=== PATIENT | female | born 1930 | race Caucasian/White ===

== ENCOUNTER 2017-06-16 12:31 | Inpatient (IN) | payer MEDICARE ==
[2017-06-16] VITALS (44 sets, daily range): BP systolic 65–151; BP diastolic 44–107; PULSE 70–171; RESP 11–30; TEMP 96.1–98.7; O2SAT 0–100
[~2017-06-16] VITALS: Ht 170.2 cm; Wt 60.7 kg
[~2017-06-16 12:31] MED LIST: APIX5 PO; B12-1CHW CHEW; CEFU1TAB43 PO; CITA10TA4 PO; DIGO0.12 PO; DILTCD180 PO; FURO20 PO; KCL20 PO; LEVO137T4 PO; LOVA1TAB47 PO; METO25 PO; PANT20 PO; PRED10 PO; TAB-TAB PO; UMEC1AER INH
[2017-06-16] MEDS ORDERED: PHENYLEPHRINE HCL 10 MG/ML VIAL IV PUSH ONE (13:00)
[2017-06-16] MEDS ORDERED: ETOMIDATE 20 MG/10 ML VIAL IV PUSH ONE (13:00)
[2017-06-16] MEDS ORDERED: SODIUM CHLORIDE 0.9% FLUSH 10 ML FLUSH IVF PRN ×2 (13:00→16:00)
[2017-06-16] MEDS ORDERED: SODIUM CHLOR 0.9% 1000 ML INJ 1,000 ML IV ONE (13:00)
[2017-06-16] MEDS ORDERED: DILTIAZEM HCL 25 MG/5 ML VIAL IV ONE (13:00)
[2017-06-16] MEDS ORDERED: SUCCINYLCHOLINE CHLORIDE 200 MG/10 ML VIAL IV PUSH ONE (13:00)
--- NOTE | 2017-06-16 13:04 | PD ---
HPI Chief Complaint: respiratory distress Time Seen by Provider: 12:47 Travel History International Travel<30 days: No Contact w/Intl Traveler<30days: No Traveled to known affect area: No History of Present Illness HPI The patient is a 86-year-old female who presents to the emergency department via EMS for respiratory distress. According to EMS the patient was found to be in a tachyarrhythmia with a heart rate above 150 with poor respiratory effort. EMS states they were going to attempt intubation, however, was unable to obtain IV access or IO access. Therefore, EMS continue to use bag valve to assist the patient's respirations. When the patient arrived her eyes are closed, she was nonverbal, not following commands. Therefore, no further information was obtainable from the patient. PFSH Past Medical History Arthritis: No Asthma: No Blood Disorders: No Heart Rhythm Problems: Yes Cancer: Yes Cardiovascular Problems: Yes High Cholesterol: Yes (hyperlipidemia) Chest Pain: Yes Congestive Heart Failure: No COPD: Yes Cerebrovascular Accident: No Diabetes: No Diminished Hearing: No Endocrine: Yes Gastrointestinal Disorders: No GERD: No Glaucoma: No Genitourinary: No Headaches: No Hepatitis: No Hiatal Hernia: Yes Hypertension: Yes Immune Disorder: No Implanted Vascular Access Dvce: Yes Kidney Stones: No Musculoskeletal: No Neurologic: No Psychiatric: No Reproductive: No Respiratory: Yes Migraines: No Renal Failure: No Seizures: No Sleep Apnea: No Thyroid Disease: Yes Ulcer: No Past Surgical History Abdominal Surgery: Yes (hernia repair) Cardiac Surgery: Yes (quad bi-pass) Section: Yes Coronary Artery Bypass Graft: Yes Ear Surgery: No Endocrine Surgery: No Eye Surgery: No Genitourinary Surgery: Yes (bladder prolapsed) Gynecologic Surgery: Yes () Joint Replacement: Yes (RIGHT HIP) Neurologic Surgery: No Oral Surgery: No Pacemaker: No Thoracic Surgery: No Other Surgery: Yes (hysterectomy, bladder, eye, hip, hernia) Social History Alcohol Use: Yes (OCC) Tobacco Use: No Substance Use: No Allergies-Medications (Allergen,Severity, Reaction): Coded Allergies: No Known Allergies (Verified , 05/02/15) Reported Meds & Prescriptions Reported Meds & Active Scripts Active Reported K-Tab (Potassium Chloride) 10 Meq Tab 10 Meq PO DAILY Albuterol Neb (Albuterol Sulfate) 2.5 Mg/3 Ml Neb 2.5 Mg NEB ONCE Atrovent HFA 12.9 GM Inh (Ipratropium Ross) 17 Mcg/Act Aer 2 Puff INH Q6HR PRN Prednisone 5 Mg Tab 5 Mg PO DAILY Metoprolol Tartrate 25 Mg Tab 12.5 Mg PO BID Eliquis (Apixaban) 5 Mg Tab 5 Mg PO BID Vitamin B-12 (Cyanocobalamin) 1,000 Mcg Tab 1,000 Mcg PO DAILY Escitalopram (Escitalopram Oxalate) 10 Mg Tab 10 Mg PO DAILY Levothyroxine (Levothyroxine Sodium) 137 Mcg Tab 137 Mcg PO DAILY Digoxin 0.125 Mg Tab 0.125 Mg PO EVERY OTHER DAY Review of Systems ROS Limitations: Clinical Condition, Altered Mental Status Except as stated in HPI: all other systems reviewed are Neg Cardiovascular: Positive: Tachycardia Respiratory: Positive: Shortness of Breath Physical Exam Exam Limitations: Clinical Condition, Altered Mental Status Narrative GENERAL: 86-year-old female who presents emergency department respiratory distress with poor respiratory effort. Eyes closed, nonverbal, does not follow commands. SKIN: Cool and clammy. HEAD: Atraumatic. Normocephalic. EYES: 2 mm bilateral. ENT: No nasal bleeding or discharge. Upper dentures in place. Lower bridge in place. NECK: Trachea midline. No JVD. CARDIOVASCULAR: Irregularly irregular, tachycardic with a heart rate in the 160s. RESPIRATORY: Poor respiratory effort, agonal. Diminished breath sounds on the right. Crackles noted on the left. GASTROINTESTINAL: Abdomen soft, non-tender, nondistended. MUSCULOSKELETAL: Mild pitting edema to lower extremities noted. NEUROLOGICAL: Eyes closed, nonverbal, does not follow commands. PSYCHIATRIC: Unable to assess. Data Data Last Documented VS Vital Signs Date Time Temp Pulse Resp B/P Pulse Ox O2 Delivery O2 Flow Rate FiO2 06/16/17 13:59 70 06/16/17 13:41 81 16 06/16/17 12:43 0 06/16/17 12:31 151/107 Orders Complete Blood Count With Diff (06/16/17 12:47) Comprehensive Metabolic Panel (06/16/17 12:47) B-Type Natriuretic Peptide (06/16/17 12:47) D-Dimer (06/16/17 12:47) Act Partial Throm Time (Ptt) (06/16/17 12:47) Prothrombin Time / Inr (Pt) (06/16/17 12:47) Magnesium (Mg) (06/16/17 12:47) Ckmb (Isoenzyme) Profile (06/16/17 12:47) Troponin I (06/16/17 12:47) Arterial Blood Gas (Abg) (06/16/17 12:47) Blood Culture (06/16/17 12:47) Iv Access Insert/Monitor (06/16/17 12:47) Electrocardiogram (06/16/17 12:47) Ecg Monitoring (06/16/17 12:47) Oximetry (06/16/17 12:47) Oxygen Administration (06/16/17 12:47) Chest, Single Ap (06/16/17 12:47) Urinary Catheter Insert/Apply (06/16/17 12:47) Sodium Chloride 0.9% Flush (Ns Flush) (06/16/17 13:00) Digoxin (06/16/17 12:47) Sodium Chlor 0.9% 1000 Ml Inj (Ns 1000 M (06/16/17 13:00) Lactic Acid (06/16/17 12:47) Diltiazem Inj (Cardizem Inj) (06/16/17 13:00) Etomidate Inj (Amidate Inj) (06/16/17 13:00) Succinylcholine Inj (Quelicin Inj) (06/16/17 13:00) Phenylephrine Inj (Neosynephrine Inj) (06/16/17 13:00) Midazolam Inj (Versed Inj) (06/16/17 13:15) Midazolam 100 Mg/Ml Inj (Versed 100 Mg/M (06/16/17 13:15) Neurological Rass Scale Q30MX2,Q2HX4,Q4H (06/16/17 13:04) Fentanyl Drip (Fentanyl Drip) (06/16/17 13:15) Admit Order (Ed Use Only) (06/16/17 14:34) Labs Laboratory Tests Test 06/16/17 13:10 White Blood Count 14.4 TH/MM3 Red Blood Count 3.71 MIL/MM3 Hemoglobin 11.0 GM/DL Hematocrit 33.9 % Mean Corpuscular Volume 91.2 FL Mean Corpuscular Hemoglobin 29.6 PG Mean Corpuscular Hemoglobin 32.4 % Concent Red Cell Distribution Width 14.7 % Platelet Count 305 TH/MM3 Mean Platelet Volume 7.9 FL Neutrophils (%) (Auto) 87.0 % Lymphocytes (%) (Auto) 5.0 % Monocytes (%) (Auto) 4.9 % Eosinophils (%) (Auto) 0.9 % Basophils (%) (Auto) 2.2 % Neutrophils # (Auto) 12.6 TH/MM3 Lymphocytes # (Auto) 0.7 TH/MM3 Monocytes # (Auto) 0.7 TH/MM3 Eosinophils # (Auto) 0.1 TH/MM3 Basophils # (Auto) 0.3 TH/MM3 CBC Comment DIFF FINAL Differential Comment Prothrombin Time 17.0 SEC Prothromb Time International 1.5 RATIO Ratio Activated Partial 30.4 SEC Thromboplast Time D-Dimer Quantitative (PE/DVT) 3.12 MG/L FEU Blood Gas Puncture Site RT RADIAL Blood Gas Patient Temperature 98.6 Blood Gas HCO3 20 mmol/L Blood Gas Base Excess -5.7 mmol/L Blood Gas Oxygen Saturation 97 % Arterial Blood pH 7.27 Arterial Blood Partial 46 mmHG Pressure CO2 Arterial Blood Partial 262 mmHG Pressure O2 Arterial Blood Oxygen Content 16.5 Vol % Arterial Blood 1.2 % Carboxyhemoglobin Arterial Blood Methemoglobin 1.1 % Blood Gas Hemoglobin 11.6 G/DL Oxygen Delivery Device VENTILATOR Blood Gas Ventilator Setting 14/500/PEEP 5 Blood Gas Inspired Oxygen 100 % Sodium Level 126 MEQ/L Potassium Level 5.3 MEQ/L Chloride Level 90 MEQ/L Carbon Dioxide Level 25.8 MEQ/L Anion Gap 10 MEQ/L Blood Urea Nitrogen 26 MG/DL Creatinine 1.20 MG/DL Estimat Glomerular Filtration 43 ML/MIN Rate Random Glucose 229 MG/DL Lactic Acid Level 5.3 mmol/L Calcium Level 7.2 MG/DL Protein Corrected Calcium 8.1 MG/DL Magnesium Level 2.0 MG/DL Total Bilirubin 0.5 MG/DL Aspartate Amino Transf 31 U/L (AST/SGOT) Alanine Aminotransferase 24 U/L (ALT/SGPT) Alkaline Phosphatase 57 U/L Total Creatine Kinase 61 U/L Troponin I 0.09 NG/ML B-Type Natriuretic Peptide 1672 PG/ML Total Protein 5.4 GM/DL Albumin 2.8 GM/DL Digoxin Level 0.4 NG/ML MDM Medical Decision Making Medical Screen Exam Complete: Yes Emergency Medical Condition: Yes Medical Record Reviewed: Yes Interpretation(s) EKG #1 reveals atrial fibrillation with RVR, right bundle branch block, rate 157. EKG #2 reveals atrial fibrillation with a rate of 78. Right bundle-branch block. Nonspecific T wave changes. Last Impressions Chest X-Ray 06/16/17 1247 Signed Impressions: Service Date/Time: Friday, June 16, 2017 13:06 - CONCLUSION: 1. Endotracheal tube 2.5 cm above the mitzi. 2. Opacification right hemithorax from previous pneumonectomy. 3. Small left pleural effusion and left basilar atelectasis. Keven Larson MD Laboratory Tests Test 06/16/17 13:10 White Blood Count 14.4 TH/MM3 Red Blood Count 3.71 MIL/MM3 Hemoglobin 11.0 GM/DL Hematocrit 33.9 % Mean Corpuscular Volume 91.2 FL Mean Corpuscular Hemoglobin 29.6 PG Mean Corpuscular Hemoglobin 32.4 % Concent Red Cell Distribution Width 14.7 % Platelet Count 305 TH/MM3 Mean Platelet Volume 7.9 FL Neutrophils (%) (Auto) 87.0 % Lymphocytes (%) (Auto) 5.0 % Monocytes (%) (Auto) 4.9 % Eosinophils (%) (Auto) 0.9 % Basophils (%) (Auto) 2.2 % Neutrophils # (Auto) 12.6 TH/MM3 Lymphocytes # (Auto) 0.7 TH/MM3 Monocytes # (Auto) 0.7 TH/MM3 Eosinophils # (Auto) 0.1 TH/MM3 Basophils # (Auto) 0.3 TH/MM3 CBC Comment DIFF FINAL Differential Comment Prothrombin Time 17.0 SEC Prothromb Time International 1.5 RATIO Ratio Activated Partial 30.4 SEC Thromboplast Time D-Dimer Quantitative (PE/DVT) 3.12 MG/L FEU Blood Gas Puncture Site RT RADIAL Blood Gas Patient Temperature 98.6 Blood Gas HCO3 20 mmol/L Blood Gas Base Excess -5.7 mmol/L Blood Gas Oxygen Saturation 97 % Arterial Blood pH 7.27 Arterial Blood Partial 46 mmHG Pressure CO2 Arterial Blood Partial 262 mmHG Pressure O2 Arterial Blood Oxygen Content 16.5 Vol % Arterial Blood 1.2 % Carboxyhemoglobin Arterial Blood Methemoglobin 1.1 % Blood Gas Hemoglobin 11.6 G/DL Oxygen Delivery Device VENTILATOR Blood Gas Ventilator Setting 14/500/PEEP 5 Blood Gas Inspired Oxygen 100 % Sodium Level 126 MEQ/L Potassium Level 5.3 MEQ/L Chloride Level 90 MEQ/L Carbon Dioxide Level 25.8 MEQ/L Anion Gap 10 MEQ/L Blood Urea Nitrogen 26 MG/DL Creatinine 1.20 MG/DL Estimat Glomerular Filtration 43 ML/MIN Rate Random Glucose 229 MG/DL Lactic Acid Level 5.3 mmol/L Calcium Level 7.2 MG/DL Protein Corrected Calcium 8.1 MG/DL Magnesium Level 2.0 MG/DL Total Bilirubin 0.5 MG/DL Aspartate Amino Transf 31 U/L (AST/SGOT) Alanine Aminotransferase 24 U/L (ALT/SGPT) Alkaline Phosphatase 57 U/L Total Creatine Kinase 61 U/L Troponin I 0.09 NG/ML B-Type Natriuretic Peptide 1672 PG/ML Total Protein 5.4 GM/DL Albumin 2.8 GM/DL Digoxin Level 0.4 NG/ML Differential Diagnosis Differential diagnosis includes A. fib with RVR, ventricular arrhythmia, congestive heart failure, cardiomyopathy, pneumonia, sepsis, bronchitis, electrolyte abnormality, volume overload. Narrative Course IV was established via left external jugular 18-gauge, placed by myself. The patient is a placed on cardiac telemetry monitoring and continuous pulse oximetry monitoring. The patient's initial breathing was supported with bag valve ventilation. Immediate EKG was performed to differentiate A. fib with RVR and underlying bundle branch block versus ventricular tachycardia. EKG revealed A. fib with RVR. The patient was administered etomidate and succinylcholine, was intubated using rapid sequence intubation. Post intubation chest x-ray was obtained. [place] catheter was placed. Labs were drawn and sent. The patient's blood pressure did lower after the administration of Cardizem 20 mg intravenously, was supported with IV fluids and the blood pressure responded. The patient's heart rate, A. fib with RVR, responded to 20 mg of Cardizem intravenously, came down into the 70s. Repeat EKG revealed A. fib with right bundle-branch block, rate controlled. Blood culture and lactic acid were sent to lab. Chest x-ray reveals previous right pneumonectomy, BNP is elevated greater than 1600, troponin is elevated 0.09, most likely secondary to A. fib with RVR. Patient's d-dimer is elevated, however, she is anticoagulated with Eliquis, I doubt pulmonary embolism. The patient will be admitted to the intensive care unit. I discussed the patient with Dr. Amaral who agrees with admission. Critical Care Narrative Aggregate critical care time was 45 minutes. Time to perform other separately billable procedures was not included in the critical care time. My time did not include minutes spent treating any other patients simultaneously or on activities that did not directly contribute to the patient's treatment. The services I provided to this patient were to treat and/or prevent clinically significant deterioration that could result in: Anoxia, hypoxia, aspiration, arrhythmia, . I provided critical care services requiring my management, as noted below: Chart data review, documentation time, medication orders and management, vital sign assessments/reviewing monitor data, ordering and reviewing lab tests, ordering and interpreting/reviewing x-rays and diagnostic studies, care of the patient and discussion of the patient with the admitting physicians. Procedures Procedure Narrative INTUBATION: The patient was put in optimal position for the procedure. Rapid sequence intubation was initiated by me using 20 milligrams of etomidate IV and 100 milligrams of succinylcholine IV. The patient was intubated with a 7.5 cuffed endotracheal tube. Tube placement was confirmed by visualization of the tube and balloon passing through the cords, capnometry and subsequent chest x- ray. Breath sounds were equal and well aerated bilaterally postintubation. No breath sounds over stomach. Patient tolerated procedure well. Physician Communication Physician Communication The on-call service assistant was paged for admission. I discussed the patient with Dr. Amaral who agrees with admission. Diagnosis Primary Impression: Atrial fibrillation with RVR Additional Impression: Respiratory distress Admitting Information Admitting Physician Requests: Admit Condition: Serious Codey Hairston MD Jun 16, 2017 13:04
--- NOTE | 2017-06-16 13:14 | RADRPT ---
EXAM DATE/TIME: 06/16/2017 13:06 [facility] COMPARISON: CHEST SINGLE AP, May 08, 2015, 4:40. INDICATIONS : Post intubation. MEDICAL HISTORY : Unobtainable. SURGICAL HISTORY : Unobtainable. ENCOUNTER: Initial ACUITY: 1 day PAIN SCORE: Non-responsive. LOCATION: Bilateral chest FINDINGS: A single view of the chest demonstrates endotracheal tube placement with tip 2.5 cm above the mitzi. Volume loss and complete opacification right hemithorax. Minimal left basilar density and small effu dennis. Previous median sternotomy. Osseous structures are intact. CONCLUSION: 1. Endotracheal tube 2.5 cm above the mitzi. 2. Opacification right hemithorax from previous pneumonectomy. 3. Small left pleural effusion and left basilar atelectasis. Keven Larson MD on June 16, 2017 at 13:12 Board Certified Radiologist. This report was verified electronically.
[2017-06-16] MEDS ORDERED: fentaNYL DRIP 250 ML IV SCH (13:15)
[2017-06-16] MEDS ORDERED: MIDAZOLAM HCL 5 MG/5 ML VIAL IV PUSH ONE (13:15)
[2017-06-16] MEDS ORDERED: MIDAZOLAM 100 MG/ML INJ 100 ML IV SCH (13:15)
[2017-06-16 13:18] LABS: AUTOMATED NEUTROPHIL # 12.6 TH/MM3 (1.8-7.7); BASOPHIL # 0.3 TH/MM3 (0-0.2); BASOPHIL % 2.2 % (0.0-2.0); BLOOD GAS BASE EXCESS -5.7 mmol/L (-2-2); BLOOD GAS CARBOXYHEMOGLOBIN 1.2 % (0-4); BLOOD GAS HCO3 20 mmol/L (22-26); BLOOD GAS METHEMOGLOBIN 1.1 % (0-2); BLOOD GAS O2 HGB SATURATION 97 % (90-100); BLOOD GAS OXYGEN CONTENT 16.5 Vol % (12.0-20.0); BLOOD GAS PCO2 46 mmHG (38-42); BLOOD GAS PO2 262 mmHG (61-120); BLOOD GAS TOTAL HGB 11.6 G/DL (12.0-16.0); CRITICAL VALUE YES; DRAW SITE RT RADIAL; EOSINOPHIL # 0.1 TH/MM3 (0-0.4); EOSINOPHIL % 0.9 % (0.0-4.0); FIO2 100 %; HEMATOCRIT 33.9 % (35.0-46.0); LYMPHOCYTE # 0.7 TH/MM3 (1.0-4.8); MEAN CELL VOLUME 91.2 FL (80.0-100.0); MEAN CORPUSCULAR HEMOGLOBIN 29.6 PG (27.0-34.0); MEAN CORPUSCULAR HGB CONC 32.4 % (32.0-36.0); MONO % 4.9 % (0.0-8.0); NUMBER OF ARTERIAL PUNCTURES 1; OXYGEN DEVICE VENTILATOR; PLATELET COUNT 305 TH/MM3 (150-450); RED BLOOD COUNT 3.71 MIL/MM3 (4.00-5.30); RED CELL DISTRIBUTION WIDTH 14.7 % (11.6-17.2); STAT YES; TEMP CORR TO 98.6; ULNAR PULSE PRESENT; VENT SETTINGS 14/500/PEEP 5; WHITE BLOOD COUNT 14.4 TH/MM3 (4.0-11.0)
[2017-06-16 13:26] LABS: HEMO FLAGS DIFF FINAL
[2017-06-16 13:31] LABS: POTASSIUM 5.3 MEQ/L (3.5-5.1)
[2017-06-16 13:54] LABS: APTT (PATIENT) 30.4 SEC (24.3-30.1); INTERNATIONAL NORMALIZED RATIO 1.5 RATIO
[2017-06-16 13:55] LABS: BICARBONATE 25.8 MEQ/L (21.0-32.0); CALCIUM-PROTEIN CORRECTED 8.1 MG/DL (8.5-10.1); TOTAL BILIRUBIN ADULT 0.5 MG/DL (0.2-1.0)
[2017-06-16] MEDS ORDERED: ESCI10TA PO (14:13)
[2017-06-16] MEDS ORDERED: APIX5TAB PO (14:13)
[2017-06-16] MEDS ORDERED: PRED5TAB PO (14:13)
[2017-06-16] MEDS ORDERED: IPRA17I INH (14:13)
[2017-06-16] MEDS ORDERED: ALBU0.08 NEB (14:13)
[2017-06-16] MEDS ORDERED: LEVO137T2 PO (14:13)
[2017-06-16] MEDS ORDERED: DIGO0.12 PO (14:13)
[2017-06-16] MEDS ORDERED: VITA10002 PO (14:13)
[2017-06-16] MEDS ORDERED: K-TA10TA PO (14:13)
[2017-06-16] MEDS ORDERED: METO25TA3 PO (14:13)
[2017-06-16 14:22] LABS: DIGOXIN 0.4 NG/ML (0.8-2.0)
[2017-06-16] MEDS ORDERED: TERBUTALINE INJ 1 MG/ML AMP SQ PRN (15:30)
[2017-06-16] MEDS ORDERED: CHLORHEXIDINE GLUCONATE 2 % 1 PACK (2 CLOTHS) TOP PRN (15:30)
[2017-06-16] MEDS ORDERED: ACETAMINOPHEN 325 MG TAB PO PRN (15:30)
[2017-06-16] MEDS ORDERED: SENNOSIDES 8.6 MG TAB PO PRN (15:30)
[2017-06-16] MEDS ORDERED: MAGNESIUM HYDROXIDE SUSP 30 ML CUP PO PRN (15:30)
[2017-06-16] MEDS ORDERED: MISCELLANEOUS NURSING INFORMATION XX SCH (15:30)
[2017-06-16] MEDS ORDERED: ONDANSETRON HCL 4 MG/2 ML VIAL IV PRN (15:30)
--- NOTE | 2017-06-16 16:10 | HHI.HP ---
[facility] Service Critical Care Medicine Primary Care Physician Rustam Gonzales, DO Admission Diagnosis atrial fibrillation with RVR, respiratory distress, hyponatremia Diagnosis: (1) Non-small cell carcinoma of lung Diagnosis: Principal (2) Atrial fibrillation with RVR Diagnosis: Principal (3) Acute respiratory failure with hypoxia and hypercapnia Diagnosis: Principal (4) Tachycardia Diagnosis: Principal (5) SOB (shortness of breath) Diagnosis: Principal (6) PNA (pneumonia) Diagnosis: Principal (7) Coronary artery disease Diagnosis: Principal (8) Hypertension Diagnosis: Principal (9) Hypothyroidism Diagnosis: Principal (10) Leukocytosis Diagnosis: Principal (11) Normocytic anemia Diagnosis: Principal (12) Lactic acidosis Diagnosis: Principal (13) On apixaban therapy Diagnosis: Principal (14) Hyponatremia Diagnosis: Principal (15) Hyperkalemia Diagnosis: Principal (16) Acute hyperglycemia Diagnosis: Principal (17) Elevated INR Diagnosis: Principal (18) Elevated partial thromboplastin time (PTT) Diagnosis: Principal (19) Vitamin B12 deficiency Diagnosis: Principal (20) Anxiety disorder Diagnosis: Principal (21) Current chronic use of systemic steroids Diagnosis: Principal (22) Elevated brain natriuretic peptide (BNP) level Diagnosis: Principal (23) Right bundle branch block Diagnosis: Principal (24) Elevated troponin I level Diagnosis: Principal (25) Septic shock Diagnosis: Principal Chief Complaint: shortness of breath Travel History International Travel<30 Days: No Contact w/Intl Traveler <30 Da: No Traveled to Known Affected Are: No Sepsis Criteria SIRS Criteria (2 or more): RR > 20 or PaCO2 < 32, WBC > 95398, < 4000 or > 10 % bands Severe Sepsis (+one): Lactate >2 Septic Shock Criteria: Lactic acid >=4 Criteria Outcome: Meets septic shock criteria History of Present Illness 86-year-old female. Data admission 06/16/2017. Past medical history includes non-small cell carcinoma lung status post right human echo, coronary disease status post CABG 4, hypertension, dyslipidemia, hypothyroidism, atrial fibrillation, osteoarthritis. Patient sees Dr. Lemos and recently refused a pacemaker. She is also recently hospitalized at [facility] in early May with pneumonia 4 days. Negative etiology for shortness of breath and patient was sent home. She has been short of breath in the interim. She presents today to the emergency department at [place] via EMS for respiratory distress. Intubation was attempted in the field due to a saturation of 60% and a heart rate of 150 however unable to obtain IV or I/O access. Patient was intubated with a 7.5 ET tube@receiving 20 mg etomidate and 100 mg succinylcholine after receiving IV access Laboratories revealed a significant acidosis at the PEG 727. PCO2 46. PO2 262. Lactic acid was 5.3. General leukocytosis of 14,000. Sodium was 126 for potassium 5.3. Creatinine 1.2. BNP elevated at 1600. Troponin 0.09. EKG revealed A. fib with RVR with a right bundle branch block which appears to be new. His x-ray revealed status post right pneumonectomy. Small left pleural effusion/infiltrate. Digoxin level 0.4. She is awake and arousable on the ventilator the present time. Review of Systems ROS Limitations: Intubated Past Family Social History Allergies: Coded Allergies: No Known Allergies (Verified , 05/02/15) Past Medical History Osteoarthritis History of non-small carcinoma of the lung Coronary artery disease Hypertension Dyslipidemia Hypothyroidism Atrial fibrillation currently in RVR Anxiety disorder NOS Chronic prednisone use Vitamin B12 deficiency Past Surgical History Right pneumonectomy CABG 4 Left inguinal hernia. Left cataract Polyp removal 2 Cystocele repair Right total hip repair Reported Medications K-Tab (Potassium Chloride) 10 Meq Tab 10 Meq PO DAILY Albuterol Neb (Albuterol Sulfate) 2.5 Mg/3 Ml Neb 2.5 Mg NEB ONCE Atrovent HFA 12.9 GM Inh (Ipratropium [place]) 17 Mcg/Act Aer 2 Puff INH Q6HR PRN Prednisone 5 Mg Tab 5 Mg PO DAILY Metoprolol Tartrate 25 Mg Tab 12.5 Mg PO BID Eliquis (Apixaban) 5 Mg Tab 5 Mg PO BID Vitamin B-12 (Cyanocobalamin) 1,000 Mcg Tab 1,000 Mcg PO DAILY Escitalopram (Escitalopram Oxalate) 10 Mg Tab 10 Mg PO DAILY Levothyroxine (Levothyroxine Sodium) 137 Mcg Tab 137 Mcg PO DAILY Digoxin 0.125 Mg Tab 0.125 Mg PO EVERY OTHER DAY Active Ordered Medications Reviewed in EMR Family History Father of myocardial infarction age 73. Social History Secondhand smoke exposure. Very rare alcohol use. No IV drug use documented Physical Exam Vital Signs Vital Signs Date Time Temp Pulse Resp B/P Pulse Ox O2 Delivery O2 Flow Rate FiO2 06/16/17 15:00 82 96/56 95 06/16/17 14:15 71 91/56 06/16/17 14:00 70 96/61 06/16/17 13:59 70 06/16/17 13:45 79 82/47 06/16/17 13:41 81 16 06/16/17 13:30 74 101/65 06/16/17 13:15 86 96/66 06/16/17 13:00 80 90/54 06/16/17 12:45 118 65/44 100 06/16/17 12:43 0 100 06/16/17 12:37 100 06/16/17 12:31 171 151/107 100 Physical Exam GENERAL: 86 year old female, critically ill currently resting in bed in no acute distress SKIN: Cool and dry. No rash HEAD: Atraumatic. Normocephalic. EYES: Right pupil about 3 mm and reactive. Left pupil round 2 mm and sluggish. History of left cataract. No scleral icterus. No injection or drainage. ENT: No nasal bleeding or discharge. Mucous membranes pink and moist. NECK: Trachea midline. No JVD. CARDIOVASCULAR: IRR. S1, S2. No S4. Without murmur, clicks, calculus or rubs RESPIRATORY: Miss breath sounds throughout right lung moore. Few crackles appreciated in the left base. No wheezing GASTROINTESTINAL: Abdomen soft, non-tender, nondistended. Hypoactive bowel sounds are appreciated. MUSCULOSKELETAL: Extremities without difficulty and peripheral edema NEUROLOGICAL: Arousable on the ventilator. Nods head to simple questions. Moves all 4 extremities spontaneously. Positive gag. Positive corneal reflex. Laboratory Laboratory Tests Test 06/16/17 13:10 White Blood Count 14.4 Red Blood Count 3.71 Hemoglobin 11.0 Hematocrit 33.9 Mean Corpuscular Volume 91.2 Mean Corpuscular Hemoglobin 29.6 Mean Corpuscular Hemoglobin 32.4 Concent Red Cell Distribution Width 14.7 Platelet Count 305 Mean Platelet Volume 7.9 Neutrophils (%) (Auto) 87.0 Lymphocytes (%) (Auto) 5.0 Monocytes (%) (Auto) 4.9 Eosinophils (%) (Auto) 0.9 Basophils (%) (Auto) 2.2 Neutrophils # (Auto) 12.6 Lymphocytes # (Auto) 0.7 Monocytes # (Auto) 0.7 Eosinophils # (Auto) 0.1 Basophils # (Auto) 0.3 CBC Comment DIFF FINAL Differential Comment Prothrombin Time 17.0 Prothromb Time International 1.5 Ratio Activated Partial 30.4 Thromboplast Time D-Dimer Quantitative (PE/DVT) 3.12 Blood Gas Puncture Site RT RADIAL Blood Gas Patient Temperature 98.6 Blood Gas HCO3 20 Blood Gas Base Excess -5.7 Blood Gas Oxygen Saturation 97 Arterial Blood pH 7.27 Arterial Blood Partial 46 Pressure CO2 Arterial Blood Partial 262 Pressure O2 Arterial Blood Oxygen Content 16.5 Arterial Blood 1.2 Carboxyhemoglobin Arterial Blood Methemoglobin 1.1 Blood Gas Hemoglobin 11.6 Oxygen Delivery Device VENTILATOR Blood Gas Ventilator Setting 14/500/PEEP 5 Blood Gas Inspired Oxygen 100 Sodium Level 126 Potassium Level 5.3 Chloride Level 90 Carbon Dioxide Level 25.8 Anion Gap 10 Blood Urea Nitrogen 26 Creatinine 1.20 Estimat Glomerular Filtration 43 Rate Random Glucose 229 Lactic Acid Level 5.3 Calcium Level 7.2 Protein Corrected Calcium 8.1 Magnesium Level 2.0 Total Bilirubin 0.5 Aspartate Amino Transf 31 (AST/SGOT) Alanine Aminotransferase 24 (ALT/SGPT) Alkaline Phosphatase 57 Total Creatine Kinase 61 Troponin I 0.09 B-Type Natriuretic Peptide 1672 Total Protein 5.4 Albumin 2.8 Digoxin Level 0.4 Date/Time Procedure Status Source Growth 06/16/17 13:10 Aerobic Blood Culture Received Blood Peripheral Pending 06/16/17 13:10 Anaerobic Blood Culture Received Blood Peripheral Pending Result Diagram: 06/16/17 1310 06/16/17 1310 Imaging Last 72 hours Impressions Chest X-Ray 06/16/17 1247 Signed Impressions: Service Date/Time: Friday, June 16, 2017 13:06 - CONCLUSION: 1. Endotracheal tube 2.5 cm above the mitzi. 2. Opacification right hemithorax from previous pneumonectomy. 3. Small left pleural effusion and left basilar atelectasis. Keven Larson MD Assessment and Plan Assessment and Plan Neuro/Psych: Anxiety disorder NOS Currently started on propofol/fentanyl drips for sedation/analgesia while intubated Goal of RASS -2 Daily sedation vacation Continue Escitalopram 10 mg by mouth daily/home medication CV: Severe sepsis A. fib with RVR Coronary disease status post CABG 4 History of hypertension Dyslipidemia Lactic acidosis Patient is currently on normal saline at 84 cc an hour. Holding metoprolol 12.5 mill grams by mouth twice a day/home medication Resume digoxin 0.125 mg by mouth every other day. Will load with 0.25 mg 1 now IV since digoxin level 0.4 currently. Recheck digoxin level in a.m. Consult cardiology/Dr. Lemos. Previous pacemaker candidate quadrant but patient refused 2-D echocardiogram 05/14 revealed EF 55-60%. No regional wall motion abnormality. Mild TR/MR. REY 37 mmHg Repeat 2-D echocardiogram ordered Serial lactates until clear Lipid panel ordered Check CVP monitor Resp: Acute hypoxic hypercapnic respiratory failure Recent history pneumonia hospitalist at [facility] History right pneumonectomy status post non-small carcinoma of the lung [facility] 500/1.12/04/59 Ventilator bundle Duo nebs every 4 hours with albuterol every 2 hours when necessary dyspnea Consult pulmonology/Dr. Epps On albuterol nebulizers and ipratropium inhaler at home. Her chest x-rays reveals right pneumonectomy. Left side with possible infiltrate/effusion left lower lobe. Repeat ABG in a.m. GI: Patient is currently nothing by mouth OG tube to low intermittent wall suction Protonix for GI prophylaxis Aiyana-Colace for bowel regimen : [place] catheter has been placed for accurate I's and O's in a critically ill patient Endo: Hyperglycemia of critical illness/prednisone usage Hypothyroidism Vitamin B12 deficiency Chronic prednisone usage- 5 mg daily Continues cyanocobalamin 1000 mcg by mouth daily On Solu-Medrol 40 mg IV twice a day pulmonary dosage Resume levothyroxine at 137 g daily. Check TSH Sliding-scale insulin with Accu-Cheks to maintain euglycemia/every 6 hours/low regimen Renal: Acute kidney injury Creatinine currently 1.2. Monitor urine output Accurate I's and O's Repeat BMP in a.m. Heme: Leukocytosis Normocytic anemia Chronic Apixaban use Elevated PTT/PTT - fibrinogen pending Holding NOAC secondary to acute illness and possible intervention. We'll start heparin drip in the interim Monitor CBC daily. Follow trends ID: Blood cultures 2, urine, sputum, Legionella and pneumococcal urinary antigen and influenza all ordered Start empirically on vancomycin, cefepime and azithromycin for community- acquired pneumonia/ICU possible HCAP with recent hospitalization at [facility] FEN: Hyponatremia/appears euvolemic -Hyperkalemia Replacing electrolytes as clinically indicated Check osm serum and urine urine sodium, TSH, cortisol and uric acid. Holding KCl 10 mEq by mouth twice a day. Resume when clinically indicated MSK: Osteoarthritis Access - Right IJ CVL day 1 placed 06/16 Prophylaxis - GI - Protonix - DVT - SCD/heparin drip Critical Care: The total critical care time was 55 minutes. Time to perform other separately billable procedures was not included in the critical care time. Code Status Full code Discussed Condition With Dr. Hairston/ED physician. Daughter Lolly Mercedes [phone]. Care plan discussed and all questions answered. Problem Qualifiers (1) PNA (pneumonia): Qualified Code: J18.9 - Pneumonia of left lung due to infectious organism, unspecified part of lung (2) Coronary artery disease: Qualified Code: I25.10 - Coronary artery disease involving [place] coronary artery of [place] heart without angina pectoris (3) Hypertension: Qualified Code: I10 - Essential hypertension (4) Hypothyroidism: Qualified Code: E03.9 - Hypothyroidism, unspecified type (5) Leukocytosis: Qualified Code: D72.829 - Leukocytosis, unspecified type (6) Anxiety disorder: Qualified Code: F41.9 - Anxiety disorder, unspecified type Driss Amaral MD Jun 16, 2017 16:10
[2017-06-16] MEDS ORDERED: GLUCAGON 1 MG/ML VIAL OTHER PRN (16:15)
[2017-06-16] MEDS ORDERED: DEXTROSE 50% IN WATER 50 ML VIAL(D50) IV PRN (16:15)
--- NOTE | 2017-06-16 16:26 | RADRPT ---
EXAM DATE/TIME: 06/16/2017 16:17 [place] COMPARISON: CHEST SINGLE AP, June 16, 2017, 13:06. INDICATIONS : Central line placement. MEDICAL HISTORY : Hypertension. Myocardial infarction. Chronic obstructive pulmonary disease. SURGICAL HISTORY : CABG. Hysterectomy. Total hip replacement, right. Hiatal hernia repair. ENCOUNTER: Subsequent ACUITY: 1 day PAIN SCORE: Non-responsive. LOCATION: Bilateral chest FINDINGS: A single view of the chest demonstrates interval placement of a right IJ central venous catheter with its tip overlying the SVC. The endotracheal tube is in good position. There is complete opacificatio n of the right lung. There is a small left pleural effusion.. The cardiomediastinal contours are unr emarkable. Osseous structures are intact. Clips and wires suggest CABG CONCLUSION: Complete opacification right lung is stable. New right IJ central line in ecellent position. Taran Tee MD on June 16, 2017 at 16:23 Board Certified Radiologist. This report was verified electronically.
[2017-06-16] MEDS ORDERED: SODIUM BICARBONATE 8.4% SOLN 50 MEQ/50 ML VIAL SLOW IVP ONE (16:30)
[2017-06-16] MEDS ORDERED: DEXTROSE 50% IN WATER 50 ML VIAL(D50) IV PUSH ONE (16:30)
[2017-06-16 16:45] LABS: BLOOD GAS BASE EXCESS 1.8 mmol/L (-2-2); BLOOD GAS CARBOXYHEMOGLOBIN 1.5 % (0-4); BLOOD GAS HCO3 24 mmol/L (22-26); BLOOD GAS METHEMOGLOBIN 1.3 % (0-2); BLOOD GAS O2 HGB SATURATION 97 % (90-100); BLOOD GAS OXYGEN CONTENT 16.8 Vol % (12.0-20.0); BLOOD GAS PCO2 27 mmHg (38-42); BLOOD GAS PO2 225 mmHg (61-120); BLOOD GAS TOTAL HGB 11.9 G/DL (12.0-16.0); CRITICAL VALUE YES; OXYGEN DEVICE VENTILATOR
[2017-06-16] MEDS ORDERED: POTASSIUM CHLOR 20 MEQ PREMIX 100 ML IV PRN (16:45)
[2017-06-16] MEDS ORDERED: POTASSIUM CHLOR 40 MEQ PREMIX 100 ML IV PRN ×2 (16:45)
[2017-06-16] MEDS ORDERED: POTASSIUM CHLORIDE 25 MEQ EFFERVESCENT TAB PO PRN (16:45)
[2017-06-16] MEDS ORDERED: SODIUM PHOSPHATE INJ 30 MMOL in SODIUM CHLOR 0.9% 250 ML INJ 240 ML IV PRN (16:45)
[2017-06-16] MEDS ORDERED: MAGNESIUM OXIDE 400 MG TAB PO PRN (16:45)
[2017-06-16] MEDS ORDERED: MAGNESIUM SULFATE INJ 2 GM in SODIUM CHLORIDE 0.9% INJ 96 ML IV PRN (16:45)
[2017-06-16] MEDS ORDERED: INSULIN HUMAN REGULAR 1,000 UNITS/10 ML VIAL IV PUSH ONE (16:45)
[2017-06-16] MEDS ORDERED: MAGNESIUM SULFATE INJ 4 GM in SODIUM CHLORIDE 0.9% INJ 92 ML IV PRN (16:45)
[2017-06-16] MEDS ORDERED: POTASSIUM PHOSPHATE MONOBASIC 500 MG TAB PO/TUBE PRN (16:45)
[2017-06-16] MEDS ORDERED: POTASSIUM PHOSPHATE INJ 30 MMOL in SODIUM CHLOR 0.9% 250 ML INJ 250 ML IV PRN (16:45)
[2017-06-16 16:46] LABS: DRAW SITE RT RADIAL; FIO2 60 %; NUMBER OF ARTERIAL PUNCTURES 1; STAT NO; ULNAR PULSE PRESENT; VENT SETTINGS 500/18/PEEP 5
[2017-06-16] MEDS: RESP: ALBUTEROL 2.5 MG/IPRATROPIUM 0.5 MG NEB (SCH) INH ×2 (16:58→19:46)
[2017-06-16] MEDS ORDERED: DIGOXIN 0.5 MG/2 ML VIAL IV PUSH ONE (17:00)
[2017-06-16] MEDS ORDERED: Vancomycin Consult Pharmacy 1 EA OTHER SCH (17:00)
[2017-06-16] MEDS ORDERED: SODIUM POLYSTYRENE SULFONATE SUSP 15 GM/60 ML CUP PO ONE (17:00)
[2017-06-16 17:27] LABS: HEMATOCRIT 36.8 % (35.0-46.0); MEAN CELL VOLUME 91.2 FL (80.0-100.0); MEAN CORPUSCULAR HEMOGLOBIN 29.6 PG (27.0-34.0); MEAN CORPUSCULAR HGB CONC 32.5 % (32.0-36.0); PLATELET COUNT 305 TH/MM3 (150-450); RED BLOOD COUNT 4.04 MIL/MM3 (4.00-5.30); RED CELL DISTRIBUTION WIDTH 14.8 % (11.6-17.2); REVIEW FLAG FINAL; WHITE BLOOD COUNT 18.2 TH/MM3 (4.0-11.0)
[2017-06-16 17:40] LABS: APTT (PATIENT) 28.6 SEC (24.3-30.1); INTERNATIONAL NORMALIZED RATIO 1.3 RATIO
[2017-06-16] MEDS: fentaNYL DRIP 250 ML IV SCH (17:52)
[2017-06-16] MEDS: PROPOFOL 1000 MG/100 ML INJ 100 ML IV SCH ×2 (17:52→22:17)
[2017-06-16] MEDS: INSULIN NovoLIN REGULAR SUPPLEMENTAL SCALE SQ SCH (17:59)
[2017-06-16] MEDS: ARTIFICIAL TEARS OPTH SOLN 15 ML BTL EACH EYE SCH (18:00)
[2017-06-16] MEDS: SODIUM CHLOR 0.9% 1000 ML INJ 1,000 ML IV SCH (18:01)
[2017-06-16] MEDS: HEPARIN-D5W INJ 250 ML IV SCH (18:12)
[2017-06-16] MEDS: CEFEPIME INJ 2,000 MG in SODIUM CHLORIDE 0.9% INJ 100 ML IV SCH (18:52)
[2017-06-16] MEDS: AZITHROMYCIN INJ 500 MG in SODIUM CHLOR 0.9% 250 ML INJ 250 ML IV SCH (18:53)
[2017-06-16] MEDS ORDERED: RESP: IPRATROPIUM 0.5 MG/2.5 ML NEB NEB PRN (19:30)
[2017-06-16 19:39] LABS: URIC ACID 7.1 MG/DL (2.6-6.0)
[2017-06-16 19:41] LABS: HDL CHOLESTEROL 45.5 MG/DL (40.0-60.0)
[2017-06-16] MEDS: methylPREDNISolone SOD SUCC 40 MG/1 ML VIAL IV PUSH SCH (20:19)
[2017-06-16] MEDS: SODIUM CHLORIDE 0.9% FLUSH 10 ML FLUSH IV FLUSH SCH (20:19)
[2017-06-16] MEDS: CHLORHEXIDINE 0.12% (ORAL KIT) 15 ML CUP MT SCH (20:20)
[2017-06-16] MEDS: DOCUSATE SODIUM 50 MG/SENNA 8.6 MG TAB PO SCH (20:20)
--- NOTE | 2017-06-16 20:37 | MB ---
cc: MariaaAnthonyBISWAS,STEPHANI DATE OF CONSULTATION 06/16/2017 REASON FOR CONSULTATION Respiratory failure and pulmonary edema. HISTORY OF THE PRESENT ILLNESS This is an 86-year-old white female who has had a history for right pneumonectomy was brought to the emergency room with respiratory distress and atrial fibrillation with RVR. The patient was also hyponatremic and apparently took some tranquilizer pill at home and became more dyspneic and lethargic. She has been on anticoagulants for atrial fibrillation and upon arrival in the emergency room found to have atrial fibrillation with rapid ventricular response and had lactic acidosis. The INR was elevated. She was started on Cardizem and digoxin and was placed on IV Solu-Medrol as well as antibiotics including cefepime 2 grams b.i.d. and Zithromax 500 mg daily. The patient had to be placed on pressors due to hypotension and presently sedated with IV propofol and fentanyl. She had to be intubated for acute respiratory failure and has been on ventilator support since her admission early this morning. PAST MEDICAL HISTORY The patient's past history has included: 1. A history of right pneumonectomy for a non-small cell carcinoma of the lung. 2. History of coronary artery bypass grafting x4. 3. History of cataract surgery on the left. 4. And left inguinal hernia repair. 5. C-sections x2. 6. Cystocele repair. 7. Total hip repair on the right. 8. She also has a history of hypertension. 9. Dyslipidemia. 10. Hypothyroidism. 11. COPD. 12. Osteoarthritis. ALLERGIES None listed. MEDICATIONS The med list was reviewed from the chart. FAMILY HISTORY Heart disease. SOCIAL HISTORY Habits, the patient did not smoke but was exposed to secondhand smoke. No significant alcohol use. REVIEW OF SYSTEMS She is intubated on ventilator support, sedated. PHYSICAL EXAMINATION GENERAL: This thinly built elderly lady who is pale and critical, intubated orally. VITAL SIGNS: Blood pressure 96/60, pulse is 112, respirations 24, temperature 97.5. HEENT: Head normocephalic. Pupils are reactive. Sclerae are injected. Tongue is moist. Throat is mildly injected. NECK: Supple. No bruits. Mild venous distension. Trachea midline. CHEST: Decreased breath sounds over the right lung field with occasional wheezes in the left lung field. HEART: The heart sounds are irregularly irregular S1-S2 with no murmur. ABDOMEN: Soft, nontender. Bowel sounds are active. EXTREMITIES: Mild edema with diminished pulses. Reflexes are 1+. The patient is sedated does not move. NEUROLOGIC: No examination was conducted. SKIN: Dry and warm. IMPRESSION 1. Acute respiratory failure. 2. Status post right pneumonectomy. 3. History of pneumonia. 4. History of non-small cell lung CA. 5. Atrial fibrillation with rapid ventricular response. 6. Pulmonary edema. 7. Hyponatremia. PLAN The patient will be maintained on ventilator support. FIO2 will be weaned down to 35%. Nebulized Atrovent solution used q.i.d. p.r.n. Continue with antibiotic coverage including cefepime 2 grams IV q.12 and Zithromax 500 mg daily. Solu-Medrol 40 mg b.i.d. OG tube to be inserted and to intermittent suction. Follow up chest x-ray in the a.m. Attempts will be made to wean her to C-PAP in the a.m. Thank you for this consultation. Stephani Epps MD JVD/KK /7:57 PM /8:25 PM
[2017-06-16] MEDS ORDERED: VANCOMYCIN 1,000 MG/NS 250 ML IV SCH ×2 (21:00)
[2017-06-16 21:06] LABS: CORTISOL 42.8 MCG/DL
[2017-06-16 22:50] LABS: APTT (PATIENT) 65.3 SEC (24.3-30.1)
[2017-06-17] VITALS (119 sets, daily range): BP systolic 70–143; BP diastolic 6–85; PULSE 56–142; RESP 9–41; TEMP 98.3–98.8; O2SAT 93–100
[2017-06-17] MEDS: CEFEPIME INJ 2,000 MG in SODIUM CHLORIDE 0.9% INJ 100 ML IV SCH ×3 (03:07→18:11)
[2017-06-17] MEDS: SODIUM CHLOR 0.9% 1000 ML INJ 1,000 ML IV SCH (03:10)
[2017-06-17] MEDS: RESP: ALBUTEROL 2.5 MG/IPRATROPIUM 0.5 MG NEB (SCH) INH ×7 (03:58→23:11)
[2017-06-17 05:32] LABS: AUTOMATED NEUTROPHIL # 15.7 TH/MM3 (1.8-7.7); EOSINOPHIL # 0.2 TH/MM3 (0-0.4); HEMATOCRIT 37.6 % (35.0-46.0); LYMPHOCYTE # 0.5 TH/MM3 (1.0-4.8); MEAN CELL VOLUME 90.7 FL (80.0-100.0); MEAN CORPUSCULAR HEMOGLOBIN 29.6 PG (27.0-34.0); MEAN CORPUSCULAR HGB CONC 32.7 % (32.0-36.0); MONO % 3.1 % (0.0-8.0); NEUT % 92.9 % (16.0-70.0); PLATELET COUNT 350 TH/MM3 (150-450); RED BLOOD COUNT 4.14 MIL/MM3 (4.00-5.30); RED CELL DISTRIBUTION WIDTH 15.4 % (11.6-17.2); WHITE BLOOD COUNT 16.9 TH/MM3 (4.0-11.0)
[2017-06-17 05:46] LABS: HEMO FLAGS DIFF FINAL
[2017-06-17] MEDS: INSULIN NovoLIN REGULAR SUPPLEMENTAL SCALE SQ SCH ×5 (06:00→23:49)
[2017-06-17 06:05] LABS: ALKALINE PHOSPHATASE 61 U/L (45-117); ALT (GPT) 30 U/L (10-53); ANION GAP 6 MEQ/L (5-15); AST (GOT) 38 U/L (15-37); BICARBONATE 32.9 MEQ/L (21.0-32.0); BLOOD UREA NITROGEN 18 MG/DL (7-18); CHLORIDE 99 MEQ/L (98-107); DIGOXIN 0.9 NG/ML (0.8-2.0); GLOMERULAR FILTRATION RATE 74 ML/MIN (>89); MAGNESIUM 1.9 MG/DL (1.5-2.5); POTASSIUM 3.6 MEQ/L (3.5-5.1); SODIUM (NA) 138 MEQ/L (136-145); TOTAL BILIRUBIN ADULT 0.8 MG/DL (0.2-1.0)
[2017-06-17 06:07] LABS: BLOOD GAS BASE EXCESS 5.3 mmol/L (-2-2); BLOOD GAS CARBOXYHEMOGLOBIN 1.2 % (0-4); BLOOD GAS HCO3 29 mmol/L (22-26); BLOOD GAS METHEMOGLOBIN 1.2 % (0-2); BLOOD GAS O2 HGB SATURATION 97 % (90-100); BLOOD GAS OXYGEN CONTENT 16.2 Vol % (12.0-20.0); BLOOD GAS PCO2 37 mmHg (38-42); BLOOD GAS PO2 129 mmHg (61-120); BLOOD GAS TOTAL HGB 11.7 G/DL (12.0-16.0); CRITICAL VALUE NO
[2017-06-17 06:08] LABS: DRAW SITE RT BRACHIAL; FIO2 35 %; NUMBER OF ARTERIAL PUNCTURES 1; OXYGEN DEVICE VENTILATOR; STAT NO; VENT SETTINGS AC12/500/5PEEP
[2017-06-17 06:21] LABS: INTERNATIONAL NORMALIZED RATIO 1.3 RATIO; PROTHROMBIN TIME - PATIENT 14.6 SEC (9.8-11.6)
[2017-06-17] MEDS ORDERED: MAGNESIUM SULFATE 1 GM PREMIX 100 ML IV ONE (06:45)
[2017-06-17] MEDS ORDERED: POTASSIUM CHLOR 20 MEQ PREMIX 100 ML IV ONE (06:45)
[2017-06-17 06:57] LABS: APTT (PATIENT) 73.5 SEC (24.3-30.1)
[2017-06-17] MEDS: LEVOTHYROXINE SODIUM 112 MCG TAB PO SCH (06:58)
[2017-06-17] MEDS: LEVOTHYROXINE SODIUM 25 MCG TAB PO SCH (06:58)
[2017-06-17] MEDS: SODIUM CHLOR 0.45% 1000 ML INJ 1,000 ML IV SCH ×2 (06:59→18:09)
[2017-06-17] MEDS: CHLORHEXIDINE GLUCONATE 2 % 1 PACK (2 CLOTHS) TOP SCH (07:02)
--- NOTE | 2017-06-17 07:02 | HHI.CCPN ---
Subjective Remarks/Hospital Course 86-year-old female. Data admission 06/16/2017. Past medical history includes non-small cell carcinoma lung status post right human echo, coronary disease status post CABG 4, hypertension, dyslipidemia, hypothyroidism, atrial fibrillation, osteoarthritis. Patient sees Dr. Lemos and recently refused a pacemaker. She is also recently hospitalized at [facility] in early May with pneumonia 4 days. Negative etiology for shortness of breath and patient was sent home. She has been short of breath in the interim. She presents today to the emergency department at [place] via EMS for respiratory distress. Intubation was attempted in the field due to a saturation of 60% and a heart rate of 150 however unable to obtain IV or I/O access. Patient was intubated with a 7.5 ET tube@receiving 20 mg etomidate and 100 mg succinylcholine after receiving IV access Laboratories revealed a significant acidosis at the PEG 727. PCO2 46. PO2 262. Lactic acid was 5.3. General leukocytosis of 14,000. Sodium was 126 for potassium 5.3. Creatinine 1.2. BNP elevated at 1600. Troponin 0.09. EKG revealed A. fib with RVR with a right bundle branch block which appears to be new. Her x-ray revealed status post right pneumonectomy. Small left pleural effusion/infiltrate. Digoxin level 0.4. She is awake and arousable on the ventilator the present time. Subjective 06/17: Afebrile. FiO2 weaned to 30%. Denies chest pain. Diuresed 5.5 L overnight. No bowel movement. Tube feeds to be initiated today. On 30 mics grams per minute of Gustabo-Synephrine. CVP down to 8. Objective Vital Signs Date Time Temp Pulse Resp B/P Pulse Ox O2 Delivery O2 Flow Rate FiO2 06/17/17 06:10 99 30 06/17/17 06:00 99 06/17/17 06:00 104/75 06/17/17 05:46 29 06/17/17 04:01 98.4 Intake and Output 06/16/17 06/16/17 06/17/17 08:00 16:00 00:00 Intake Total 1000 ml 887 ml Output Total 2500 ml Balance 1000 ml -1613 ml Result Diagram: 06/17/17 0430 06/17/17 0430 Other Results Microbiology Date/Time Procedure Status Source Growth 06/17/17 02:20 Influenza Types A,B Antigen ([facility]) - Final Complete Nasal Aspirate NEGATIVE FOR FLU A AND B ANTIGEN.... 06/17/17 02:10 Legionella Antigen Received Urine Catheterized Urine Pending 06/17/17 02:10 Streptococcus pneumoniae Antigen (M Received Urine Catheterized Urine Pending 06/17/17 02:10 Gram Stain Received Sputum Endotracheal Pending 06/17/17 02:10 Sputum Culture Received Sputum Endotracheal Pending 06/16/17 17:20 Aerobic Blood Culture Received Blood Peripheral Pending 06/16/17 17:20 Anaerobic Blood Culture Received Blood Peripheral Pending Imaging Last Impressions Chest X-Ray 06/16/17 1556 Signed Impressions: Service Date/Time: Thursday, June 16, 2017 16:17 - CONCLUSION: Complete opacification right lung is stable. New right IJ central line in ecellent position. Taran Tee MD Objective Remarks GENERAL: 86 year old female, critically ill currently resting in bed in no acute distress SKIN: Cool and dry. No rash HEAD: Atraumatic. Normocephalic. EYES: Right pupil about 2 mm and reactive. Left pupil round 1 mm and sluggish. History of left cataract. No scleral icterus. No injection or drainage. ENT: No nasal bleeding or discharge. Mucous membranes pink and moist. NECK: Trachea midline. No JVD. CARDIOVASCULAR: IRR. S1, S2. No S4. Without murmur, clicks, calculus or rubs RESPIRATORY: Miss breath sounds throughout right lung moore. Few crackles appreciated in the left base. No wheezing GASTROINTESTINAL: Abdomen soft, non-tender, nondistended. Hypoactive bowel sounds are appreciated. MUSCULOSKELETAL: Extremities without with 1+ peripheral edema NEUROLOGICAL: Arousable on the ventilator. Nods head to simple questions. Moves all 4 extremities spontaneously. Positive gag. Positive corneal reflex. Urinary Catheter: Yes Assessment to: Continue Peraza insert reason: ICU Pt Getting Diuretics Vascular Central Line Catheter: Yes Assessment to: Continue Date of Insertion: Jun 17, 2017 Line: Central Venous Catheter Side: Right Location: Internal, Jugular A/P Assessment and Plan Neuro/Psych: Anxiety disorder NOS Currently started on fentanyl drip at 50 mics grams per hour drips for analgesia while intubated Goal of RASS -2 Daily sedation vacation Continue Escitalopram 10 mg by mouth daily/home medication for depression CV: Severe sepsis A. fib with RVR Coronary disease status post CABG 4 History of hypertension Dyslipidemia Lactic acidosis - resolved Patient is currently on one half normal saline at 84 cc an hour. Along with Gustabo -Synephrine 30 mu./m to maintain MAP greater than 65 Holding metoprolol 12.5 mill grams by mouth twice a day/home medication Resume digoxin 0.125 mg by mouth every other day. Loaded with 0.25 mg 1 06/16 IV. Digoxin level 0.9. Consult cardiology/Dr. Lemos. Previous pacemaker candidate quadrant but patient refused 2-D echocardiogram 05/14 revealed EF 55-60%. No regional wall motion abnormality. Mild TR/MR. REY 37 mmHg Repeat 2-D echocardiogram ordered Serial lactates have cleared Lipid panel within normal limits Check CVP monitor. Currently 8 Cardizem drip if indicated for tachycardia. Utilize Gustabo-Synephrine as adjuvant agent hypotension Resp: Acute hypoxic hypercapnic respiratory failure Recent history pneumonia hospitalist at [facility] History right pneumonectomy status post non-small carcinoma of the lung [facility] .12/04/29 Ventilator bundle Duo nebs every 4 hours with albuterol every 2 hours when necessary dyspnea Consult pulmonology/Dr. Epps appreciated On albuterol nebulizers and ipratropium inhaler at home. Her chest x-rays reveals right pneumonectomy. Left side with possible infiltrate/effusion left lower lobe. Repeat ABG in a.m. and chest x-ray GI: Hypoalbuminemia Patient is currently nothing by mouth OG tube to low intermittent wall suction Start tube feeding if clinically indicated. Jevity 1.5 goal 50 cc an hour. Dietary consulted for tube feed recommendations. Protonix for GI prophylaxis Aiyana-Colace for bowel regimen : Peraza catheter has been placed for accurate I's and O's in a critically ill patient Endo: Hyperglycemia of critical illness/prednisone usage Hypothyroidism Vitamin B12 deficiency Chronic prednisone usage- 5 mg daily Elevated uric acid Continues cyanocobalamin 1000 mcg by mouth daily On Solu-Medrol 40 mg IV twice a day pulmonary dosage Resume levothyroxine at 137 g daily. TSH 0.919 Sliding-scale insulin with Accu-Cheks to maintain euglycemia/every 6 hours/low regimen Renal: Acute kidney injury Creatinine currently within normal limits Monitor urine output Accurate I's and O's Repeat BMP in a.m. Heme: Leukocytosis Normocytic anemia Chronic Apixaban use Elevated PTT/PTT - fibrinogen pending Holding NOAC secondary to acute illness and possible intervention. We'll start heparin drip in the interim Monitor CBC daily. Follow trends ID: Blood cultures 2, urine, sputum, Legionella and pneumococcal urinary antigen and influenza all ordered. Results pending Start empirically on vancomycin, cefepime and azithromycin for community- acquired pneumonia/ICU possible HCAP with recent hospitalization at [facility] FEN: Hyponatremia/appears euvolemic resolved Hypokalemia Replacing electrolytes as clinically indicated Check osm serum 271 and urine urine sodium, TSH 0.919, cortisol 43 and uric acid 10.1. 20 mEq KCl IV 1 now. 1 g mag sulfate. Check in a.m. On KCl 10 mEq by mouth twice a day. Resume when clinically indicated MSK: Osteoarthritis PT evaluate and treat Access - Right IJ CVL day 2 placed 06/16 Prophylaxis - GI - Protonix - DVT - SCD/heparin drip Critical Care: The total critical care time was 35 minutes. Time to perform other separately billable procedures was not included in the critical care time. Driss Amaral MD Jun 17, 2017 07:02
--- NOTE | 2017-06-17 07:28 | RADRPT ---
EXAM DATE/TIME: 06/17/2017 06:29 [place] COMPARISON: CT THORAX W/O CONTRAST, May 03, 2015, 22:14. CHEST SINGLE AP, June 16, 2017, 13:06. CHEST SINGLE A P, June 16, 2017, 16:17. INDICATIONS : Respiratory distress. MEDICAL HISTORY : Hypertension. Myocardial infarction. Chronic obstructive pulmonary disease. SURGICAL HISTORY : CABG. Hysterectomy. ENCOUNTER: Subsequent ACUITY: 2 days PAIN SCORE: Non-responsive. LOCATION: Bilateral chest FINDINGS: Portable AP view of the chest demonstrates a normal-sized cardiac silhouette with calcification of th e aorta in this patient post median sternotomy and CABG. ETT, NG tube, and right IJ central line jhonny in present. Multiple EKG lines overlie the patient. There is complete opacification the right hemitho rax in this patient post pneumonectomy. There is a stable small left basilar pleural-parenchymal opac ity. No pneumothorax is seen. CONCLUSION: Stable chest x-ray with a small left pleural effusion with associated atelectasis and/or airspace con solidation. iWlly Anand MD on June 17, 2017 at 7:25 Board Certified Radiologist. This report was verified electronically.
[2017-06-17] MEDS: DILTIAZEM INJ 125 MG in SODIUM CHLORIDE 0.9% INJ 100 ML IV SCH ×2 (08:08→16:04)
[2017-06-17] MEDS: methylPREDNISolone SOD SUCC 40 MG/1 ML VIAL IV PUSH SCH ×2 (09:24→21:36)
[2017-06-17] MEDS: ARTIFICIAL TEARS OPTH SOLN 15 ML BTL EACH EYE SCH ×3 (09:24→18:11)
[2017-06-17] MEDS: ESCITALOPRAM OXALATE 10 MG TAB PO SCH (09:24)
[2017-06-17] MEDS: CYANOCOBALAMIN 1,000 MCG TAB PO SCH (09:24)
[2017-06-17] MEDS: DOCUSATE SODIUM 50 MG/SENNA 8.6 MG TAB PO SCH ×2 (09:24→21:36)
[2017-06-17] MEDS: PANTOPRAZOLE SODIUM 40 MG VIAL IV SCH (09:24)
[2017-06-17] MEDS: SODIUM CHLORIDE 0.9% FLUSH 10 ML FLUSH IV FLUSH SCH ×2 (09:27→21:00)
[2017-06-17] MEDS: CHLORHEXIDINE 0.12% (ORAL KIT) 15 ML CUP MT SCH ×2 (09:27→19:53)
[2017-06-17] MEDS: SODIUM CHLORIDE 0.9% FLUSH 10 ML FLUSH IVF SCH (09:28)
--- NOTE | 2017-06-17 10:26 | EKG ---
Date Performed: 06/16/2017 Time Performed: 12:47:19 PTAGE: 86 years EKG: ATRIAL FIBRILLATION RIGHT BUNDLE BRANCH BLOCK LEFT ANTERIOR FASCICULAR BLOCK ABNORMAL ECG I NTERPRETATION BASED ON A DEFAULT AGE OF 40 YEARS NO PREVIOUS TRACING DOCTOR: Taran Caldera Interpretating Date/Time 06/17/2017 10:24:59
--- NOTE | 2017-06-17 10:27 | EKG ---
Date Performed: 06/16/2017 Time Performed: 12:32:48 PTAGE: 86 years EKG: ATRIAL FIBRILLATION WITH RAPID VENTRICULAR RESPONSE RIGHT BUNDLE BRANCH BLOCK INFERIOR MYOC ARDIAL INFARCTION NONSPECIFIC ST ABNORMALITY INTERPRETATION BASED ON A DEFAULT AGE OF 40 YEARS NO PREVIOUS TRACING DOCTOR: Taran Caldera Interpretating Date/Time 06/17/2017 10:26:28
--- NOTE | 2017-06-17 12:51 | ECHRPT ---
Indication: Heart failure, unspecified CONCLUSIONS The left ventricle is not well visualized due to poor acoustic windows and tachycardia. Normal left ventricular size. Mild concentric left ventricular hypertrophy. The left ventricular systolic function is lsnxwbtb-hw-wsqxxcp reduced with an estimated ejection fra ction in the range of 35-40%. The left atrial size is mildly dilated. The right atrial size is qbvg-fh-mdlqyfisdx dilated. Jjzh-ns-lklvhka mitral valve regurgitation. Mitral annular calcification is present. Aortic valve sclerosis is present. Trileaflet aortic valve. Diffuse calcification of the aortic valve. No aortic valve regurgitation. Aortic valve mean gradient is 8.5 mmHg. Mild to moderate aortic valve stenosis. There is moderate tricuspid regurgitation. There is estimated mild pulmonary hypertension present (43 mmHg). BP: / HR: Rhythm: MEASUREMENTS (Male / Female) Normal Values Technical Quality: 2D ECHO LV Diastolic Diameter PLAX 3.3 cm 4.2 - 5.9 / 3.9 - 5.3 cm LV Systolic Diameter PLAX 2.9 cm IVS Diastolic Thickness 1.0 cm 0.6 - 1.0 / 0.6 - 0.9 cm LVPW Diastolic Thickness 0.9 cm 0.6 - 1.0 / 0.6 - 0.9 cm LV Relative Wall Thickness 0.6 LA Systolic Diameter LX 3.0 cm 3.0 - 4.0 / 2.7 - 3.8 cm DOPPLER AV Peak Velocity 186.0 cm/s AV Peak Gradient 13.8 mmHg AV Mean Gradient 8.5 mmHg AV Velocity Time Integral 39.0 cm LVOT Peak Velocity 60.2 cm/s LVOT Peak Gradient 1.4 mmHg MR Peak Velocity 410.0 cm/s MR Peak Gradient 67.2 mmHg Mitral E Point Velocity 65.2 cm/s TR Peak Velocity 307.0 cm/s TR Peak Gradient 37.7 mmHg FINDINGS LEFT VENTRICLE The left ventricle is not well visualized due to poor acoustic windows and tachycardia. Normal left ventricular size. Mild concentric left ventricular hypertrophy. The left ventricular systolic function is amlohpzq-cr-aryyecg reduced with an estimated ejection fra ction in the range of 35-40%. RIGHT VENTRICLE Normal right ventricular size and systolic function. LEFT ATRIUM The left atrial size is mildly dilated. RIGHT ATRIUM The right atrial size is foxg-uo-lvranwvhrx dilated. ATRIAL SEPTUM Normal atrial septal thickness without atrial level shunting by limited color doppler interrogation. AORTA The aortic root and proximal ascending aorta are normal in size on limited imaging. MITRAL VALVE Zerk-te-tufwdwi mitral valve regurgitation. Mitral annular calcification is present. AORTIC VALVE Aortic valve sclerosis is present. Trileaflet aortic valve. Diffuse calcification of the aortic valve. No aortic valve regurgitation. Aortic valve mean gradient is 8.5 mmHg. Mild to moderate aortic valve stenosis. TRICUSPID VALVE There is moderate tricuspid regurgitation. There is estimated mild pulmonary hypertension present (43 mmHg). PULMONARY VALVE The pulmonary valve is not well visualized. VESSELS The inferior vena cava is normal in size. PERICARDIUM No pericardial effusion. Taran Caldera MD, FACC (Electronically Signed) Final Date:17 June 2017 12:50
[2017-06-17] MEDS: VANCOMYCIN 1,000 MG/NS 250 ML IV SCH ×2 (16:04)
--- NOTE | 2017-06-17 17:53 | HHI.PR ---
Subjective Remarks Sedated and on vent support. FIo2 at 30 %. Output was good. On Pressors. CXR shows a small effusion. Objective Vital Signs Date Time Temp Pulse Resp B/P Pulse Ox O2 Delivery O2 Flow Rate FiO2 06/17/17 17:30 99 30 17 16:52 96 30 06/17/17 16:46 80 28 100/47 96 17 16:31 82 23 100/46 96 06/17/17 16:21 80 30 100/48 96 06/17/17 16:16 84 28 86/51 96 06/17/17 16:05 82 30 92/49 96 06/17/17 16:01 82 37 95/45 97 06/17/17 16:00 87 06/17/17 15:46 84 26 99/44 96 06/17/17 15:31 82 41 96/44 96 06/17/17 15:16 84 34 92/50 96 06/17/17 15:12 90 31 99/49 96 06/17/17 15:04 88 25 86/48 96 06/17/17 15:01 86 33 90/49 96 17 14:46 90 23 106/49 96 06/17/17 14:31 90 41 105/50 96 06/17/17 14:16 96 36 111/52 95 06/17/17 14:01 102 18 106/57 96 17 13:48 95 30 17 13:46 94 23 111/58 95 17 13:31 92 26 109/58 95 06/17/17 13:16 94 15 100/52 95 06/17/17 13:01 104 12 111/54 96 17 12:46 100 25 102/56 96 06/17/17 12:45 100 16 96 06/17/17 12:31 102 18 112/59 96 06/17/17 12:16 98 25 106/53 96 06/17/17 12:01 102 19 108/60 95 06/17/17 12:00 97 06/17/17 11:46 96 22 111/59 97 06/17/17 11:31 100 25 100/57 98 06/17/17 11:16 98 30 112/63 98 06/17/17 11:04 95 30 7/19/17 11:01 100 23 114/65 96 19/17 10:46 98 24 104/58 96 719/17 10:31 98 22 106/56 96 719/17 10:16 106 20 107/56 96 7/17 10:01 104 22 103/52 95 719/17 09:46 108 31 91/53 97 19/17 09:31 112 21 112/63 96 17 09:16 108 29 109/69 96 06/17/17 09:01 116 21 105/71 96 06/17/17 08:46 114 18 98/66 97 06/17/17 08:31 128 13 124/84 97 06/17/17 08:16 138 17 128/68 97 17 08:13 138 22 124/77 97 06/17/17 08:01 98.8 142 12 116/85 99 17 08:00 121 06/17/17 07:46 134 12 143/83 99 06/17/17 07:40 99 30 06/17/17 07:40 30 06/17/17 07:31 126 17 120/76 97 19/17 07:30 100 30 06/17/17 07:16 122 13 106/81 97 06/17/17 07:01 120 17 99/66 97 06/17/17 06:45 75/6 06/17/17 06:31 112 20 104/62 97 06/17/17 06:10 99 30 19/17 06:00 120 22 104/62 100 19/17 06:00 99 06/17/17 06:00 99 104/75 06/17/17 05:46 118 29 103/57 99 19/17 05:31 108 25 104/61 99 19/17 05:16 110 29 96/53 100 06/17/17 05:01 112 26 108/72 99 06/17/17 05:00 124 06/17/17 04:46 116 23 115/67 100 19/17 04:31 116 20 102/60 100 06/17/17 04:01 98.4 108 22 115/68 100 19/17 04:00 92 06/17/17 03:56 99 35 06/17/17 03:46 96 11 113/61 99 7/19/17 03:31 98 11 113/68 98 19/17 03:16 96 109/71 98 7/17 03:00 96 11 108/68 98 19/17 03:00 93 17 02:45 98 11 123/63 98 719/17 02:30 96 11 118/64 98 719/17 02:15 94 11 124/76 99 717 02:00 96 11 114/73 99 717 02:00 89 17 01:45 92 11 115/63 99 7/17 01:30 90 12 108/72 99 719/17 01:20 99 40 7/17 01:15 92 11 121/68 99 17 01:00 96 11 116/68 100 19/17 00:45 100 11 117/77 100 19/17 00:30 90 12 123/69 100 19/17 00:15 90 11 128/70 100 19/17 00:00 92 17 00:00 40 17 00:00 98.3 88 12 119/73 100 7/18/17 23:45 90 11 124/72 100 7/18/17 23:30 86 11 127/75 100 7/18/17 23:15 84 12 125/72 100 7/18/17 23:00 86 11 122/75 100 7/18/17 23:00 87 7/18/17 22:45 86 12 132/81 100 7/18/17 22:30 84 12 124/72 100 7/18/17 22:15 88 12 119/75 100 7/18/17 22:06 100 40 7/18/17 22:00 85 7/18/17 22:00 86 119/75 7/18/17 22:00 86 12 119/76 100 7/18/17 21:45 82 12 131/75 100 7/18/17 21:30 82 11 119/69 100 7/18/17 21:15 80 11 99/53 100 7/18/17 21:00 80 12 107/63 100 7/18/17 20:45 80 11 110/58 100 7/18/17 20:30 84 11 95/54 100 7/18/17 20:15 90 11 96/53 100 06/16/17 20:00 140 101/57 06/16/17 20:00 98.7 90 19 101/57 100 06/16/17 20:00 140 06/16/17 20:00 140 06/16/17 19:45 96 12 100 06/16/17 19:40 100 40 18/17 19:30 96 13 109/60 100 06/16/17 19:15 40 06/16/17 19:15 112 19 100 06/16/17 19:00 50 06/16/17 19:00 120 16 92 06/16/17 18:30 96 14 104/60 98 06/16/17 18:00 97.3 96 13 96/66 99 I/O 06/16/17 06/16/17 06/16/17 06/17/17 06/17/17 06/17/17 07:00 15:00 23:00 07:00 15:00 23:00 Intake Total 1887 ml 1144 ml 1490 ml Output Total 2500 ml 2775 ml 250 ml Balance -613 ml -1631 ml 1240 ml Intake IV Total 1887 ml 1084 ml 1350 ml Tube Feeding 40 ml Other 60 ml 100 ml Output Urine Total 2500 ml 2775 ml 250 ml # Bowel Movements 0 0 0 Result Diagram: 06/17/1742906/17/17429 Objective Remarks GENERAL: This thinly built elderly lady who is pale and intubated orally. HEENT: Head normocephalic. Pupils are reactive. Sclerae are injected. Tongue is moist. Throat is mildly injected. NECK: Supple. No bruits. Mild venous distension. Trachea midline. CHEST: Decreased breath sounds over the right lung field with occasional wheezes in the left lung field.Basl Crackles HEART: The heart sounds are irregularly irregular S1-S2 with no murmur. ABDOMEN: Soft, nontender. Bowel sounds are active. EXTREMITIES: Mild edema with diminished pulses. Reflexes are 1+. The patient is sedated . NEUROLOGIC: No examination was conducted. SKIN: Dry and warm. Assessment and Plan Assessment and Plan IMPRESSION 1. Acute respiratory failure. 2. Status post right pneumonectomy. 3. History of pneumonia. 4. History of non-small cell lung CA. 5. Atrial fibrillation with rapid ventricular response. 6. Pulmonary edema. 7. Hyponatremia Plan : 1. Continue antibiotics. 2. Wean Vent to CPAP in am. 3. Nebs qid , duoneb 4. Tube feeds at 40 CC 5. Continue solumedrol 40 mg bid 6. CBC,BMP ,CXR in am Corey Epps MD Jun 17, 2017 17:53
[2017-06-17] MEDS: AZITHROMYCIN INJ 500 MG in SODIUM CHLOR 0.9% 250 ML INJ 250 ML IV SCH (18:10)
--- NOTE | 2017-06-17 18:20 | PD.CONS ---
HPI Consult Requested By Primary Care Physician Rustam Gonzales DO History of Present Illness 86-year-old F with past medical history of non-small cell carcinoma lung, coronary disease status post CABG 4, hypertension, dyslipidemia, hypothyroidism , atrial fibrillation, osteoarthritis presented to the ER by EMS with respiratory failure. Patient sees Dr. Lemos and recently refused a pacemaker. She came to the ER with respiratory distress, hypoxic. Patient was intubated , admitted to ICU. Consulted to cardiology for A. fib management. ECHO revealed depressed EF. Review of Systems ROS Limitations: Intubated Past Family Social History Allergies: Coded Allergies: No Known Allergies (Verified , 05/02/15) Past Medical History Osteoarthritis History of non-small carcinoma of the lung Coronary artery disease Hypertension Dyslipidemia Hypothyroidism Atrial fibrillation currently in RVR Anxiety disorder NOS Chronic prednisone use Vitamin B12 deficiency Past Surgical History Right pneumonectomy CABG 4 Left inguinal hernia. Left cataract Polyp removal 2 Cystocele repair Right total hip repair Reported Medications Reported Meds & Active Scripts Active Reported K-Tab (Potassium Chloride) 10 Meq Tab 10 Meq PO DAILY Albuterol Neb (Albuterol Sulfate) 2.5 Mg/3 Ml Neb 2.5 Mg NEB ONCE Atrovent HFA 12.9 GM Inh (Ipratropium [place]) 17 Mcg/Act Aer 2 Puff INH Q6HR PRN Prednisone 5 Mg Tab 5 Mg PO DAILY Metoprolol Tartrate 25 Mg Tab 12.5 Mg PO BID Eliquis (Apixaban) 5 Mg Tab 5 Mg PO BID Vitamin B-12 (Cyanocobalamin) 1,000 Mcg Tab 1,000 Mcg PO DAILY Escitalopram (Escitalopram Oxalate) 10 Mg Tab 10 Mg PO DAILY Levothyroxine (Levothyroxine Sodium) 137 Mcg Tab 137 Mcg PO DAILY Digoxin 0.125 Mg Tab 0.125 Mg PO EVERY OTHER DAY Active Ordered Medications Current Medications Medications (Trade) Dose Ordered Sig/Amanda Route Start Time Stop Time Status Last Admin (NS Flush) 2 ml UNSCH PRN IV FLUSH 06/16/17 15:30 (NS Flush) 2 ml BID IV FLUSH 06/16/17 21:00 06/17/17 09:27 (Tylenol) 650 mg Q6H PRN PO 06/16/17 15:30 (Protonix Inj) 40 mg DAILY IV 06/17/17 09:00 06/17/17 09:24 (Tears Naturale Opth Soln) 1 drop TID EACH EYE 06/16/17 18:00 06/17/17 18:11 (Zofran Inj) 4 mg Q6H PRN IV 06/16/17 15:30 Miscellaneous Information 1 Q361D XX 06/16/17 15:30 06/16/17 15:30 (Chlorhexidine 2% Cloth) 3 pack Taper DAILY@04 TOP 06/17/17 04:00 06/13/18 03:59 06/17/17 07:02 (Chlorhexidine 2% Cloth) 3 pack UNSCH PRN TOP 06/16/17 15:30 (Aiyana-Colace) 1 tab BID PO 06/16/17 21:00 06/17/17 09:24 (Milk Of Magnesia Liq) 30 ml Q12H PRN PO 06/16/17 15:30 (Senokot) 17.2 mg Q12H PRN PO 06/16/17 15:30 (Dulcolax Supp) 10 mg DAILY PRN RECTAL 06/16/17 15:30 Lactulose 30 ml 30 ml DAILY PRN PO 06/16/17 15:30 Propofol 100 ml @ 0 mls/hr TITRATE IV 06/16/17 15:30 06/16/17 22:17 (fentaNYL DRIP) 250 ml @ 0 mls/hr TITRATE IV 06/16/17 15:30 06/16/17 17:52 (SoluMEDROL INJ) 40 mg Q12HR IV PUSH 06/16/17 21:00 06/17/17 09:24 Terbutaline Sulfate 1 mg 1 mg UNSCH PRN SQ 06/16/17 15:30 (Neosynephrine Inj/D5W 500 ml Inj) 500 ml @ 0 mls/hr TITRATE IV 06/16/17 16:00 (Vitamin B12) 1,000 mcg DAILY PO 06/17/17 09:00 06/17/17 09:24 (Lexapro) 10 mg DAILY PO 06/17/17 09:00 06/17/17 09:24 (Synthroid) 112 mcg DAILY@06 PO 06/17/17 06:00 06/17/17 06:58 (NS Flush) DAILY IVF 06/17/17 09:00 06/17/17 09:28 (NS Flush) UNSCH PRN IVF 06/16/17 16:00 Levothyroxine Sodium 25 mcg 25 mcg DAILY@06 PO 06/17/17 06:00 06/17/17 06:58 Cefepime HCl 2000 mg/Sodium Chloride 100 ml @ 200 mls/hr Q8H IV 06/16/17 18:00 06/17/17 18:11 Azithromycin 500 mg/Sodium Chloride 250 ml @ 250 mls/hr Q24H IV 06/16/17 17:00 06/17/17 18:10 Pharmacy Profile Note 0 ml @ 0 mls/hr UNSCH OTHER 06/16/17 17:00 (Heparin-D5W Inj) 250 ml @ 0 mls/hr TITRATE IV 06/16/17 16:00 06/16/17 18:12 (D50w (Vial) Inj) 50 ml UNSCH PRN IV 06/16/17 16:15 (Glucagon Inj) 1 mg UNSCH PRN OTHER 06/16/17 16:15 Insulin Human Regular 1 1 Q6HR SQ 06/16/17 18:00 06/16/17 17:59 Potassium Chloride 100 ml @ 50 mls/hr Q2H PRN IV 06/16/17 16:45 (KCl 20 Meq Premix Inj) 100 ml @ 50 mls/hr Q2H PRN IV 06/16/17 16:45 06/17/17 09:25 Potassium Bicarb/ Potassium Chloride 50 meq 50 meq UNSCH PRN PO 06/16/17 16:45 Potassium Chloride 100 ml @ 25 mls/hr UNSCH PRN IV 06/16/17 16:45 Potassium Chloride 100 ml @ 50 mls/hr Q2H PRN IV 06/16/17 16:45 (Magnesium Sulfate Inj/NS Inj) 100 ml @ 50 mls/hr UNSCH PRN IV 06/16/17 16:45 Magnesium Oxide 800 mg 800 mg UNSCH PRN PO 06/16/17 16:45 (Magnesium Sulfate Inj/NS Inj) 100 ml @ 50 mls/hr UNSCH PRN IV 06/16/17 16:45 Potassium Phosphate 2000 mg 2,000 mg Q4H PRN PO 06/16/17 16:45 (Sodium Phosphate Inj/NS 250 ml Inj) 250 ml @ 42 mls/hr UNSCH PRN IV 06/16/17 16:45 Potassium Phosphate 2000 mg 2,000 mg UNSCH PRN PO/TUBE 06/16/17 16:45 (Potassium Phosphate Inj/NS 250 ml Inj) 260 ml @ 42 mls/hr UNSCH PRN IV 06/16/17 16:45 (Peridex 0.12% Liq) 15 ml BID@08,20 MT 06/16/17 20:00 06/17/17 09:27 Miscellaneous Information SPECIFIC LAB TO BE DRAWN:VANCOMY... ONCE ONCE .XX 06/19/17 20:45 06/19/17 20:46 Sodium Chloride 1,000 ml @ 84 mls/hr [id number] IV 06/17/17 06:45 06/17/17 18:09 Diltiazem HCl 125 mg/Sodium Chloride 125 ml @ 0 mls/hr TITRATE IV 06/17/17 07:00 06/17/17 16:04 (Vancomycin Inj/ NS 250 ml Inj) 250 ml @ 250 mls/hr Q18H IV 06/17/17 15:00 06/17/17 16:04 Physical Exam Vital Signs Vital Signs Date Time Temp Pulse Resp B/P Pulse Ox O2 Delivery O2 Flow Rate FiO2 06/17/17 17:30 99 30 06/17/17 16:52 96 30 06/17/17 16:46 80 28 100/47 96 06/17/17 16:31 82 23 100/46 96 06/17/17 16:21 80 30 100/48 96 06/17/17 16:16 84 28 86/51 96 06/17/17 16:05 82 30 92/49 96 06/17/17 16:01 82 37 95/45 97 06/17/17 16:00 87 06/17/17 15:46 84 26 99/44 96 06/17/17 15:31 82 41 96/44 96 06/17/17 15:16 84 34 92/50 96 06/17/17 15:12 90 31 99/49 96 06/17/17 15:04 88 25 86/48 96 06/17/17 15:01 86 33 90/49 96 06/17/17 14:46 90 23 106/49 96 06/17/17 14:31 90 41 105/50 96 06/17/17 14:16 96 36 111/52 95 06/17/17 14:01 102 18 106/57 96 7/19/17 13:48 95 30 7/19/17 13:46 94 23 111/58 95 7/19/17 13:31 92 26 109/58 95 7/19/17 13:16 94 15 100/52 95 7/19/17 13:01 104 12 111/54 96 7/19/17 12:46 100 25 102/56 96 7/19/17 12:45 100 16 96 7/19/17 12:31 102 18 112/59 96 7/19/17 12:16 98 25 106/53 96 7/19/17 12:01 102 19 108/60 95 7/19/17 12:00 97 7/19/17 11:46 96 22 111/59 97 7/19/17 11:31 100 25 100/57 98 7/19/17 11:16 98 30 112/63 98 7/19/17 11:04 95 30 7/19/17 11:01 100 23 114/65 96 7/19/17 10:46 98 24 104/58 96 7/19/17 10:31 98 22 106/56 96 7/19/17 10:16 106 20 107/56 96 7/19/17 10:01 104 22 103/52 95 7/19/17 09:46 108 31 91/53 97 7/19/17 09:31 112 21 112/63 96 7/19/17 09:16 108 29 109/69 96 7/19/17 09:01 116 21 105/71 96 7/19/17 08:46 114 18 98/66 97 7/19/17 08:31 128 13 124/84 97 7/19/17 08:16 138 17 128/68 97 7/19/17 08:13 138 22 124/77 97 7/19/17 08:01 98.8 142 12 116/85 99 7/19/17 08:00 121 7/19/17 07:46 134 12 143/83 99 7/19/17 07:40 99 30 7/19/17 07:40 30 7/19/17 07:31 126 17 120/76 97 7/19/17 07:30 100 30 7/19/17 07:16 122 13 106/81 97 7/19/17 07:01 120 17 99/66 97 7/19/17 06:45 75/6 7/19/17 06:31 112 20 104/62 97 17 06:10 99 30 06/17/17 06:00 120 22 104/62 100 17 06:00 99 06/17/17 06:00 99 104/75 17 05:46 118 29 103/57 99 06/17/17 05:31 108 25 104/61 99 17 05:16 110 29 96/53 100 06/17/17 05:01 112 26 108/72 99 06/17/17 05:00 124 17 04:46 116 23 115/67 100 17 04:31 116 20 102/60 100 06/17/17 04:01 98.4 108 22 115/68 100 06/17/17 04:00 92 06/17/17 03:56 99 35 06/17/17 03:46 96 11 113/61 99 06/17/17 03:31 98 11 113/68 98 06/17/17 03:16 96 109/71 98 06/17/17 03:00 96 11 108/68 98 06/17/17 03:00 93 06/17/17 02:45 98 11 123/63 98 06/17/17 02:30 96 11 118/64 98 06/17/17 02:15 94 11 124/76 99 06/17/17 02:00 96 11 114/73 99 17 02:00 89 06/17/17 01:45 92 11 115/63 99 17 01:30 90 12 108/72 99 06/17/17 01:20 99 40 06/17/17 01:15 92 11 121/68 99 17 01:00 96 11 116/68 100 17 00:45 100 11 117/77 100 06/17/17 00:30 90 12 123/69 100 17 00:15 90 11 128/70 100 17 00:00 92 17 00:00 40 17 00:00 98.3 88 12 119/73 100 18/17 23:45 90 11 124/72 100 18/17 23:30 86 11 127/75 100 18/17 23:15 84 12 125/72 100 7/18/17 23:00 86 11 122/75 100 1817 23:00 87 17 22:45 86 12 132/81 100 17 22:30 84 12 124/72 100 17 22:15 88 12 119/75 100 1817 22:06 100 40 06/16/17 22:00 85 17 22:00 86 119/75 06/16/17 22:00 86 12 119/76 100 06/16/17 21:45 82 12 131/75 100 1817 21:30 82 11 119/69 100 06/16/17 21:15 80 11 99/53 100 06/16/17 21:00 80 12 107/63 100 06/16/17 20:45 80 11 110/58 100 06/16/17 20:30 84 11 95/54 100 06/16/17 20:15 90 11 96/53 100 06/16/17 20:00 140 101/57 18 20:00 98.7 90 19 101/57 100 17 20:00 140 17 20:00 140 17 19:45 96 12 100 1817 19:40 100 40 17 19:30 96 13 109/60 100 1817 19:15 40 18/17 19:15 112 19 100 1817 19:00 50 06/16/17 19:00 120 16 92 06/16/17 18:30 96 14 104/60 98 Physical Exam GENERAL: Sedated, intubated SKIN: Warm and dry. HEAD: Normocephalic. EYES: No scleral icterus. No injection or drainage. NECK: Supple, trachea midline. No JVD or lymphadenopathy. ET tube in place CARDIOVASCULAR: Irr Irr without murmurs, gallops, or rubs. RESPIRATORY: Breath sounds equal bilaterally. No accessory muscle use. GASTROINTESTINAL: Abdomen soft, non-tender, nondistended. EXTREMITIES: No cyanosis, or edema. Laboratory Laboratory Tests Test 06/16/17 06/17/17 06/17/17 06/17/17 22:28 02:10 04:30 05:59 Activated Partial 65.3 73.5 Thromboplast Time Urine Eosinophils NONE SEEN Urine Osmolality 181 Urine Random Sodium 60 Nasal Screen MRSA (PCR) MRSA NOT DETECTED White Blood Count 16.9 Red Blood Count 4.14 Hemoglobin 12.3 Hematocrit 37.6 Mean Corpuscular Volume 90.7 Mean Corpuscular Hemoglobin 29.6 Mean Corpuscular Hemoglobin 32.7 Concent Red Cell Distribution Width 15.4 Platelet Count 350 Mean Platelet Volume 8.5 Neutrophils (%) (Auto) 92.9 Lymphocytes (%) (Auto) 3.0 Monocytes (%) (Auto) 3.1 Eosinophils (%) (Auto) 1.0 Basophils (%) (Auto) 0.0 Neutrophils # (Auto) 15.7 Lymphocytes # (Auto) 0.5 Monocytes # (Auto) 0.5 Eosinophils # (Auto) 0.2 Basophils # (Auto) 0.0 CBC Comment DIFF FINAL Differential Comment Prothrombin Time 14.6 Prothromb Time International 1.3 Ratio Sodium Level 138 Potassium Level 3.6 Chloride Level 99 Carbon Dioxide Level 32.9 Anion Gap 6 Blood Urea Nitrogen 18 Creatinine 0.74 Estimat Glomerular Filtration 74 Rate Random Glucose 136 Lactic Acid Level 1.4 Calcium Level 7.7 Phosphorus Level 2.6 Magnesium Level 1.9 Total Bilirubin 0.8 Aspartate Amino Transf 38 (AST/SGOT) Alanine Aminotransferase 30 (ALT/SGPT) Alkaline Phosphatase 61 Troponin I 0.09 Total Protein 5.7 Albumin 3.0 Digoxin Level 0.9 Blood Gas Puncture Site RT BRACHIAL Blood Gas Patient Temperature 37.0 Blood Gas HCO3 29 Blood Gas Base Excess 5.3 Blood Gas Oxygen Saturation 97 Arterial Blood pH 7.50 Arterial Blood Partial 37 Pressure CO2 Arterial Blood Partial 129 Pressure O2 Arterial Blood Oxygen Content 16.2 Arterial Blood 1.2 Carboxyhemoglobin Arterial Blood Methemoglobin 1.2 Blood Gas Hemoglobin 11.7 Oxygen Delivery Device VENTILATOR Blood Gas Ventilator Setting AC12/500/5PEEP Blood Gas Inspired Oxygen 35 Date/Time Procedure Status Source Growth 06/17/17 02:20 Influenza Types A,B Antigen (WARREN) - Final Complete Nasal Aspirate NEGATIVE FOR FLU A AND B ANTIGEN.... 06/17/17 02:10 Legionella Antigen - Final Complete Urine Catheterized Urine PRESUMPTIVE NEGATIVE FOR LEGIONELLA P... 06/17/17 02:10 Streptococcus pneumoniae Antigen (M - Final Complete Urine Catheterized Urine PRESUMPTIVE NEGATIVE FOR STREPTOCOCCU... 06/17/17 02:10 Gram Stain - Final Resulted Sputum Endotracheal 06/17/17 02:10 Sputum Culture Resulted Sputum Endotracheal Pending 06/16/17 17:20 Aerobic Blood Culture - Preliminary Resulted Blood Peripheral NO GROWTH IN 1 DAY 06/16/17 17:20 Anaerobic Blood Culture - Preliminary Resulted Blood Peripheral NO GROWTH IN 1 DAY Result Diagram: 06/17/17 0430 06/17/17 0430 Imaging Last Impressions Chest X-Ray 06/17/17 0000 Signed Impressions: Service Date/Time: Saturday, June 17, 2017 06:29 - CONCLUSION: Stable chest x-ray with a small left pleural effusion with associated atelectasis and/or airspace consolidation. Willy Anand MD Assessment and Plan Problem List: (1) Atrial fibrillation with RVR Assessment and Plan: 86 y/o F with known AFIB with RVR in the setting of respiratory failure and sepsis. Cardiac enzymes negative. EKG no acute ST changes. Troponin minimally elevated likely from Afib with RVR. Recs: Cont rate control. Wean Cardizem as tolerated by HR and transition to PO Metoprolol Cont Eliquis for OAC (2) Non-small cell carcinoma of lung, right (3) SOB (shortness of breath) (4) Coronary artery disease (5) Right bundle branch block Problem Qualifiers (1) Coronary artery disease: Qualified Code: I25.10 - Coronary artery disease involving [place] coronary artery of [place] heart without angina pectoris Kenneth Johnson MD Jun 17, 2017 18:20 Qualified Code: I25.10 - Coronary artery disease involving [place] coronary artery of [place] heart without angina pectoris Kenneth Johnson MD Jun 17, 2017 18:20
[2017-06-17] MEDS: HEPARIN-D5W INJ 250 ML IV SCH (19:20)
[2017-06-17] MEDS: METOPROLOL TARTRATE 25 MG TAB PO SCH (21:37)
[2017-06-18] VITALS (119 sets, daily range): BP systolic 79–162; BP diastolic 25–102; PULSE 52–132; RESP 9–30; TEMP 98.1–99.4; O2SAT 93–100
[2017-06-18] MEDS ORDERED: LORazepam 2 MG/ML VIAL IV PUSH PRN (00:45)
[2017-06-18 00:52] LABS: BLOOD GAS CARBOXYHEMOGLOBIN 1.3 % (0-4); BLOOD GAS HCO3 27 mmol/L (22-26); BLOOD GAS METHEMOGLOBIN 1.4 % (0-2); BLOOD GAS O2 HGB SATURATION 94 % (90-100); BLOOD GAS OXYGEN CONTENT 15.9 Vol % (12.0-20.0); BLOOD GAS PCO2 63 mmHg (38-42); BLOOD GAS PO2 98 mmHg (61-120); BLOOD GAS TOTAL HGB 11.9 G/DL (12.0-16.0); CRITICAL VALUE YES; OXYGEN DEVICE VENTILATOR
[2017-06-18 00:54] LABS: DRAW SITE LT RADIAL; FIO2 30 %; NUMBER OF ARTERIAL PUNCTURES 1; STAT YES; ULNAR PULSE Y; VENT SETTINGS SIMV
--- NOTE | 2017-06-18 01:29 | RADRPT ---
EXAM DATE/TIME: 06/18/2017 01:02 [facility] COMPARISON: No previous studies available for comparison. INDICATIONS : Altered mental status, decline in status. Possible seizure. RADIATION DOSE: 58.53 CTDIvol (mGy) MEDICAL HISTORY : Non-responsive. SURGICAL HISTORY : Non-responsive. ENCOUNTER: Initial ACUITY: 1 day PAIN SCALE: Non-responsive LOCATION: cranial TECHNIQUE: Multiple contiguous axial images were obtained of the head. Using automated exposure control and adj ustment of the mA and/or kV according to patient size, radiation dose was kept as low as reasonably a chievable to obtain optimal diagnostic quality images. DICOM format image data is available electro nically for review and comparison. FINDINGS: CEREBRUM: The ventricles are normal for age. No evidence of midline shift, mass lesion, hemorrhage or acute in farction. No extra-axial fluid collections are seen. POSTERIOR FOSSA: The cerebellum and brainstem are intact. The 4th ventricle is midline. The cerebellopontine angle i s unremarkable. EXTRACRANIAL: The visualized portion of the orbits is intact. There is chronic sinus disease of the left maxillary sinus. SKULL: The calvaria is intact. No evidence of skull fracture. CONCLUSION: Normal examination for a patient of this age. Chronic left maxillary sinus disease. Kvng Saldana MD on June 18, 2017 at 1:27 Board Certified Radiologist. This report was verified electronically.
[2017-06-18] MEDS: DILTIAZEM INJ 125 MG in SODIUM CHLORIDE 0.9% INJ 100 ML IV SCH (01:32)
[2017-06-18] MEDS: PHENYLEPHRINE INJ 160 MG in DEXTROSE 5% IN WATE 500 ML INJ 484 ML IV SCH ×4 (01:32→13:39)
[2017-06-18] MEDS: fentaNYL DRIP 250 ML IV SCH (01:33)
--- NOTE | 2017-06-18 01:34 | RADRPT ---
EXAM DATE/TIME: 06/18/2017 01:19 [facility] COMPARISON: CHEST SINGLE AP, June 17, 2017, 6:29. INDICATIONS : Respiratory distress. MEDICAL HISTORY : Hypertension. Myocardial infarction. Chronic obstructive pulmonary disease. SURGICAL HISTORY : CABG. Hysterectomy ENCOUNTER: Subsequent ACUITY: 3 days PAIN SCORE: Non-responsive. LOCATION: Bilateral chest FINDINGS: The support devices remain in place. The left lung is grossly clear and well-aerated. There may be a small left effusion which is stable compared to the prior exam. The right hemithorax remains complete ly opacified in this post pneumonectomy patient. There is no evidence of pneumothorax. No significant changes have been demonstrated compared to the prior study. CONCLUSION: No significant interval change. Kvng Saldana MD on June 18, 2017 at 1:32 Board Certified Radiologist. This report was verified electronically.
[2017-06-18] MEDS: CEFEPIME INJ 2,000 MG in SODIUM CHLORIDE 0.9% INJ 100 ML IV SCH ×3 (01:37→20:52)
[2017-06-18] MEDS: PROPOFOL 1000 MG/100 ML INJ 100 ML IV SCH ×2 (01:37→17:58)
[2017-06-18 04:00] LABS: BLOOD GAS BASE EXCESS 2.9 mmol/L (-2-2); BLOOD GAS CARBOXYHEMOGLOBIN 1.5 % (0-4); BLOOD GAS HCO3 26 mmol/L (22-26); BLOOD GAS METHEMOGLOBIN 1.3 % (0-2); BLOOD GAS O2 HGB SATURATION 96 % (90-100); BLOOD GAS OXYGEN CONTENT 15.4 Vol % (12.0-20.0); BLOOD GAS PCO2 35 mmHg (38-42); BLOOD GAS PO2 113 mmHg (61-120); BLOOD GAS TOTAL HGB 11.2 G/DL (12.0-16.0); CRITICAL VALUE NO; OXYGEN DEVICE VENTILATOR; VENT SETTINGS PRVC/AV
[2017-06-18 04:01] LABS: DRAW SITE RT RADIAL; FIO2 30 %; NUMBER OF ARTERIAL PUNCTURES 1; STAT NO; ULNAR PULSE Y
[2017-06-18] MEDS: RESP: ALBUTEROL 2.5 MG/IPRATROPIUM 0.5 MG NEB (SCH) INH ×6 (04:05→23:15)
[2017-06-18] MEDS: CHLORHEXIDINE GLUCONATE 2 % 1 PACK (2 CLOTHS) TOP SCH (04:38)
[2017-06-18 05:16] LABS: AUTOMATED NEUTROPHIL # 17.6 TH/MM3 (1.8-7.7); BASOPHIL % 0.1 % (0.0-2.0); EOSINOPHIL % 0.1 % (0.0-4.0); HEMATOCRIT 34.6 % (35.0-46.0); LYMPH % 3.1 % (9.0-44.0); LYMPHOCYTE # 0.6 TH/MM3 (1.0-4.8); MEAN CELL VOLUME 91.7 FL (80.0-100.0); MEAN CORPUSCULAR HEMOGLOBIN 29.6 PG (27.0-34.0); MEAN CORPUSCULAR HGB CONC 32.3 % (32.0-36.0); MONO % 3.1 % (0.0-8.0); NEUT % 93.6 % (16.0-70.0); PLATELET COUNT 324 TH/MM3 (150-450); RED BLOOD COUNT 3.78 MIL/MM3 (4.00-5.30); RED CELL DISTRIBUTION WIDTH 15.5 % (11.6-17.2); WHITE BLOOD COUNT 18.8 TH/MM3 (4.0-11.0)
[2017-06-18 05:26] LABS: HEMO FLAGS DIFF FINAL
[2017-06-18 05:28] LABS: POTASSIUM 3.9 MEQ/L (3.5-5.1)
[2017-06-18 05:35] LABS: APTT (PATIENT) 54.8 SEC (24.3-30.1)
[2017-06-18 05:37] LABS: BICARBONATE 30.1 MEQ/L (21.0-32.0); MAGNESIUM 2.1 MG/DL (1.5-2.5)
[2017-06-18 05:44] LABS: TOTAL BILIRUBIN ADULT 0.6 MG/DL (0.2-1.0)
[2017-06-18] MEDS: INSULIN NovoLIN REGULAR SUPPLEMENTAL SCALE SQ SCH ×4 (06:00→23:42)
[2017-06-18] MEDS: LEVOTHYROXINE SODIUM 112 MCG TAB PO SCH (06:29)
[2017-06-18] MEDS: LEVOTHYROXINE SODIUM 25 MCG TAB PO SCH (06:29)
--- NOTE | 2017-06-18 06:42 | HHI.CCPN ---
Subjective Remarks/Hospital Course 86-year-old female. Data admission 06/16/2017. Past medical history includes non-small cell carcinoma lung status post right human echo, coronary disease status post CABG 4, hypertension, dyslipidemia, hypothyroidism, atrial fibrillation, osteoarthritis. Patient sees Dr. Lemos and recently refused a pacemaker. She is also recently hospitalized at [facility] in early May with pneumonia 4 days. Negative etiology for shortness of breath and patient was sent home. She has been short of breath in the interim. She presents today to the emergency department at [place] via EMS for respiratory distress. Intubation was attempted in the field due to a saturation of 60% and a heart rate of 150 however unable to obtain IV or I/O access. Patient was intubated with a 7.5 ET tube@receiving 20 mg etomidate and 100 mg succinylcholine after receiving IV access Laboratories revealed a significant acidosis at the PEG 727. PCO2 46. PO2 262. Lactic acid was 5.3. General leukocytosis of 14,000. Sodium was 126 for potassium 5.3. Creatinine 1.2. BNP elevated at 1600. Troponin 0.09. EKG revealed A. fib with RVR with a right bundle branch block which appears to be new. Her x-ray revealed status post right pneumonectomy. Small left pleural effusion/infiltrate. Digoxin level 0.4. She is awake and arousable on the ventilator the present time. Subjective 06/17: Afebrile. FiO2 weaned to 30%. Denies chest pain. Diuresed 5.5 L overnight. No bowel movement. Tube feeds to be initiated today. On 30 mics grams per minute of [place]-Synephrine. CVP down to 8. 7/20: Brief episode of seizure-like activity. Stat CT of the head negative. EEG pending. Gustabo-Synephrine was up to 100 mcg/m currently down to 30 mics per minute. Receive Ativan for CAT scan, lethargic but weakly follows commands on upper extremity. Failed CPAP trial yesterday Objective Vital Signs Date Time Temp Pulse Resp B/P Pulse Ox O2 Delivery O2 Flow Rate FiO2 06/18/17 06:20 72 14 107/47 99 06/18/17 04:10 30 06/18/17 04:01 98.1 Intake and Output 06/17/17 06/17/17 06/18/17 08:00 16:00 00:00 Intake Total 1144 ml 1490 ml 1722 ml Output Total 2775 ml 250 ml 250 ml Balance -1631 ml 1240 ml 1472 ml Result Diagram: 06/18/17 0420 06/18/17 0420 Other Results Microbiology Date/Time Procedure Status Source Growth 06/17/17 02:10 Legionella Antigen - Final Complete Urine Catheterized Urine PRESUMPTIVE NEGATIVE FOR LEGIONELLA P... 06/17/17 02:10 Streptococcus pneumoniae Antigen (M - Final Complete Urine Catheterized Urine PRESUMPTIVE NEGATIVE FOR STREPTOCOCCU... 06/17/17 02:20 Influenza Types A,B Antigen ([facility]) - Final Complete Nasal Aspirate NEGATIVE FOR FLU A AND B ANTIGEN.... Laboratory Tests Test 06/18/17 06/18/17 00:42 03:48 Blood Gas Puncture Site LT RADIAL RT RADIAL Blood Gas Patient Temperature 37.0 37.0 Blood Gas HCO3 27 mmol/L 26 mmol/L (22-26) (22-26) Blood Gas Base Excess 0.0 mmol/L 2.9 mmol/L (-2-2) (-2-2) Blood Gas Oxygen Saturation 94 % (90-100) 96 % (90-100) Arterial Blood pH 7.24 7.49 (7.380-7.420) (7.380-7.420) Arterial Blood Partial 63 mmHg (38-42) 35 mmHg (38-42) Pressure CO2 Arterial Blood Partial 98 mmHg 113 mmHg Pressure O2 (61-120) (61-120) Arterial Blood Oxygen Content 15.9 Vol % 15.4 Vol % (12.0-20.0) (12.0-20.0) Arterial Blood 1.3 % (0-4) 1.5 % (0-4) Carboxyhemoglobin Arterial Blood Methemoglobin 1.4 % (0-2) 1.3 % (0-2) Blood Gas Hemoglobin 11.9 G/DL 11.2 G/DL (12.0-16.0) (12.0-16.0) Oxygen Delivery Device VENTILATOR VENTILATOR Blood Gas Ventilator Setting SIMV PRVC/AV Blood Gas Inspired Oxygen 30 % 30 % Imaging Last Impressions Chest X-Ray 06/16/17 3397 Signed Impressions: Service Date/Time: Friday, June 16, 2017 16:17 - CONCLUSION: Complete opacification right lung is stable. New right IJ central line in ecellent position. Taran Tee MD Objective Remarks GENERAL: 86 year old female, critically ill currently on PRBC mode of ventilation SKIN: Cool and dry. No rash HEAD: Atraumatic. Normocephalic. EYES: Right pupil about 2 mm and reactive. Left pupil round 1 mm and sluggish. History of left cataract. ENT: No nasal bleeding or discharge. Mucous membranes pink and moist. NECK: Trachea midline. No JVD. CARDIOVASCULAR: IRR. S1, S2. No S4. Without murmur, clicks, calculus or rubs RESPIRATORY: Diminished breath sounds throughout right lung moore. Few crackles and rhonchi appreciated in the left base. No wheezing GASTROINTESTINAL: Abdomen soft, non-tender, nondistended. Hypoactive bowel sounds are appreciated. MUSCULOSKELETAL: Extremities 2+ peripheral edema NEUROLOGICAL: Arousable on the ventilator. Moves all 4 extremities spontaneously. Follows command weekly on upper extremity. Date of Insertion: Jun 17, 2017 Line: Central Venous Catheter Side: Right Location: Internal, Jugular A/P Assessment and Plan Neuro/Psych: Anxiety disorder NOS Currently started on fentanyl drip at 50 mics grams per hour drips for analgesia while intubated Goal of RASS -2 Daily sedation vacation Continue Escitalopram 10 mg by mouth daily/home medication for depression CV: Severe sepsis A. fib with RVR Coronary disease status post CABG 4 History of hypertension Dyslipidemia Lactic acidosis - resolved DC half normal saline at 84 cc an hour. On [place]-Synephrine 30 mu./m to maintain MAP greater than 65 Holding metoprolol 12.5 mill grams by mouth twice a day/home medication Resumed digoxin 0.125 mg by mouth every other day. Loaded with 0.25 mg 1 06/16 IV. Digoxin level 0.9. Currently weaned off Cardizem gtt. Consulted cardiology/Dr. Lemos. Previous pacemaker candidate, but patient refused 2-D echocardiogram 05/14 revealed EF 55-60%. No regional wall motion abnormality. Mild TR/MR. REY 37 mmHg Repeat 2-D echocardiogram ordered Serial lactates have cleared Resp: Acute hypoxic hypercapnic respiratory failure Recent history pneumonia hospitalized at [facility] History right pneumonectomy status post non-small carcinoma of the lung PRVC .12/04/29, daily spontaneous breathing trials-continues to fail Ventilator bundle Duo nebs every 4 hours with albuterol every 2 hours when necessary dyspnea Pulmonology/Dr. Epps Her chest x-rays reveals right pneumonectomy. Left side appears clear to me on today's x-ray. GI: Hypoalbuminemia OG tube, Jevity 1.5 at goal . Dietary consulted for tube feed recommendations. Protonix for GI prophylaxis Aiyana-Colace for bowel regimen : [place] catheter has been placed for accurate I's and O's in a critically ill patient Endo: Hyperglycemia of critical illness/prednisone usage Hypothyroidism Vitamin B12 deficiency Chronic prednisone usage- 5 mg daily Elevated uric acid Continues cyanocobalamin 1000 mcg by mouth daily On Solu-Medrol 40 mg IV twice a day Levothyroxine at 137 g daily. TSH 0.919 Sliding-scale insulin with Accu-Cheks to maintain euglycemia/every 6 hours/low regimen Renal: Acute kidney injury Creatinine currently within normal limits Monitor urine output Accurate I's and O's Repeat BMP in a.m. Heme: Leukocytosis slightly worsening Normocytic anemia Chronic Apixaban use Elevated PTT/PTT - fibrinogen pending Holding NOAC secondary to acute illness and possible intervention. Continue IV heparin Monitor CBC daily. Follow trends ID: Blood cultures 2, urine, sputum, Legionella and pneumococcal urinary antigen and influenza all ordered. Coag negative staph in one bottle probable contamination Continue vancomycin, cefepime and azithromycin for possible HCAP with recent hospitalization at [facility] FEN: Hyponatremia/appears euvolemic resolved Hypokalemia Replacing electrolytes as clinically indicated DC 1/2 NS MSK: Osteoarthritis PT evaluate and treat Access - Right IJ CVL day 3 placed 06/16 Prophylaxis - GI - Protonix - DVT - SCD/heparin drip Critical Care: The total critical care time was 35 minutes. Time to perform other separately billable procedures was not included in the critical care time. Justina Aguilera MD Jun 18, 2017 06:42 Access - Right IJ CVL day 2 placed 06/16 Prophylaxis - GI - Protonix - DVT - SCD/heparin drip Critical Care: The total critical care time was 35 minutes. Time to perform other separately billable procedures was not included in the critical care time. Justina Aguilera MD Jun 18, 2017 06:42
[2017-06-18] MEDS ORDERED: BUMETANIDE INJ 1 MG/4 ML VIAL IV PUSH ONE (06:45)
[2017-06-18] MEDS ORDERED: POTASSIUM CHLORIDE 25 MEQ EFFERVESCENT TAB PO ONE (06:45)
[2017-06-18] MEDS: methylPREDNISolone SOD SUCC 40 MG/1 ML VIAL IV PUSH SCH ×2 (08:04→20:51)
[2017-06-18] MEDS: PANTOPRAZOLE SODIUM 40 MG VIAL IV SCH (08:06)
[2017-06-18] MEDS: DOCUSATE SODIUM 50 MG/SENNA 8.6 MG TAB PO SCH ×2 (08:07→20:51)
[2017-06-18] MEDS: DIGOXIN 0.125 MG TAB PO SCH (08:07)
[2017-06-18] MEDS: ESCITALOPRAM OXALATE 10 MG TAB PO SCH (08:07)
[2017-06-18] MEDS: CYANOCOBALAMIN 1,000 MCG TAB PO SCH (08:07)
[2017-06-18] MEDS: ARTIFICIAL TEARS OPTH SOLN 15 ML BTL EACH EYE SCH ×3 (08:07→17:25)
[2017-06-18] MEDS: METOPROLOL TARTRATE 25 MG TAB PO SCH ×2 (08:07→20:51)
[2017-06-18] MEDS: SODIUM CHLORIDE 0.9% FLUSH 10 ML FLUSH IV FLUSH SCH ×2 (08:08→20:52)
[2017-06-18] MEDS: SODIUM CHLORIDE 0.9% FLUSH 10 ML FLUSH IVF SCH (08:08)
--- NOTE | 2017-06-18 10:16 | MG ---
cc: ЕЛЕНА GUERRERO MD Lab No: Date: 06/18/2017 Age: 87 Sex: F Race: ___ DATE OF [address] Oneill MEDICAL HISTORY 1. Dizziness 2. Hyperlipidemia 3. Chest pain 4. CABG 5. Hypertension 6. Irregular heartbeat 6. COPD 7. Respiratory distress 8. Brief seizure-like episode this morning. MEDICATIONS 1. Lopressor 2. Fentanyl 3. Vancomycin 4. Lexapro 5. Synthroid 6. Solu-Medrol 7. Cefepime 8. Insulin human regular 9. Azithromycin 10. Phenylephrine 11. Heparin DESCRIPTION There is generalized slowing of the EEG recording with polymorphic delta and theta with slowing of the background in the delta range 2-3 Hz. Hyperventilation was not performed. Photic stimulation did not elicit a driving response. Triphasic wave were intermittently found during the recording. There were no epileptiform discharges or electrographic seizures seen. INTERPRETATION This is a generalized slow EEG recording that may indicate an encephalopathy that may be secondary to medication metabolic derangements or hypoxic effect. Triphasic waves may indicate metabolic encephalopathy. No ictal activity. Absence of electrographic seizures or epileptiform discharges does not rule out the diagnosis of seizure disorder. Clinical correlation is recommended. MD ALETHEA Higgins/DJL /9:40 AM /10:10 AM ABEL
[2017-06-18] MEDS: VANCOMYCIN 1,000 MG/NS 250 ML IV SCH ×2 (10:19)
[2017-06-18] MEDS: CHLORHEXIDINE 0.12% (ORAL KIT) 15 ML CUP MT SCH ×2 (10:20→20:53)
[2017-06-18] MEDS: AZITHROMYCIN INJ 500 MG in SODIUM CHLOR 0.9% 250 ML INJ 250 ML IV SCH (17:24)
--- NOTE | 2017-06-18 17:24 | HHI.PR ---
Subjective Remarks Sedated and on vent support.Opens eyes. FIo2 at 30 %.Failed CPAP this am. On Pressors. CXR shows a small effusion. Objective Vital Signs Date Time Temp Pulse Resp B/P Pulse Ox O2 Delivery O2 Flow Rate FiO2 06/18/17 16:02 98 30 06/18/17 15:00 88 29 126/59 98 06/18/17 15:00 88 06/18/17 14:00 100 06/18/17 14:00 100 27 134/60 98 06/18/17 13:07 98 30 06/18/17 13:00 92 19 127/55 98 06/18/17 13:00 92 06/18/17 12:00 84 06/18/17 12:00 99.4 84 22 117/57 98 06/18/17 12:00 30 06/18/17 11:00 78 18 116/61 99 06/18/17 11:00 78 06/18/17 10:00 72 23 117/53 99 06/18/17 10:00 72 06/18/17 09:41 100 30 06/18/17 09:00 30 06/18/17 09:00 74 17 99/50 100 06/18/17 08:00 98.4 76 21 109/47 100 06/18/17 08:00 77 06/18/17 07:27 30 06/18/17 07:26 100 30 06/18/17 07:00 72 19 114/25 100 06/18/17 06:20 72 14 107/47 99 06/18/17 06:17 72 13 105/50 99 06/18/17 06:14 70 16 112/51 99 06/18/17 06:11 68 14 115/52 99 06/18/17 06:08 70 14 109/51 100 06/18/17 06:05 70 14 92/68 99 06/18/17 06:02 70 13 111/48 100 06/18/17 06:00 67 06/18/17 05:59 68 13 113/48 100 06/18/17 05:56 66 14 113/52 99 06/18/17 05:53 68 13 108/52 100 06/18/17 05:50 66 13 111/49 100 06/18/17 05:48 64 13 100 06/18/17 05:47 66 14 114/49 100 7/20/17 05:44 66 14 109/50 100 7/20/17 05:41 64 13 112/47 100 7/20/17 05:37 66 14 106/52 100 7/20/17 05:34 64 13 116/50 99 7/20/17 05:33 64 14 100 7/20/17 05:16 66 13 120/54 99 7/20/17 05:13 64 13 113/53 99 7/20/17 05:10 62 13 116/52 99 7/20/17 05:07 66 13 108/53 100 7/20/17 05:04 68 13 116/52 99 7/20/17 05:01 64 14 114/53 99 7/20/17 04:58 66 13 103/50 99 7/20/17 04:55 64 13 119/49 99 7/20/17 04:52 64 13 114/51 99 7/20/17 04:49 64 13 110/49 99 7/20/17 04:46 64 13 113/48 99 7/20/17 04:43 66 13 105/44 99 7/20/17 04:40 64 13 106/48 99 7/20/17 04:37 66 13 108/49 99 7/20/17 04:34 64 13 105/51 98 7/20/17 04:31 66 13 108/46 98 7/20/17 04:30 62 14 98 7/20/17 04:13 62 14 117/51 100 7/20/17 04:10 98 30 7/20/17 04:10 62 14 118/55 100 7/20/17 04:07 66 14 125/54 100 7/20/17 04:04 62 13 119/53 99 7/20/17 04:01 98.1 58 14 119/58 100 7/20/17 04:00 30 7/20/17 04:00 66 7/20/17 03:58 62 14 122/57 99 7/20/17 03:55 62 14 123/55 100 7/20/17 03:52 64 13 120/61 100 7/20/17 03:49 60 13 120/58 99 7/20/17 03:46 62 13 131/52 99 7/20/17 03:43 58 13 125/55 99 7/20/17 03:40 62 13 130/60 99 7/20/17 03:37 60 13 130/63 99 7/20/17 03:34 62 13 122/64 99 7/20/17 03:31 58 13 136/64 99 7/20/17 03:28 60 13 126/62 99 7/20/17 03:25 58 13 119/61 99 7/20/17 03:22 60 14 124/58 99 7/20/17 03:19 58 13 125/55 99 7/20/17 03:16 62 13 119/58 99 7/20/17 02:30 98 30 7/20/17 02:30 30 7/20/17 02:22 54 9 105/49 98 7/20/17 02:19 54 10 109/52 98 7/20/17 02:16 54 9 104/44 98 7/20/17 02:00 52 7/20/17 01:46 56 9 104/53 97 7/20/17 01:43 52 9 107/44 98 7/20/17 01:40 58 9 105/48 98 7/20/17 01:37 54 10 105/44 98 7/20/17 01:34 58 10 106/54 98 7/20/17 01:31 56 10 104/53 98 7/20/17 01:30 98 30 7/20/17 01:28 56 15 102/51 7/20/17 01:16 60 16 94/43 99 7/20/17 01:05 99 7/20/17 01:01 62 9 86/42 96 7/20/17 00:56 60 10 84/44 96 7/20/17 00:52 64 9 79/37 96 7/20/17 00:46 76 10 104/48 95 7/20/17 00:31 88 9 105/50 94 7/20/17 00:25 92 9 129/60 93 7/20/17 00:16 106 30 148/102 99 7/20/17 00:01 98 23 140/96 99 7/20/17 00:00 30 7/20/17 00:00 98 30 7/20/17 00:00 63 7/19/17 23:46 64 9 110/49 93 7/19/17 23:31 62 10 105/51 95 7/19/17 23:16 60 13 104/52 96 7/19/17 22:31 56 10 96/41 93 7/19/17 22:16 64 17 107/51 93 7/19/17 22:15 94 30 7/19/17 22:01 58 21 101/51 94 7/19/17 22:00 63 7/19/17 21:46 60 15 94/53 94 7/19/17 21:31 60 21 106/55 94 7/19/17 21:31 60 21 106/55 94 7/19/17 21:16 60 18 103/49 93 7/19/17 21:16 60 18 103/49 93 7/19/17 21:01 60 17 104/51 94 7/19/17 20:46 64 18 104/48 94 7/19/17 20:31 72 17 105/46 94 7/19/17 20:16 100 18 116/84 97 7/19/17 20:03 98.6 116 15 127/70 97 7/19/17 20:00 30 7/19/17 20:00 124 7/19/17 19:48 130 25 128/71 94 7/19/17 19:40 96 30 7/19/17 19:31 104 19 97/56 96 7/19/17 19:16 94 14 81/46 95 7/19/17 19:06 92 13 78/48 94 7/19/17 19:04 92 22 71/40 94 7/19/17 19:01 92 14 83/46 94 7/19/17 19:01 92 14 83/46 94 7/19/17 18:58 90 19 84/41 94 7/19/17 18:46 96 20 70/54 95 7/19/17 18:31 100 25 91/52 95 7/19/17 18:16 94 20 113/53 95 7/19/17 18:01 90 14 115/56 95 7/19/17 17:46 84 13 106/57 95 7/19/17 17:31 82 18 104/49 95 7/19/17 17:30 99 30 I/O 7/19/17 7/19/17 7/19/17 7/20/17 7/20/17 7/20/17 06:59 14:59 22:59 06:59 14:59 22:59 Intake Total 1144 ml 1490 ml 1722 ml 1129 ml 1297 ml Output Total 2775 ml 250 ml 250 ml 675 ml 1775 ml Balance -1631 ml 1240 ml 1472 ml 454 ml -478 ml Intake IV Total 1084 ml 1350 ml 1422 ml 852 ml 885 ml Tube Feeding 40 ml 120 ml 157 ml 292 ml Other 60 ml 100 ml 180 ml 120 ml 120 ml Output Urine Total 2775 ml 250 ml 250 ml 675 ml 1775 ml # Bowel Movements 0 0 0 0 0 Result Diagram: 06/18/1741906/18/17419 Objective Remarks GENERAL: This thinly built elderly lady who is pale and intubated orally. HEENT: Head normocephalic. Pupils are reactive. Tongue is moist. NECK: Supple. No bruits. Mild venous distension. Trachea midline. CHEST: Decreased breath sounds over the right lung field with occasional wheezes in the left lung field.Basal Crackles HEART: The heart sounds are irregularly irregular S1-S2 with no murmur. ABDOMEN: Soft, nontender. Bowel sounds are active. EXTREMITIES: Mild edema with diminished pulses. Reflexes are 1+. The patient is sedated . SKIN: Dry and warm. Assessment and Plan Assessment and Plan IMPRESSION 1. Acute respiratory failure. 2. Status post right pneumonectomy. 3. History of pneumonia. 4. History of non-small cell lung CA. 5. Atrial fibrillation with rapid ventricular response. 6. Pulmonary edema. 7. Hyponatremia Plan : 1. Continue antibiotics. 2. Wean Vent to CPAP in am. 3. Nebs qid , duoneb 4. Tube feeds at 40 CC 5. Continue solumedrol 40 mg bid 6. CBC,BMP ,CXR in am 7. Wean Pressors. Corey Epps MD Jun 18, 2017 17:24
[2017-06-18] MEDS: HEPARIN-D5W INJ 250 ML IV SCH (23:43)
[2017-06-19] VITALS (111 sets, daily range): BP systolic 76–168; BP diastolic 52–98; PULSE 102–148; RESP 13–23; TEMP 98.3–99; O2SAT 96–100
[2017-06-19] MEDS: VANCOMYCIN 1,000 MG/NS 250 ML IV SCH ×4 (02:19→20:12)
[2017-06-19] MEDS: CHLORHEXIDINE GLUCONATE 2 % 1 PACK (2 CLOTHS) TOP SCH (02:19)
[2017-06-19] MEDS: RESP: ALBUTEROL 2.5 MG/IPRATROPIUM 0.5 MG NEB (SCH) INH ×7 (03:47→23:01)
[2017-06-19] MEDS: INSULIN NovoLIN REGULAR SUPPLEMENTAL SCALE SQ SCH ×3 (05:19→17:52)
[2017-06-19] MEDS: LEVOTHYROXINE SODIUM 25 MCG TAB PO SCH (05:36)
[2017-06-19] MEDS: LEVOTHYROXINE SODIUM 112 MCG TAB PO SCH (05:36)
[2017-06-19] MEDS: fentaNYL DRIP 250 ML IV SCH (05:45)
[2017-06-19 06:11] LABS: BASOPHIL # 0.1 TH/MM3 (0-0.2); BASOPHIL % 0.7 % (0.0-2.0); HEMATOCRIT 37.1 % (35.0-46.0); HEMO FLAGS DIFF FINAL; LYMPH % 2.2 % (9.0-44.0); LYMPHOCYTE # 0.4 TH/MM3 (1.0-4.8); MEAN CELL VOLUME 91.5 FL (80.0-100.0); MEAN CORPUSCULAR HEMOGLOBIN 29.3 PG (27.0-34.0); MONO % 2.3 % (0.0-8.0); NEUT % 94.8 % (16.0-70.0); PLATELET COUNT 297 TH/MM3 (150-450); RED BLOOD COUNT 4.05 MIL/MM3 (4.00-5.30); RED CELL DISTRIBUTION WIDTH 15.6 % (11.6-17.2); WHITE BLOOD COUNT 18.9 TH/MM3 (4.0-11.0)
[2017-06-19 06:17] LABS: CHLORIDE 96 MEQ/L (98-107); POTASSIUM 3.4 MEQ/L (3.5-5.1); SODIUM (NA) 136 MEQ/L (136-145)
[2017-06-19 06:21] LABS: ANION GAP 7 MEQ/L (5-15); BLOOD UREA NITROGEN 17 MG/DL (7-18)
[2017-06-19 06:22] LABS: APTT (PATIENT) 57.5 SEC (24.3-30.1)
[2017-06-19 06:24] LABS: ALT (GPT) 25 U/L (10-53); AST (GOT) 18 U/L (15-37)
[2017-06-19 06:25] LABS: GLOMERULAR FILTRATION RATE 56 ML/MIN (>89)
[2017-06-19 06:26] LABS: TOTAL BILIRUBIN ADULT 0.6 MG/DL (0.2-1.0)
[2017-06-19 06:27] LABS: ALKALINE PHOSPHATASE 60 U/L (45-117)
[2017-06-19] MEDS: CHLORHEXIDINE 0.12% (ORAL KIT) 15 ML CUP MT SCH ×2 (07:52→20:15)
[2017-06-19] MEDS: SODIUM CHLORIDE 0.9% FLUSH 10 ML FLUSH IV FLUSH SCH ×2 (09:00→20:14)
[2017-06-19] MEDS: SODIUM CHLORIDE 0.9% FLUSH 10 ML FLUSH IVF SCH (09:00)
[2017-06-19] MEDS: ARTIFICIAL TEARS OPTH SOLN 15 ML BTL EACH EYE SCH ×3 (09:00→17:49)
[2017-06-19] MEDS: PANTOPRAZOLE SODIUM 40 MG VIAL IV SCH (09:22)
[2017-06-19] MEDS: LACTULOSE SYRUP 20 GM/30 ML CUP PO PRN (09:22)
[2017-06-19] MEDS: DOCUSATE SODIUM 50 MG/SENNA 8.6 MG TAB PO SCH ×2 (09:22→20:14)
[2017-06-19] MEDS: methylPREDNISolone SOD SUCC 40 MG/1 ML VIAL IV PUSH SCH ×2 (09:22→20:13)
[2017-06-19] MEDS: CYANOCOBALAMIN 1,000 MCG TAB PO SCH (09:22)
[2017-06-19] MEDS: CEFEPIME INJ 2,000 MG in SODIUM CHLORIDE 0.9% INJ 100 ML IV SCH ×2 (09:22→20:13)
[2017-06-19] MEDS: METOPROLOL TARTRATE 25 MG TAB PO SCH ×2 (09:22→20:13)
[2017-06-19] MEDS: ESCITALOPRAM OXALATE 10 MG TAB PO SCH (09:22)
--- NOTE | 2017-06-19 17:04 | HHI.CCPN ---
Subjective Remarks/Hospital Course 86-year-old female. Data admission 06/16/2017. Past medical history includes non-small cell carcinoma lung status post right human echo, coronary disease status post CABG 4, hypertension, dyslipidemia, hypothyroidism, atrial fibrillation, osteoarthritis. Patient sees Dr. Lemos and recently refused a pacemaker. She is also recently hospitalized at [facility] in early May with pneumonia 4 days. Negative etiology for shortness of breath and patient was sent home. She has been short of breath in the interim. She presents today to the emergency department at [place] via EMS for respiratory distress. Intubation was attempted in the field due to a saturation of 60% and a heart rate of 150 however unable to obtain IV or I/O access. Patient was intubated with a 7.5 ET tube@receiving 20 mg etomidate and 100 mg succinylcholine after receiving IV access Laboratories revealed a significant acidosis at the PEG 727. PCO2 46. PO2 262. Lactic acid was 5.3. General leukocytosis of 14,000. Sodium was 126 for potassium 5.3. Creatinine 1.2. BNP elevated at 1600. Troponin 0.09. EKG revealed A. fib with RVR with a right bundle branch block which appears to be new. Her x-ray revealed status post right pneumonectomy. Small left pleural effusion/infiltrate. Digoxin level 0.4. She is awake and arousable on the ventilator the present time. Subjective 06/17: Afebrile. FiO2 weaned to 30%. Denies chest pain. Diuresed 5.5 L overnight. No bowel movement. Tube feeds to be initiated today. On 30 mics grams per minute of Gustabo-Synephrine. CVP down to 8. 7/: Brief episode of seizure-like activity. Stat CT of the head negative. EEG pending. Gustabo-Synephrine was up to 100 mcg/m currently down to 30 mics per minute. Receive Ativan for CAT scan, lethargic but weakly follows commands on upper extremity. Failed CPAP trial yesterday 06/19 Patient remains intubated. Did not tolerate CPAP trials today as she became apneic. Off sedation and off Neosyn . Afebrile. On Heparin drip. Objective Vital Signs Date Time Temp Pulse Resp B/P Pulse Ox O2 Delivery O2 Flow Rate FiO2 06/19/17 16:31 124 14 103/64 98 06/19/17 16:01 98.7 06/19/17 16:00 30 Intake and Output 06/18/17 06/18/17 06/19/17 08:00 16:00 00:00 Intake Total 1129 ml 1297 ml 865 ml Output Total 675 ml 1775 ml 700 ml Balance 454 ml -478 ml 165 ml Result Diagram: 06/19/17 0602 06/19/17 0602 Other Results Laboratory Tests Test 06/19/17 06:02 White Blood Count 18.9 TH/MM3 Red Blood Count 4.05 MIL/MM3 Hemoglobin 11.9 GM/DL Hematocrit 37.1 % Mean Corpuscular Volume 91.5 FL Mean Corpuscular Hemoglobin 29.3 PG Mean Corpuscular Hemoglobin 32.0 % Concent Red Cell Distribution Width 15.6 % Platelet Count 297 TH/MM3 Mean Platelet Volume 8.1 FL Neutrophils (%) (Auto) 94.8 % Lymphocytes (%) (Auto) 2.2 % Monocytes (%) (Auto) 2.3 % Eosinophils (%) (Auto) 0.0 % Basophils (%) (Auto) 0.7 % Neutrophils # (Auto) 18.0 TH/MM3 Lymphocytes # (Auto) 0.4 TH/MM3 Monocytes # (Auto) 0.4 TH/MM3 Eosinophils # (Auto) 0.0 TH/MM3 Basophils # (Auto) 0.1 TH/MM3 CBC Comment DIFF FINAL Differential Comment Activated Partial 57.5 SEC Thromboplast Time Sodium Level 136 MEQ/L Potassium Level 3.4 MEQ/L Chloride Level 96 MEQ/L Carbon Dioxide Level 33.0 MEQ/L Anion Gap 7 MEQ/L Blood Urea Nitrogen 17 MG/DL Creatinine 0.94 MG/DL Estimat Glomerular Filtration 56 ML/MIN Rate Random Glucose 233 MG/DL Calcium Level 8.1 MG/DL Magnesium Level 2.0 MG/DL Total Bilirubin 0.6 MG/DL Aspartate Amino Transf 18 U/L (AST/SGOT) Alanine Aminotransferase 25 U/L (ALT/SGPT) Alkaline Phosphatase 60 U/L Total Protein 6.2 GM/DL Albumin 2.9 GM/DL Imaging Last Impressions Chest X-Ray 06/18/17 0600 Signed Impressions: Service Date/Time: May 01:19 - CONCLUSION: No significant interval change. Kvng Saldana MD Head CT 06/18/17 0000 Signed Impressions: Service Date/Time: May 01:02 - CONCLUSION: Normal examination for a patient of this age. Chronic left maxillary sinus disease. Kvng Saldana MD Objective Remarks GENERAL: 86 year old female, critically ill currently on PRBC mode of ventilation SKIN: Cool and dry. No rash HEAD: Atraumatic. Normocephalic. EYES: Right pupil about 2 mm and reactive. Left pupil round 1 mm and sluggish. History of left cataract. ENT: No nasal bleeding or discharge. Mucous membranes pink and moist. NECK: Trachea midline. No JVD. CARDIOVASCULAR: IRR. S1, S2. No S4. Without murmur, clicks, calculus or rubs RESPIRATORY: Diminished breath sounds throughout right lung moore. Few crackles and rhonchi appreciated in the left base. No wheezing GASTROINTESTINAL: Abdomen soft, non-tender, nondistended. Hypoactive bowel sounds are appreciated. MUSCULOSKELETAL: Extremities 2+ peripheral edema NEUROLOGICAL: Arousable on the ventilator. Moves all 4 extremities spontaneously. Follows command weekly on upper extremity. Date of Insertion: Jun 17, 2017 Line: Central Venous Catheter Side: Right Location: Internal, Jugular A/P Assessment and Plan Neuro/Psych: Anxiety disorder NOS Off sedation since morning. Monitor neuro status. 06/18: CT brain: No acute intracranial findings. Continue Escitalopram 10 mg by mouth daily/home medication for depression CV: Severe sepsis A. fib with RVR Coronary disease status post CABG 4 History of hypertension Dyslipidemia Lactic acidosis - resolved Monitor HR and BP keep MAP>65mmHg. Off Neosyn. Change Lopressor 25mg Q8. Digoxin 0.125 mg by mouth every other day. Digoxin level 0.9 on 06/17. On Heparin drip Consulted cardiology/Dr. Lemos Echo showed EF 35-40% 2-D echocardiogram 05/14 revealed EF 55-60%. No regional wall motion abnormality. Mild TR/MR. REY 37 mmHg Serial lactates have cleared Resp: Acute hypoxic hypercapnic respiratory failure Recent history pneumonia hospitalized at [facility] History right pneumonectomy status post non-small carcinoma of the lung PRVC 14/500/1.0/30, daily spontaneous breathing trials-continues to fail Ventilator bundle Duo nebs every 4 hours with albuterol every 2 hours when necessary dyspnea Pulmonology/Dr. Epps Her chest x-rays reveals right pneumonectomy. Left side appears clear GI: Hypoalbuminemia OG tube, Jevity 1.5 at 50ml/hr . Dietary consulted for tube feed recommendations. Protonix for GI prophylaxis Aiyana-Colace for bowel regimen : Monitor renal function, I/O's, electrolytes replacement per protocol. Endo: Hyperglycemia of critical illness/prednisone usage Hypothyroidism Vitamin B12 deficiency Chronic prednisone usage- 5 mg daily Elevated uric acid Continues cyanocobalamin 1000 mcg by mouth daily On Solu-Medrol 40 mg IV BID Levothyroxine at 137 g daily. TSH 0.919 SSI with Accu-Cheks to maintain euglycemia/every 6 hours/low regimen Heme: Leukocytosis Normocytic anemia Chronic Apixaban use Continue IV heparin- monitor PTT per protocol. Monitor CBC, coags daily. ID: Continue vancomycin, cefepime and azithromycin for possible HCAP with recent hospitalization at [facility] 06/17: Strep pneumonia and Legionella urinary Ag negative 06/17: Nasal aspirate negative for Influenza 06/17: Sputum cx: No growth 06/16 BC: Coag negative staph 12/07 bottles likely contaminant MSK: Osteoarthritis PT evaluate and treat Access - Right IJ CVL placed 06/16 Prophylaxis - GI - Protonix - DVT - SCD/heparin drip Level 3 Concepción Quiñones MD Jun 19, 2017 17:04
[2017-06-19] MEDS: AZITHROMYCIN INJ 500 MG in SODIUM CHLOR 0.9% 250 ML INJ 250 ML IV SCH (17:55)
--- NOTE | 2017-06-19 18:03 | HHI.PR ---
Subjective Remarks Sedated and on vent support. Opens eyes. FIo2 at 30 %.Failed CPAP again this am. Still On Pressors. CXR shows a small effusion. Objective Vital Signs Date Time Temp Pulse Resp B/P Pulse Ox O2 Delivery O2 Flow Rate FiO2 06/19/17 16:31 124 14 103/64 98 06/19/17 16:16 120 14 92/63 99 06/19/17 16:01 98.7 122 13 124/64 98 06/19/17 16:01 122 06/19/17 16:00 30 06/19/17 16:00 30 06/19/17 16:00 98 30 06/19/17 15:46 120 16 140/87 99 06/19/17 15:31 116 14 148/73 98 06/19/17 15:16 114 13 126/75 98 06/19/17 15:01 112 13 114/66 97 06/19/17 14:46 114 14 115/55 97 06/19/17 14:31 110 13 119/76 98 06/19/17 14:16 112 13 139/76 97 06/19/17 14:01 112 06/19/17 14:01 112 14 120/82 97 06/19/17 13:46 116 14 124/78 97 06/19/17 13:31 114 14 116/82 98 06/19/17 13:16 108 14 141/79 97 06/19/17 13:03 99 30 06/19/17 13:01 110 13 137/56 97 06/19/17 12:46 112 14 158/80 97 06/19/17 12:31 108 13 136/76 97 06/19/17 12:16 112 13 143/92 97 06/19/17 12:01 99.0 118 13 132/80 97 06/19/17 12:00 30 06/19/17 12:00 116 06/19/17 11:46 120 18 133/81 98 06/19/17 11:31 110 14 131/60 97 06/19/17 11:16 114 14 134/72 97 06/19/17 11:01 114 17 115/66 98 06/19/17 11:00 98 30 06/19/17 10:46 110 19 114/63 97 06/19/17 10:31 112 14 99/58 98 06/19/17 10:16 112 16 135/62 97 06/19/17 10:01 130 20 137/70 97 06/19/17 10:00 128 06/19/17 09:46 138 16 121/72 96 06/19/17 09:31 128 13 123/69 97 06/19/17 09:16 128 13 108/75 97 06/19/17 09:01 120 13 105/68 97 06/19/17 08:49 124 13 87/58 97 06/19/17 08:46 128 14 90/67 97 06/19/17 08:31 126 14 97/72 97 06/19/17 08:16 122 13 132/81 97 06/19/17 08:01 98.4 124 16 160/92 99 06/19/17 08:00 30 06/19/17 08:00 124 06/19/17 07:48 128 14 168/98 100 06/19/17 07:35 100 30 06/19/17 07:31 112 14 165/72 100 06/19/17 07:16 110 13 149/79 99 06/19/17 07:01 108 13 160/81 99 06/19/17 06:46 108 13 136/72 99 06/19/17 06:31 108 14 133/74 100 06/19/17 06:16 122 14 118/79 99 06/19/17 06:01 118 13 135/87 99 06/19/17 06:00 118 06/19/17 05:46 122 13 113/59 98 06/19/17 05:31 144 23 136/79 98 06/19/17 05:16 114 21 143/84 99 06/19/17 05:01 108 14 135/73 98 06/19/17 04:46 110 19 148/68 98 06/19/17 04:31 106 14 143/77 98 06/19/17 04:16 110 14 138/71 99 06/19/17 04:01 106 14 164/81 99 06/19/17 04:00 104 06/19/17 04:00 30 06/19/17 03:50 99 30 06/19/17 03:46 98.4 102 14 143/71 98 06/19/17 03:31 102 13 140/78 98 06/19/17 03:16 108 14 143/79 99 06/19/17 03:01 110 19 155/79 99 06/19/17 02:45 108 14 144/76 99 06/19/17 02:30 110 19 135/69 99 06/19/17 02:15 110 13 135/58 99 06/19/17 02:00 108 17 140/79 99 06/19/17 02:00 108 06/19/17 01:45 110 13 154/82 99 06/19/17 01:30 112 13 155/69 99 06/19/17 01:15 112 17 133/84 99 06/19/17 01:05 99 30 06/19/17 01:00 110 18 144/73 99 06/19/17 00:45 110 16 146/81 99 06/19/17 00:30 106 14 135/78 99 06/19/17 00:15 106 13 156/64 99 06/19/17 00:00 106 13 156/69 99 06/19/17 00:00 106 06/19/17 00:00 30 06/18/17 23:45 98.5 106 17 153/82 100 06/18/17 23:30 100 13 156/74 100 17 23:15 96 14 140/72 99 17 23:00 94 14 162/71 99 17 23:00 94 17 22:45 98 13 158/70 99 2017 22:30 94 14 151/76 99 2017 22:15 94 13 155/69 99 06/18/17 22:10 99 30 17 22:00 94 17 22:00 94 14 149/70 99 17 21:45 96 13 141/67 99 20/17 21:30 102 15 124/77 98 20/17 21:15 116 19 152/72 98 20/17 21:00 132 20/17 21:00 132 22 135/81 99 20/17 20:45 104 14 115/64 98 20/17 20:30 102 13 142/79 98 20/17 20:15 108 15 141/81 98 20/17 20:00 104 2017 20:00 98.1 104 18 133/79 99 2017 20:00 30 7/20/17 19:45 110 18 137/83 99 06/18/17 19:30 98 14 146/64 98 06/18/17 19:20 98 30 06/18/17 19:15 100 14 118/64 98 06/18/17 19:00 104 14 124/61 98 06/18/17 18:00 118 06/18/17 18:00 118 14 106/58 98 I/O 06/18/17 06/18/17 06/18/17 06/19/17 06/19/17 06/19/17 07:00 15:00 23:00 07:00 15:00 23:00 Intake Total 1129 ml 1297 ml 865 ml 1244 ml 1009 ml Output Total 675 ml 1775 ml 700 ml 600 ml 1200 ml Balance 454 ml -478 ml 165 ml 644 ml -191 ml Intake IV Total 852 ml 885 ml 513 ml 714 ml 352 ml Tube Feeding 157 ml 292 ml 252 ml 430 ml 437 ml Other 120 ml 120 ml 100 ml 100 ml 220 ml Output Urine Total 675 ml 1775 ml 700 ml 600 ml 1200 ml # Bowel Movements 0 0 0 0 Result Diagram: 06/19/17 0602 06/19/17 06 Objective Remarks GENERAL: This thinly built elderly lady who is pale and intubated orally. HEENT: Head normocephalic. Pupils are reactive. Tongue is moist. NECK: Supple. No bruits. Mild venous distension. Trachea midline. CHEST: Decreased breath sounds over the right lung field with occasional wheezes in the left lung field. Few Basal Crackles. HEART: The heart sounds are irregularly irregular S1-S2 with no murmur. ABDOMEN: Soft, nontender. Bowel sounds are active. EXTREMITIES: Mild edema with diminished pulses. Reflexes are 1+. The patient is sedated . SKIN: Dry and warm. Assessment and Plan Assessment and Plan IMPRESSION 1. Acute respiratory failure. 2. Status post right pneumonectomy. 3. History of pneumonia. 4. History of non-small cell lung CA. 5. Atrial fibrillation with rapid ventricular response. 6. Pulmonary edema. 7. Hyponatremia Plan : 1. Continue antibiotics.Cefipime / Vanco 2. Wean Vent to CPAP in am. 3. Nebs qid , duoneb 4. Tube feeds at 40 CC 5. Continue solumedrol 40 mg bid 6. CBC,BMP ,in am 7. Wean Pressors. 8. Reduce sedation. Corey Epps MD Jun 19, 2017 18:03
[2017-06-19] MEDS ORDERED: VANCOMYCIN TROUGH ONE (20:45)
[2017-06-20] VITALS (113 sets, daily range): BP systolic 83–160; BP diastolic 47–93; PULSE 90–158; RESP 13–33; TEMP 97.7–99.5; O2SAT 97–100
[2017-06-20] MEDS: INSULIN NovoLIN REGULAR SUPPLEMENTAL SCALE SQ SCH ×5 (02:49→22:05)
[2017-06-20] MEDS: HEPARIN-D5W INJ 250 ML IV SCH (02:54)
[2017-06-20] MEDS: RESP: ALBUTEROL 2.5 MG/IPRATROPIUM 0.5 MG NEB (SCH) INH ×3 (02:58→11:02)
[2017-06-20] MEDS: CHLORHEXIDINE GLUCONATE 2 % 1 PACK (2 CLOTHS) TOP SCH (04:00)
[2017-06-20] MEDS: LEVOTHYROXINE SODIUM 25 MCG TAB PO SCH (05:54)
[2017-06-20] MEDS: LEVOTHYROXINE SODIUM 112 MCG TAB PO SCH (05:54)
[2017-06-20] MEDS: METOPROLOL TARTRATE 25 MG TAB PO SCH ×3 (05:54→20:13)
[2017-06-20 06:37] LABS: AUTOMATED NEUTROPHIL # 17.9 TH/MM3 (1.8-7.7); BASOPHIL # 0.2 TH/MM3 (0-0.2); BASOPHIL % 0.8 % (0.0-2.0); HEMATOCRIT 37.5 % (35.0-46.0); HEMO FLAGS DIFF FINAL; LYMPH % 2.5 % (9.0-44.0); LYMPHOCYTE # 0.5 TH/MM3 (1.0-4.8); MEAN CELL VOLUME 90.9 FL (80.0-100.0); MEAN CORPUSCULAR HEMOGLOBIN 29.9 PG (27.0-34.0); MEAN CORPUSCULAR HGB CONC 32.9 % (32.0-36.0); NEUT % 93.7 % (16.0-70.0); PLATELET COUNT 265 TH/MM3 (150-450); RED BLOOD COUNT 4.13 MIL/MM3 (4.00-5.30); RED CELL DISTRIBUTION WIDTH 15.7 % (11.6-17.2); WHITE BLOOD COUNT 19.2 TH/MM3 (4.0-11.0)
[2017-06-20 06:45] LABS: POTASSIUM 3.5 MEQ/L (3.5-5.1)
[2017-06-20 06:49] LABS: BICARBONATE 34.9 MEQ/L (21.0-32.0)
[2017-06-20 06:53] LABS: APTT (PATIENT) 55.6 SEC (24.3-30.1)
--- NOTE | 2017-06-20 07:09 | RADRPT ---
EXAM DATE/TIME: 06/20/2017 06:37 [place] COMPARISON: CHEST SINGLE AP, June 18, 2017, 1:19. INDICATIONS : Respiratory failure. MEDICAL HISTORY : None. SURGICAL HISTORY : None. ENCOUNTER: Subsequent ACUITY: 1 week PAIN SCORE: Non-responsive. LOCATION: Bilateral chest FINDINGS: Lines and tubes are present not significantly changed. Completely opacified right hemithorax have not changed. The left lung is clear. The rest of the examination has not significantly changed. CONCLUSION: No appreciable change. Elisa Piper MD on June 20, 2017 at 7:06 Board Certified Radiologist. This report was verified electronically.
[2017-06-20] MEDS: CHLORHEXIDINE 0.12% (ORAL KIT) 15 ML CUP MT SCH ×2 (08:57→20:14)
[2017-06-20] MEDS: ARTIFICIAL TEARS OPTH SOLN 15 ML BTL EACH EYE SCH ×3 (08:58→17:47)
[2017-06-20] MEDS: DOCUSATE SODIUM 50 MG/SENNA 8.6 MG TAB PO SCH ×2 (08:58→20:13)
[2017-06-20] MEDS: CYANOCOBALAMIN 1,000 MCG TAB PO SCH (08:59)
[2017-06-20] MEDS: SODIUM CHLORIDE 0.9% FLUSH 10 ML FLUSH IVF SCH (09:00)
[2017-06-20] MEDS: POTASSIUM PHOSPHATE MONOBASIC 500 MG TAB PO PRN ×2 (09:00→12:28)
[2017-06-20] MEDS: LACTULOSE SYRUP 20 GM/30 ML CUP PO PRN (09:00)
[2017-06-20] MEDS: SODIUM CHLORIDE 0.9% FLUSH 10 ML FLUSH IV FLUSH SCH ×2 (09:00→20:14)
[2017-06-20] MEDS: ESCITALOPRAM OXALATE 10 MG TAB PO SCH (09:01)
[2017-06-20] MEDS: PANTOPRAZOLE SODIUM 40 MG VIAL IV SCH (09:01)
[2017-06-20] MEDS: DIGOXIN 0.125 MG TAB PO SCH (09:01)
[2017-06-20] MEDS: CEFEPIME INJ 2,000 MG in SODIUM CHLORIDE 0.9% INJ 100 ML IV SCH ×2 (09:02→20:14)
[2017-06-20] MEDS: methylPREDNISolone SOD SUCC 40 MG/1 ML VIAL IV PUSH SCH ×2 (09:02→20:12)
[2017-06-20] MEDS: VANCOMYCIN INJ 1,100 MG in SODIUM CHLOR 0.9% 250 ML INJ 250 ML IV SCH (13:53)
[2017-06-20] MEDS: AZITHROMYCIN INJ 500 MG in SODIUM CHLOR 0.9% 250 ML INJ 250 ML IV SCH (16:43)
--- NOTE | 2017-06-20 16:58 | HHI.CCPN ---
Subjective Remarks/Hospital Course 86-year-old female. Data admission 06/16/2017. Past medical history includes non-small cell carcinoma lung status post right human echo, coronary disease status post CABG 4, hypertension, dyslipidemia, hypothyroidism, atrial fibrillation, osteoarthritis. Patient sees Dr. Lemos and recently refused a pacemaker. She is also recently hospitalized at [facility] in early May with pneumonia 4 days. Negative etiology for shortness of breath and patient was sent home. She has been short of breath in the interim. She presents today to the emergency department at [place] via EMS for respiratory distress. Intubation was attempted in the field due to a saturation of 60% and a heart rate of 150 however unable to obtain IV or I/O access. Patient was intubated with a 7.5 ET tube@receiving 20 mg etomidate and 100 mg succinylcholine after receiving IV access Laboratories revealed a significant acidosis at the PEG 727. PCO2 46. PO2 262. Lactic acid was 5.3. General leukocytosis of 14,000. Sodium was 126 for potassium 5.3. Creatinine 1.2. BNP elevated at 1600. Troponin 0.09. EKG revealed A. fib with RVR with a right bundle branch block which appears to be new. Her x-ray revealed status post right pneumonectomy. Small left pleural effusion/infiltrate. Digoxin level 0.4. She is awake and arousable on the ventilator the present time. Subjective 06/17: Afebrile. FiO2 weaned to 30%. Denies chest pain. Diuresed 5.5 L overnight. No bowel movement. Tube feeds to be initiated today. On 30 mics grams per minute of Gustabo-Synephrine. CVP down to 8. 06/18: Brief episode of seizure-like activity. Stat CT of the head negative. EEG pending. Gustabo-Synephrine was up to 100 mcg/m currently down to 30 mics per minute. Receive Ativan for CAT scan, lethargic but weakly follows commands on upper extremity. Failed CPAP trial yesterday 06/19 Patient remains intubated. Did not tolerate CPAP trials today as she became apneic. Off sedation and off Neosyn . Afebrile. On Heparin drip. 06/20 No events overnight. On Fentanyl infusion for sedation but awake, Afebrile. On Heparin drip. Objective Vital Signs Date Time Temp Pulse Resp B/P Pulse Ox O2 Delivery O2 Flow Rate FiO2 06/20/17 14:47 110 14 129/82 98 06/20/17 14:14 30 06/20/17 12:17 98.8 Intake and Output 06/19/17 06/19/17 06/20/17 08:00 16:00 00:00 Intake Total 1244 ml 1009 ml 1803 ml Output Total 600 ml 1200 ml 350 ml Balance 644 ml -191 ml 1453 ml Result Diagram: 06/20/1725 06/20/17624 Other Results Laboratory Tests Test 06/19/17 06/20/17 20:20 06:25 Vancomycin Level Trough 11.6 MCG/ML White Blood Count 19.2 TH/MM3 Red Blood Count 4.13 MIL/MM3 Hemoglobin 12.4 GM/DL Hematocrit 37.5 % Mean Corpuscular Volume 90.9 FL Mean Corpuscular Hemoglobin 29.9 PG Mean Corpuscular Hemoglobin 32.9 % Concent Red Cell Distribution Width 15.7 % Platelet Count 265 TH/MM3 Mean Platelet Volume 8.0 FL Neutrophils (%) (Auto) 93.7 % Lymphocytes (%) (Auto) 2.5 % Monocytes (%) (Auto) 3.0 % Eosinophils (%) (Auto) 0.0 % Basophils (%) (Auto) 0.8 % Neutrophils # (Auto) 17.9 TH/MM3 Lymphocytes # (Auto) 0.5 TH/MM3 Monocytes # (Auto) 0.6 TH/MM3 Eosinophils # (Auto) 0.0 TH/MM3 Basophils # (Auto) 0.2 TH/MM3 CBC Comment DIFF FINAL Differential Comment Activated Partial 55.6 SEC Thromboplast Time Sodium Level 135 MEQ/L Potassium Level 3.5 MEQ/L Chloride Level 93 MEQ/L Carbon Dioxide Level 34.9 MEQ/L Anion Gap 7 MEQ/L Blood Urea Nitrogen 17 MG/DL Creatinine 0.78 MG/DL Estimat Glomerular Filtration 70 ML/MIN Rate Random Glucose 239 MG/DL Calcium Level 8.5 MG/DL Phosphorus Level 1.9 MG/DL Magnesium Level 2.0 MG/DL Imaging Last Impressions Chest X-Ray 06/20/17 0000 Signed Impressions: Service Date/Time: Tuesday, June 20, 2017 06:37 - CONCLUSION: No appreciable change. Elisa Piper MD Head CT 06/18/17 0000 Signed Impressions: Service Date/Time: May 01:02 - CONCLUSION: Normal examination for a patient of this age. Chronic left maxillary sinus disease. Kvng Saldana MD Objective Remarks GENERAL: 86 year old female, critically ill currently on PRBC mode of ventilation SKIN: Cool and dry. No rash HEAD: Atraumatic. Normocephalic. EYES: Right pupil about 2 mm and reactive. Left pupil round 1 mm and sluggish. History of left cataract. ENT: No nasal bleeding or discharge. Mucous membranes pink and moist. NECK: Trachea midline. No JVD. CARDIOVASCULAR: IRR. S1, S2. No S4. Without murmur, clicks, calculus or rubs RESPIRATORY: Diminished breath sounds throughout right lung moore. Few crackles and rhonchi appreciated in the left base. No wheezing GASTROINTESTINAL: Abdomen soft, non-tender, nondistended. Hypoactive bowel sounds are appreciated. MUSCULOSKELETAL: Extremities 2+ peripheral edema NEUROLOGICAL: Arousable on the ventilator. Moves all 4 extremities spontaneously. Follows command weekly on upper extremity. Date of Insertion: Jun 17, 2017 Line: Central Venous Catheter Side: Right Location: Internal, Jugular A/P Assessment and Plan Neuro/Psych: Anxiety disorder NOS On Fentanyl infusion for sedation. Daily sedation vacation. Monitor neuro status. 06/18: CT brain: No acute intracranial findings. Continue Escitalopram 10 mg by mouth daily/home medication for depression CV: Severe sepsis A. fib with RVR Coronary disease status post CABG 4 History of hypertension Dyslipidemia Lactic acidosis - resolved Monitor HR and BP keep MAP>65mmHg. Off Neosyn. On Lopressor 25mg Q8. Digoxin 0.125 mg by mouth every other day. Digoxin level 0.9 on 06/17. d/c Heparin drip and resume Eliquis 5mg BID ( home med) Consulted cardiology/Dr. Lemos Echo showed EF 35-40% 2-D echocardiogram 05/14 revealed EF 55-60%. No regional wall motion abnormality. Mild TR/MR. REY 37 mmHg Serial lactates have cleared Resp: Acute hypoxic hypercapnic respiratory failure Recent history pneumonia hospitalized at [facility] History right pneumonectomy status post non-small carcinoma of the lung PRVC 14/500/1.0/04/28, daily spontaneous breathing trials-continues to fail Ventilator bundle Duo nebs every 4 hours with albuterol every 2 hours when necessary dyspnea Pulmonology/Dr. Epps Her chest x-rays reveals right pneumonectomy. Left side appears clear GI: Hypoalbuminemia OG tube, Jevity 1.5 with goal rate 50ml/hr . Dietary consulted for tube feed recommendations. Protonix for GI prophylaxis Aiyana-Colace for bowel regimen : Monitor renal function, I/O's, electrolytes replacement per protocol. Diurese with Bumex 1mg x1 Will need Phos replacement today Endo: Hyperglycemia of critical illness/prednisone usage Hypothyroidism Vitamin B12 deficiency Chronic prednisone usage- 5 mg daily Elevated uric acid Continues cyanocobalamin 1000 mcg by mouth daily On Solu-Medrol 40 mg IV BID Levothyroxine at 137 g daily. TSH 0.919 Increase SSI medium with Accu-Cheks for glycemic control Heme: Leukocytosis Normocytic anemia Chronic Apixaban use Monitor CBC, coags daily. ID: Continue vancomycin, cefepime and azithromycin for possible HCAP with recent hospitalization at [facility] Check UA with cx if indicated 06/17: Strep pneumonia and Legionella urinary Ag negative 06/17: Nasal aspirate negative for Influenza 06/17: Sputum cx: No growth 06/16 BC: Coag negative staph / bottles likely contaminant MSK: Osteoarthritis PT evaluate and treat Access - Right IJ CVL placed 06/16 Prophylaxis - GI - Protonix - DVT - SCD/ d/c heparin drip and resume Eliquis 5mg BID Level 3 Concepción Quiñones MD Jun 20, 2017 16:57
[2017-06-20] MEDS ORDERED: GLUCAGON 1 MG/ML VIAL OTHER PRN (17:00)
[2017-06-20] MEDS ORDERED: DEXTROSE 50% IN WATER 50 ML VIAL(D50) IV PRN (17:00)
[2017-06-20] MEDS: RESP: ALBUTEROL 2.5 MG/IPRATROPIUM 0.5 MG NEB (SCH) NEB ×2 (17:22→21:30)
[2017-06-20] MEDS ORDERED: BUMETANIDE INJ 1 MG/4 ML VIAL IV PUSH ONE (17:30)
[2017-06-20 17:42] LABS: BLOOD, URINE MOD (NEG); GLUCOSE,URINE NEG (NEG); KETONE, URINE NEG (NEG); NITRITE,URINE NEG (NEG)
[2017-06-20] MEDS: BISACODYL 10 MG SUPP RECTAL PRN (17:47)
[2017-06-20 17:48] LABS: METHOD OF COLLECTION CATH; URINE COLOR YELLOW (YELLW/STRAW)
[2017-06-20 17:50] LABS: COMMENT (UR) CATH-CULT NOT IND; COMMENT2 (UR) MUCOUS PRESENT; CULTURE IF INDICATED CATH CULTURE NOT IND; SQUAMOUS EPITHELIAL CELL URINE 0-5 /hpf (0-5)
[2017-06-20 17:51] LABS: TRANSITIONAL EPI CELLS, URINE 0-5 /hpf
[2017-06-20] MEDS: APIXABAN 5 MG TABLET PO SCH (20:12)
[2017-06-20] MEDS: fentaNYL DRIP 250 ML IV SCH (20:12)
[2017-06-21] VITALS (88 sets, daily range): BP systolic 65–140; BP diastolic 41–87; PULSE 96–144; RESP 14–34; TEMP 97.4–99.3; O2SAT 92–99
[2017-06-21] MEDS: INSULIN NovoLIN REGULAR SUPPLEMENTAL SCALE SQ SCH ×7 (01:58→23:36)
[2017-06-21] MEDS: RESP: ALBUTEROL 2.5 MG/IPRATROPIUM 0.5 MG NEB (SCH) NEB ×3 (03:36→10:15)
[2017-06-21] MEDS: CHLORHEXIDINE GLUCONATE 2 % 1 PACK (2 CLOTHS) TOP SCH (04:00)
[2017-06-21] MEDS: LEVOTHYROXINE SODIUM 25 MCG TAB PO SCH (05:38)
[2017-06-21] MEDS: LEVOTHYROXINE SODIUM 112 MCG TAB PO SCH (05:38)
[2017-06-21] MEDS: METOPROLOL TARTRATE 25 MG TAB PO SCH ×3 (05:39→22:00)
[2017-06-21 05:58] LABS: AUTOMATED NEUTROPHIL # 15.1 TH/MM3 (1.8-7.7); BASOPHIL # 0.5 TH/MM3 (0-0.2); BASOPHIL % 3.2 % (0.0-2.0); HEMATOCRIT 37.1 % (35.0-46.0); HEMO FLAGS DIFF FINAL; LYMPH % 3.4 % (9.0-44.0); LYMPHOCYTE # 0.6 TH/MM3 (1.0-4.8); MEAN CORPUSCULAR HGB CONC 32.2 % (32.0-36.0); MONO % 3.9 % (0.0-8.0); NEUT % 89.5 % (16.0-70.0); PLATELET COUNT 228 TH/MM3 (150-450); RED BLOOD COUNT 4.12 MIL/MM3 (4.00-5.30); RED CELL DISTRIBUTION WIDTH 15.4 % (11.6-17.2); WHITE BLOOD COUNT 16.9 TH/MM3 (4.0-11.0)
[2017-06-21 06:18] LABS: BICARBONATE 37.2 MEQ/L (21.0-32.0); MAGNESIUM 2.3 MG/DL (1.5-2.5)
[2017-06-21 06:21] LABS: POTASSIUM 4.7 MEQ/L (3.5-5.1)
[2017-06-21] MEDS: CHLORHEXIDINE 0.12% (ORAL KIT) 15 ML CUP MT SCH ×2 (08:09→20:18)
[2017-06-21] MEDS: VANCOMYCIN INJ 1,100 MG in SODIUM CHLOR 0.9% 250 ML INJ 250 ML IV SCH (08:09)
[2017-06-21] MEDS: SODIUM CHLORIDE 0.9% FLUSH 10 ML FLUSH IV FLUSH SCH ×2 (09:00→20:18)
[2017-06-21] MEDS: SODIUM CHLORIDE 0.9% FLUSH 10 ML FLUSH IVF SCH (09:28)
[2017-06-21] MEDS: ARTIFICIAL TEARS OPTH SOLN 15 ML BTL EACH EYE SCH ×3 (09:28→17:03)
[2017-06-21] MEDS: ESCITALOPRAM OXALATE 10 MG TAB PO SCH (09:28)
[2017-06-21] MEDS: PANTOPRAZOLE SODIUM 40 MG VIAL IV SCH (09:29)
[2017-06-21] MEDS: methylPREDNISolone SOD SUCC 40 MG/1 ML VIAL IV PUSH SCH ×2 (09:29→20:16)
[2017-06-21] MEDS: CEFEPIME INJ 2,000 MG in SODIUM CHLORIDE 0.9% INJ 100 ML IV SCH ×2 (09:29→20:17)
[2017-06-21] MEDS: DOCUSATE SODIUM 50 MG/SENNA 8.6 MG TAB PO SCH ×2 (09:29→20:16)
[2017-06-21] MEDS: APIXABAN 5 MG TABLET PO SCH ×2 (09:29→20:16)
[2017-06-21] MEDS: CYANOCOBALAMIN 1,000 MCG TAB PO SCH (09:29)
[2017-06-21] MEDS ORDERED: METOPROLOL TARTRATE 25 MG TAB NG ONE (09:30)
[2017-06-21] MEDS: RESP: IPRATROPIUM 0.5 MG/2.5 ML NEB NEB SCH ×2 (16:18→20:49)
[2017-06-21] MEDS ORDERED: FUROSEMIDE 20 MG/2 ML VIAL IV PUSH ONE (16:30)
--- NOTE | 2017-06-21 16:30 | HHI.CCPN ---
Subjective Remarks/Hospital Course 86-year-old female. Data admission 06/16/2017. Past medical history includes non-small cell carcinoma lung status post right human echo, coronary disease status post CABG 4, hypertension, dyslipidemia, hypothyroidism, atrial fibrillation, osteoarthritis. Patient sees Dr. Lemos and recently refused a pacemaker. She is also recently hospitalized at [facility] in early May with pneumonia 4 days. Negative etiology for shortness of breath and patient was sent home. She has been short of breath in the interim. She presents today to the emergency department at [place] via EMS for respiratory distress. Intubation was attempted in the field due to a saturation of 60% and a heart rate of 150 however unable to obtain IV or I/O access. Patient was intubated with a 7.5 ET tube@receiving 20 mg etomidate and 100 mg succinylcholine after receiving IV access Laboratories revealed a significant acidosis at the PEG 727. PCO2 46. PO2 262. Lactic acid was 5.3. General leukocytosis of 14,000. Sodium was 126 for potassium 5.3. Creatinine 1.2. BNP elevated at 1600. Troponin 0.09. EKG revealed A. fib with RVR with a right bundle branch block which appears to be new. Her x-ray revealed status post right pneumonectomy. Small left pleural effusion/infiltrate. Digoxin level 0.4. She is awake and arousable on the ventilator the present time. Subjective 06/17: Afebrile. FiO2 weaned to 30%. Denies chest pain. Diuresed 5.5 L overnight. No bowel movement. Tube feeds to be initiated today. On 30 mics grams per minute of Gustabo-Synephrine. CVP down to 8. 06/18: Brief episode of seizure-like activity. Stat CT of the head negative. EEG pending. Gustabo-Synephrine was up to 100 mcg/m currently down to 30 mics per minute. Receive Ativan for CAT scan, lethargic but weakly follows commands on upper extremity. Failed CPAP trial yesterday 06/19 Patient remains intubated. Did not tolerate CPAP trials today as she became apneic. Off sedation and off Neosyn . Afebrile. On Heparin drip. 06/20 No events overnight. On Fentanyl infusion for sedation but awake, Afebrile. On Heparin drip. 06/21 Patient remains intubated, off sedation tolerated CPAP x 2 hrs today. Afebrile. Objective Vital Signs Date Time Temp Pulse Resp B/P Pulse Ox O2 Delivery O2 Flow Rate FiO2 06/21/17 14:40 97 30 06/21/17 13:00 126 22 138/86 06/21/17 11:59 98.3 Intake and Output 06/20/17 06/20/17 06/20/17 07:59 15:59 23:59 Intake Total 307 ml 691 ml 958 ml Output Total 290.0 ml 850 ml 2300 ml Balance 17.0 ml -159 ml -1342 ml Result Diagram: 06/21/17 0545 06/21/17 0545 Other Results Laboratory Tests Test 06/20/17 06/20/17 06/21/17 17:20 19:20 05:45 Urine Collection Type CATH Urine Color YELLOW Urine Turbidity SLIGHT Urine pH 7.0 Urine Specific [place] 1.009 Urine Protein NEG mg/dL Urine Glucose (UA) NEG mg/dL Urine Ketones NEG mg/dL Urine Occult Blood MOD Urine Nitrite NEG Urine Bilirubin NEG Urine Leukocyte Esterase NEG Urine RBC 10-14 /hpf Urine WBC 3-5 /hpf Urine Squamous Epithelial 0-5 /hpf Cells Urine Transitional Epithelial 0-5 /hpf Cells Urine Amorphous Sediment MOD Microscopic Urinalysis Comment CATH-CULT NOT IND Urine Collection Time 1720 Potassium Level 3.5 MEQ/L 4.7 MEQ/L White Blood Count 16.9 TH/MM3 Red Blood Count 4.12 MIL/MM3 Hemoglobin 12.0 GM/DL Hematocrit 37.1 % Mean Corpuscular Volume 90.0 FL Mean Corpuscular Hemoglobin 29.0 PG Mean Corpuscular Hemoglobin 32.2 % Concent Red Cell Distribution Width 15.4 % Platelet Count 228 TH/MM3 Mean Platelet Volume 7.9 FL Neutrophils (%) (Auto) 89.5 % Lymphocytes (%) (Auto) 3.4 % Monocytes (%) (Auto) 3.9 % Eosinophils (%) (Auto) 0.0 % Basophils (%) (Auto) 3.2 % Neutrophils # (Auto) 15.1 TH/MM3 Lymphocytes # (Auto) 0.6 TH/MM3 Monocytes # (Auto) 0.7 TH/MM3 Eosinophils # (Auto) 0.0 TH/MM3 Basophils # (Auto) 0.5 TH/MM3 CBC Comment DIFF FINAL Differential Comment Sodium Level 135 MEQ/L Chloride Level 92 MEQ/L Carbon Dioxide Level 37.2 MEQ/L Anion Gap 6 MEQ/L Blood Urea Nitrogen 23 MG/DL Creatinine 0.86 MG/DL Estimat Glomerular Filtration 63 ML/MIN Rate Random Glucose 176 MG/DL Calcium Level 8.1 MG/DL Phosphorus Level 3.3 MG/DL Magnesium Level 2.3 MG/DL Imaging Last Impressions Chest X-Ray 06/20/17 0000 Signed Impressions: Service Date/Time: Tuesday, June 20, 2017 06:37 - CONCLUSION: No appreciable change. Elisa Piper MD Head CT 06/18/17 0000 Signed Impressions: Service Date/Time: May 01:02 - CONCLUSION: Normal examination for a patient of this age. Chronic left maxillary sinus disease. Kvng Saldana MD Objective Remarks GENERAL: 86 year old female, critically ill currently on PRBC mode of ventilation SKIN: Cool and dry. No rash HEAD: Atraumatic. Normocephalic. EYES: Right pupil about 2 mm and reactive. Left pupil round 1 mm and sluggish. History of left cataract. ENT: No nasal bleeding or discharge. Mucous membranes pink and moist. NECK: Trachea midline. No JVD. CARDIOVASCULAR: IRR. S1, S2. No S4. Without murmur, clicks, calculus or rubs RESPIRATORY: Diminished breath sounds throughout right lung moore. Few crackles and rhonchi appreciated in the left base. No wheezing GASTROINTESTINAL: Abdomen soft, non-tender, nondistended. Hypoactive bowel sounds are appreciated. MUSCULOSKELETAL: Extremities 2+ peripheral edema NEUROLOGICAL: Arousable on the ventilator. Moves all 4 extremities spontaneously. Follows command weekly on upper extremity. Date of Insertion: Jun 17, 2017 Line: Central Venous Catheter Side: Right Location: Internal, Jugular A/P Assessment and Plan Neuro/Psych: Anxiety disorder NOS Off sedation, Monitor neuro status. 06/18: CT brain: No acute intracranial findings. Continue Escitalopram 10 mg by mouth daily/home medication for depression CV: Severe sepsis A. fib with RVR Coronary disease status post CABG 4 History of hypertension Dyslipidemia Lactic acidosis - resolved Monitor HR and BP keep MAP>65mmHg. Off Neosyn. On Lopressor 25mg Q8. Digoxin 0.125 mg by mouth every other day. Digoxin level 0.9 on 06/17. Cards- Dr. rS Echo showed EF 35-40% 2-D echocardiogram 05/14 revealed EF 55-60%. No regional wall motion abnormality. Mild TR/MR. REY 37 mmHg Serial lactates have cleared Resp: Acute hypoxic hypercapnic respiratory failure Recent history pneumonia hospitalized at [facility] History right pneumonectomy status post non-small carcinoma of the lung PRVC 14/500/1.0/04/28, daily spontaneous breathing trials-continues to fail Ventilator bundle, Bronchodilators SBT daily as iva Pulmonology/Dr. Epps Her chest x-rays reveals right pneumonectomy. Left side appears clear GI: Hypoalbuminemia OG tube, Jevity 1.5 with goal rate 50ml/hr . Protonix for GI prophylaxis Aiyana-Colace for bowel regimen : Monitor renal function, I/O's, electrolytes replacement per protocol. Diurese with Lasix 20mg x1 UOP 3250ml in 24 hrs Endo: Hyperglycemia of critical illness/prednisone usage Hypothyroidism Vitamin B12 deficiency Chronic prednisone usage- 5 mg daily Elevated uric acid Continues cyanocobalamin 1000 mcg by mouth daily On Solu-Medrol 40 mg IV BID Levothyroxine at 137 g daily. TSH 0.919 SSI medium scale with Accu-Cheks for glycemic control Heme: Leukocytosis Normocytic anemia Chronic Apixaban use Monitor CBC, coags daily. ID: Continue abx(cefepime and azithromycin) d/c Vanco, monitor for signs of infections ( fever, WBC) 06/17: Strep pneumonia and Legionella urinary Ag negative 06/17: Nasal aspirate negative for Influenza 06/17: Sputum cx: No growth 06/16 BC: Coag negative staph 12/07 bottles likely contaminant MSK: Osteoarthritis PT evaluate and treat Access - Right IJ CVL placed 06/16 Prophylaxis - GI - Protonix - DVT - SCD, Eliquis 5mg BID Dicussed with family and updated them on her conditions. All questions answered. Level 3 Concepción Quiñones MD Jun 21, 2017 16:30
[2017-06-21] MEDS: AZITHROMYCIN INJ 500 MG in SODIUM CHLOR 0.9% 250 ML INJ 250 ML IV SCH (17:00)
[2017-06-21] MEDS ORDERED: DIGOXIN 0.5 MG/2 ML VIAL IV PUSH SCH (22:20)
[2017-06-21] MEDS ORDERED: SODIUM CHLOR 0.9% 1000 ML INJ 1,000 ML IV SCH (22:45)
[2017-06-22] VITALS (64 sets, daily range): BP systolic 84–141; BP diastolic 50–78; PULSE 78–144; RESP 13–45; TEMP 97.3–98.9; O2SAT 94–100
[2017-06-22] MEDS ORDERED: PHARMACY ORDERED LAB ONE (01:45)
[2017-06-22] MEDS: CHLORHEXIDINE GLUCONATE 2 % 1 PACK (2 CLOTHS) TOP SCH (02:43)
[2017-06-22] MEDS: RESP: IPRATROPIUM 0.5 MG/2.5 ML NEB NEB SCH ×4 (03:27→22:00)
[2017-06-22] MEDS: INSULIN NovoLIN REGULAR SUPPLEMENTAL SCALE SQ SCH ×5 (04:05→20:00)
[2017-06-22 05:18] LABS: AUTOMATED NEUTROPHIL # 15.1 TH/MM3 (1.8-7.7); EOSINOPHIL % 0.1 % (0.0-4.0); HEMATOCRIT 37.5 % (35.0-46.0); LYMPH % 2.3 % (9.0-44.0); LYMPHOCYTE # 0.4 TH/MM3 (1.0-4.8); MEAN CELL VOLUME 90.8 FL (80.0-100.0); MONO % 3.1 % (0.0-8.0); NEUT % 94.5 % (16.0-70.0); PLATELET COUNT 206 TH/MM3 (150-450); RED BLOOD COUNT 4.13 MIL/MM3 (4.00-5.30); RED CELL DISTRIBUTION WIDTH 15.8 % (11.6-17.2)
[2017-06-22 05:20] LABS: HEMO FLAGS DIFF FINAL
[2017-06-22 05:57] LABS: BICARBONATE 35.6 MEQ/L (21.0-32.0); POTASSIUM 3.8 MEQ/L (3.5-5.1)
[2017-06-22] MEDS: METOPROLOL TARTRATE 25 MG TAB PO SCH ×3 (06:08→22:00)
[2017-06-22] MEDS: LEVOTHYROXINE SODIUM 112 MCG TAB PO SCH (06:08)
[2017-06-22] MEDS: LEVOTHYROXINE SODIUM 25 MCG TAB PO SCH (06:08)
[2017-06-22] MEDS: CHLORHEXIDINE 0.12% (ORAL KIT) 15 ML CUP MT SCH ×2 (07:54→20:49)
[2017-06-22] MEDS: ARTIFICIAL TEARS OPTH SOLN 15 ML BTL EACH EYE SCH ×3 (07:55→18:00)
[2017-06-22] MEDS: methylPREDNISolone SOD SUCC 40 MG/1 ML VIAL IV PUSH SCH ×2 (07:57→20:48)
[2017-06-22] MEDS: PANTOPRAZOLE SODIUM 40 MG VIAL IV SCH (07:57)
[2017-06-22] MEDS: CYANOCOBALAMIN 1,000 MCG TAB PO SCH (07:58)
[2017-06-22] MEDS: APIXABAN 5 MG TABLET PO SCH ×2 (07:58→20:48)
[2017-06-22] MEDS: DIGOXIN 0.125 MG TAB PO SCH (07:59)
[2017-06-22] MEDS: ESCITALOPRAM OXALATE 10 MG TAB PO SCH (07:59)
[2017-06-22] MEDS: SODIUM CHLORIDE 0.9% FLUSH 10 ML FLUSH IV FLUSH SCH ×2 (08:02→20:49)
[2017-06-22] MEDS: SODIUM CHLORIDE 0.9% FLUSH 10 ML FLUSH IVF SCH (08:03)
[2017-06-22] MEDS: DOCUSATE SODIUM 50 MG/SENNA 8.6 MG TAB PO SCH ×2 (08:12→20:48)
[2017-06-22] MEDS: CEFEPIME INJ 2,000 MG in SODIUM CHLORIDE 0.9% INJ 100 ML IV SCH ×2 (10:17→21:47)
[2017-06-22 11:32] LABS: BLOOD GAS BASE EXCESS 9.6 mmol/L (-2-2); BLOOD GAS CARBOXYHEMOGLOBIN 1.5 % (0-4); BLOOD GAS HCO3 35 mmol/L (22-26); BLOOD GAS METHEMOGLOBIN 1.3 % (0-2); BLOOD GAS O2 HGB SATURATION 94 % (90-100); BLOOD GAS OXYGEN CONTENT 15.8 Vol % (12.0-20.0); BLOOD GAS PCO2 57 mmHg (38-42); BLOOD GAS PO2 82 mmHg (61-120); CRITICAL VALUE YES; OXYGEN DEVICE VENTILATOR
[2017-06-22 11:33] LABS: DRAW SITE RT RADIAL; FIO2 30 %; NUMBER OF ARTERIAL PUNCTURES 1; STAT NO; ULNAR PULSE PRESENT; VENT SETTINGS CPAP5/PS 10
--- NOTE | 2017-06-22 16:38 | HHI.CCPN ---
Subjective Remarks/Hospital Course 86-year-old female. Data admission 06/16/2017. Past medical history includes non-small cell carcinoma lung status post right human echo, coronary disease status post CABG 4, hypertension, dyslipidemia, hypothyroidism, atrial fibrillation, osteoarthritis. Patient sees Dr. Lemos and recently refused a pacemaker. She is also recently hospitalized at [facility] in early May with pneumonia 4 days. Negative etiology for shortness of breath and patient was sent home. She has been short of breath in the interim. She presents today to the emergency department at [place] via EMS for respiratory distress. Intubation was attempted in the field due to a saturation of 60% and a heart rate of 150 however unable to obtain IV or I/O access. Patient was intubated with a 7.5 ET tube@receiving 20 mg etomidate and 100 mg succinylcholine after receiving IV access Laboratories revealed a significant acidosis at the PEG 727. PCO2 46. PO2 262. Lactic acid was 5.3. General leukocytosis of 14,000. Sodium was 126 for potassium 5.3. Creatinine 1.2. BNP elevated at 1600. Troponin 0.09. EKG revealed A. fib with RVR with a right bundle branch block which appears to be new. Her x-ray revealed status post right pneumonectomy. Small left pleural effusion/infiltrate. Digoxin level 0.4. She is awake and arousable on the ventilator the present time. Subjective 06/17: Afebrile. FiO2 weaned to 30%. Denies chest pain. Diuresed 5.5 L overnight. No bowel movement. Tube feeds to be initiated today. On 30 mics grams per minute of Gustabo-Synephrine. CVP down to 8. 06/18: Brief episode of seizure-like activity. Stat CT of the head negative. EEG pending. Gustabo-Synephrine was up to 100 mcg/m currently down to 30 mics per minute. Receive Ativan for CAT scan, lethargic but weakly follows commands on upper extremity. Failed CPAP trial yesterday 06/19 Patient remains intubated. Did not tolerate CPAP trials today as she became apneic. Off sedation and off Neosyn . Afebrile. On Heparin drip. 06/20 No events overnight. On Fentanyl infusion for sedation but awake, Afebrile. On Heparin drip. 06/21 Patient remains intubated, off sedation tolerated CPAP x 2 hrs today. Afebrile. 06/22 Patient is on Fentanyl infusion but awake, tolerated CPAP for 3 hrs however ABG showed pCO2: 57 on PS10, PEEP:5. Afebrile. Objective Vital Signs Date Time Temp Pulse Resp B/P Pulse Ox O2 Delivery O2 Flow Rate FiO2 06/22/17 15:00 98 21 95/59 97 06/22/17 14:48 30 06/22/17 08:00 98.1 Intake and Output 06/21/17 06/21/17 06/22/17 08:00 16:00 00:00 Intake Total 737 ml 1029 ml 482 ml Output Total 100 ml 200 ml 800 ml Balance 637 ml 829 ml -318 ml Result Diagram: 06/22/17 0430 06/22/17 0430 Other Results Laboratory Tests Test 06/22/17 06/22/17 06/22/17 01:47 04:30 11:10 Vancomycin Level Trough 15.6 MCG/ML White Blood Count 16.0 TH/MM3 Red Blood Count 4.13 MIL/MM3 Hemoglobin 12.0 GM/DL Hematocrit 37.5 % Mean Corpuscular Volume 90.8 FL Mean Corpuscular Hemoglobin 29.0 PG Mean Corpuscular Hemoglobin 32.0 % Concent Red Cell Distribution Width 15.8 % Platelet Count 206 TH/MM3 Mean Platelet Volume 8.1 FL Neutrophils (%) (Auto) 94.5 % Lymphocytes (%) (Auto) 2.3 % Monocytes (%) (Auto) 3.1 % Eosinophils (%) (Auto) 0.1 % Basophils (%) (Auto) 0.0 % Neutrophils # (Auto) 15.1 TH/MM3 Lymphocytes # (Auto) 0.4 TH/MM3 Monocytes # (Auto) 0.5 TH/MM3 Eosinophils # (Auto) 0.0 TH/MM3 Basophils # (Auto) 0.0 TH/MM3 CBC Comment DIFF FINAL Differential Comment Sodium Level 136 MEQ/L Potassium Level 3.8 MEQ/L Chloride Level 94 MEQ/L Carbon Dioxide Level 35.6 MEQ/L Anion Gap 6 MEQ/L Blood Urea Nitrogen 30 MG/DL Creatinine 0.72 MG/DL Estimat Glomerular Filtration 77 ML/MIN Rate Random Glucose 208 MG/DL Calcium Level 7.8 MG/DL Blood Gas Puncture Site RT RADIAL Blood Gas Patient Temperature 37.0 Blood Gas HCO3 35 mmol/L Blood Gas Base Excess 9.6 mmol/L Blood Gas Oxygen Saturation 94 % Arterial Blood pH 7.40 Arterial Blood Partial 57 mmHg Pressure CO2 Arterial Blood Partial 82 mmHg Pressure O2 Arterial Blood Oxygen Content 15.8 Vol % Arterial Blood 1.5 % Carboxyhemoglobin Arterial Blood Methemoglobin 1.3 % Blood Gas Hemoglobin 12.0 G/DL Oxygen Delivery Device VENTILATOR Blood Gas Ventilator Setting CPAP5/PS 10 Blood Gas Inspired Oxygen 30 % Laboratory Tests Test 06/22/17 11:10 Blood Gas Puncture Site RT RADIAL Blood Gas Patient Temperature 37.0 Blood Gas HCO3 35 mmol/L (22-26) Blood Gas Base Excess 9.6 mmol/L (-2-2) Blood Gas Oxygen Saturation 94 % (90-100) Arterial Blood pH 7.40 (7.380-7.420) Arterial Blood Partial 57 mmHg (38-42) Pressure CO2 Arterial Blood Partial 82 mmHg Pressure O2 (61-120) Arterial Blood Oxygen Content 15.8 Vol % (12.0-20.0) Arterial Blood 1.5 % (0-4) Carboxyhemoglobin Arterial Blood Methemoglobin 1.3 % (0-2) Blood Gas Hemoglobin 12.0 G/DL (12.0-16.0) Oxygen Delivery Device VENTILATOR Blood Gas Ventilator Setting CPAP5/PS 10 Blood Gas Inspired Oxygen 30 % Imaging Last Impressions Chest X-Ray 06/20/17 0000 Signed Impressions: Service Date/Time: Tuesday, June 20, 2017 06:37 - CONCLUSION: No appreciable change. Elisa Piper MD Head CT 06/18/17 0000 Signed Impressions: Service Date/Time: May 01:02 - CONCLUSION: Normal examination for a patient of this age. Chronic left maxillary sinus disease. Kvng Saldana MD Objective Remarks GENERAL: 86 year old female, critically ill currently on PRBC mode of ventilation SKIN: Cool and dry. No rash HEAD: Atraumatic. Normocephalic. EYES: Right pupil about 2 mm and reactive. Left pupil round 1 mm and sluggish. History of left cataract. ENT: No nasal bleeding or discharge. Mucous membranes pink and moist. NECK: Trachea midline. No JVD. CARDIOVASCULAR: IRR. S1, S2. No S4. Without murmur, clicks, calculus or rubs RESPIRATORY: Diminished breath sounds throughout right lung moore. Few crackles and rhonchi appreciated in the left base. No wheezing GASTROINTESTINAL: Abdomen soft, non-tender, nondistended. Hypoactive bowel sounds are appreciated. MUSCULOSKELETAL: Extremities 2+ peripheral edema NEUROLOGICAL: Arousable on the ventilator. Moves all 4 extremities spontaneously. Follows command weekly on upper extremity. Date of Insertion: Jun 17, 2017 Line: Central Venous Catheter Side: Right Location: Internal, Jugular A/P Assessment and Plan Neuro/Psych: Anxiety disorder NOS Off sedation, Monitor neuro status. 06/18: CT brain: No acute intracranial findings. Continue Escitalopram 10 mg by mouth daily/home medication for depression CV: Severe sepsis A. fib with RVR Coronary disease status post CABG 4 History of hypertension Dyslipidemia Lactic acidosis - resolved Monitor HR and BP keep MAP>65mmHg. Off Neosyn. On Lopressor 25mg Q8. Digoxin 0.125 mg by mouth every other day. Digoxin level 0.9 on 06/17. Cards- Dr. Sr Echo showed EF 35-40% 2-D echocardiogram 05/14 revealed EF 55-60%. No regional wall motion abnormality. Mild TR/MR. REY 37 mmHg Serial lactates have cleared Resp: Acute hypoxic hypercapnic respiratory failure Recent history pneumonia hospitalized at [facility] History right pneumonectomy status post non-small carcinoma of the lung PRVC 14/500/1.0/04/28, daily SBT Ventilator bundle, Bronchodilators SBT daily as iva Pulmonology/Dr. Epps Her chest x-rays reveals right pneumonectomy. Left side appears clear GI: Hypoalbuminemia OG tube coiled and was d/c by nursing staff will reinsert and resume tube feeds -Jevity 1.5 with goal rate 50ml/hr . Protonix for GI prophylaxis Aiyana-Colace for bowel regimen : Monitor renal function, I/O's, electrolytes replacement per protocol. Endo: Hyperglycemia of critical illness/prednisone usage Hypothyroidism Vitamin B12 deficiency Chronic prednisone usage- 5 mg daily Elevated uric acid Continues cyanocobalamin 1000 mcg by mouth daily On Solu-Medrol 40 mg IV BID Levothyroxine at 137 g daily. TSH 0.919 SSI medium scale with Accu-Cheks for glycemic control Heme: Leukocytosis Normocytic anemia Chronic Apixaban use Monitor CBC, coags daily. ID: Continue abx(cefepime and azithromycin), monitor for signs of infections ( fever, WBC) 06/17: Strep pneumonia and Legionella urinary Ag negative 06/17: Nasal aspirate negative for Influenza 06/17: Sputum cx: No growth 06/16 BC: Coag negative staph 12/07 bottles likely contaminant MSK: Osteoarthritis PT evaluate and treat Access - Right IJ CVL placed 06/16 Prophylaxis - GI - Protonix - DVT - SCD, Eliquis 5mg BID Discussed with family and updated them on her conditions. All questions answered. Level 3 Concepción Quiñones MD Jun 22, 2017 16:37
[2017-06-22] MEDS: AZITHROMYCIN INJ 500 MG in SODIUM CHLOR 0.9% 250 ML INJ 250 ML IV SCH (16:53)
--- NOTE | 2017-06-22 18:33 | HHI.PR ---
Subjective Remarks Awake and on vent support. Opens eyes. FIo2 at 30 %.Failed CPAP again today. On on Dig for Atr Fib. CXR shows a small effusion. Objective Vital Signs Date Time Temp Pulse Resp B/P Pulse Ox O2 Delivery O2 Flow Rate FiO2 06/22/17 16:00 30 06/22/17 15:00 98 21 95/59 97 06/22/17 14:48 98 30 06/22/17 14:00 110 06/22/17 14:00 94 22 124/60 98 06/22/17 13:00 102 27 114/65 97 06/22/17 12:00 100 14 128/68 98 06/22/17 12:00 30 06/22/17 12:00 95 06/22/17 11:15 94 30 06/22/17 11:00 122 26 117/78 95 06/22/17 10:44 97 30 06/22/17 10:30 92 20 141/71 97 06/22/17 10:00 78 06/22/17 10:00 90 18 131/60 99 06/22/17 09:30 30 06/22/17 09:30 94 20 119/74 97 06/22/17 09:30 98 30 06/22/17 09:00 86 24 100/56 97 06/22/17 08:30 94 22 127/67 97 06/22/17 08:16 94 22 121/63 97 06/22/17 08:00 101 06/22/17 08:00 30 06/22/17 08:00 98.1 96 23 114/68 97 06/22/17 07:50 98 30 06/22/17 07:50 30 06/22/17 07:45 100 22 103/58 97 06/22/17 07:45 98 30 06/22/17 07:30 100 18 117/63 96 06/22/17 07:15 104 21 129/67 97 06/22/17 07:00 104 18 119/73 97 06/22/17 06:45 106 18 115/59 97 06/22/17 06:30 112 23 93/69 96 06/22/17 06:15 124 19 140/74 98 06/22/17 06:00 122 06/22/17 06:00 122 19 119/55 98 06/22/17 05:45 104 21 100/50 99 06/22/17 05:30 102 23 96/54 98 06/22/17 05:15 106 25 102/58 98 06/22/17 05:00 98 26 107/58 98 06/22/17 04:45 102 25 113/57 98 06/22/17 04:30 108 21 94/54 97 06/22/17 04:15 144 19 136/76 98 06/22/17 04:00 30 06/22/17 04:00 99 30 06/22/17 04:00 98.4 114 23 129/72 98 06/22/17 04:00 114 06/22/17 03:45 110 17 133/63 98 06/22/17 03:30 102 21 109/69 100 06/22/17 03:15 100 28 118/57 99 06/22/17 03:00 104 37 109/64 99 06/22/17 02:45 106 31 107/60 99 06/22/17 02:30 106 26 111/65 98 06/22/17 02:15 100 30 94/58 98 06/22/17 02:00 102 32 92/50 97 06/22/17 02:00 102 06/22/17 01:45 110 35 95/56 97 06/22/17 01:30 102 28 88/61 97 06/22/17 01:15 108 28 91/60 98 06/22/17 01:00 108 23 93/63 97 06/22/17 01:00 99 30 06/22/17 00:45 112 26 113/63 97 06/22/17 00:30 116 24 109/68 97 06/22/17 00:15 124 21 108/72 98 06/22/17 00:00 97.3 104 13 93/54 97 06/22/17 00:00 30 06/22/17 00:00 104 06/21/17 23:45 112 14 100/56 97 06/21/17 23:30 106 14 118/56 98 06/21/17 23:15 112 14 99/69 97 06/21/17 23:00 116 14 106/67 97 06/21/17 22:30 140 20 105/68 97 06/21/17 22:12 98.4 06/21/17 22:00 134 06/21/17 22:00 134 16 101/64 96 06/21/17 22:00 96 30 06/21/17 21:30 132 19 94/60 97 06/21/17 21:00 132 19 101/60 97 06/21/17 20:30 128 18 94/54 96 06/21/17 20:05 99.1 136 21 85/66 96 06/21/17 20:00 30 06/21/17 20:00 132 06/21/17 19:30 132 20 92/54 98 06/21/17 19:25 96 30 06/21/17 19:03 144 29 97/73 92 06/21/17 19:00 128 32 86/62 97 I/O 06/21/17 06/21/17 06/21/17 06/22/17 06/22/17 06/22/17 06:59 14:59 22:59 06:59 14:59 22:59 Intake Total 737 ml 1029 ml 482 ml 2062 ml 799 ml Output Total 100 ml 200 ml 800 ml 450 ml 425 ml Balance 637 ml 829 ml -318 ml 1612 ml 374 ml Intake IV Total 280 ml 432 ml 382 ml 1148 ml 414 ml Tube Feeding 357 ml 477 ml 814 ml 285 ml Other 100 ml 120 ml 100 ml 100 ml 100 ml Output Urine Total 100 ml 200 ml 800 ml 450 ml 425 ml # Bowel Movements 2 2 1 1 Result Diagram: 06/22/1742906/22/17429 Objective Remarks GENERAL: This thinly built elderly lady who is pale and intubated orally. HEENT: Head normocephalic. Pupils are reactive. Tongue is moist. NECK: Supple. No bruits. No venous distension. Trachea midline. CHEST: Decreased breath sounds over the right lung field with occasional wheezes in the left lung field. Occ Basal Crackles. HEART: The heart sounds are irregularly irregular S1-S2 with no murmur. ABDOMEN: Soft, nontender. Bowel sounds are active. EXTREMITIES: Mild edema with diminished pulses. Reflexes are 1+. The patient is lethargic SKIN: Dry and warm. Assessment and Plan Assessment and Plan IMPRESSION 1. Acute respiratory failure. 2. Status post right pneumonectomy. 3. History of pneumonia. 4. History of non-small cell lung CA. 5. Atrial fibrillation with rapid ventricular response. 6. Pulmonary edema. 7. Hyponatremia Plan : 1. Continue antibiotics.Cefipime / Zithromax 2. Wean Vent to CPAP in am.FIo2 30 % 3. Nebs qid , duoneb 4. Tube feeds at 40 CC 5. Continue solumedrol 40 mg bid 6. CBC,BMP, CXR ,in am 7. Resp parameters in am and ABG 8. Reduce sedation. Corey Epps MD Jun 22, 2017 18:33
[2017-06-22] MEDS ORDERED: LORazepam 2 MG/ML VIAL IV PRN (19:30)
[2017-06-23] VITALS (51 sets, daily range): BP systolic 77–132; BP diastolic 46–88; PULSE 84–157; RESP 11–47; TEMP 97–98.6; O2SAT 10–100
[2017-06-23] MEDS: CHLORHEXIDINE GLUCONATE 2 % 1 PACK (2 CLOTHS) TOP SCH (03:31)
[2017-06-23] MEDS: INSULIN NovoLIN REGULAR SUPPLEMENTAL SCALE SQ SCH ×5 (03:41→20:37)
[2017-06-23] MEDS: RESP: IPRATROPIUM 0.5 MG/2.5 ML NEB NEB SCH ×4 (03:47→22:00)
[2017-06-23 05:53] LABS: AUTOMATED NEUTROPHIL # 14.1 TH/MM3 (1.8-7.7); BASOPHIL # 0.1 TH/MM3 (0-0.2); BASOPHIL % 0.6 % (0.0-2.0); HEMATOCRIT 34.7 % (35.0-46.0); LYMPH % 2.7 % (9.0-44.0); LYMPHOCYTE # 0.4 TH/MM3 (1.0-4.8); MEAN CELL VOLUME 90.4 FL (80.0-100.0); MEAN CORPUSCULAR HEMOGLOBIN 29.7 PG (27.0-34.0); MEAN CORPUSCULAR HGB CONC 32.9 % (32.0-36.0); MONO % 3.1 % (0.0-8.0); NEUT % 93.6 % (16.0-70.0); PLATELET COUNT 182 TH/MM3 (150-450); RED BLOOD COUNT 3.84 MIL/MM3 (4.00-5.30); RED CELL DISTRIBUTION WIDTH 15.7 % (11.6-17.2); WHITE BLOOD COUNT 15.1 TH/MM3 (4.0-11.0)
[2017-06-23 05:57] LABS: POTASSIUM 3.7 MEQ/L (3.5-5.1)
[2017-06-23] MEDS: METOPROLOL TARTRATE 25 MG TAB PO SCH ×2 (06:00→14:00)
[2017-06-23 06:03] LABS: BICARBONATE 33.6 MEQ/L (21.0-32.0)
[2017-06-23 06:22] LABS: HEMO FLAGS DIFF FINAL
[2017-06-23] MEDS: LEVOTHYROXINE SODIUM 112 MCG TAB PO SCH (06:36)
[2017-06-23] MEDS: LEVOTHYROXINE SODIUM 25 MCG TAB PO SCH (06:36)
[2017-06-23] MEDS: PANTOPRAZOLE SODIUM 40 MG VIAL IV SCH (08:02)
[2017-06-23] MEDS: methylPREDNISolone SOD SUCC 40 MG/1 ML VIAL IV PUSH SCH (08:02)
[2017-06-23] MEDS: DOCUSATE SODIUM 50 MG/SENNA 8.6 MG TAB PO SCH ×2 (08:02→21:00)
[2017-06-23] MEDS: ARTIFICIAL TEARS OPTH SOLN 15 ML BTL EACH EYE SCH ×3 (08:02→16:47)
[2017-06-23] MEDS: APIXABAN 5 MG TABLET PO SCH ×2 (08:03→21:00)
[2017-06-23] MEDS: ESCITALOPRAM OXALATE 10 MG TAB PO SCH (08:04)
[2017-06-23] MEDS: CYANOCOBALAMIN 1,000 MCG TAB PO SCH (08:04)
[2017-06-23] MEDS: SODIUM CHLORIDE 0.9% FLUSH 10 ML FLUSH IV FLUSH SCH ×2 (09:00→20:18)
[2017-06-23] MEDS: CHLORHEXIDINE 0.12% (ORAL KIT) 15 ML CUP MT SCH ×2 (09:45→20:39)
[2017-06-23] MEDS: SODIUM CHLORIDE 0.9% FLUSH 10 ML FLUSH IVF SCH (09:46)
[2017-06-23] MEDS: CEFEPIME INJ 2,000 MG in SODIUM CHLORIDE 0.9% INJ 100 ML IV SCH ×2 (09:48→20:17)
[2017-06-23 10:16] LABS: BLOOD GAS BASE EXCESS 9.4 mmol/L (-2-2); BLOOD GAS CARBOXYHEMOGLOBIN 1.3 % (0-4); BLOOD GAS HCO3 34 mmol/L (22-26); BLOOD GAS METHEMOGLOBIN 1.2 % (0-2); BLOOD GAS O2 HGB SATURATION 97 % (90-100); BLOOD GAS OXYGEN CONTENT 16.6 Vol % (12.0-20.0); BLOOD GAS PCO2 47 mmHg (38-42); BLOOD GAS PO2 128 mmHg (61-120); BLOOD GAS TOTAL HGB 12.1 G/DL (12.0-16.0); CRITICAL VALUE NO; FIO2 30 %; OXYGEN DEVICE VENTILATOR
[2017-06-23 10:18] LABS: DRAW SITE RT RADIAL; NUMBER OF ARTERIAL PUNCTURES 2; STAT NO; ULNAR PULSE PRESENT
[2017-06-23 10:19] LABS: VENT SETTINGS CPAP 10/PS/5 PEEP
[2017-06-23] MEDS ORDERED: FUROSEMIDE 20 MG/2 ML VIAL IV PUSH ONE (11:00)
[2017-06-23] MEDS: RESP: ALBUTEROL 2.5 MG/IPRATROPIUM 0.5 MG NEB (SCH) NEB ×3 (12:00→23:40)
[2017-06-23] MEDS ORDERED: METOPROLOL TARTRATE 5 MG/5 ML VIAL IV PUSH ONE (12:00)
[2017-06-23] MEDS ORDERED: METOPROLOL TARTRATE 25 MG TAB PO ONE (13:00)
[2017-06-23] MEDS ORDERED: DEXT 5%-NACL 0.9% 1000 ML INJ 1,000 ML IV SCH (16:45)
--- NOTE | 2017-06-23 16:47 | HHI.CCPN ---
Subjective Remarks/Hospital Course 86-year-old female. Data admission 06/16/2017. Past medical history includes non-small cell carcinoma lung status post right human echo, coronary disease status post CABG 4, hypertension, dyslipidemia, hypothyroidism, atrial fibrillation, osteoarthritis. Patient sees Dr. Lemos and recently refused a pacemaker. She is also recently hospitalized at [facility] in early May with pneumonia 4 days. Negative etiology for shortness of breath and patient was sent home. She has been short of breath in the interim. She presents today to the emergency department at [place] via EMS for respiratory distress. Intubation was attempted in the field due to a saturation of 60% and a heart rate of 150 however unable to obtain IV or I/O access. Patient was intubated with a 7.5 ET tube@receiving 20 mg etomidate and 100 mg succinylcholine after receiving IV access Laboratories revealed a significant acidosis at the PEG 727. PCO2 46. PO2 262. Lactic acid was 5.3. General leukocytosis of 14,000. Sodium was 126 for potassium 5.3. Creatinine 1.2. BNP elevated at 1600. Troponin 0.09. EKG revealed A. fib with RVR with a right bundle branch block which appears to be new. Her x-ray revealed status post right pneumonectomy. Small left pleural effusion/infiltrate. Digoxin level 0.4. She is awake and arousable on the ventilator the present time. Subjective 06/17: Afebrile. FiO2 weaned to 30%. Denies chest pain. Diuresed 5.5 L overnight. No bowel movement. Tube feeds to be initiated today. On 30 mics grams per minute of Gustabo-Synephrine. CVP down to 8. 06/18: Brief episode of seizure-like activity. Stat CT of the head negative. EEG pending. Gustabo-Synephrine was up to 100 mcg/m currently down to 30 mics per minute. Receive Ativan for CAT scan, lethargic but weakly follows commands on upper extremity. Failed CPAP trial yesterday 06/19 Patient remains intubated. Did not tolerate CPAP trials today as she became apneic. Off sedation and off Neosyn . Afebrile. On Heparin drip. 06/20 No events overnight. On Fentanyl infusion for sedation but awake, Afebrile. On Heparin drip. 06/21 Patient remains intubated, off sedation tolerated CPAP x 2 hrs today. Afebrile. 06/22 Patient is on Fentanyl infusion but awake, tolerated CPAP for 3 hrs however ABG showed pCO2: 57 on PS10, PEEP:5. Afebrile. 06/23 Patient was extubated earlier today on 1.5-2 L oxygen with good sats. Objective Vital Signs Date Time Temp Pulse Resp B/P Pulse Ox O2 Delivery O2 Flow Rate FiO2 06/23/17 16:26 98 Nasal Cannula 1.50 06/23/17 16:00 128 06/23/17 15:00 31 121/84 06/23/17 11:45 98.6 06/23/17 08:40 30 Intake and Output 06/22/17 06/22/17 06/22/17 07:59 15:59 23:59 Intake Total 2062 ml 799 ml 389 ml Output Total 450 ml 425 ml 600 ml Balance 1612 ml 374 ml -211 ml Result Diagram: 06/23/17 0530 06/23/17 0530 Other Results Laboratory Tests Test 06/23/17 06/23/17 05:30 10:05 White Blood Count 15.1 TH/MM3 Red Blood Count 3.84 MIL/MM3 Hemoglobin 11.4 GM/DL Hematocrit 34.7 % Mean Corpuscular Volume 90.4 FL Mean Corpuscular Hemoglobin 29.7 PG Mean Corpuscular Hemoglobin 32.9 % Concent Red Cell Distribution Width 15.7 % Platelet Count 182 TH/MM3 Mean Platelet Volume 8.0 FL Neutrophils (%) (Auto) 93.6 % Lymphocytes (%) (Auto) 2.7 % Monocytes (%) (Auto) 3.1 % Eosinophils (%) (Auto) 0.0 % Basophils (%) (Auto) 0.6 % Neutrophils # (Auto) 14.1 TH/MM3 Lymphocytes # (Auto) 0.4 TH/MM3 Monocytes # (Auto) 0.5 TH/MM3 Eosinophils # (Auto) 0.0 TH/MM3 Basophils # (Auto) 0.1 TH/MM3 CBC Comment DIFF FINAL Differential Comment Sodium Level 136 MEQ/L Potassium Level 3.7 MEQ/L Chloride Level 95 MEQ/L Carbon Dioxide Level 33.6 MEQ/L Anion Gap 7 MEQ/L Blood Urea Nitrogen 30 MG/DL Creatinine 0.72 MG/DL Estimat Glomerular Filtration 77 ML/MIN Rate Random Glucose 179 MG/DL Calcium Level 7.9 MG/DL Phosphorus Level 3.1 MG/DL Magnesium Level 2.0 MG/DL Blood Gas Puncture Site RT RADIAL Blood Gas Patient Temperature 37.0 Blood Gas HCO3 34 mmol/L Blood Gas Base Excess 9.4 mmol/L Blood Gas Oxygen Saturation 97 % Arterial Blood pH 7.47 Arterial Blood Partial 47 mmHg Pressure CO2 Arterial Blood Partial 128 mmHg Pressure O2 Arterial Blood Oxygen Content 16.6 Vol % Arterial Blood 1.3 % Carboxyhemoglobin Arterial Blood Methemoglobin 1.2 % Blood Gas Hemoglobin 12.1 G/DL Oxygen Delivery Device VENTILATOR Blood Gas Ventilator Setting CPAP 10/PS/5 PEEP Blood Gas Inspired Oxygen 30 % Imaging Last Impressions Chest X-Ray 06/20/17 0000 Signed Impressions: Service Date/Time: Tuesday, June 20, 2017 06:37 - CONCLUSION: No appreciable change. Elisa Piper MD Head CT 06/18/17 0000 Signed Impressions: Service Date/Time: May 01:02 - CONCLUSION: Normal examination for a patient of this age. Chronic left maxillary sinus disease. Kvng Saldana MD Objective Remarks GENERAL: 86 year old female lying in bed in NAD SKIN: Cool and dry. No rash HEAD: Atraumatic. Normocephalic. EYES: Right pupil about 2 mm and reactive. Left pupil round 1 mm and sluggish. History of left cataract. ENT: No nasal bleeding or discharge. Mucous membranes pink and moist. NECK: Trachea midline. No JVD. CARDIOVASCULAR: Tachycardic S1, S2. No S4. Without murmur, clicks, calculus or rubs RESPIRATORY: Diminished breath sounds throughout right lung moore. GASTROINTESTINAL: Abdomen soft, non-tender, nondistended. Hypoactive bowel sounds are appreciated. MUSCULOSKELETAL: Extremities 1+ peripheral edema NEUROLOGICAL: Awake Date of Insertion: Jun 17, 2017 Line: Central Venous Catheter Side: Right Location: Internal, Jugular A/P Assessment and Plan Neuro/Psych: Anxiety disorder NOS Monitor neuro status and avoid sedatives 06/18: CT brain: No acute intracranial findings. Continue Escitalopram 10 mg by mouth daily/home medication for depression CV: Severe sepsis A. fib with RVR Coronary disease status post CABG 4 History of hypertension Dyslipidemia Lactic acidosis - resolved Monitor HR and BP keep MAP>65mmHg Change Lopressor 2.5mg IVQ6 and Hold PO Lopressor ( NPO per peech) Digoxin 0.125 mg by mouth every other day. Digoxin level 0.9 on 06/17. Cards- Dr. Sr Echo showed EF 35-40% 2-D echocardiogram 05/14 revealed EF 55-60%. No regional wall motion abnormality. Mild TR/MR. REY 37 mmHg Serial lactates have cleared Resp: Acute hypoxic hypercapnic respiratory failure Recent history pneumonia hospitalized at [facility] [place] History right pneumonectomy status post non-small carcinoma of the lung Continue with oxygen keep sat >92%, Extubated today Bronchodilators NIPPV PRN for reso distress, IS. Pulmonology/Dr. Epps Her chest x-rays reveals right pneumonectomy. Left side appears clear GI: Hypoalbuminemia NPO per speech, place on D5NS@42ml/hr Protonix for GI prophylaxis Aiyana-Colace for bowel regimen : Monitor renal function, I/O's, electrolytes replacement per protocol. IVF- D5NS@42ml/hr Endo: Hyperglycemia of critical illness/prednisone usage Hypothyroidism Vitamin B12 deficiency Chronic prednisone usage- 5 mg daily Elevated uric acid Continues cyanocobalamin 1000 mcg by mouth daily On Solu-Medrol 40 mg IV BID Levothyroxine at 137 g daily. TSH 0.919 SSI medium scale with Accu-Cheks for glycemic control Heme: Leukocytosis Normocytic anemia Chronic Apixaban use Monitor CBC, coags daily. ID: Continue abx(cefepime and azithromycin), monitor for signs of infections ( fever, WBC) 06/17: Strep pneumonia and Legionella urinary Ag negative 06/17: Nasal aspirate negative for Influenza 06/17: Sputum cx: No growth 06/16 BC: Coag negative staph /8 bottles likely contaminant MSK: Osteoarthritis PT evaluate and treat Access - Right IJ CVL placed 06/16 Prophylaxis - GI - Protonix - DVT - SCD, Eliquis 5mg BID Level 3 Concepción Quiñones MD Jun 23, 2017 16:47
[2017-06-23] MEDS: AZITHROMYCIN INJ 500 MG in SODIUM CHLOR 0.9% 250 ML INJ 250 ML IV SCH (16:48)
--- NOTE | 2017-06-23 19:35 | HHI.PR ---
Subjective Remarks Extubated and doing OK.On N/C at 4 L o2 On on Dig for Atr Fib. Seems confused. CXR shows a small effusion. Objective Vital Signs Date Time Temp Pulse Resp B/P Pulse Ox O2 Delivery O2 Flow Rate FiO2 06/23/17 18:00 98 06/23/17 18:00 124 35 103/72 97 06/23/17 16:26 98 Nasal Cannula 1.50 06/23/17 16:00 128 06/23/17 16:00 97.0 118 35 110/65 96 06/23/17 15:00 116 31 121/84 99 06/23/17 14:00 110 06/23/17 14:00 110 33 98 06/23/17 13:00 98 27 118/75 99 06/23/17 12:00 120 26 112/76 99 06/23/17 12:00 122 06/23/17 11:45 98.6 102 26 99 06/23/17 11:40 128 27 132/79 99 06/23/17 11:30 157 06/23/17 11:30 152 27 119/78 99 06/23/17 11:20 99 Nasal Cannula 3.00 06/23/17 11:19 146 33 118/83 100 06/23/17 11:10 10 Nasal Cannula 3 06/23/17 11:00 128 23 109/85 99 06/23/17 10:30 116 28 111/74 98 06/23/17 10:00 124 06/23/17 10:00 118 22 116/76 99 06/23/17 09:30 100 26 114/62 99 06/23/17 09:00 114 21 103/62 99 06/23/17 08:40 96 30 06/23/17 08:30 102 37 95/59 99 06/23/17 08:00 97.9 100 30 103/62 98 06/23/17 08:00 92 06/23/17 07:45 30 06/23/17 07:45 99 30 06/23/17 07:07 90 24 93/46 99 06/23/17 07:04 92 47 77/46 99 06/23/17 06:26 100 21 101/58 99 06/23/17 06:26 100 06/23/17 05:26 88 14 104/54 99 06/23/17 04:56 92 20 99/52 99 06/23/17 04:26 92 16 95/49 97 06/23/17 04:07 98.3 100 11 111/63 99 06/23/17 04:00 112 06/23/17 03:26 84 36 123/64 99 06/23/17 03:15 99 30 06/23/17 02:56 84 37 102/58 98 06/23/17 02:26 86 41 112/60 99 06/23/17 02:00 90 06/23/17 01:56 88 42 104/58 99 06/23/17 01:26 90 38 105/62 99 06/23/17 00:56 92 42 112/53 98 06/23/17 00:30 99 30 06/23/17 00:26 98.6 92 45 103/56 98 06/23/17 00:00 30 06/23/17 00:00 88 06/22/17 23:56 90 36 120/59 99 06/22/17 23:26 90 28 126/68 99 06/22/17 22:57 90 30 112/67 98 06/22/17 22:57 90 30 112/67 98 06/22/17 22:31 88 35 110/61 98 06/22/17 22:31 88 35 110/61 98 06/22/17 22:29 84 45 84/57 98 06/22/17 22:29 84 45 84/57 98 06/22/17 22:00 92 06/22/17 21:28 96 33 105/60 97 06/22/17 21:28 96 33 105/60 97 06/22/17 20:28 98 30 111/67 97 06/22/17 20:00 30 06/22/17 20:00 30 06/22/17 20:00 100 06/22/17 19:40 97 30 I/O 06/22/17 06/22/17 06/22/17 06/23/17 06/23/17 06/23/17 07:00 15:00 23:00 07:00 15:00 23:00 Intake Total 2062 ml 799 ml 389 ml 791 ml Output Total 450 ml 425 ml 600 ml 350 ml 350 ml Balance 1612 ml 374 ml -211 ml -350 ml 441 ml Intake IV Total 1148 ml 414 ml 389 ml 130 ml Tube Feeding 814 ml 285 ml 661 ml Other 100 ml 100 ml Output Urine Total 450 ml 425 ml 600 ml 350 ml 350 ml # Bowel Movements 1 0 Result Diagram: 06/23/1752906/23/17529 Objective Remarks GENERAL: This thinly built elderly lady who is pale and alert HEENT: Head normocephalic. Pupils are reactive. Tongue is moist. NECK: Supple. No bruits. No venous distension. Trachea midline. CHEST: Decreased breath sounds over the right lung field with occasional wheezes in the left lung field. No Crackles. HEART: The heart sounds are irregularly irregular S1-S2 with no murmur. ABDOMEN: Soft, nontender. Bowel sounds are active. EXTREMITIES: Mild edema with diminished pulses. Neuro : Reflexes are 1+. The patient is alert. SKIN: Dry and warm. Assessment and Plan Assessment and Plan IMPRESSION 1. Acute respiratory failure. 2. Status post right pneumonectomy. 3. History of pneumonia. 4. History of non-small cell lung CA. 5. Atrial fibrillation with rapid ventricular response. 6. Pulmonary edema. 7. Hyponatremia Plan : 1. Continue antibiotics.Cefipime / Zithromax 2. Wean O2 to 2 L 3. Nebs qid , duoneb 4. Tube feeds at 40 CC 5. D/C solumedrol 6. CBC,BMP, CXR ,in am 7.Add Prednisone 10 mg bid 8. No sedation. 9. IS and Acapella q3h Corey Epps MD Jun 23, 2017 19:35
[2017-06-23] MEDS ORDERED: ENOXAPARIN SODIUM 60 MG/0.6 ML SYRINGE SQ SCH (20:00)
[2017-06-23] MEDS: METOPROLOL TARTRATE 5 MG/5 ML VIAL IV PUSH SCH (20:39)
[2017-06-23] MEDS: predniSONE 10 MG TAB PO SCH (21:00)
[2017-06-23] MEDS ORDERED: ESMOLOL DRIP INJ PREMIX 250 ML IV SCH (21:45)
[2017-06-24] VITALS (50 sets, daily range): BP systolic 96–139; BP diastolic 50–81; PULSE 84–134; RESP 21–33; TEMP 97.7–99.4; O2SAT 96–100
[2017-06-24] MEDS: RESP: ALBUTEROL 2.5 MG/IPRATROPIUM 0.5 MG NEB (SCH) NEB ×6 (03:09→23:03)
[2017-06-24] MEDS: INSULIN NovoLIN REGULAR SUPPLEMENTAL SCALE SQ SCH ×6 (04:00→21:39)
[2017-06-24] MEDS: CHLORHEXIDINE GLUCONATE 2 % 1 PACK (2 CLOTHS) TOP SCH (04:00)
[2017-06-24] MEDS: RESP: IPRATROPIUM 0.5 MG/2.5 ML NEB NEB SCH ×4 (04:00→22:00)
[2017-06-24 05:16] LABS: AUTOMATED NEUTROPHIL # 13.4 TH/MM3 (1.8-7.7); BASOPHIL % 0.2 % (0.0-2.0); EOSINOPHIL # 0.1 TH/MM3 (0-0.4); EOSINOPHIL % 0.5 % (0.0-4.0); HEMATOCRIT 38.4 % (35.0-46.0); LYMPH % 6.4 % (9.0-44.0); MEAN CELL VOLUME 91.9 FL (80.0-100.0); MEAN CORPUSCULAR HEMOGLOBIN 29.5 PG (27.0-34.0); MEAN CORPUSCULAR HGB CONC 32.1 % (32.0-36.0); MONO % 5.4 % (0.0-8.0); NEUT % 87.5 % (16.0-70.0); PLATELET COUNT 194 TH/MM3 (150-450); RED BLOOD COUNT 4.17 MIL/MM3 (4.00-5.30); RED CELL DISTRIBUTION WIDTH 15.6 % (11.6-17.2); WHITE BLOOD COUNT 15.3 TH/MM3 (4.0-11.0)
[2017-06-24 05:23] LABS: POTASSIUM 3.8 MEQ/L (3.5-5.1)
[2017-06-24 05:26] LABS: BICARBONATE 34.6 MEQ/L (21.0-32.0)
[2017-06-24 05:38] LABS: HEMO FLAGS DIFF FINAL
[2017-06-24] MEDS: LEVOTHYROXINE SODIUM 25 MCG TAB PO SCH (06:00)
[2017-06-24] MEDS: METOPROLOL TARTRATE 5 MG/5 ML VIAL IV PUSH SCH ×2 (06:00)
[2017-06-24] MEDS: LEVOTHYROXINE SODIUM 112 MCG TAB PO SCH (06:00)
--- NOTE | 2017-06-24 06:47 | RADRPT ---
EXAM DATE/TIME: 06/24/2017 06:40 [facility] COMPARISON: CHEST SINGLE AP, June 20, 2017, 6:37. INDICATIONS : Shortness of breath. MEDICAL HISTORY : None. SURGICAL HISTORY : CABG. ENCOUNTER: Subsequent ACUITY: 1 week PAIN SCORE: Non-responsive. LOCATION: Bilateral chest FINDINGS: Portable AP view of the chest demonstrates a normal-sized cardiac silhouette calcification of the aor ta. Patient is post median sternotomy and CABG. Endotracheal tube and nasogastric tube have been nadine bridger. Right IJ line remains present. There is complete opacification of the right hemithorax. There is hazy opacity at the left lung base with pleural based opacity. No pneumothorax is present. CONCLUSION: Stable small left pleural effusion with hazy opacity at the left lung base. Willy Anand MD on June 24, 2017 at 6:45 Board Certified Radiologist. This report was verified electronically.
[2017-06-24] MEDS ORDERED: OLANZapine 2.5 MG TAB PO PRN (07:30)
--- NOTE | 2017-06-24 07:43 | HHI.CCPN ---
Subjective Remarks/Hospital Course 86-year-old female. Data admission 06/16/2017. Past medical history includes non-small cell carcinoma lung status post right human echo, coronary disease status post CABG 4, hypertension, dyslipidemia, hypothyroidism, atrial fibrillation, osteoarthritis. Patient sees Dr. Lemos and recently refused a pacemaker. She is also recently hospitalized at [facility] in early May with pneumonia 4 days. Negative etiology for shortness of breath and patient was sent home. She has been short of breath in the interim. She presents today to the emergency department at [place] via EMS for respiratory distress. Intubation was attempted in the field due to a saturation of 60% and a heart rate of 150 however unable to obtain IV or I/O access. Patient was intubated with a 7.5 ET tube@receiving 20 mg etomidate and 100 mg succinylcholine after receiving IV access Laboratories revealed a significant acidosis at the PEG 727. PCO2 46. PO2 262. Lactic acid was 5.3. General leukocytosis of 14,000. Sodium was 126 for potassium 5.3. Creatinine 1.2. BNP elevated at 1600. Troponin 0.09. EKG revealed A. fib with RVR with a right bundle branch block which appears to be new. Her x-ray revealed status post right pneumonectomy. Small left pleural effusion/infiltrate. Digoxin level 0.4. She is awake and arousable on the ventilator the present time. Subjective 06/17: Afebrile. FiO2 weaned to 30%. Denies chest pain. Diuresed 5.5 L overnight. No bowel movement. Tube feeds to be initiated today. On 30 mics grams per minute of [place]-Synephrine. CVP down to 8. 06/18: Brief episode of seizure-like activity. Stat CT of the head negative. EEG pending. [place]-Synephrine was up to 100 mcg/m currently down to 30 mics per minute. Receive Ativan for CAT scan, lethargic but weakly follows commands on upper extremity. Failed CPAP trial yesterday 06/19 Patient remains intubated. Did not tolerate CPAP trials today as she became apneic. Off sedation and off Neosyn . Afebrile. On Heparin drip. 06/20 No events overnight. On Fentanyl infusion for sedation but awake, Afebrile. On Heparin drip. 06/21 Patient remains intubated, off sedation tolerated CPAP x 2 hrs today. Afebrile. 06/22 Patient is on Fentanyl infusion but awake, tolerated CPAP for 3 hrs however ABG showed pCO2: 57 on PS10, PEEP:5. Afebrile. 06/23 Patient was extubated earlier today on 1.5-2 L oxygen with good sats. 06/24: patient extubated, failed swallow eval. overnight was tachycardic, requiring iv lopressor. this morning somewhat somnolent but arousable and slightly confused. CAM+. patient without complaints. ROS otherwise negative. Objective Vital Signs Date Time Temp Pulse Resp B/P Pulse Ox O2 Delivery O2 Flow Rate FiO2 06/24/17 07:05 99 Nasal Cannula 2.00 06/24/17 06:00 94 22 107/51 06/24/17 04:00 97.8 06/23/17 08:40 30 Intake and Output 06/23/17 06/23/17 06/23/17 07:59 15:59 23:59 Intake Total 791 ml Output Total 350 ml 350 ml 275 ml Balance -350 ml 441 ml -275 ml Result Diagram: 06/24/17 0500 06/24/17 0500 Other Results Laboratory Tests Test 06/23/17 10:05 Blood Gas Puncture Site RT RADIAL Blood Gas Patient Temperature 37.0 Blood Gas HCO3 34 mmol/L (22-26) Blood Gas Base Excess 9.4 mmol/L (-2-2) Blood Gas Oxygen Saturation 97 % (90-100) Arterial Blood pH 7.47 (7.380-7.420) Arterial Blood Partial 47 mmHg (38-42) Pressure CO2 Arterial Blood Partial 128 mmHg Pressure O2 (61-120) Arterial Blood Oxygen Content 16.6 Vol % (12.0-20.0) Arterial Blood 1.3 % (0-4) Carboxyhemoglobin Arterial Blood Methemoglobin 1.2 % (0-2) Blood Gas Hemoglobin 12.1 G/DL (12.0-16.0) Oxygen Delivery Device VENTILATOR Blood Gas Ventilator Setting CPAP 10/PS/5 PEEP Blood Gas Inspired Oxygen 30 % Imaging Last Impressions Chest X-Ray 06/20/17 0000 Signed Impressions: Service Date/Time: Tuesday, June 20, 2017 06:37 - CONCLUSION: No appreciable change. Elisa Piper MD Head CT 06/18/17 0000 Signed Impressions: Service Date/Time: May 01:02 - CONCLUSION: Normal examination for a patient of this age. Chronic left maxillary sinus disease. Kvng Saldana MD Objective Remarks GENERAL: 86 year old female lying in bed in NAD SKIN: Cool and dry. No rash HEAD: Atraumatic. Normocephalic. EYES: Right pupil about 2 mm and reactive. Left pupil round 1 mm and sluggish. History of left cataract. ENT: No nasal bleeding or discharge. Mucous membranes pink and moist. NECK: Trachea midline. No JVD. CARDIOVASCULAR: Tachycardic irregular rhythm, afib by tele. RESPIRATORY: Diminished breath sounds throughout right lung moore. GASTROINTESTINAL: Abdomen soft, non-tender, nondistended. MUSCULOSKELETAL: Extremities 1+ peripheral edema NEUROLOGICAL: Awake, RASS -1. CAM+. Date of Insertion: Jun 17, 2017 Line: Central Venous Catheter Side: Right Location: Internal, Jugular A/P Assessment and Plan Assessment: 86yF with HCAP and fluid overload now with resolving acute hypoxic respiratory failure. Ongoing active issues include hypoactive delirium, her bacteremia, volume overload, dysphagia, afib RVR. Will place NGT and restart tube feeds as well as PO meds. continue gentle forced diuresis. will start some low-dose anti-delirium treatment given her age. very complex with multiple medical problems, but very slowly improving. may be able to get out of ICU soon. Neuro/Psych: Anxiety disorder NOS Hypoactive Delirium Monitor neuro status and avoid sedatives 06/18: CT brain: No acute intracranial findings. Continue Escitalopram 10 mg by mouth daily/home medication for depression Melatonin 5mg po qHS for sleep. encourage good sleep-wake cycle zyprexa 2.5mg po q8h prn for agitation or delirium. CV: Severe sepsis- resolved. A. fib with RVR Coronary disease status post CABG 4 History of hypertension Dyslipidemia Lactic acidosis - resolved Monitor HR and BP keep MAP>65mmHg restart lopressor 25mg po q12h per tube Digoxin 0.125 mg by mouth every other day. Digoxin level 0.9 on 06/17. Cards- Dr. Sr Echo showed EF 35-40% 2-D echocardiogram 05/14 revealed EF 55-60%. No regional wall motion abnormality. Mild TR/MR. REY 37 mmHg Serial lactates have cleared Resp: Acute hypoxic hypercapnic respiratory failure- resolving. Recent history pneumonia hospitalized at [facility] History right pneumonectomy status post non-small carcinoma of the lung wean o2 by NC for goal spo2 > 90% Bronchodilators NIPPV PRN for reso distress, IS. Pulmonology/Dr. Epps Her chest x-rays reveals right pneumonectomy. Left side appears clear OOB to chair TID. PT consult. GI: Hypoalbuminemia Acute protein calorie malnutrition- severe NPO per speech, d/c mivf place NGT restart TF Protonix for GI prophylaxis Aiyana-Colace for bowel regimen : Intravascular Volume overload Monitor renal function, I/O's, electrolytes replacement per protocol. lasix 40mg iv x 1 Endo: Hyperglycemia of critical illness/prednisone usage Hypothyroidism Vitamin B12 deficiency Chronic prednisone usage- 5 mg daily Elevated uric acid Continues cyanocobalamin 1000 mcg by mouth daily d/c solumedrol restart prednisone 10mg po bid. Levothyroxine at 137 g daily. TSH 0.919 SSI medium scale with Accu-Cheks for glycemic control Heme: Leukocytosis Normocytic anemia Chronic Apixaban use Monitor CBC, coags daily. ID: Resolving HCAP pneumonia Staph hominis bacteremia -- has completed full course of abx for empiric HCAP. will d/c cefepime and azithro today -- continue vancomycin for full course. 06/17: Strep pneumonia and Legionella urinary Ag negative 06/17: Nasal aspirate negative for Influenza 06/17: Sputum cx: No growth 06/16 BC: Coag negative staph 1/8 bottles likely contaminant MSK: Osteoarthritis PT evaluate and treat Access - Right IJ CVL placed 06/16- will d/c today. Prophylaxis - GI - Protonix - DVT - SCD, Eliquis 5mg BID Lawson Ny MD Jun 24, 2017 07:43
[2017-06-24] MEDS ORDERED: FUROSEMIDE 40 MG/4 ML VIAL IV PUSH ONE (07:45)
[2017-06-24] MEDS ORDERED: MODAFINIL 200 MG TAB PO SCH (09:00)
[2017-06-24] MEDS: PANTOPRAZOLE SODIUM 40 MG VIAL IV SCH (09:00)
[2017-06-24] MEDS ORDERED: METOPROLOL TARTRATE 25 MG TAB NG ONE (09:00)
[2017-06-24] MEDS ORDERED: methylPREDNISolone SOD SUCC 40 MG/1 ML VIAL IV PUSH SCH (09:00)
[2017-06-24] MEDS: SODIUM CHLORIDE 0.9% FLUSH 10 ML FLUSH IV FLUSH SCH ×2 (09:00→21:41)
[2017-06-24] MEDS: DOCUSATE SODIUM 50 MG/SENNA 8.6 MG TAB PO SCH ×2 (09:01→21:44)
[2017-06-24] MEDS: ESCITALOPRAM OXALATE 10 MG TAB PO SCH (09:01)
[2017-06-24] MEDS: APIXABAN 5 MG TABLET PO SCH ×2 (09:01→21:43)
[2017-06-24] MEDS: SODIUM CHLORIDE 0.9% FLUSH 10 ML FLUSH IVF SCH (09:02)
[2017-06-24] MEDS: DIGOXIN 0.125 MG TAB PO SCH (09:02)
[2017-06-24] MEDS: predniSONE 10 MG TAB PO SCH ×2 (09:02→21:43)
[2017-06-24] MEDS: CYANOCOBALAMIN 1,000 MCG TAB PO SCH (09:06)
[2017-06-24] MEDS: MODAFINIL 200 MG TAB PO SCH (09:27)
[2017-06-24] MEDS: METOPROLOL TARTRATE 25 MG TAB PO SCH ×2 (13:35→22:08)
--- NOTE | 2017-06-24 17:34 | HHI.PR ---
Subjective Remarks Extubated and doing OK.On N/C at 4 L o2 On on Dig for Atr Fib. Seems confused. Has an NG with feeds due to Swallowing problems. Objective Vital Signs Date Time Temp Pulse Resp B/P Pulse Ox O2 Delivery O2 Flow Rate FiO2 06/24/17 17:01 102 31 118/64 97 06/24/17 16:31 94 30 116/64 97 06/24/17 16:01 98.1 102 29 121/61 97 06/24/17 16:00 98 06/24/17 15:31 96 30 96/72 97 06/24/17 15:01 92 30 129/62 98 06/24/17 14:31 90 30 114/59 99 06/24/17 14:01 100 32 110/67 98 06/24/17 14:00 98 06/24/17 13:31 128 33 97/69 97 06/24/17 13:01 124 32 116/71 99 06/24/17 12:31 118 28 114/65 98 06/24/17 12:01 98.4 114 28 119/70 97 06/24/17 12:00 116 06/24/17 11:31 104 29 108/68 98 06/24/17 11:01 98 28 104/60 98 06/24/17 10:31 88 28 123/61 100 06/24/17 10:01 86 26 113/63 100 06/24/17 10:00 84 06/24/17 09:31 118 26 116/73 99 06/24/17 09:01 120 26 116/75 99 06/24/17 08:31 130 28 126/75 100 06/24/17 08:01 97.7 108 25 106/74 96 06/24/17 08:00 103 06/24/17 07:30 100 22 102/52 99 06/24/17 07:05 99 Nasal Cannula 2.00 06/24/17 07:00 90 21 108/56 99 06/24/17 06:00 94 22 107/51 100 06/24/17 06:00 94 06/24/17 05:30 100 24 96/56 99 06/24/17 05:00 102 29 108/62 98 06/24/17 04:30 94 21 100/50 97 06/24/17 04:00 90 06/24/17 04:00 97.8 90 21 99/60 97 06/24/17 03:30 98 22 101/59 97 06/24/17 03:00 100 24 102/58 98 06/24/17 02:30 104 28 106/67 99 06/24/17 02:00 96 06/24/17 02:00 96 23 99/53 98 06/24/17 01:30 102 06/24/17 01:00 96 06/24/17 01:00 96 23 96/50 96 06/24/17 00:30 104 06/24/17 00:00 98.5 110 25 104/57 96 06/24/17 00:00 110 06/23/17 23:45 106 25 96/75 97 06/23/17 23:45 106 06/23/17 23:30 104 25 103/63 97 06/23/17 23:30 104 06/23/17 23:15 108 25 87/73 97 06/23/17 23:00 130 06/23/17 23:00 130 27 113/76 98 06/23/17 22:00 136 06/23/17 22:00 136 28 119/80 98 06/23/17 21:00 146 06/23/17 21:00 146 123/88 06/23/17 20:00 120 06/23/17 20:00 120 29 113/81 98 06/23/17 19:48 96 Nasal Cannula 2.00 06/23/17 19:00 97.8 87 26 108/75 97 06/23/17 18:00 98 06/23/17 18:00 124 35 103/72 97 I/O 06/23/17 06/23/17 06/23/17 06/24/17 06/24/17 06/24/17 07:00 15:00 23:00 07:00 15:00 23:00 Intake Total 791 ml 437 ml 523 ml Output Total 350 ml 625 ml 350 ml 2000 ml 1550 ml Balance -350 ml 166 ml 87 ml -1477 ml -1550 ml Intake IV Total 130 ml 437 ml 209 ml Tube Feeding 661 ml 134 ml Other 180 ml Output Urine Total 350 ml 625 ml 350 ml 2000 ml 1550 ml # Bowel Movements 0 0 Result Diagram: 06/24/17 0500 06/24/17 0500 Objective Remarks GENERAL: This thinly built elderly lady who is pale and alert HEENT: Head normocephalic. Pupils are reactive. Tongue is moist. NECK: Supple. No bruits. No venous distension. Trachea midline. CHEST: Decreased breath sounds over the right lung field with occasional wheezes in the left lung field. No Crackles. HEART: The heart sounds are irregularly irregular S1-S2 with no murmur. ABDOMEN: Soft, nontender. Bowel sounds are active. EXTREMITIES: Mild edema with diminished pulses. Neuro : Reflexes are 1+. The patient is alert.Confused. SKIN: Dry and warm. Assessment and Plan Assessment and Plan IMPRESSION 1. Acute respiratory failure.Resolved. 2. Status post right pneumonectomy. 3. History of pneumonia. 4. History of non-small cell lung CA. 5. Atrial fibrillation with rapid ventricular response. 6. Pulmonary edema. 7. Hyponatremia Plan : 1. D/C IV antibiotics 2. Cont O2 at 2 L 3. Nebs qid , duoneb 4. Tube feeds at 50 CC 5. Swallow Evaluation 6. CBC,BMP, CXR ,in am 7. Prednisone 10 mg bid 8. No sedation. 9. IS and Acapella q3h Corey Epps MD Jun 24, 2017 17:34
[2017-06-24] MEDS ORDERED: MELATONIN 5 MG TAB PO SCH (21:00)
[2017-06-24] MEDS: MAGNESIUM SULFATE 1 GM PREMIX 100 ML IV SCH ×2 (21:37→22:55)
[2017-06-24 21:42] LABS: POTASSIUM 3.5 MEQ/L (3.5-5.1)
[2017-06-24 21:45] LABS: BICARBONATE 37.1 MEQ/L (21.0-32.0); MAGNESIUM 2.2 MG/DL (1.5-2.5)
[2017-06-25] VITALS (37 sets, daily range): BP systolic 78–150; BP diastolic 40–83; PULSE 90–154; RESP 22–36; TEMP 98–98.7; O2SAT 95–100
[2017-06-25] MEDS: POTASSIUM CHLOR 20 MEQ PREMIX 100 ML IV PRN ×2 (00:02→01:58)
[2017-06-25] MEDS: INSULIN NovoLIN REGULAR SUPPLEMENTAL SCALE SQ SCH ×7 (00:17→23:59)
[2017-06-25] MEDS: RESP: ALBUTEROL 2.5 MG/3 ML NEB (PRN) INH (01:06)
[2017-06-25] MEDS: CHLORHEXIDINE GLUCONATE 2 % 1 PACK (2 CLOTHS) TOP SCH (01:10)
[2017-06-25] MEDS: RESP: ALBUTEROL 2.5 MG/IPRATROPIUM 0.5 MG NEB (SCH) NEB ×4 (03:50→15:31)
[2017-06-25] MEDS: RESP: IPRATROPIUM 0.5 MG/2.5 ML NEB NEB SCH ×4 (04:00→18:31)
[2017-06-25 05:12] LABS: HEMATOCRIT 38.8 % (35.0-46.0); MEAN CELL VOLUME 91.4 FL (80.0-100.0); MEAN CORPUSCULAR HEMOGLOBIN 30.3 PG (27.0-34.0); MEAN CORPUSCULAR HGB CONC 33.1 % (32.0-36.0); PLATELET COUNT 190 TH/MM3 (150-450); RED BLOOD COUNT 4.25 MIL/MM3 (4.00-5.30); RED CELL DISTRIBUTION WIDTH 15.5 % (11.6-17.2); REVIEW FLAG FINAL
[2017-06-25 05:27] LABS: BICARBONATE 37.1 MEQ/L (21.0-32.0)
[2017-06-25] MEDS: METOPROLOL TARTRATE 25 MG TAB PO SCH ×4 (06:00→23:12)
[2017-06-25] MEDS: LEVOTHYROXINE SODIUM 25 MCG TAB PO SCH (06:45)
[2017-06-25] MEDS: LEVOTHYROXINE SODIUM 112 MCG TAB PO SCH (06:45)
[2017-06-25] MEDS: APIXABAN 5 MG TABLET PO SCH ×2 (08:58→19:40)
[2017-06-25] MEDS: DOCUSATE SODIUM 50 MG/SENNA 8.6 MG TAB PO SCH ×2 (08:58→19:40)
[2017-06-25] MEDS: predniSONE 10 MG TAB PO SCH (08:58)
[2017-06-25] MEDS: ESCITALOPRAM OXALATE 10 MG TAB PO SCH (08:58)
[2017-06-25] MEDS: CYANOCOBALAMIN 1,000 MCG TAB PO SCH (08:58)
[2017-06-25] MEDS: MODAFINIL 200 MG TAB PO SCH (08:58)
[2017-06-25] MEDS: PANTOPRAZOLE SODIUM 40 MG VIAL IV SCH (08:58)
[2017-06-25] MEDS: SODIUM CHLORIDE 0.9% FLUSH 10 ML FLUSH IVF SCH (09:00)
[2017-06-25] MEDS: SODIUM CHLORIDE 0.9% FLUSH 10 ML FLUSH IV FLUSH SCH ×2 (09:02→19:40)
--- NOTE | 2017-06-25 12:06 | HHI.PR ---
Subjective Remarks The patient is lethargic. She was unable to articulate any complaints. Her family was at the bedside and her questions were answered. Discussed with nursing. Objective Vitals Vital Signs Date Time Temp Pulse Resp B/P Pulse Ox O2 Delivery O2 Flow Rate FiO2 06/25/17 11:01 130 24 106/61 98 06/25/17 10:01 120 24 94/59 99 06/25/17 10:00 116 06/25/17 09:01 124 25 95/56 99 06/25/17 08:01 98.0 116 25 113/65 100 06/25/17 08:00 116 06/25/17 07:41 98 Nasal Cannula 2.00 06/25/17 07:01 110 24 91/61 99 06/25/17 06:07 102 06/25/17 06:01 104 22 97/60 99 06/25/17 05:01 108 26 81/61 98 06/25/17 04:01 98.6 114 29 94/60 99 06/25/17 04:00 121 06/25/17 02:01 107 27 91/56 96 06/25/17 02:00 111 06/25/17 01:01 111 27 105/79 96 06/25/17 00:01 98.3 96 28 119/66 98 06/25/17 00:00 99 06/24/17 23:00 88 27 135/63 98 06/24/17 22:00 122 31 129/66 98 06/24/17 22:00 122 06/24/17 21:01 134 28 115/75 97 06/24/17 20:01 98.4 118 28 139/78 98 06/24/17 20:00 111 06/24/17 19:30 98 Nasal Cannula 2.00 06/24/17 19:01 108 28 133/66 97 06/24/17 18:01 99.4 102 28 126/81 98 06/24/17 18:00 104 06/24/17 17:31 102 31 113/67 97 06/24/17 17:01 102 31 118/64 97 06/24/17 16:31 94 30 116/64 97 06/24/17 16:01 98.1 102 29 121/61 97 06/24/17 16:00 98 06/24/17 15:31 96 30 96/72 97 06/24/17 15:01 92 30 129/62 98 06/24/17 14:31 90 30 114/59 99 06/24/17 14:01 100 32 110/67 98 06/24/17 14:00 98 06/24/17 13:31 128 33 97/69 97 06/24/17 13:01 124 32 116/71 99 06/24/17 12:31 118 28 114/65 98 06/24/17 12:01 98.4 114 28 119/70 97 06/24/17 12:00 116 I/O 06/24/17 06/24/17 06/24/17 06/25/17 06/25/17 06/25/17 07:00 15:00 23:00 07:00 15:00 23:00 Intake Total 437 ml 523 ml 380 ml 749 ml Output Total 350 ml 2000 ml 2100 ml 400 ml Balance 87 ml -1477 ml -1720 ml 349 ml Intake IV Total 437 ml 209 ml 475 ml Tube Feeding 134 ml 280 ml 274 ml Other 180 ml 100 ml Output Urine Total 350 ml 2000 ml 2100 ml 400 ml # Bowel Movements 0 0 0 Result Diagram: 06/25/17 0425 06/25/17 0425 Imaging Last Impressions Chest X-Ray 06/24/17 0600 Signed Impressions: Service Date/Time: Saturday, June 24, 2017 06:40 - CONCLUSION: Stable small left pleural effusion with hazy opacity at the left lung base. Willy Anand MD Head CT 06/18/17 0000 Signed Impressions: Service Date/Time: May 01:02 - CONCLUSION: Normal examination for a patient of this age. Chronic left maxillary sinus disease. Kvng Saldana MD Objective Remarks GENERAL: Resting comfortably, lethargic. SKIN: Cool and dry. No rash HEAD: Atraumatic. Normocephalic. EYES: Right pupil about 2 mm and reactive. Left pupil around 1 mm and sluggish. History of left cataract. ENT: No nasal bleeding or discharge. Mucous membranes pink and moist. NECK: Trachea midline. No JVD. CARDIOVASCULAR: Tachycardic irregular rhythm. RESPIRATORY: Diminished breath sounds throughout right lung moore. GASTROINTESTINAL: Abdomen soft, non-tender, nondistended. MUSCULOSKELETAL: Extremities with no peripheral edema. NEUROLOGICAL: Withdrawn. Medications and IVs Current Medications Medications (Trade) Dose Ordered Sig/Amanda Route Start Time Stop Time Status Last Admin (NS Flush) 2 ml UNSCH PRN IV FLUSH 06/16/17 15:30 (NS Flush) 2 ml BID IV FLUSH 06/16/17 21:00 06/25/17 09:02 (Tylenol) 650 mg Q6H PRN PO 06/16/17 15:30 (Protonix Inj) 40 mg DAILY IV 06/17/17 09:00 06/25/17 08:58 (Zofran Inj) 4 mg Q6H PRN IV 06/16/17 15:30 Miscellaneous Information 1 Q361D XX 06/16/17 15:30 06/16/17 15:30 (Chlorhexidine 2% Cloth) Taper DAILY@04 TOP 06/17/17 04:00 06/13/18 03:59 06/21/17 04:00 (Chlorhexidine 2% Cloth) 3 pack UNSCH PRN TOP 06/16/17 15:30 (Aiyana-Colace) 1 tab BID PO 06/16/17 21:00 06/25/17 08:58 (Milk Of Magnesia Liq) 30 ml Q12H PRN PO 06/16/17 15:30 (Senokot) 17.2 mg Q12H PRN PO 06/16/17 15:30 06/20/17 20:13 (Dulcolax Supp) 10 mg DAILY PRN RECTAL 06/16/17 15:30 06/20/17 17:47 (Lactulose Liq) 30 ml DAILY PRN PO 06/16/17 15:30 06/20/17 09:00 (Vitamin B12) 1,000 mcg DAILY PO 06/17/17 09:00 06/25/17 08:58 (Lexapro) 10 mg DAILY PO 06/17/17 09:00 06/25/17 08:58 (Synthroid) 112 mcg DAILY@06 PO 06/17/17 06:00 06/25/17 06:45 (NS Flush) DAILY IVF 06/17/17 09:00 06/24/17 09:02 (NS Flush) UNSCH PRN IVF 06/16/17 16:00 Levothyroxine Sodium 25 mcg 25 mcg DAILY@06 PO 06/17/17 06:00 06/25/17 06:45 Potassium Chloride 100 ml @ 50 mls/hr Q2H PRN IV 06/16/17 16:45 (KCl 20 Meq Premix Inj) 100 ml @ 50 mls/hr Q2H PRN IV 06/16/17 16:45 06/17/17 09:25 Potassium Bicarb/ Potassium Chloride 50 meq 50 meq UNSCH PRN PO 06/16/17 16:45 06/19/17 07:52 Potassium Chloride 100 ml @ 25 mls/hr UNSCH PRN IV 06/16/17 16:45 Potassium Chloride 100 ml @ 50 mls/hr Q2H PRN IV 06/16/17 16:45 06/25/17 01:58 (Magnesium Sulfate Inj/NS Inj) 100 ml @ 50 mls/hr UNSCH PRN IV 06/16/17 16:45 Magnesium Oxide 800 mg 800 mg UNSCH PRN PO 06/16/17 16:45 (Magnesium Sulfate Inj/NS Inj) 100 ml @ 50 mls/hr UNSCH PRN IV 06/16/17 16:45 Potassium Phosphate 2000 mg 2,000 mg Q4H PRN PO 06/16/17 16:45 06/20/17 12:28 (Sodium Phosphate Inj/NS 250 ml Inj) 250 ml @ 42 mls/hr UNSCH PRN IV 06/16/17 16:45 Potassium Phosphate 2000 mg 2,000 mg UNSCH PRN PO/TUBE 06/16/17 16:45 (Potassium Phosphate Inj/NS 250 ml Inj) 260 ml @ 42 mls/hr UNSCH PRN IV 06/16/17 16:45 (Lopressor) 25 mg Q8HR PO 06/19/17 22:00 06/25/17 12:13 (Eliquis) 5 mg BID PO 06/20/17 21:00 06/25/17 08:58 (D50w (Vial) Inj) 50 ml UNSCH PRN IV 06/20/17 17:00 (Glucagon Inj) 1 mg UNSCH PRN OTHER 06/20/17 17:00 (NovoLIN R SUPPLEMENTAL SCALE) 1 Q4H SQ 06/21/17 08:00 06/25/17 12:11 (Deltasone) 10 mg BID PO 06/23/17 21:00 06/25/17 08:58 (ZyPREXA) 2.5 mg Q8H PRN PO 06/24/17 07:30 (Provigil) 100 mg DAILY PO 06/24/17 09:00 06/25/17 08:58 Date of Insertion: Jun 17, 2017 Line: Central Venous Catheter Side: Right Location: Internal, Jugular A/P Problem List: (1) Non-small cell carcinoma of lung ICD Code: C34.90 Status: Chronic (2) Atrial fibrillation with RVR ICD Code: I48.91 Status: Acute (3) Acute respiratory failure with hypoxia and hypercapnia ICD Code: J96.01 Status: Acute (4) Tachycardia ICD Code: R00.0 Status: Acute (5) SOB (shortness of breath) ICD Code: R06.02 Status: Acute (6) PNA (pneumonia) ICD Code: J18.9 Status: Acute (7) Coronary artery disease ICD Code: I25.10 Status: Chronic (8) Hypertension ICD Code: I10 Status: Chronic (9) Hypothyroidism ICD Code: E03.9 Status: Chronic (10) Leukocytosis ICD Code: D72.829 Status: Acute (11) Normocytic anemia ICD Code: D64.9 Status: Acute (12) Lactic acidosis ICD Code: E87.2 Status: Acute (13) On apixaban therapy ICD Code: Z79.01 Status: Acute (14) Hyponatremia ICD Code: E87.1 Status: Acute (15) Hyperkalemia ICD Code: E87.5 Status: Acute (16) Acute hyperglycemia ICD Code: R73.9 Status: Acute (17) Elevated INR ICD Code: R79.1 Status: Acute (18) Elevated partial thromboplastin time (PTT) ICD Code: R79.1 Status: Acute (19) Vitamin B12 deficiency ICD Code: E53.8 Status: Chronic (20) Anxiety disorder ICD Code: F41.9 Status: Chronic (21) Current chronic use of systemic steroids ICD Code: Z79.52 Status: Chronic (22) Elevated brain natriuretic peptide (BNP) level ICD Code: R79.89 Status: Acute (23) Right bundle branch block ICD Code: I45.10 Status: Acute (24) Elevated troponin I level ICD Code: R74.8 Status: Acute (25) Septic shock ICD Code: A41.9 Status: Acute Assessment and Plan Acute hypoxic hypercapnic respiratory failure Recent history of pneumonia, hospitalized at [facility]. History right pneumonectomy status post non-small carcinoma of the lung. S/p intubation/ extubation. The pt completed a course for HCAP. - wean o2 by NC for goal spo2 > 90%. - Bronchodilators. - Incentive spirometry. - Pulmonology following/ Dr. Epps. - OOB to chair TID. PT consult. A. fib with RVR/ CHF/ CAD Echo showed EF 35-40%. S/p CABG x 4. Heart rate poorly controlled at this time. - restart Lopressor 25mg po q8h with holding parameters. - Digoxin 0.125 mg by mouth every other day. - Cardiology following- Dr. Sr as needed. May need to reconsult. Acute metabolic encephalopathy Secondary to above. CT of the head unremarkable for acute process. TSH noted. - Check ammonia and B12 levels. - Check an ABG. - Neurology consultation requested. - PT/ OT/ ST. Severe malnutrition NPO per speech therapy. Placed NGT. - restart TF I recommended dose per dietary. - Protonix for GI prophylaxis. - Aiyana-Colace for bowel regimen. Hyperglycemia of critical illness/ Chronic prednisone usage/ Hypothyroidism/ Vitamin B12 deficiency Solumedrol was d/c. Glucose relatively controlled at this time. - Continues cyanocobalamin 1000 mcg by mouth daily. - restart prednisone 10mg po bid. - Levothyroxine at 137 g daily. TSH 0.919. - SSI medium scale with Accu-Cheks for glycemic control. Staph hominis bacteremia Thought to be a contaminant. Repeat cultures with no growth. - s/p antibiotics. PPx: Eliquis 5mg BID Discharge Planning Awaiting clinical improvement Problem Qualifiers (1) PNA (pneumonia): Qualified Code: J18.9 - Pneumonia of left lung due to infectious organism, unspecified part of lung (2) Coronary artery disease: Qualified Code: I25.10 - Coronary artery disease involving [place] coronary artery of [place] heart without angina pectoris (3) Hypertension: Qualified Code: I10 - Essential hypertension (4) Hypothyroidism: Qualified Code: E03.9 - Hypothyroidism, unspecified type (5) Leukocytosis: Qualified Code: D72.829 - Leukocytosis, unspecified type (6) Anxiety disorder: Qualified Code: F41.9 - Anxiety disorder, unspecified type Nikhil Alanis DO Jun 25, 2017 12:06
[2017-06-25 13:26] LABS: BLOOD GAS BASE EXCESS 13.6 mmol/L (-2-2); BLOOD GAS CARBOXYHEMOGLOBIN 1.6 % (0-4); BLOOD GAS HCO3 39 mmol/L (22-26); BLOOD GAS O2 HGB SATURATION 97 % (90-100); BLOOD GAS OXYGEN CONTENT 16.4 Vol % (12.0-20.0); BLOOD GAS PCO2 60 mmHg (38-42); BLOOD GAS PO2 142 mmHg (61-120); BLOOD GAS TOTAL HGB 11.9 G/DL (12.0-16.0)
[2017-06-25 13:27] LABS: CRITICAL VALUE YES; DRAW SITE LT RADIAL; LITER FLOW 2 L/M; NUMBER OF ARTERIAL PUNCTURES 1; OXYGEN DEVICE NASAL CANNULA; STAT NO; ULNAR PULSE PRESENT
[2017-06-25] MEDS ORDERED: METOPROLOL TARTRATE 25 MG TAB PO ONE (18:45)
[2017-06-25] MEDS ORDERED: DILTIAZEM INJ 125 MG in SODIUM CHLORIDE 0.9% INJ 100 ML IV SCH (18:45)
--- NOTE | 2017-06-25 18:45 | HHI.PR ---
Subjective Remarks Extubated and doing OK.On N/C at 1 L o2 On on Dig for Atr Fib. Seems more alert. Has an NG with feeds due to Swallowing problems. Objective Vital Signs Date Time Temp Pulse Resp B/P Pulse Ox O2 Delivery O2 Flow Rate FiO2 06/25/17 18:01 132 30 124/74 96 06/25/17 18:00 140 06/25/17 18:00 140 33 95 06/25/17 17:01 130 28 114/78 98 06/25/17 16:36 95 Nasal Cannula 1.00 06/25/17 16:01 98.4 130 36 129/83 97 06/25/17 16:00 134 06/25/17 16:00 134 31 96 06/25/17 15:01 118 28 109/71 95 06/25/17 14:00 98 25 111/79 96 06/25/17 14:00 98 06/25/17 13:30 93 Nasal Cannula 1.00 06/25/17 13:02 90 24 102/54 98 06/25/17 12:00 98.7 140 28 102/66 98 06/25/17 12:00 140 06/25/17 11:01 130 24 106/61 98 06/25/17 10:01 120 24 94/59 99 06/25/17 10:00 116 06/25/17 09:01 124 25 95/56 99 06/25/17 08:01 98.0 116 25 113/65 100 06/25/17 08:00 116 06/25/17 08:00 99 Nasal Cannula 2.00 06/25/17 07:41 98 Nasal Cannula 2.00 06/25/17 07:01 110 24 91/61 99 06/25/17 06:07 102 06/25/17 06:01 104 22 97/60 99 06/25/17 05:01 108 26 81/61 98 06/25/17 04:01 98.6 114 29 94/60 99 06/25/17 04:00 121 06/25/17 02:01 107 27 91/56 96 06/25/17 02:00 111 06/25/17 01:01 111 27 105/79 96 06/25/17 00:01 98.3 96 28 119/66 98 06/25/17 00:00 99 06/24/17 23:00 88 27 135/63 98 06/24/17 22:00 122 31 129/66 98 06/24/17 22:00 122 06/24/17 21:01 134 28 115/75 97 06/24/17 20:01 98.4 118 28 139/78 98 06/24/17 20:00 111 06/24/17 19:30 98 Nasal Cannula 2.00 06/24/17 19:01 108 28 133/66 97 I/O 06/24/17 06/24/17 06/24/17 06/25/17 06/25/17 06/25/17 07:00 15:00 23:00 07:00 15:00 23:00 Intake Total 437 ml 523 ml 380 ml 749 ml 565 ml 228 ml Output Total 350 ml 2000 ml 2100 ml 400 ml 300 ml Balance 87 ml -1477 ml -1720 ml 349 ml 565 ml -72 ml Intake IV Total 437 ml 209 ml 475 ml Tube Feeding 134 ml 280 ml 274 ml 325 ml 228 ml Other 180 ml 100 ml 240 ml Output Urine Total 350 ml 2000 ml 2100 ml 400 ml 300 ml # Bowel Movements 0 0 0 0 Result Diagram: 06/25/1742406/25/17424 Objective Remarks GENERAL: This thinly built elderly lady who is alert HEENT: Head normocephalic. Pupils are reactive. Tongue is moist. NECK: Supple. No bruits. No venous distension. Trachea midline. CHEST: Decreased breath sounds over the right lung field with occasional wheezes in the left lung field. No Crackles. HEART: The heart sounds are irregularly irregular S1-S2 with no murmur. ABDOMEN: Soft, nontender. Bowel sounds are active. EXTREMITIES: Mild edema with diminished pulses. Neuro : Reflexes are 1+. The patient is alert.and Oriented. SKIN: Dry and warm. Assessment and Plan Assessment and Plan IMPRESSION 1. Acute respiratory failure.Resolved. 2. Status post right pneumonectomy. 3. History of pneumonia. 4. History of non-small cell lung CA. 5. Atrial fibrillation with rapid ventricular response. 6. Pulmonary edema. 7. Hyponatremia Plan : 1. Continue Atrovent nebs tid prn 2. Cont O2 at 2 L 3. PT and OT 4. Tube feeds at 50 CC 5. Swallow Evaluation 6. CBC,BMP, CXR ,in am 7. Prednisone 10 mg bid 8. Chest Xray in am 9. IS and Acapella q3h Corey Epps MD Jun 25, 2017 18:45
[2017-06-25] MEDS ORDERED: RESP: IPRATROPIUM 0.5 MG/2.5 ML NEB NEB PRN (19:30)
[2017-06-25] MEDS ORDERED: FUROSEMIDE 20 MG/2 ML VIAL IV PUSH ONE (23:45)
[2017-06-26] VITALS (39 sets, daily range): BP systolic 78–145; BP diastolic 46–78; PULSE 82–138; RESP 24–32; TEMP 97.7–99.2; O2SAT 96–100
[2017-06-26] MEDS: CHLORHEXIDINE GLUCONATE 2 % 1 PACK (2 CLOTHS) TOP SCH (04:00)
[2017-06-26] MEDS: RESP: IPRATROPIUM 0.5 MG/2.5 ML NEB NEB SCH ×4 (04:16→22:25)
[2017-06-26] MEDS: METOPROLOL TARTRATE 25 MG TAB PO SCH ×3 (04:55→22:00)
[2017-06-26] MEDS: INSULIN NovoLIN REGULAR SUPPLEMENTAL SCALE SQ SCH ×5 (04:55→20:19)
[2017-06-26] MEDS: LEVOTHYROXINE SODIUM 112 MCG TAB PO SCH (04:55)
[2017-06-26] MEDS: LEVOTHYROXINE SODIUM 25 MCG TAB PO SCH (04:56)
--- NOTE | 2017-06-26 06:26 | PD.CARD.PN ---
Subjective Subjective Remarks Chart reviewed. The patient is on BiPAP. She denies shortness of breath, chest pain or GI symptoms. Telemetry shows controlled atrial fibrillation. She was in rapid atrial fibrillation during her respiratory worsening last night. Echocardiogram with ejection fraction 35-40% and mild to moderate MR and aortic stenosis. Objective Medications Reviewed Vital Signs / I&O Vital Signs Date Time Temp Pulse Resp B/P Pulse Ox O2 Delivery O2 Flow Rate FiO2 06/26/17 06:01 84 24 119/60 99 06/26/17 06:00 82 06/26/17 05:01 112 25 101/76 99 06/26/17 04:15 99 30 06/26/17 04:01 99.2 106 26 111/66 99 06/26/17 04:00 110 06/26/17 03:01 106 27 91/57 98 06/26/17 02:01 104 26 108/55 98 06/26/17 02:00 102 06/26/17 01:30 97 30 06/26/17 01:01 102 27 98/46 97 06/26/17 00:01 98.4 118 31 98/58 96 06/26/17 00:00 122 06/25/17 23:55 97 30 06/25/17 23:01 136 28 114/75 99 06/25/17 22:01 106 25 92/55 99 06/25/17 22:00 100 06/25/17 21:55 96 Nasal Cannula 2.00 06/25/17 21:01 98 25 91/40 97 06/25/17 20:01 98.6 98 27 78/42 95 06/25/17 20:00 104 06/25/17 19:01 154 33 150/80 98 06/25/17 19:00 Nasal Cannula 2.00 06/25/17 18:01 132 30 124/74 96 06/25/17 18:00 140 06/25/17 18:00 140 33 95 06/25/17 17:01 130 28 114/78 98 06/25/17 16:36 95 Nasal Cannula 1.00 06/25/17 16:01 98.4 130 36 129/83 97 06/25/17 16:00 134 06/25/17 16:00 134 31 96 06/25/17 15:01 118 28 109/71 95 06/25/17 14:00 98 25 111/79 96 06/25/17 14:00 98 06/25/17 13:30 93 Nasal Cannula 1.00 06/25/17 13:02 90 24 102/54 98 06/25/17 12:00 98.7 140 28 102/66 98 06/25/17 12:00 140 06/25/17 11:01 130 24 106/61 98 06/25/17 10:01 120 24 94/59 99 06/25/17 10:00 116 06/25/17 09:01 124 25 95/56 99 06/25/17 08:01 98.0 116 25 113/65 100 06/25/17 08:00 116 06/25/17 08:00 99 Nasal Cannula 2.00 06/25/17 07:41 98 Nasal Cannula 2.00 06/25/17 07:01 110 24 91/61 99 I/O 06/25/17 06/25/17 06/25/17 06/26/17 06/26/17 06/26/17 07:00 15:00 23:00 07:00 15:00 23:00 Intake Total 749 ml 565 ml 479 ml 453 ml Output Total 400 ml 500 ml 1550 ml Balance 349 ml 565 ml -21 ml -1097 ml Intake IV Total 475 ml Tube Feeding 274 ml 325 ml 479 ml 453 ml Other 240 ml Output Urine Total 400 ml 500 ml 1550 ml # Bowel Movements 0 0 Physical Exam GENERAL: Frail patient in no apparent distress. SKIN: Warm and dry. NECK: JVD normal - less than or equal to 5 cm H20. CARDIOVASCULAR: Irregular rate and rhythm without gallops, or rubs. 1/6 early peaking systolic ejection murmur at the base. RESPIRATORY: Decreased breath sounds - equal bilaterally. No accessory muscle use. No wheezes, rales or rubs. Diffuse rhonchi. PERIPHERY: No cyanosis, or edema. Laboratory Laboratory Tests Test 06/25/17 06/25/17 13:20 14:20 Blood Gas Puncture Site LT RADIAL Blood Gas Patient Temperature 37.0 Blood Gas HCO3 39 mmol/L Blood Gas Base Excess 13.6 mmol/L Blood Gas Oxygen Saturation 97 % Arterial Blood pH 7.43 Arterial Blood Partial 60 mmHg Pressure CO2 Arterial Blood Partial 142 mmHg Pressure O2 Arterial Blood Oxygen Content 16.4 Vol % Arterial Blood 1.6 % Carboxyhemoglobin Arterial Blood Methemoglobin 1.0 % Blood Gas Hemoglobin 11.9 G/DL Oxygen Delivery Device NASAL CANNULA Blood Gas Liter Flow 2 L/M Ammonia 19 MCMOL/L Vitamin B12 Level 1463 PG/ML Imaging Reviewed Assessment and Plan Assessment and Plan Problems: Respiratory failuremost likely primarily pulmonary. She could have some congestive heart failure although her BUN to creatinine ratio is high and there is no evidence of fluid overload. Atrial fibrillation with rapid responseapparently this patient has sick sinus syndrome also and refused a pacemaker. Her atrial fibrillation higher response is most likely secondary to her pulmonary status. Status post lung cancer with pneumonectomy. COPD on home O2 CAD Hypertension Hyperlipidemia Hypothyroidism Recommendations: Pulmonary management per primary service. I will decrease her Eliquis dose based on her size and age. Continue oral beta blockers. She can be given when necessary IV beta blockers and her heart rate is higher. I would avoid increasing her rate control because of potential bradycardia. I would not increase digoxin at this point in time. The patient does not appear fluid overloaded at the present time. I have nothing more to add. Overall prognosis is poor. We will be available if needed. Russell Bedolla MD Jun 26, 2017 06:26
[2017-06-26 07:55] LABS: HEMATOCRIT 38.3 % (35.0-46.0); MEAN CELL VOLUME 92.7 FL (80.0-100.0); MEAN CORPUSCULAR HEMOGLOBIN 29.6 PG (27.0-34.0); PLATELET COUNT 187 TH/MM3 (150-450); RED BLOOD COUNT 4.13 MIL/MM3 (4.00-5.30); RED CELL DISTRIBUTION WIDTH 16.1 % (11.6-17.2); REVIEW FLAG FINAL; WHITE BLOOD COUNT 13.7 TH/MM3 (4.0-11.0)
[2017-06-26 08:03] LABS: POTASSIUM 3.7 MEQ/L (3.5-5.1)
[2017-06-26 08:06] LABS: BICARBONATE 40.3 MEQ/L (21.0-32.0)
--- NOTE | 2017-06-26 08:27 | MB ---
cc: ЕЛЕНА GUERRERO MD DATE OF CONSULTATION: 06/25/2017 REASON FOR CONSULTATION Encephalopathy. HISTORY OF PRESENT ILLNESS Ms. Shaikh is an 86-year-old female who was admitted on 06/16/2017 to [facility] with a past medical history of non-small cell carcinoma of the lung status post lobectomy, coronary artery disease status post CABG x4, hypertension, dyslipidemia, hypothyroidism, atrial fibrillation. She presented to the emergency room for respiratory distress, saturation 60% and was intubated. She was found to be acidotic and hyponatremic with EKG that revealed atrial fibrillation with RVR and left bundle branch block. Neurology was consulted as the patient was extubated on 06/24/2017 and was encephalopathic. REVIEW OF SYSTEMS A 12-point review of systems is negative except for what is stated in the HPI. PAST MEDICAL HISTORY 1. Osteoarthritis. 2. Non-small cell carcinoma of the lung. 3. Coronary artery disease. 4. Hypertension. 5. Hyperlipidemia. 6. Hypothyroidism. 7. Atrial fibrillation with RVR. 8. Anxiety. 9. Chronic prednisone use. 10.Vitamin-B12 deficiency. PAST SURGICAL HISTORY 1. Right pneumonectomy. 2. CABG x4. 3. Left inguinal hernia. 4. Left cataract. 5. Polyp removal. 6. x2. 7. Right total hip repair. MEDICATIONS 1. Potassium. 2. Albuterol/Atrovent. 3. Prednisone. 4. Metoprolol. 5. Eliquis. 6. Vitamin-B12. 7. Escitalopram. 8. Levothyroxine. 9. Digoxin. FAMILY HISTORY Father of [place] at 73. SOCIAL HISTORY Secondhand smoke exposure. Rare alcohol use. No IV drug abuse. PHYSICAL EXAMINATION GENERAL: Frail, awake, alert, oriented to person and place, not to time [ Knew she in the hospital, not aware of the time]. Speaks in a soft voice. Status post extubation 24 hours. NEUROLOGIC: Cranial nerves are grossly intact. No facial asymmetry. Moves extremities equally but generally weak status post being on the ventilator. Reflexes 1+ bilateral and symmetrical. Plantars are bilaterally downgoing. LABORATORY White blood cells 16, hemoglobin 12.9, MCV 91.4. Sodium 138, potassium 4, chloride low at 95, anion gap 6, BUN elevated at 31, creatinine 0.69, calcium 8.2. Vitamin-B12 1463. Ammonia 19. INR 1.3. IMAGING - Head CT scan w/o contrast revealed a normal examination, chronic left maxillary sinus disease. IMPRESSION 1. Encephalopathy resolving Likely etiology is metabolic/infectious. EEG was done on 06/18/2017 and it showed slowing and triphasic waves that may indicate an encephalopathic pattern that likely may be related to a metabolic etiology. 2. Acute respiratory failure. 3. Status post right pneumonectomy. 4. Atrial fibrillation with RVR. 5. Hyponatremia. PLAN 1. Neuro-checks q.1h. 2. Continue supportive medical therapy for correction of electrolyte imbalance and concomitant infection. 3. DVT prophylaxis. 4. PT and OT recommendations are appreciated. 5. Swallow evaluation. 6. No need for further neurologic tests at this time 7. Please call for questions. Thank you for the opportunity to participate in the care of your patient. MD ALETHEA Higgins/MIGUEL /10:50 PM /8:04 AM ABEL
[2017-06-26 08:48] LABS: DIGOXIN 0.5 NG/ML (0.8-2.0)
[2017-06-26] MEDS: CYANOCOBALAMIN 1,000 MCG TAB PO SCH (08:57)
[2017-06-26] MEDS: ESCITALOPRAM OXALATE 10 MG TAB PO SCH (08:57)
[2017-06-26] MEDS: DOCUSATE SODIUM 50 MG/SENNA 8.6 MG TAB PO SCH ×2 (08:57→20:08)
[2017-06-26] MEDS: DIGOXIN 0.125 MG TAB PO SCH (08:57)
[2017-06-26] MEDS: MODAFINIL 200 MG TAB PO SCH (08:57)
[2017-06-26] MEDS: predniSONE 5 MG TAB PO SCH (08:57)
[2017-06-26] MEDS: APIXABAN 2.5 MG TABLET PO SCH ×2 (08:58→20:08)
[2017-06-26] MEDS: PANTOPRAZOLE SODIUM 40 MG VIAL IV SCH (08:58)
[2017-06-26] MEDS: SODIUM CHLORIDE 0.9% FLUSH 10 ML FLUSH IVF SCH (09:00)
[2017-06-26] MEDS: SODIUM CHLORIDE 0.9% FLUSH 10 ML FLUSH IV FLUSH SCH ×2 (09:04→20:08)
[2017-06-26] MEDS: LACTULOSE SYRUP 20 GM/30 ML CUP PO PRN (09:04)
[2017-06-26] MEDS: SODIUM CHLORIDE 0.9% FLUSH 10 ML FLUSH IV FLUSH PRN (11:25)
[2017-06-26] MEDS: METOPROLOL TARTRATE 5 MG/5 ML VIAL IV PUSH PRN (11:25)
--- NOTE | 2017-06-26 11:25 | HHI.PR ---
Subjective Remarks The patient was sitting up in a chair. She was able to converse a little bit. She said she wanted to get out of the hospital. She denied any pain. She said the NG tube was not bothering her that much. Family was at the bedside. Discussed with nursing. Objective Vitals Vital Signs Date Time Temp Pulse Resp B/P Pulse Ox O2 Delivery O2 Flow Rate FiO2 06/26/17 10:10 98 Nasal Cannula 1.00 06/26/17 10:01 126 31 114/75 98 06/26/17 10:00 132 06/26/17 09:01 118 27 118/76 98 06/26/17 08:01 97.8 112 27 120/72 98 06/26/17 08:00 89 06/26/17 08:00 100 Nasal Cannula 1.00 06/26/17 07:01 90 24 136/57 100 06/26/17 06:01 84 24 119/60 99 06/26/17 06:00 82 06/26/17 06:00 Nasal Cannula 2.00 06/26/17 05:01 112 25 101/76 99 06/26/17 04:15 99 30 06/26/17 04:01 99.2 106 26 111/66 99 06/26/17 04:00 110 06/26/17 03:01 106 27 91/57 98 06/26/17 02:01 104 26 108/55 98 06/26/17 02:00 102 06/26/17 01:30 97 30 06/26/17 01:01 102 27 98/46 97 06/26/17 00:01 98.4 118 31 98/58 96 06/26/17 00:00 Bi-Pap 30 06/26/17 00:00 122 06/25/17 23:55 97 30 06/25/17 23:01 136 28 114/75 99 06/25/17 22:01 106 25 92/55 99 06/25/17 22:00 100 06/25/17 21:55 96 Nasal Cannula 2.00 06/25/17 21:01 98 25 91/40 97 06/25/17 20:01 98.6 98 27 78/42 95 06/25/17 20:00 104 06/25/17 19:01 154 33 150/80 98 06/25/17 19:00 Nasal Cannula 2.00 06/25/17 18:01 132 30 124/74 96 06/25/17 18:00 140 06/25/17 18:00 140 33 95 06/25/17 17:01 130 28 114/78 98 06/25/17 16:36 95 Nasal Cannula 1.00 06/25/17 16:01 98.4 130 36 129/83 97 06/25/17 16:00 134 06/25/17 16:00 134 31 96 06/25/17 15:01 118 28 109/71 95 06/25/17 14:00 98 25 111/79 96 06/25/17 14:00 98 06/25/17 13:30 93 Nasal Cannula 1.00 06/25/17 13:02 90 24 102/54 98 06/25/17 12:00 98.7 140 28 102/66 98 06/25/17 12:00 140 I/O 06/25/17 06/25/17 06/25/17 06/26/17 06/26/17 06/26/17 07:00 15:00 23:00 07:00 15:00 23:00 Intake Total 749 ml 565 ml 479 ml 453 ml Output Total 400 ml 500 ml 1550 ml Balance 349 ml 565 ml -21 ml -1097 ml Intake IV Total 475 ml Tube Feeding 274 ml 325 ml 479 ml 453 ml Other 240 ml Output Urine Total 400 ml 500 ml 1550 ml # Bowel Movements 0 0 Result Diagram: 06/26/17 0740 06/26/17 0740 Imaging Last Impressions Chest X-Ray 06/24/17 0600 Signed Impressions: Service Date/Time: Saturday, June 24, 2017 06:40 - CONCLUSION: Stable small left pleural effusion with hazy opacity at the left lung base. Willy Anand MD Head CT 06/18/17 0000 Signed Impressions: Service Date/Time: May 01:02 - CONCLUSION: Normal examination for a patient of this age. Chronic left maxillary sinus disease. Kvng Saldana MD Objective Remarks GENERAL: Resting comfortably, lethargic. SKIN: Cool and dry. No rash HEAD: Atraumatic. Normocephalic. EYES: Right pupil about 2 mm and reactive. Left pupil around 1 mm and sluggish. History of left cataract. ENT: No nasal bleeding or discharge. Mucous membranes pink and moist. NECK: Trachea midline. No JVD. CARDIOVASCULAR: Tachycardic irregular rhythm. RESPIRATORY: Diminished breath sounds throughout right lung moore. Coarse breath sounds. GASTROINTESTINAL: Abdomen soft, non-tender, nondistended. MUSCULOSKELETAL: Extremities with no peripheral edema. NEUROLOGICAL: Lethargic, but able to answer questions. Medications and IVs Current Medications Medications (Trade) Dose Ordered Sig/Amanda Route Start Time Stop Time Status Last Admin (NS Flush) 2 ml UNSCH PRN IV FLUSH 06/16/17 15:30 (NS Flush) 2 ml BID IV FLUSH 06/16/17 21:00 06/26/17 09:04 (Tylenol) 650 mg Q6H PRN PO 06/16/17 15:30 (Protonix Inj) 40 mg DAILY IV 06/17/17 09:00 06/26/17 08:58 (Zofran Inj) 4 mg Q6H PRN IV 06/16/17 15:30 Miscellaneous Information 1 Q361D XX 06/16/17 15:30 06/16/17 15:30 (Chlorhexidine 2% Cloth) Taper DAILY@04 TOP 06/17/17 04:00 06/13/18 03:59 06/26/17 04:00 (Chlorhexidine 2% Cloth) 3 pack UNSCH PRN TOP 06/16/17 15:30 (Aiyana-Colace) 1 tab BID PO 06/16/17 21:00 06/26/17 08:57 (Milk Of Magnesia Liq) 30 ml Q12H PRN PO 06/16/17 15:30 (Senokot) 17.2 mg Q12H PRN PO 06/16/17 15:30 06/20/17 20:13 (Dulcolax Supp) 10 mg DAILY PRN RECTAL 06/16/17 15:30 06/20/17 17:47 (Lactulose Liq) 30 ml DAILY PRN PO 06/16/17 15:30 06/26/17 09:04 (Vitamin B12) 1,000 mcg DAILY PO 06/17/17 09:00 06/26/17 08:57 (Lexapro) 10 mg DAILY PO 06/17/17 09:00 06/26/17 08:57 (Synthroid) 112 mcg DAILY@06 PO 06/17/17 06:00 06/26/17 04:55 (NS Flush) DAILY IVF 06/17/17 09:00 06/24/17 09:02 (NS Flush) UNSCH PRN IVF 06/16/17 16:00 Levothyroxine Sodium 25 mcg 25 mcg DAILY@06 PO 06/17/17 06:00 06/26/17 04:56 Potassium Chloride 100 ml @ 50 mls/hr Q2H PRN IV 06/16/17 16:45 (KCl 20 Meq Premix Inj) 100 ml @ 50 mls/hr Q2H PRN IV 06/16/17 16:45 06/17/17 09:25 Potassium Bicarb/ Potassium Chloride 50 meq 50 meq UNSCH PRN PO 06/16/17 16:45 06/19/17 07:52 Potassium Chloride 100 ml @ 25 mls/hr UNSCH PRN IV 06/16/17 16:45 Potassium Chloride 100 ml @ 50 mls/hr Q2H PRN IV 06/16/17 16:45 06/25/17 01:58 (Magnesium Sulfate Inj/NS Inj) 100 ml @ 50 mls/hr UNSCH PRN IV 06/16/17 16:45 Magnesium Oxide 800 mg 800 mg UNSCH PRN PO 06/16/17 16:45 (Magnesium Sulfate Inj/NS Inj) 100 ml @ 50 mls/hr UNSCH PRN IV 06/16/17 16:45 Potassium Phosphate 2000 mg 2,000 mg Q4H PRN PO 06/16/17 16:45 06/20/17 12:28 (Sodium Phosphate Inj/NS 250 ml Inj) 250 ml @ 42 mls/hr UNSCH PRN IV 06/16/17 16:45 Potassium Phosphate 2000 mg 2,000 mg UNSCH PRN PO/TUBE 06/16/17 16:45 (Potassium Phosphate Inj/NS 250 ml Inj) 260 ml @ 42 mls/hr UNSCH PRN IV 06/16/17 16:45 (Lopressor) 25 mg Q8HR PO 06/19/17 22:00 06/26/17 04:55 (D50w (Vial) Inj) 50 ml UNSCH PRN IV 06/20/17 17:00 (Glucagon Inj) 1 mg UNSCH PRN OTHER 06/20/17 17:00 (NovoLIN R SUPPLEMENTAL SCALE) 1 Q4H SQ 06/21/17 08:00 06/26/17 09:03 (ZyPREXA) 2.5 mg Q8H PRN PO 06/24/17 07:30 (Provigil) 100 mg DAILY PO 06/24/17 09:00 06/26/17 08:57 (Deltasone) 15 mg DAILY PO 06/26/17 09:00 06/26/17 08:57 (Eliquis) 2.5 mg BID PO 06/26/17 09:00 06/26/17 08:58 (Lopressor Inj) 2.5 mg Q6H PRN IV PUSH 06/26/17 11:00 Date of Insertion: Jun 17, 2017 Line: Central Venous Catheter Side: Right Location: Internal, Jugular A/P Problem List: (1) Non-small cell carcinoma of lung ICD Code: C34.90 Status: Chronic (2) Atrial fibrillation with RVR ICD Code: I48.91 Status: Acute (3) Acute respiratory failure with hypoxia and hypercapnia ICD Code: J96.01 Status: Acute (4) Tachycardia ICD Code: R00.0 Status: Acute (5) SOB (shortness of breath) ICD Code: R06.02 Status: Acute (6) PNA (pneumonia) ICD Code: J18.9 Status: Acute (7) Coronary artery disease ICD Code: I25.10 Status: Chronic (8) Hypertension ICD Code: I10 Status: Chronic (9) Hypothyroidism ICD Code: E03.9 Status: Chronic (10) Leukocytosis ICD Code: D72.829 Status: Acute (11) Normocytic anemia ICD Code: D64.9 Status: Acute (12) Lactic acidosis ICD Code: E87.2 Status: Acute (13) On apixaban therapy ICD Code: Z79.01 Status: Acute (14) Hyponatremia ICD Code: E87.1 Status: Acute (15) Hyperkalemia ICD Code: E87.5 Status: Acute (16) Acute hyperglycemia ICD Code: R73.9 Status: Acute (17) Elevated INR ICD Code: R79.1 Status: Acute (18) Elevated partial thromboplastin time (PTT) ICD Code: R79.1 Status: Acute (19) Vitamin B12 deficiency ICD Code: E53.8 Status: Chronic (20) Anxiety disorder ICD Code: F41.9 Status: Chronic (21) Current chronic use of systemic steroids ICD Code: Z79.52 Status: Chronic (22) Elevated brain natriuretic peptide (BNP) level ICD Code: R79.89 Status: Acute (23) Right bundle branch block ICD Code: I45.10 Status: Acute (24) Elevated troponin I level ICD Code: R74.8 Status: Acute (25) Septic shock ICD Code: A41.9 Status: Acute Assessment and Plan Acute hypoxic hypercapnic respiratory failure Recent history of pneumonia, hospitalized at [facility]. History of right pneumonectomy status post non-small carcinoma of the lung. S/p intubation/ extubation. The pt completed a course for HCAP. ABG with hypercapnia. - wean o2 by NC for goal spo2 > 90%. - Bronchodilators. - Incentive spirometry. - Pulmonology following/ Dr. Epps. - OOB to chair TID. PT consult. - BiPAP as needed. - Repeat chest x-ray. A. fib with RVR/ CHF/ CAD Echo showed EF 35-40%. S/p CABG x 4. Heart rate poorly controlled at this time. Appreciate cardiology re-evaluating. - restarted Lopressor 25mg po q8h with holding parameters. - Digoxin 0.125 mg by mouth every other day. - D/c Cardizem gtt s/t hypotension. Lopressor 2.5 mg IV as needed for rate control. - cardiology available. Acute metabolic encephalopathy Secondary to above. CT of the head unremarkable for acute process. TSH noted. ABG revealed hypercapnia. Neurology consult appreciated. - continue BiPAP per pulmonology. - PT/ OT/ ST. Severe malnutrition NPO per speech therapy. Placed NGT. - restart TF at recommended dose per dietary. - Protonix for GI prophylaxis. - Aiyana-Colace for bowel regimen. - Follow up with speech therapy. Hyperglycemia of critical illness/ Chronic prednisone usage/ Hypothyroidism/ Vitamin B12 deficiency Solumedrol was d/c. Glucose relatively controlled at this time. - Continues cyanocobalamin 1000 mcg by mouth daily. - restarted prednisone 10mg po bid. - Levothyroxine at 137 g daily. TSH 0.919. - SSI medium scale with Accu-Cheks for glycemic control. Staph hominis bacteremia Thought to be a contaminant. Repeat cultures with no growth. - s/p antibiotics. PPx: Eliquis Discharge Planning Awaiting clinical improvement Problem Qualifiers (1) PNA (pneumonia): Qualified Code: J18.9 - Pneumonia of left lung due to infectious organism, unspecified part of lung (2) Coronary artery disease: Qualified Code: I25.10 - Coronary artery disease involving [place] coronary artery of [place] heart without angina pectoris (3) Hypertension: Qualified Code: I10 - Essential hypertension (4) Hypothyroidism: Qualified Code: E03.9 - Hypothyroidism, unspecified type (5) Leukocytosis: Qualified Code: D72.829 - Leukocytosis, unspecified type (6) Anxiety disorder: Qualified Code: F41.9 - Anxiety disorder, unspecified type Nikhil Alanis DO Jun 26, 2017 11:25
--- NOTE | 2017-06-26 12:06 | RADRPT ---
EXAM DATE/TIME: 06/26/2017 11:21 [place] COMPARISON: CHEST SINGLE AP, June 24, 2017, 6:40. INDICATIONS : Dyspnea. MEDICAL HISTORY : Myocardial infarction. Hypertension Chronic obstructive pulmonary disease. SURGICAL HISTORY : CABG. ENCOUNTER: Subsequent ACUITY: 1 week PAIN SCORE: Non-responsive. LOCATION: Bilateral chest FINDINGS: The right hemithorax is completely opacified and not changed. A small left pleural effusion is presen t. NG tube is present with tip in the stomach. No definite pneumothorax is seen for technique. Left l emilie base atelectasis and/or infiltrate may also be present. CONCLUSION: Left pleural effusion possible slight left lung base atelectasis and/or infiltrate and the right lung is completely opacified and not changed. Elisa Piper MD on June 26, 2017 at 12:03 Board Certified Radiologist. This report was verified electronically.
--- NOTE | 2017-06-26 19:23 | HHI.PR ---
Subjective Remarks Feels better.On N/C at 1 L o2. HR still >110. On Lopressor. On on Dig for Atr Fib. Seems more alert. Has an NG with feeds . Also did swallow test today. Objective Vital Signs Date Time Temp Pulse Resp B/P Pulse Ox O2 Delivery O2 Flow Rate FiO2 06/26/17 18:00 108 06/26/17 18:00 108 26 107/58 97 06/26/17 17:03 100 25 89/56 98 06/26/17 17:01 98 25 80/51 98 06/26/17 16:00 104 06/26/17 16:00 98.4 104 32 110/64 99 06/26/17 15:01 108 31 126/78 100 06/26/17 14:01 110 30 145/63 98 06/26/17 14:00 104 06/26/17 13:01 138 28 124/76 97 06/26/17 12:01 98.0 114 27 111/67 98 06/26/17 12:00 138 06/26/17 11:01 138 30 119/72 97 06/26/17 10:10 98 Nasal Cannula 1.00 06/26/17 10:01 126 31 114/75 98 06/26/17 10:00 132 06/26/17 09:01 118 27 118/76 98 06/26/17 08:01 97.8 112 27 120/72 98 06/26/17 08:00 89 06/26/17 08:00 100 Nasal Cannula 1.00 06/26/17 07:01 90 24 136/57 100 06/26/17 06:01 84 24 119/60 99 06/26/17 06:00 82 06/26/17 06:00 Nasal Cannula 2.00 06/26/17 05:01 112 25 101/76 99 06/26/17 04:15 99 30 06/26/17 04:01 99.2 106 26 111/66 99 06/26/17 04:00 110 06/26/17 03:01 106 27 91/57 98 06/26/17 02:01 104 26 108/55 98 06/26/17 02:00 102 06/26/17 01:30 97 30 06/26/17 01:01 102 27 98/46 97 06/26/17 00:01 98.4 118 31 98/58 96 06/26/17 00:00 Bi-Pap 30 06/26/17 00:00 122 06/25/17 23:55 97 30 06/25/17 23:01 136 28 114/75 99 06/25/17 22:01 106 25 92/55 99 06/25/17 22:00 100 06/25/17 21:55 96 Nasal Cannula 2.00 06/25/17 21:01 98 25 91/40 97 06/25/17 20:01 98.6 98 27 78/42 95 06/25/17 20:00 104 I/O 06/25/17 06/25/17 06/25/17 06/26/17 06/26/17 06/26/17 07:00 15:00 23:00 07:00 15:00 23:00 Intake Total 749 ml 565 ml 479 ml 453 ml 593 ml Output Total 400 ml 500 ml 1550 ml 375 ml Balance 349 ml 565 ml -21 ml -1097 ml 218 ml Intake IV Total 475 ml Tube Feeding 274 ml 325 ml 479 ml 453 ml 393 ml Other 240 ml 200 ml Output Urine Total 400 ml 500 ml 1550 ml 375 ml # Bowel Movements 0 0 0 1 Result Diagram: 06/26/1740 06/26/17739 Objective Remarks GENERAL: This thinly built elderly lady who is alert HEENT: Head normocephalic. Pupils are reactive. Tongue is moist. NECK: Supple. No bruits. No venous distension. Trachea midline. CHEST: Decreased breath sounds over the right lung field with occasional wheezes in the left lung field. No Crackles. HEART: The heart sounds are irregularly irregular S1-S2 with no murmur. ABDOMEN: Soft, nontender. Bowel sounds are active. EXTREMITIES: No edema with diminished pulses. Neuro : Reflexes are 1+. The patient is alert.and Oriented. SKIN: Dry and warm. Assessment and Plan Assessment and Plan IMPRESSION 1. Acute respiratory failure.Resolved. 2. Status post right pneumonectomy. 3. History of pneumonia. 4. History of non-small cell lung CA. 5. Atrial fibrillation with rapid ventricular response. 6. Pulmonary edema. 7. Hyponatremia Plan : 1. Continue Atrovent nebs tid prn 2. Cont O2 at 1 L 3. PT and OT 4. Tube feeds at 50 CC 5. Swallow Evaluation 6. Bipap at HS if sats <90 7. Prednisone 15mg daily 8. Add Mucomyst 10 % 2 CC tid with nebs 9. IS and Acapella q3h 10.ADD Mucinex 600 mg bid Corey Epps MD Jun 26, 2017 19:23
[2017-06-26] MEDS: guaiFENesin E.R. 600 MG TAB PO SCH (20:08)
[2017-06-26] MEDS: RESP: ACETYLCYSTEINE 10% 30 ML NEB NEB SCH (22:25)
[2017-06-26] MEDS ORDERED: SODIUM CHLOR 0.9% 250 ML INJ 250 ML IV ONE (23:15)
[2017-06-27] VITALS (41 sets, daily range): BP systolic 59–134; BP diastolic 45–86; PULSE 90–138; RESP 21–39; TEMP 96.6–98.3; O2SAT 96–100
[2017-06-27] MEDS: INSULIN NovoLIN REGULAR SUPPLEMENTAL SCALE SQ SCH ×6 (00:01→21:22)
[2017-06-27] MEDS ORDERED: SODIUM CHLOR 0.9% 250 ML INJ 250 ML IV ONE (02:45)
[2017-06-27] MEDS: CHLORHEXIDINE GLUCONATE 2 % 1 PACK (2 CLOTHS) TOP SCH (04:00)
[2017-06-27] MEDS: LEVOTHYROXINE SODIUM 25 MCG TAB PO SCH (04:15)
[2017-06-27] MEDS: METOPROLOL TARTRATE 25 MG TAB PO SCH ×4 (04:15→21:41)
[2017-06-27] MEDS: LEVOTHYROXINE SODIUM 112 MCG TAB PO SCH (04:15)
[2017-06-27] MEDS: RESP: IPRATROPIUM 0.5 MG/2.5 ML NEB NEB SCH ×4 (04:58→22:06)
[2017-06-27 06:30] LABS: HEMATOCRIT 37.6 % (35.0-46.0); MEAN CELL VOLUME 91.7 FL (80.0-100.0); MEAN CORPUSCULAR HEMOGLOBIN 30.2 PG (27.0-34.0); PLATELET COUNT 199 TH/MM3 (150-450); RED CELL DISTRIBUTION WIDTH 15.6 % (11.6-17.2); REVIEW FLAG FINAL; WHITE BLOOD COUNT 12.9 TH/MM3 (4.0-11.0)
[2017-06-27 06:40] LABS: POTASSIUM 3.6 MEQ/L (3.5-5.1)
[2017-06-27 06:43] LABS: BICARBONATE 41.4 MEQ/L (21.0-32.0)
[2017-06-27] MEDS: RESP: ACETYLCYSTEINE 10% 30 ML NEB NEB SCH ×3 (08:00→22:06)
[2017-06-27] MEDS: PANTOPRAZOLE SODIUM 40 MG VIAL IV SCH (09:06)
[2017-06-27] MEDS: MODAFINIL 200 MG TAB PO SCH (09:06)
[2017-06-27] MEDS: guaiFENesin E.R. 600 MG TAB PO SCH ×2 (09:07→21:23)
[2017-06-27] MEDS: ESCITALOPRAM OXALATE 10 MG TAB PO SCH (09:07)
[2017-06-27] MEDS: CYANOCOBALAMIN 1,000 MCG TAB PO SCH (09:07)
[2017-06-27] MEDS: APIXABAN 2.5 MG TABLET PO SCH ×2 (09:07→21:23)
[2017-06-27] MEDS: DOCUSATE SODIUM 50 MG/SENNA 8.6 MG TAB PO SCH ×2 (09:07→21:23)
[2017-06-27] MEDS: predniSONE 5 MG TAB PO SCH (09:07)
[2017-06-27] MEDS: SODIUM CHLORIDE 0.9% FLUSH 10 ML FLUSH IV FLUSH SCH ×2 (09:09→21:42)
[2017-06-27] MEDS: SODIUM CHLORIDE 0.9% FLUSH 10 ML FLUSH IVF SCH (09:10)
[2017-06-27 09:49] LABS: BLOOD GAS BASE EXCESS 16.7 mmol/L (-2-2); BLOOD GAS CARBOXYHEMOGLOBIN 1.7 % (0-4); BLOOD GAS HCO3 42 mmol/L (22-26); BLOOD GAS METHEMOGLOBIN 1.2 % (0-2); BLOOD GAS O2 HGB SATURATION 96 % (90-100); BLOOD GAS PCO2 69 mmHg (38-42); BLOOD GAS PO2 112 mmHg (61-120); BLOOD GAS TOTAL HGB 12.5 G/DL (12.0-16.0)
[2017-06-27 09:50] LABS: CRITICAL VALUE YES; DRAW SITE RT RADIAL; LITER FLOW 1 L/M; NUMBER OF ARTERIAL PUNCTURES 1; OXYGEN DEVICE NASAL CANNULA; STAT NO; ULNAR PULSE PRESENT
--- NOTE | 2017-06-27 10:25 | HHI.PR ---
Subjective Remarks The patient was lethargic once again. She was able to mumble one-word answers but went right back to sleep. She does not seem to have any acute complaints. Discussed with respiratory therapy at the bedside. Objective Vitals Vital Signs Date Time Temp Pulse Resp B/P Pulse Ox O2 Delivery O2 Flow Rate FiO2 06/27/17 09:01 108 22 106/55 98 06/27/17 08:01 97.6 108 22 110/78 98 06/27/17 07:01 90 21 90/52 99 06/27/17 06:01 98 21 89/47 99 06/27/17 06:00 100 06/27/17 05:01 138 27 121/81 100 06/27/17 04:01 97.4 112 21 104/49 99 06/27/17 04:00 120 06/27/17 03:01 122 22 127/68 99 06/27/17 02:01 116 22 75/45 99 06/27/17 02:00 116 06/27/17 01:01 116 25 112/61 99 06/27/17 00:01 97.9 116 27 106/59 99 06/27/17 00:00 116 06/26/17 23:01 118 24 78/46 99 06/26/17 22:01 126 26 81/48 98 06/26/17 22:00 120 06/26/17 21:01 114 26 90/49 100 06/26/17 20:01 98.4 114 30 101/61 98 06/26/17 20:00 Nasal Cannula 1.00 06/26/17 20:00 120 06/26/17 19:48 98 Nasal Cannula 1.00 06/26/17 19:01 114 28 102/69 97 06/26/17 18:00 108 06/26/17 18:00 108 26 107/58 97 06/26/17 17:03 100 25 89/56 98 06/26/17 17:01 98 25 80/51 98 06/26/17 16:00 104 06/26/17 16:00 98.4 104 32 110/64 99 06/26/17 15:01 108 31 126/78 100 06/26/17 14:01 110 30 145/63 98 06/26/17 14:00 104 06/26/17 13:01 138 28 124/76 97 06/26/17 12:01 98.0 114 27 111/67 98 06/26/17 12:00 138 06/26/17 11:01 138 30 119/72 97 I/O 06/26/17 06/26/17 06/26/17 06/27/17 06/27/17 06/27/17 07:00 15:00 23:00 07:00 15:00 23:00 Intake Total 453 ml 593 ml 498 ml 588 ml Output Total 1550 ml 375 ml 525 ml 1000 ml Balance -1097 ml 218 ml -27 ml -412 ml Intake IV Total 250 ml Tube Feeding 453 ml 393 ml 498 ml 338 ml Other 200 ml Output Urine Total 1550 ml 375 ml 525 ml 1000 ml # Bowel Movements 0 1 Result Diagram: 06/27/17 0555 06/27/17 0555 Imaging Last Impressions Chest X-Ray 06/26/17 0000 Signed Impressions: Service Date/Time: Monday, June 26, 2017 11:21 - CONCLUSION: Left pleural effusion possible slight left lung base atelectasis and/or infiltrate and the right lung is completely opacified and not changed. Elisa Piper MD Head CT 06/18/17 0000 Signed Impressions: Service Date/Time: May 01:02 - CONCLUSION: Normal examination for a patient of this age. Chronic left maxillary sinus disease. Kvng Saldana MD Objective Remarks GENERAL: Resting comfortably, lethargic. SKIN: Cool and dry. No rash HEAD: Atraumatic. Normocephalic. EYES: Right pupil about 2 mm and reactive. Left pupil around 1 mm and sluggish. History of left cataract. ENT: No nasal bleeding or discharge. Mucous membranes pink and moist. NECK: Trachea midline. No JVD. CARDIOVASCULAR: Tachycardic irregular rhythm. RESPIRATORY: Diminished breath sounds throughout right lung moore. Coarse breath sounds. GASTROINTESTINAL: Abdomen soft, non-tender, nondistended. MUSCULOSKELETAL: Extremities with no peripheral edema. NEUROLOGICAL: Lethargic, but able to respond to questions. Medications and IVs Current Medications Medications (Trade) Dose Ordered Sig/Amanda Route Start Time Stop Time Status Last Admin (NS Flush) 2 ml UNSCH PRN IV FLUSH 06/16/17 15:30 06/26/17 11:25 (NS Flush) 2 ml BID IV FLUSH 06/16/17 21:00 06/27/17 09:09 (Tylenol) 650 mg Q6H PRN PO 06/16/17 15:30 (Protonix Inj) 40 mg DAILY IV 06/17/17 09:00 06/27/17 09:06 (Zofran Inj) 4 mg Q6H PRN IV 06/16/17 15:30 Miscellaneous Information 1 Q361D XX 06/16/17 15:30 06/16/17 15:30 (Chlorhexidine 2% Cloth) Taper DAILY@04 TOP 06/17/17 04:00 06/13/18 03:59 06/27/17 04:00 (Chlorhexidine 2% Cloth) 3 pack UNSCH PRN TOP 06/16/17 15:30 (Aiyana-Colace) 1 tab BID PO 06/16/17 21:00 06/27/17 09:07 (Milk Of Magnesia Liq) 30 ml Q12H PRN PO 06/16/17 15:30 (Senokot) 17.2 mg Q12H PRN PO 06/16/17 15:30 06/20/17 20:13 (Dulcolax Supp) 10 mg DAILY PRN RECTAL 06/16/17 15:30 06/20/17 17:47 (Lactulose Liq) 30 ml DAILY PRN PO 06/16/17 15:30 06/26/17 09:04 (Vitamin B12) 1,000 mcg DAILY PO 06/17/17 09:00 06/27/17 09:07 (Lexapro) 10 mg DAILY PO 06/17/17 09:00 06/27/17 09:07 (Synthroid) 112 mcg DAILY@06 PO 06/17/17 06:00 06/27/17 04:15 (NS Flush) DAILY IVF 06/17/17 09:00 06/27/17 09:10 (NS Flush) UNSCH PRN IVF 06/16/17 16:00 Levothyroxine Sodium 25 mcg 25 mcg DAILY@06 PO 06/17/17 06:00 06/27/17 04:15 Potassium Chloride 100 ml @ 50 mls/hr Q2H PRN IV 06/16/17 16:45 (KCl 20 Meq Premix Inj) 100 ml @ 50 mls/hr Q2H PRN IV 06/16/17 16:45 06/17/17 09:25 Potassium Bicarb/ Potassium Chloride 50 meq 50 meq UNSCH PRN PO 06/16/17 16:45 06/19/17 07:52 Potassium Chloride 100 ml @ 25 mls/hr UNSCH PRN IV 06/16/17 16:45 Potassium Chloride 100 ml @ 50 mls/hr Q2H PRN IV 06/16/17 16:45 06/25/17 01:58 (Magnesium Sulfate Inj/NS Inj) 100 ml @ 50 mls/hr UNSCH PRN IV 06/16/17 16:45 Magnesium Oxide 800 mg 800 mg UNSCH PRN PO 06/16/17 16:45 (Magnesium Sulfate Inj/NS Inj) 100 ml @ 50 mls/hr UNSCH PRN IV 06/16/17 16:45 Potassium Phosphate 2000 mg 2,000 mg Q4H PRN PO 06/16/17 16:45 06/20/17 12:28 (Sodium Phosphate Inj/NS 250 ml Inj) 250 ml @ 42 mls/hr UNSCH PRN IV 06/16/17 16:45 Potassium Phosphate 2000 mg 2,000 mg UNSCH PRN PO/TUBE 06/16/17 16:45 (Potassium Phosphate Inj/NS 250 ml Inj) 260 ml @ 42 mls/hr UNSCH PRN IV 06/16/17 16:45 (Lopressor) 25 mg Q8HR PO 06/19/17 22:00 06/27/17 05:31 (D50w (Vial) Inj) 50 ml UNSCH PRN IV 06/20/17 17:00 (Glucagon Inj) 1 mg UNSCH PRN OTHER 06/20/17 17:00 (NovoLIN R SUPPLEMENTAL SCALE) 1 Q4H SQ 06/21/17 08:00 06/27/17 04:17 (ZyPREXA) 2.5 mg Q8H PRN PO 06/24/17 07:30 06/26/17 20:08 (Provigil) 100 mg DAILY PO 06/24/17 09:00 06/27/17 09:06 (Deltasone) 15 mg DAILY PO 06/26/17 09:00 06/27/17 09:07 (Eliquis) 2.5 mg BID PO 06/26/17 09:00 06/27/17 09:07 (Lopressor Inj) 2.5 mg Q6H PRN IV PUSH 06/26/17 11:00 06/26/17 11:25 (Mucinex Er) 600 mg BID PO 06/26/17 21:00 06/27/17 09:07 Date of Insertion: Jun 17, 2017 Line: Central Venous Catheter Side: Right Location: Internal, Jugular A/P Problem List: (1) Non-small cell carcinoma of lung ICD Code: C34.90 Status: Chronic (2) Atrial fibrillation with RVR ICD Code: I48.91 Status: Acute (3) Acute respiratory failure with hypoxia and hypercapnia ICD Code: J96.01 Status: Acute (4) Tachycardia ICD Code: R00.0 Status: Acute (5) SOB (shortness of breath) ICD Code: R06.02 Status: Acute (6) PNA (pneumonia) ICD Code: J18.9 Status: Acute (7) Coronary artery disease ICD Code: I25.10 Status: Chronic (8) Hypertension ICD Code: I10 Status: Chronic (9) Hypothyroidism ICD Code: E03.9 Status: Chronic (10) Leukocytosis ICD Code: D72.829 Status: Acute (11) Normocytic anemia ICD Code: D64.9 Status: Acute (12) Lactic acidosis ICD Code: E87.2 Status: Acute (13) On apixaban therapy ICD Code: Z79.01 Status: Acute (14) Hyponatremia ICD Code: E87.1 Status: Acute (15) Hyperkalemia ICD Code: E87.5 Status: Acute (16) Acute hyperglycemia ICD Code: R73.9 Status: Acute (17) Elevated INR ICD Code: R79.1 Status: Acute (18) Elevated partial thromboplastin time (PTT) ICD Code: R79.1 Status: Acute (19) Vitamin B12 deficiency ICD Code: E53.8 Status: Chronic (20) Anxiety disorder ICD Code: F41.9 Status: Chronic (21) Current chronic use of systemic steroids ICD Code: Z79.52 Status: Chronic (22) Elevated brain natriuretic peptide (BNP) level ICD Code: R79.89 Status: Acute (23) Right bundle branch block ICD Code: I45.10 Status: Acute (24) Elevated troponin I level ICD Code: R74.8 Status: Acute (25) Septic shock ICD Code: A41.9 Status: Acute Assessment and Plan Acute hypoxic hypercapnic respiratory failure Recent history of pneumonia, hospitalized at [facility]. History of right pneumonectomy status post non-small carcinoma of the lung. S/p intubation/ extubation. The pt completed a course for HCAP. Repeat ABG 06/27 with worsening hypercapnia. - wean o2 by NC for goal spo2 > 90%. - Bronchodilators. - Incentive spirometry. - Pulmonology following/ Dr. Epps. - OOB to chair TID. PT consult. - BiPAP to reduce CO2 retention. A. fib with RVR/ CHF/ CAD Echo showed EF 35-40%. S/p CABG x 4. Heart rate poorly controlled at this time. Appreciate cardiology re-evaluating. - restarted Lopressor 25mg po q8h with holding parameters. - Digoxin 0.125 mg by mouth every other day. - D/c Cardizem gtt s/t hypotension. Lopressor 2.5 mg IV as needed for rate control. - cardiology available. Acute metabolic encephalopathy Secondary to above. CT of the head unremarkable for acute process. TSH noted. ABG revealed hypercapnia. Neurology consult appreciated. - continue BiPAP. - PT/ OT/ ST. - neuro checks. Severe malnutrition Placed NGT for tube feeds. - on tube feeds with tray per speech therapy. - Protonix for GI prophylaxis. - Aiyana-Colace for bowel regimen. - Follow up with speech therapy. - follow up with dietary. Hyperglycemia of critical illness/ Chronic prednisone usage/ Hypothyroidism/ Vitamin B12 deficiency Solumedrol was d/c. Glucose relatively controlled at this time. - Continues cyanocobalamin 1000 mcg by mouth daily. - restarted prednisone 10mg po bid. - Levothyroxine at 137 g daily. TSH 0.919. - SSI medium scale with Accu-Cheks for glycemic control. Staph hominis bacteremia Thought to be a contaminant. Repeat cultures with no growth. - s/p antibiotics. PPx: Eliquis Discharge Planning Awaiting clinical improvement Problem Qualifiers (1) PNA (pneumonia): Qualified Code: J18.9 - Pneumonia of left lung due to infectious organism, unspecified part of lung (2) Coronary artery disease: Qualified Code: I25.10 - Coronary artery disease involving gray[place] coronary artery of grayling heart without angina pectoris (3) Hypertension: Qualified Code: I10 - Essential hypertension (4) Hypothyroidism: Qualified Code: E03.9 - Hypothyroidism, unspecified type (5) Leukocytosis: Qualified Code: D72.829 - Leukocytosis, unspecified type (6) Anxiety disorder: Qualified Code: F41.9 - Anxiety disorder, unspecified type Nikhil Alanis DO Jun 27, 2017 10:25
--- NOTE | 2017-06-27 14:11 | HHI.PR ---
Subjective Remarks Feels better.On N/C at 1 L o2. HR still >96. On Lopressor. On on Dig for Atr Fib. Seems more alert. Has an NG with feeds .Ate pureed lunch. Objective Vital Signs Date Time Temp Pulse Resp B/P Pulse Ox O2 Delivery O2 Flow Rate FiO2 06/27/17 13:00 132 06/27/17 12:00 130 06/27/17 11:06 132 27 97/73 96 06/27/17 11:01 128 23 59/47 96 06/27/17 10:18 97 25 06/27/17 10:01 118 23 77/57 98 06/27/17 10:00 116 06/27/17 09:39 97 Nasal Cannula 1.00 06/27/17 09:01 108 22 106/55 98 06/27/17 08:01 97.6 108 22 110/78 98 06/27/17 08:00 108 06/27/17 08:00 99 Nasal Cannula 1.00 06/27/17 07:01 90 21 90/52 99 06/27/17 06:01 98 21 89/47 99 06/27/17 06:00 100 06/27/17 05:01 138 27 121/81 100 06/27/17 04:01 97.4 112 21 104/49 99 06/27/17 04:00 120 06/27/17 03:01 122 22 127/68 99 06/27/17 02:01 116 22 75/45 99 06/27/17 02:00 116 06/27/17 01:01 116 25 112/61 99 06/27/17 00:01 97.9 116 27 106/59 99 06/27/17 00:00 116 06/26/17 23:01 118 24 78/46 99 06/26/17 22:01 126 26 81/48 98 06/26/17 22:00 120 06/26/17 21:01 114 26 90/49 100 06/26/17 20:01 98.4 114 30 101/61 98 06/26/17 20:00 Nasal Cannula 1.00 06/26/17 20:00 120 06/26/17 19:48 98 Nasal Cannula 1.00 06/26/17 19:01 114 28 102/69 97 06/26/17 18:00 108 06/26/17 18:00 108 26 107/58 97 7/28/17 17:03 100 25 89/56 98 06/26/17 17:01 98 25 80/51 98 06/26/17 16:00 104 06/26/17 16:00 98.4 104 32 110/64 99 06/26/17 15:01 108 31 126/78 100 I/O 06/26/17 06/26/17 06/26/17 06/27/17 06/27/17 06/27/17 07:00 15:00 23:00 07:00 15:00 23:00 Intake Total 453 ml 593 ml 498 ml 588 ml Output Total 1550 ml 375 ml 525 ml 1000 ml 0 ml Balance -1097 ml 218 ml -27 ml -412 ml 0 ml Intake IV Total 250 ml Tube Feeding 453 ml 393 ml 498 ml 338 ml Other 200 ml Output Urine Total 1550 ml 375 ml 525 ml 1000 ml Tube Feeding Residual Discard 0 ml # Bowel Movements 0 1 Result Diagram: 06/27/1755 06/27/17554 Objective Remarks GENERAL: This thinly built elderly lady who is alert HEENT: Head normocephalic. Pupils are reactive. Tongue is moist. NECK: Supple. No bruits. No venous distension. Trachea midline. CHEST: Decreased breath sounds over the right lung field with occasional wheezes. No Crackles. HEART: The heart sounds are irregularly irregular S1-S2 with no murmur. ABDOMEN: Soft, nontender. Bowel sounds are active. EXTREMITIES: No edema with diminished pulses. Neuro : Reflexes are 1+. The patient is alert.and Oriented. SKIN: Dry and warm. Assessment and Plan Assessment and Plan IMPRESSION 1. Acute respiratory failure.Resolved. 2. Status post right pneumonectomy. 3. History of pneumonia. 4. History of non-small cell lung CA. 5. Atrial fibrillation with rapid ventricular response. 6. Pulmonary edema. 7. Hyponatremia Plan : 1. Continue Atrovent nebs tid prn 2. Cont O2 at 1 L 3. PT and OT 4. Tube feeds at 50 CC 5. Pureed diet. 6. Bipap 12/5 Cm 25% at HS from 10 PM to 6 am 7. Prednisone 15mg daily 8. Add Mucomyst 10 % 2 CC tid with nebs 9. IS and Acapella q3h 10. Mucinex 600 mg bid D'Smalls,V. Willy MD Jun 27, 2017 14:11
[2017-06-28] VITALS (30 sets, daily range): BP systolic 68–126; BP diastolic 41–82; PULSE 96–135; RESP 23–35; TEMP 98.2–98.5; O2SAT 94–99
[2017-06-28] MEDS: RESP: IPRATROPIUM 0.5 MG/2.5 ML NEB NEB SCH ×4 (03:52→21:56)
[2017-06-28] MEDS: CHLORHEXIDINE GLUCONATE 2 % 1 PACK (2 CLOTHS) TOP SCH (04:00)
[2017-06-28] MEDS: INSULIN NovoLIN REGULAR SUPPLEMENTAL SCALE SQ SCH ×6 (04:33→21:35)
[2017-06-28 06:20] LABS: HEMATOCRIT 36.6 % (35.0-46.0); MEAN CELL VOLUME 91.6 FL (80.0-100.0); MEAN CORPUSCULAR HEMOGLOBIN 29.5 PG (27.0-34.0); MEAN CORPUSCULAR HGB CONC 32.2 % (32.0-36.0); PLATELET COUNT 206 TH/MM3 (150-450); RED CELL DISTRIBUTION WIDTH 15.3 % (11.6-17.2); REVIEW FLAG FINAL; WHITE BLOOD COUNT 13.5 TH/MM3 (4.0-11.0)
[2017-06-28 06:29] LABS: POTASSIUM 4.2 MEQ/L (3.5-5.1)
[2017-06-28 06:33] LABS: BICARBONATE 39.9 MEQ/L (21.0-32.0)
[2017-06-28] MEDS: LEVOTHYROXINE SODIUM 112 MCG TAB PO SCH (06:58)
[2017-06-28] MEDS: LEVOTHYROXINE SODIUM 25 MCG TAB PO SCH (06:58)
[2017-06-28] MEDS: METOPROLOL TARTRATE 25 MG TAB PO SCH ×3 (07:00→21:38)
[2017-06-28] MEDS: RESP: ACETYLCYSTEINE 10% 30 ML NEB NEB SCH ×3 (08:00→21:56)
[2017-06-28] MEDS: predniSONE 5 MG TAB PO SCH (08:54)
[2017-06-28] MEDS: CYANOCOBALAMIN 1,000 MCG TAB PO SCH (08:54)
[2017-06-28] MEDS: DOCUSATE SODIUM 50 MG/SENNA 8.6 MG TAB PO SCH ×2 (08:54→21:37)
[2017-06-28] MEDS: DIGOXIN 0.125 MG TAB PO SCH (08:54)
[2017-06-28] MEDS: SODIUM CHLORIDE 0.9% FLUSH 10 ML FLUSH IV FLUSH SCH ×2 (08:55→21:37)
[2017-06-28] MEDS: APIXABAN 2.5 MG TABLET PO SCH ×2 (08:55→21:37)
[2017-06-28] MEDS: ESCITALOPRAM OXALATE 10 MG TAB PO SCH (08:55)
[2017-06-28] MEDS: MODAFINIL 200 MG TAB PO SCH (08:55)
[2017-06-28] MEDS: PANTOPRAZOLE SODIUM 40 MG VIAL IV SCH (08:58)
[2017-06-28] MEDS: SODIUM CHLORIDE 0.9% FLUSH 10 ML FLUSH IVF SCH (09:03)
--- NOTE | 2017-06-28 10:44 | HHI.PR ---
Subjective Remarks The patient was on BiPAP. She wanted it off. She did not seem like she wanted to eat much. She did not have any acute complaints. Discussed with nursing and respiratory at the bedside. Objective Vitals Vital Signs Date Time Temp Pulse Resp B/P Pulse Ox O2 Delivery O2 Flow Rate FiO2 06/28/17 10:10 98 High Flow Nasal Cannula 1.00 06/28/17 10:00 118 29 118/82 98 06/28/17 09:00 108 26 96/62 96 06/28/17 08:15 97 25 06/28/17 08:00 98.4 114 29 119/69 97 06/28/17 08:00 97 Nasal Cannula 1.00 06/28/17 07:00 134 25 111/64 98 06/28/17 06:00 132 24 68/41 97 06/28/17 06:00 130 06/28/17 05:00 130 24 120/79 99 06/28/17 04:00 128 06/28/17 04:00 98.2 130 29 109/64 97 06/28/17 03:00 130 23 105/73 99 06/28/17 02:10 130 24 120/74 98 06/28/17 02:00 128 06/28/17 02:00 128 23 98 06/28/17 01:30 122 24 97 06/28/17 01:00 120 24 106/67 98 06/28/17 00:00 108 06/28/17 00:00 98.4 96 28 80/54 97 06/27/17 23:00 124 29 104/53 97 06/27/17 22:00 132 38 103/59 96 06/27/17 22:00 132 06/27/17 21:56 96 Nasal Cannula 1.00 06/27/17 21:00 134 06/27/17 21:00 134 26 85/50 98 06/27/17 20:00 132 06/27/17 20:00 132 27 93/70 98 06/27/17 20:00 97 Nasal Cannula 1.00 06/27/17 19:00 97.8 131 29 99/58 98 06/27/17 18:01 132 32 107/67 97 06/27/17 18:00 132 06/27/17 17:01 132 39 102/65 98 06/27/17 17:01 132 06/27/17 16:50 98 Nasal Cannula 1.00 06/27/17 16:01 98.3 132 29 89/64 96 06/27/17 16:00 130 06/27/17 15:01 126 29 91/59 97 06/27/17 14:01 122 30 107/70 98 06/27/17 14:00 128 06/27/17 13:01 134 27 134/86 98 06/27/17 13:00 132 06/27/17 12:01 96.6 132 25 105/77 97 06/27/17 12:00 130 06/27/17 11:06 132 27 97/73 96 06/27/17 11:01 128 23 59/47 96 I/O 06/27/17 06/27/17 06/27/17 06/28/17 06/28/17 06/28/17 07:00 15:00 23:00 07:00 15:00 23:00 Intake Total 588 ml 512 ml 402 ml Output Total 1000 ml 475 ml 250 ml 275 ml Balance -412 ml 37 ml 152 ml -275 ml Intake IV Total 250 ml Tube Feeding 338 ml 392 ml 402 ml Other 120 ml Output Urine Total 1000 ml 475 ml 250 ml 275 ml Stool Total 0 ml 0 ml Tube Feeding Residual Discard 0 ml # Bowel Movements 0 Result Diagram: 06/28/17 0600 06/28/17 0600 Imaging Last Impressions Chest X-Ray 06/26/17 0000 Signed Impressions: Service Date/Time: Monday, June 26, 2017 11:21 - CONCLUSION: Left pleural effusion possible slight left lung base atelectasis and/or infiltrate and the right lung is completely opacified and not changed. Elisa Piper MD Head CT 06/18/17 0000 Signed Impressions: Service Date/Time: May 01:02 - CONCLUSION: Normal examination for a patient of this age. Chronic left maxillary sinus disease. Kvng Saldana MD Objective Remarks GENERAL: Resting comfortably, lethargic. SKIN: Cool and dry. No rash HEAD: Atraumatic. Normocephalic. EYES: Right pupil about 2 mm and reactive. Left pupil around 1 mm and sluggish. History of left cataract. ENT: No nasal bleeding or discharge. Mucous membranes pink and moist. NECK: Trachea midline. No JVD. CARDIOVASCULAR: Tachycardic irregular rhythm. RESPIRATORY: Diminished breath sounds throughout right lung moore. Coarse breath sounds. GASTROINTESTINAL: Abdomen soft, non-tender, nondistended. MUSCULOSKELETAL: Extremities with no peripheral edema. NEUROLOGICAL: Lethargic, but able to respond to questions. PSYCH: Slightly flattened affect. Medications and IVs Current Medications Medications (Trade) Dose Ordered Sig/Amanda Route Start Time Stop Time Status Last Admin (NS Flush) 2 ml UNSCH PRN IV FLUSH 06/16/17 15:30 06/26/17 11:25 (NS Flush) 2 ml BID IV FLUSH 06/16/17 21:00 06/28/17 08:55 (Tylenol) 650 mg Q6H PRN PO 06/16/17 15:30 (Protonix Inj) 40 mg DAILY IV 06/17/17 09:00 06/28/17 08:58 (Zofran Inj) 4 mg Q6H PRN IV 06/16/17 15:30 Miscellaneous Information 1 Q361D XX 06/16/17 15:30 06/16/17 15:30 (Chlorhexidine 2% Cloth) Taper DAILY@04 TOP 06/17/17 04:00 06/13/18 03:59 06/27/17 04:00 (Chlorhexidine 2% Cloth) 3 pack UNSCH PRN TOP 06/16/17 15:30 (Aiyana-Colace) 1 tab BID PO 06/16/17 21:00 06/28/17 08:54 (Milk Of Magnesia Liq) 30 ml Q12H PRN PO 06/16/17 15:30 (Senokot) 17.2 mg Q12H PRN PO 06/16/17 15:30 06/20/17 20:13 (Dulcolax Supp) 10 mg DAILY PRN RECTAL 06/16/17 15:30 06/20/17 17:47 (Lactulose Liq) 30 ml DAILY PRN PO 06/16/17 15:30 06/26/17 09:04 (Vitamin B12) 1,000 mcg DAILY PO 06/17/17 09:00 06/28/17 08:54 (Lexapro) 10 mg DAILY PO 06/17/17 09:00 06/28/17 08:55 (Synthroid) 112 mcg DAILY@06 PO 06/17/17 06:00 06/28/17 06:58 (NS Flush) DAILY IVF 06/17/17 09:00 06/28/17 09:03 (NS Flush) UNSCH PRN IVF 06/16/17 16:00 Levothyroxine Sodium 25 mcg 25 mcg DAILY@06 PO 06/17/17 06:00 06/28/17 06:58 Potassium Chloride 100 ml @ 50 mls/hr Q2H PRN IV 06/16/17 16:45 (KCl 20 Meq Premix Inj) 100 ml @ 50 mls/hr Q2H PRN IV 06/16/17 16:45 06/17/17 09:25 Potassium Bicarb/ Potassium Chloride 50 meq 50 meq UNSCH PRN PO 06/16/17 16:45 06/19/17 07:52 Potassium Chloride 100 ml @ 25 mls/hr UNSCH PRN IV 06/16/17 16:45 Potassium Chloride 100 ml @ 50 mls/hr Q2H PRN IV 06/16/17 16:45 06/25/17 01:58 (Magnesium Sulfate Inj/NS Inj) 100 ml @ 50 mls/hr UNSCH PRN IV 06/16/17 16:45 Magnesium Oxide 800 mg 800 mg UNSCH PRN PO 06/16/17 16:45 (Magnesium Sulfate Inj/NS Inj) 100 ml @ 50 mls/hr UNSCH PRN IV 06/16/17 16:45 Potassium Phosphate 2000 mg 2,000 mg Q4H PRN PO 06/16/17 16:45 06/20/17 12:28 (Sodium Phosphate Inj/NS 250 ml Inj) 250 ml @ 42 mls/hr UNSCH PRN IV 06/16/17 16:45 Potassium Phosphate 2000 mg 2,000 mg UNSCH PRN PO/TUBE 06/16/17 16:45 (Potassium Phosphate Inj/NS 250 ml Inj) 260 ml @ 42 mls/hr UNSCH PRN IV 06/16/17 16:45 (Lopressor) 25 mg Q8HR PO 06/19/17 22:00 06/28/17 07:00 (D50w (Vial) Inj) 50 ml UNSCH PRN IV 06/20/17 17:00 (Glucagon Inj) 1 mg UNSCH PRN OTHER 06/20/17 17:00 (NovoLIN R SUPPLEMENTAL SCALE) 1 Q4H SQ 06/21/17 08:00 06/28/17 09:02 (ZyPREXA) 2.5 mg Q8H PRN PO 06/24/17 07:30 06/26/17 20:08 (Provigil) 100 mg DAILY PO 06/24/17 09:00 06/28/17 08:55 (Deltasone) 15 mg DAILY PO 06/26/17 09:00 06/28/17 08:54 (Eliquis) 2.5 mg BID PO 06/26/17 09:00 06/28/17 08:55 (Lopressor Inj) 2.5 mg Q6H PRN IV PUSH 06/26/17 11:00 06/26/17 11:25 (Mucinex Er) 600 mg BID PO 06/26/17 21:00 06/27/17 21:23 Date of Insertion: Jun 17, 2017 Line: Central Venous Catheter Side: Right Location: Internal, Jugular A/P Problem List: (1) Non-small cell carcinoma of lung ICD Code: C34.90 Status: Chronic (2) Atrial fibrillation with RVR ICD Code: I48.91 Status: Acute (3) Acute respiratory failure with hypoxia and hypercapnia ICD Code: J96.01 Status: Acute (4) Tachycardia ICD Code: R00.0 Status: Acute (5) SOB (shortness of breath) ICD Code: R06.02 Status: Acute (6) PNA (pneumonia) ICD Code: J18.9 Status: Acute (7) Coronary artery disease ICD Code: I25.10 Status: Chronic (8) Hypertension ICD Code: I10 Status: Chronic (9) Hypothyroidism ICD Code: E03.9 Status: Chronic (10) Leukocytosis ICD Code: D72.829 Status: Acute (11) Normocytic anemia ICD Code: D64.9 Status: Acute (12) Lactic acidosis ICD Code: E87.2 Status: Acute (13) On apixaban therapy ICD Code: Z79.01 Status: Acute (14) Hyponatremia ICD Code: E87.1 Status: Acute (15) Hyperkalemia ICD Code: E87.5 Status: Acute (16) Acute hyperglycemia ICD Code: R73.9 Status: Acute (17) Elevated INR ICD Code: R79.1 Status: Acute (18) Elevated partial thromboplastin time (PTT) ICD Code: R79.1 Status: Acute (19) Vitamin B12 deficiency ICD Code: E53.8 Status: Chronic (20) Anxiety disorder ICD Code: F41.9 Status: Chronic (21) Current chronic use of systemic steroids ICD Code: Z79.52 Status: Chronic (22) Elevated brain natriuretic peptide (BNP) level ICD Code: R79.89 Status: Acute (23) Right bundle branch block ICD Code: I45.10 Status: Acute (24) Elevated troponin I level ICD Code: R74.8 Status: Acute (25) Septic shock ICD Code: A41.9 Status: Acute Assessment and Plan Acute hypoxic hypercapnic respiratory failure Recent history of pneumonia, hospitalized at [facility]. History of right pneumonectomy status post non-small carcinoma of the lung. S/p intubation/ extubation. The pt completed a course for HCAP. Repeat ABG 06/27 with worsening hypercapnia. - wean o2 by NC for goal spo2 > 90%. - Bronchodilators. - Incentive spirometry. - Pulmonology following/ Dr. Epps. - OOB to chair TID. PT consult. - BiPAP to reduce CO2 retention. - consider palliative care consult. A. fib with RVR/ CHF/ CAD Echo showed EF 35-40%. S/p CABG x 4. Heart rate poorly controlled at this time. Appreciate cardiology re-evaluating. - restarted Lopressor 25mg po q8h with holding parameters. - Digoxin 0.125 mg by mouth every other day. - D/c Cardizem gtt s/t hypotension. Lopressor 2.5 mg IV as needed for rate control. Hypotension is limiting use. - cardiology available. Acute metabolic encephalopathy Secondary to above. CT of the head unremarkable for acute process. TSH noted. ABG revealed hypercapnia. Neurology consult appreciated. - continue BiPAP per respiratory. - PT/ OT/ ST. - neuro checks. Severe malnutrition Placed NGT for tube feeds. - on tube feeds with tray per speech therapy. - Protonix for GI prophylaxis. - Aiyana-Colace for bowel regimen. - Follow up with speech therapy. - follow up with dietary. Hyperglycemia of critical illness/ Chronic prednisone usage/ Hypothyroidism/ Vitamin B12 deficiency Solumedrol was d/c. Glucose relatively controlled at this time. - Continues cyanocobalamin 1000 mcg by mouth daily. - restarted prednisone 10mg po bid. - Levothyroxine at 137 g daily. TSH 0.919. - SSI medium scale with Accu-Cheks for glycemic control. Staph hominis bacteremia Thought to be a contaminant. Repeat cultures with no growth. - s/p antibiotics. PPx: Eliquis Discharge Planning Awaiting clinical improvement Problem Qualifiers (1) PNA (pneumonia): Qualified Code: J18.9 - Pneumonia of left lung due to infectious organism, unspecified part of lung (2) Coronary artery disease: Qualified Code: I25.10 - Coronary artery disease involving [place] coronary artery of [place] heart without angina pectoris (3) Hypertension: Qualified Code: I10 - Essential hypertension (4) Hypothyroidism: Qualified Code: E03.9 - Hypothyroidism, unspecified type (5) Leukocytosis: Qualified Code: D72.829 - Leukocytosis, unspecified type (6) Anxiety disorder: Qualified Code: F41.9 - Anxiety disorder, unspecified type Nikhil Alanis DO Jun 28, 2017 10:44
[2017-06-28] MEDS: METOPROLOL TARTRATE 5 MG/5 ML VIAL IV PUSH PRN (13:12)
--- NOTE | 2017-06-28 18:28 | HHI.PR ---
Subjective Remarks Feels better.On N/C at 1 L o2. HR still >96. On Lopressor. On on Dig for Atr Fib. Seems more alert. Has an NG with feeds ..Taking some pureed diet Objective Vital Signs Date Time Temp Pulse Resp B/P Pulse Ox O2 Delivery O2 Flow Rate FiO2 06/28/17 18:00 110 06/28/17 18:00 110 35 101/58 94 06/28/17 17:00 120 26 112/69 97 06/28/17 16:00 128 06/28/17 16:00 98.4 128 27 108/62 97 06/28/17 15:00 130 06/28/17 15:00 130 26 92/46 97 06/28/17 14:12 122 28 103/58 96 06/28/17 14:00 122 06/28/17 14:00 120 28 82/51 96 06/28/17 13:00 130 06/28/17 13:00 126 31 126/79 97 06/28/17 12:00 130 06/28/17 12:00 98.2 128 31 118/78 98 06/28/17 11:00 126 28 104/64 97 06/28/17 10:10 98 High Flow Nasal Cannula 1.00 06/28/17 10:00 118 29 118/82 98 06/28/17 10:00 104 06/28/17 09:00 108 26 96/62 96 06/28/17 08:15 97 25 06/28/17 08:00 98.4 114 29 119/69 97 06/28/17 08:00 97 Nasal Cannula 1.00 06/28/17 08:00 135 06/28/17 07:00 134 25 111/64 98 06/28/17 06:00 132 24 68/41 97 06/28/17 06:00 130 06/28/17 05:00 130 24 120/79 99 06/28/17 04:00 128 06/28/17 04:00 98.2 130 29 109/64 97 06/28/17 03:00 130 23 105/73 99 06/28/17 02:10 130 24 120/74 98 06/28/17 02:00 128 06/28/17 02:00 128 23 98 06/28/17 01:30 122 24 97 06/28/17 01:00 120 24 106/67 98 06/28/17 00:00 108 06/28/17 00:00 98.4 96 28 80/54 97 06/27/17 23:00 124 29 104/53 97 06/27/17 22:00 132 38 103/59 96 06/27/17 22:00 132 06/27/17 21:56 96 Nasal Cannula 1.00 06/27/17 21:00 134 06/27/17 21:00 134 26 85/50 98 06/27/17 20:00 132 06/27/17 20:00 132 27 93/70 98 06/27/17 20:00 97 Nasal Cannula 1.00 06/27/17 19:00 97.8 131 29 99/58 98 I/O 06/27/17 06/27/17 06/27/17 06/28/17 06/28/17 06/28/17 07:00 15:00 23:00 07:00 15:00 23:00 Intake Total 588 ml 512 ml 402 ml 1048 ml Output Total 1000 ml 475 ml 250 ml 275 ml 450 ml Balance -412 ml 37 ml 152 ml -275 ml 598 ml Intake Oral 25 ml IV Total 250 ml Tube Feeding 338 ml 392 ml 402 ml 903 ml Other 120 ml 120 ml Output Urine Total 1000 ml 475 ml 250 ml 275 ml 450 ml Stool Total 0 ml 0 ml Tube Feeding Residual Discard 0 ml # Bowel Movements 0 1 Result Diagram: 06/28/17 0606/28/17 06 Objective Remarks GENERAL: This thinly built elderly lady who is alert HEENT: Head normocephalic. Pupils are reactive. Tongue is moist. NECK: Supple. No bruits. No venous distension. Trachea midline. CHEST: Decreased breath sounds over the right lung field with occasional wheezes. No Crackles. HEART: The heart sounds are irregularly irregular S1-S2 with no murmur. ABDOMEN: Soft, nontender. Bowel sounds are active. EXTREMITIES: No edema with diminished pulses. Neuro : Reflexes are 1+. The patient is alert.and Oriented. SKIN: Dry and warm. Assessment and Plan Assessment and Plan IMPRESSION 1. Acute respiratory failure.Resolved. 2. Status post right pneumonectomy. 3. History of pneumonia. 4. History of non-small cell lung CA. 5. Atrial fibrillation with rapid ventricular response. 6. Pulmonary edema. 7. Hyponatremia Plan : 1. Continue Atrovent nebs tid prn 2. Cont O2 at 1 L 3. PT and OT 4. Tube feeds at 50 CC 5. Pureed diet. 6. Bipap 12/5 Cm 25% at HS from 10 PM to 6 am 7. Prednisone 10 mg daily 8. Cardiac Evaluation to control Rythm. 9. IS and Acapella q3h 10. Mucinex 600 mg bid Corey Epps MD Jun 28, 2017 18:28
[2017-06-29] VITALS (26 sets, daily range): BP systolic 94–128; BP diastolic 61–84; PULSE 90–132; RESP 23–28; TEMP 96–98.5; O2SAT 93–99
[2017-06-29] MEDS: CHLORHEXIDINE GLUCONATE 2 % 1 PACK (2 CLOTHS) TOP SCH (03:59)
[2017-06-29] MEDS: INSULIN NovoLIN REGULAR SUPPLEMENTAL SCALE SQ SCH ×6 (03:59→20:00)
[2017-06-29] MEDS: RESP: IPRATROPIUM 0.5 MG/2.5 ML NEB NEB SCH ×4 (04:39→21:14)
[2017-06-29 04:50] LABS: HEMATOCRIT 36.7 % (35.0-46.0); MEAN CELL VOLUME 93.2 FL (80.0-100.0); MEAN CORPUSCULAR HEMOGLOBIN 31.3 PG (27.0-34.0); MEAN CORPUSCULAR HGB CONC 33.6 % (32.0-36.0); PLATELET COUNT 197 TH/MM3 (150-450); RED BLOOD COUNT 3.94 MIL/MM3 (4.00-5.30); REVIEW FLAG FINAL; WHITE BLOOD COUNT 12.8 TH/MM3 (4.0-11.0)
[2017-06-29 04:54] LABS: POTASSIUM 4.2 MEQ/L (3.5-5.1)
[2017-06-29 04:57] LABS: BICARBONATE 39.6 MEQ/L (21.0-32.0)
[2017-06-29] MEDS: LEVOTHYROXINE SODIUM 25 MCG TAB PO SCH (06:28)
[2017-06-29] MEDS: METOPROLOL TARTRATE 25 MG TAB PO SCH ×3 (06:28→21:53)
[2017-06-29] MEDS: LEVOTHYROXINE SODIUM 112 MCG TAB PO SCH (06:28)
[2017-06-29] MEDS: MODAFINIL 200 MG TAB PO SCH (09:13)
[2017-06-29] MEDS: DOCUSATE SODIUM 50 MG/SENNA 8.6 MG TAB PO SCH ×2 (09:14→21:53)
[2017-06-29] MEDS: APIXABAN 2.5 MG TABLET PO SCH ×2 (09:14→21:53)
[2017-06-29] MEDS: ESCITALOPRAM OXALATE 10 MG TAB PO SCH (09:14)
[2017-06-29] MEDS: predniSONE 10 MG TAB PO SCH (09:14)
[2017-06-29] MEDS: CYANOCOBALAMIN 1,000 MCG TAB PO SCH (09:14)
[2017-06-29] MEDS: SODIUM CHLORIDE 0.9% FLUSH 10 ML FLUSH IVF SCH (09:15)
[2017-06-29] MEDS: SODIUM CHLORIDE 0.9% FLUSH 10 ML FLUSH IV FLUSH SCH ×2 (09:15→20:15)
[2017-06-29] MEDS: PANTOPRAZOLE SODIUM 40 MG VIAL IV SCH (09:15)
[2017-06-29] MEDS ORDERED: guaiFENesin SOLUTION 200 MG/10 ML CUP PO SCH (10:30)
[2017-06-29] MEDS: RESP: ACETYLCYSTEINE 10% 30 ML NEB NEB SCH ×3 (10:38→21:14)
--- NOTE | 2017-06-29 11:28 | HHI.PR ---
Subjective Remarks The patient was getting changed. She did not have any complaints at this time. She said she would be willing to try working with physical therapy. She did not have breakfast but would be willing to try lunch. She denied chest pain or shortness of breath. Discussed with nursing. Objective Vitals Vital Signs Date Time Temp Pulse Resp B/P Pulse Ox O2 Delivery O2 Flow Rate FiO2 06/29/17 10:38 97 Nasal Cannula 1.00 06/29/17 10:00 122 06/29/17 10:00 112 24 94/66 97 06/29/17 09:00 130 24 128/79 97 06/29/17 08:00 98.2 122 24 124/75 98 06/29/17 08:00 97 Nasal Cannula 1.00 06/29/17 08:00 118 06/29/17 07:00 110 24 117/67 98 06/29/17 06:00 126 06/29/17 06:00 130 23 110/72 97 06/29/17 05:00 128 23 97/66 98 06/29/17 04:00 98.5 132 23 114/63 96 06/29/17 04:00 130 06/29/17 04:00 97 Nasal Cannula 1.00 06/29/17 03:00 130 26 110/68 97 06/29/17 02:00 130 24 116/76 98 06/29/17 02:00 126 06/29/17 01:00 118 23 116/72 98 06/29/17 00:51 97 Nasal Cannula 1.00 06/29/17 00:50 98 Bi-Pap 06/29/17 00:00 124 06/29/17 00:00 98 Bi-Pap 06/29/17 00:00 96.0 116 25 99/65 97 06/28/17 23:00 100 26 107/69 97 06/28/17 22:20 97 Bi-Pap 06/28/17 22:20 96 25 06/28/17 22:00 120 06/28/17 22:00 126 28 114/72 98 06/28/17 21:00 128 26 115/67 98 06/28/17 20:00 122 06/28/17 20:00 97 Nasal Cannula 1.00 06/28/17 20:00 120 27 104/64 98 06/28/17 20:00 98 Nasal Cannula 1.00 06/28/17 19:00 98.5 118 27 97/63 97 06/28/17 18:00 110 06/28/17 18:00 110 35 101/58 94 06/28/17 17:00 120 26 112/69 97 06/28/17 16:00 128 06/28/17 16:00 98.4 128 27 108/62 97 06/28/17 15:00 130 06/28/17 15:00 130 26 92/46 97 06/28/17 14:12 122 28 103/58 96 06/28/17 14:00 122 06/28/17 14:00 120 28 82/51 96 06/28/17 13:00 130 06/28/17 13:00 126 31 126/79 97 06/28/17 12:00 130 06/28/17 12:00 98.2 128 31 118/78 98 I/O 06/28/17 06/28/17 06/28/17 06/29/17 06/29/17 06/29/17 07:00 15:00 23:00 07:00 15:00 23:00 Intake Total 1048 ml 185 ml Output Total 275 ml 450 ml 325 ml 300 ml Balance -275 ml 598 ml -140 ml -300 ml Intake Oral 25 ml Tube Feeding 903 ml 185 ml Other 120 ml Output Urine Total 275 ml 450 ml 325 ml 300 ml # Bowel Movements 0 1 2 Result Diagram: 06/29/17 0417 06/29/17 0417 Imaging Last Impressions Chest X-Ray 06/26/17 0000 Signed Impressions: Service Date/Time: Monday, June 26, 2017 11:21 - CONCLUSION: Left pleural effusion possible slight left lung base atelectasis and/or infiltrate and the right lung is completely opacified and not changed. Elisa Piper MD Head CT 06/18/17 0000 Signed Impressions: Service Date/Time: May 01:02 - CONCLUSION: Normal examination for a patient of this age. Chronic left maxillary sinus disease. Kvng Saldana MD Objective Remarks GENERAL: Resting comfortably, lethargic. SKIN: Cool and dry. No rash HEAD: Atraumatic. Normocephalic. EYES: Right pupil about 2 mm and reactive. Left pupil around 1 mm and sluggish. History of left cataract. ENT: No nasal bleeding or discharge. Mucous membranes pink and moist. NECK: Trachea midline. No JVD. CARDIOVASCULAR: Tachycardic irregular rhythm. RESPIRATORY: Diminished breath sounds throughout right lung moore. Coarse breath sounds. GASTROINTESTINAL: Abdomen soft, non-tender, nondistended. MUSCULOSKELETAL: Extremities with no peripheral edema. NEUROLOGICAL: Lethargic, but able to respond to questions. PSYCH: Slightly flattened affect. Medications and IVs Current Medications Medications (Trade) Dose Ordered Sig/Amanda Route Start Time Stop Time Status Last Admin (NS Flush) 2 ml UNSCH PRN IV FLUSH 06/16/17 15:30 06/26/17 11:25 (NS Flush) 2 ml BID IV FLUSH 06/16/17 21:00 06/29/17 09:15 (Tylenol) 650 mg Q6H PRN PO 06/16/17 15:30 (Protonix Inj) 40 mg DAILY IV 06/17/17 09:00 06/29/17 09:15 (Zofran Inj) 4 mg Q6H PRN IV 06/16/17 15:30 Miscellaneous Information 1 Q361D XX 06/16/17 15:30 06/16/17 15:30 (Chlorhexidine 2% Cloth) Taper DAILY@04 TOP 06/17/17 04:00 06/13/18 03:59 06/27/17 04:00 (Chlorhexidine 2% Cloth) 3 pack UNSCH PRN TOP 06/16/17 15:30 (Aiyana-Colace) 1 tab BID PO 06/16/17 21:00 06/29/17 09:14 (Milk Of Magnesia Liq) 30 ml Q12H PRN PO 06/16/17 15:30 (Senokot) 17.2 mg Q12H PRN PO 06/16/17 15:30 06/20/17 20:13 (Dulcolax Supp) 10 mg DAILY PRN RECTAL 06/16/17 15:30 06/20/17 17:47 (Lactulose Liq) 30 ml DAILY PRN PO 06/16/17 15:30 06/26/17 09:04 (Vitamin B12) 1,000 mcg DAILY PO 06/17/17 09:00 06/29/17 09:14 (Lexapro) 10 mg DAILY PO 06/17/17 09:00 06/29/17 09:14 (Synthroid) 112 mcg DAILY@06 PO 06/17/17 06:00 06/29/17 06:28 (NS Flush) DAILY IVF 06/17/17 09:00 06/29/17 09:15 (NS Flush) UNSCH PRN IVF 06/16/17 16:00 Levothyroxine Sodium 25 mcg 25 mcg DAILY@06 PO 06/17/17 06:00 06/29/17 06:28 Potassium Chloride 100 ml @ 50 mls/hr Q2H PRN IV 06/16/17 16:45 (KCl 20 Meq Premix Inj) 100 ml @ 50 mls/hr Q2H PRN IV 06/16/17 16:45 06/17/17 09:25 Potassium Bicarb/ Potassium Chloride 50 meq 50 meq UNSCH PRN PO 06/16/17 16:45 06/19/17 07:52 Potassium Chloride 100 ml @ 25 mls/hr UNSCH PRN IV 06/16/17 16:45 Potassium Chloride 100 ml @ 50 mls/hr Q2H PRN IV 06/16/17 16:45 06/25/17 01:58 (Magnesium Sulfate Inj/NS Inj) 100 ml @ 50 mls/hr UNSCH PRN IV 06/16/17 16:45 Magnesium Oxide 800 mg 800 mg UNSCH PRN PO 06/16/17 16:45 (Magnesium Sulfate Inj/NS Inj) 100 ml @ 50 mls/hr UNSCH PRN IV 06/16/17 16:45 Potassium Phosphate 2000 mg 2,000 mg Q4H PRN PO 06/16/17 16:45 06/20/17 12:28 (Sodium Phosphate Inj/NS 250 ml Inj) 250 ml @ 42 mls/hr UNSCH PRN IV 06/16/17 16:45 Potassium Phosphate 2000 mg 2,000 mg UNSCH PRN PO/TUBE 06/16/17 16:45 (Potassium Phosphate Inj/NS 250 ml Inj) 260 ml @ 42 mls/hr UNSCH PRN IV 06/16/17 16:45 (Lopressor) 25 mg Q8HR PO 06/19/17 22:00 06/29/17 06:28 (D50w (Vial) Inj) 50 ml UNSCH PRN IV 06/20/17 17:00 (Glucagon Inj) 1 mg UNSCH PRN OTHER 06/20/17 17:00 (NovoLIN R SUPPLEMENTAL SCALE) 1 Q4H SQ 06/21/17 08:00 06/29/17 09:24 (ZyPREXA) 2.5 mg Q8H PRN PO 06/24/17 07:30 06/26/17 20:08 (Provigil) 100 mg DAILY PO 06/24/17 09:00 06/29/17 09:13 (Eliquis) 2.5 mg BID PO 06/26/17 09:00 06/29/17 09:14 (Lopressor Inj) 2.5 mg Q6H PRN IV PUSH 06/26/17 11:00 06/28/17 13:12 (Deltasone) 10 mg DAILY PO 06/29/17 09:00 06/29/17 09:14 (Robitussin Liq) 400 mg BID PO 06/29/17 21:00 Date of Insertion: Jun 17, 2017 Line: Central Venous Catheter Side: Right Location: Internal, Jugular A/P Problem List: (1) Non-small cell carcinoma of lung ICD Code: C34.90 Status: Chronic (2) Atrial fibrillation with RVR ICD Code: I48.91 Status: Acute (3) Acute respiratory failure with hypoxia and hypercapnia ICD Code: J96.01 Status: Acute (4) Tachycardia ICD Code: R00.0 Status: Acute (5) SOB (shortness of breath) ICD Code: R06.02 Status: Acute (6) PNA (pneumonia) ICD Code: J18.9 Status: Acute (7) Coronary artery disease ICD Code: I25.10 Status: Chronic (8) Hypertension ICD Code: I10 Status: Chronic (9) Hypothyroidism ICD Code: E03.9 Status: Chronic (10) Leukocytosis ICD Code: D72.829 Status: Acute (11) Normocytic anemia ICD Code: D64.9 Status: Acute (12) Lactic acidosis ICD Code: E87.2 Status: Acute (13) On apixaban therapy ICD Code: Z79.01 Status: Acute (14) Hyponatremia ICD Code: E87.1 Status: Acute (15) Hyperkalemia ICD Code: E87.5 Status: Acute (16) Acute hyperglycemia ICD Code: R73.9 Status: Acute (17) Elevated INR ICD Code: R79.1 Status: Acute (18) Elevated partial thromboplastin time (PTT) ICD Code: R79.1 Status: Acute (19) Vitamin B12 deficiency ICD Code: E53.8 Status: Chronic (20) Anxiety disorder ICD Code: F41.9 Status: Chronic (21) Current chronic use of systemic steroids ICD Code: Z79.52 Status: Chronic (22) Elevated brain natriuretic peptide (BNP) level ICD Code: R79.89 Status: Acute (23) Right bundle branch block ICD Code: I45.10 Status: Acute (24) Elevated troponin I level ICD Code: R74.8 Status: Acute (25) Septic shock ICD Code: A41.9 Status: Acute Assessment and Plan Acute hypoxic hypercapnic respiratory failure Recent history of pneumonia, hospitalized at [facility]. History of right pneumonectomy status post non-small carcinoma of the lung. S/p intubation/ extubation. The pt completed a course for HCAP. Repeat ABG 06/27 with worsening hypercapnia. Currently on 1L NC. - wean o2 by NC for goal spo2 > 90%. - Bronchodilators. - Incentive spirometry. - Pulmonology following/ Dr. Epps. - OOB to chair TID. PT consult. - BiPAP to reduce CO2 retention as needed. A. fib with RVR/ CHF/ CAD Echo showed EF 35-40%. S/p CABG x 4. Heart rate poorly controlled at this time. Appreciate cardiology re-evaluating. - restarted Lopressor 25mg po q8h with holding parameters. - Digoxin 0.125 mg by mouth every other day. - D/c Cardizem gtt s/t hypotension. Lopressor 2.5 mg IV as needed for rate control. Hypotension is limiting use. - EP consult requested. Acute metabolic encephalopathy Secondary to above. CT of the head unremarkable for acute process. TSH noted. ABG revealed hypercapnia. Neurology consult appreciated. - continue BiPAP per respiratory. - PT/ OT/ ST. - neuro checks. - continue Provigil. Severe malnutrition Placed NGT for tube feeds. - on tube feeds with tray per speech therapy. - Protonix for GI prophylaxis. - Aiyana-Colace for bowel regimen. - Follow up with speech therapy. - follow up with dietary. Hyperglycemia of critical illness/ Chronic prednisone usage/ Hypothyroidism/ Vitamin B12 deficiency Solumedrol was d/c. Glucose relatively controlled at this time. - Continues cyanocobalamin 1000 mcg by mouth daily. - restarted prednisone 10mg po bid. - Levothyroxine at 137 g daily. TSH 0.919. - SSI medium scale with Accu-Cheks for glycemic control. Staph hominis bacteremia Thought to be a contaminant. Repeat cultures with no growth. - s/p antibiotics. PPx: Eliquis Discharge Planning Awaiting EP eval Problem Qualifiers (1) PNA (pneumonia): Qualified Code: J18.9 - Pneumonia of left lung due to infectious organism, unspecified part of lung (2) Coronary artery disease: Qualified Code: I25.10 - Coronary artery disease involving [place] coronary artery of [place] heart without angina pectoris (3) Hypertension: Qualified Code: I10 - Essential hypertension (4) Hypothyroidism: Qualified Code: E03.9 - Hypothyroidism, unspecified type (5) Leukocytosis: Qualified Code: D72.829 - Leukocytosis, unspecified type (6) Anxiety disorder: Qualified Code: F41.9 - Anxiety disorder, unspecified type Nikhil Alanis DO Jun 29, 2017 11:28
[2017-06-29] MEDS: METOPROLOL TARTRATE 5 MG/5 ML VIAL IV PUSH PRN (18:44)
[2017-06-29] MEDS: SODIUM CHLORIDE 0.9% FLUSH 10 ML FLUSH IV FLUSH PRN (18:45)
[2017-06-29] MEDS: guaiFENesin SOLUTION 200 MG/10 ML CUP PO SCH (21:53)
[2017-06-30] VITALS (16 sets, daily range): BP systolic 103–138; BP diastolic 63–89; PULSE 82–140; RESP 20–32; TEMP 98.3–98.9; O2SAT 97–100
[2017-06-30] MEDS: CHLORHEXIDINE GLUCONATE 2 % 1 PACK (2 CLOTHS) TOP SCH (00:26)
[2017-06-30] MEDS: INSULIN NovoLIN REGULAR SUPPLEMENTAL SCALE SQ SCH ×6 (01:10→20:00)
[2017-06-30] MEDS: RESP: IPRATROPIUM 0.5 MG/2.5 ML NEB NEB SCH ×3 (03:50→21:23)
[2017-06-30 05:31] LABS: HEMATOCRIT 36.8 % (35.0-46.0); MEAN CORPUSCULAR HEMOGLOBIN 29.3 PG (27.0-34.0); MEAN CORPUSCULAR HGB CONC 31.8 % (32.0-36.0); PLATELET COUNT 227 TH/MM3 (150-450); RED BLOOD COUNT 4.01 MIL/MM3 (4.00-5.30); RED CELL DISTRIBUTION WIDTH 15.4 % (11.6-17.2); REVIEW FLAG FINAL; WHITE BLOOD COUNT 12.6 TH/MM3 (4.0-11.0)
[2017-06-30 05:43] LABS: POTASSIUM 4.1 MEQ/L (3.5-5.1)
[2017-06-30 05:47] LABS: BICARBONATE 37.2 MEQ/L (21.0-32.0)
[2017-06-30] MEDS: LEVOTHYROXINE SODIUM 25 MCG TAB PO SCH (06:14)
[2017-06-30] MEDS: LEVOTHYROXINE SODIUM 112 MCG TAB PO SCH (06:14)
[2017-06-30] MEDS: METOPROLOL TARTRATE 25 MG TAB PO SCH ×3 (06:14→20:35)
[2017-06-30] MEDS: CYANOCOBALAMIN 1,000 MCG TAB PO SCH (08:26)
[2017-06-30] MEDS: guaiFENesin SOLUTION 200 MG/10 ML CUP PO SCH ×2 (08:26→20:35)
[2017-06-30] MEDS: predniSONE 10 MG TAB PO SCH (08:26)
[2017-06-30] MEDS: APIXABAN 2.5 MG TABLET PO SCH ×2 (08:26→20:36)
[2017-06-30] MEDS: DIGOXIN 0.125 MG TAB PO SCH (08:26)
[2017-06-30] MEDS: DOCUSATE SODIUM 50 MG/SENNA 8.6 MG TAB PO SCH ×2 (08:27→20:50)
[2017-06-30] MEDS: ESCITALOPRAM OXALATE 10 MG TAB PO SCH (08:27)
[2017-06-30] MEDS: PANTOPRAZOLE SOD 40 MG DELAYED RELEASE TAB PO SCH (08:27)
[2017-06-30] MEDS: SODIUM CHLORIDE 0.9% FLUSH 10 ML FLUSH IVF SCH (08:28)
[2017-06-30] MEDS: SODIUM CHLORIDE 0.9% FLUSH 10 ML FLUSH IV FLUSH SCH ×2 (08:28→20:36)
[2017-06-30] MEDS: MODAFINIL 200 MG TAB PO SCH (09:00)
--- NOTE | 2017-06-30 12:14 | HHI.PR ---
Subjective Remarks Stable .On N/C at 1 L o2. HR still >96. On Lopressor. On on Dig for Atr Fib. Transferred to [facility] hospital for Pacemaker. Has an NG with feeds ..Taking some pureed diet Objective Vital Signs Date Time Temp Pulse Resp B/P Pulse Ox O2 Delivery O2 Flow Rate FiO2 06/30/17 11:00 98.9 140 20 138/89 100 06/30/17 08:00 Nasal Cannula 06/30/17 08:00 96 06/30/17 07:00 98.3 103 20 121/74 99 06/30/17 06:00 124 06/30/17 06:00 123 26 107/65 97 06/30/17 05:00 126 26 107/66 97 06/30/17 04:00 98 Nasal Cannula 1.00 06/30/17 04:00 115 06/30/17 04:00 98.3 115 28 115/80 98 06/30/17 03:00 126 24 103/69 98 06/30/17 02:00 122 24 124/76 98 06/30/17 02:00 120 06/30/17 01:00 116 32 114/69 97 06/30/17 00:00 99 Nasal Cannula 1.00 06/30/17 00:00 98.5 120 24 112/72 98 06/30/17 00:00 118 06/29/17 23:00 90 24 108/62 98 06/29/17 22:00 114 06/29/17 22:00 132 28 118/84 98 06/29/17 21:00 128 24 115/71 99 06/29/17 20:00 124 06/29/17 20:00 99 Nasal Cannula 1.00 06/29/17 20:00 98.3 120 25 98/67 98 06/29/17 19:37 98 Nasal Cannula 1.00 06/29/17 19:00 112 27 107/71 95 06/29/17 18:01 122 06/29/17 18:00 118 24 107/61 93 06/29/17 17:00 114 24 98/64 93 06/29/17 16:00 99 Nasal Cannula 1.00 06/29/17 16:00 102 06/29/17 16:00 98.3 106 24 107/61 99 06/29/17 15:00 108 28 105/71 98 06/29/17 14:00 104 7/31/17 14:00 108 28 105/71 98 06/29/17 13:00 108 27 98/67 97 I/O 06/29/17 06/29/17 06/29/17 06/30/17 06/30/17 06/30/17 06:59 14:59 22:59 06:59 14:59 22:59 Intake Total 1216 ml 600 ml 460 ml Output Total 300 ml 425 ml 400 ml 350 ml Balance -300 ml 791 ml 200 ml 110 ml Intake Oral 100 ml 100 ml 60 ml Tube Feeding 996 ml 500 ml 400 ml Other 120 ml Output Urine Total 300 ml 425 ml 400 ml 350 ml # Bowel Movements 2 1 0 0 Result Diagram: 06/30/1742406/30/17424 Objective Remarks GENERAL: This thinly built elderly lady who is alert HEENT: Head normocephalic. Pupils are reactive. Tongue is moist. NECK: Supple. No bruits. No venous distension. Trachea midline. CHEST: Decreased breath sounds over the right lung field with occasional wheezes. No Crackles. HEART: The heart sounds are irregularly irregular S1-S2 with no murmur. ABDOMEN: Soft, nontender. Bowel sounds are active. EXTREMITIES: No edema with diminished pulses. Neuro : Reflexes are 1+. The patient is alert.and Oriented. SKIN: Dry and warm. Assessment and Plan Assessment and Plan IMPRESSION 1. Acute respiratory failure.Resolved. 2. Status post right pneumonectomy. 3. History of pneumonia. 4. History of non-small cell lung CA. 5. Atrial fibrillation with rapid ventricular response. 6. Pulmonary edema. 7. Hyponatremia Plan : 1. Continue Atrovent nebs tid prn 2. Cont O2 at 1 L 3. PT and OT 4. Tube feeds at 40 CC 5. Pureed diet./ May Need PEG. 6. Bipap 12/5 Cm 25% at HS from 10 PM to 6 am 7. Prednisone 10 mg daily 8. Cardiac Evaluation For Pacer. 9. IS and Acapella q3h 10. Mucinex 600 mg bid 11, CBC,BMP . Corey Epps MD Jun 30, 2017 12:14
[2017-06-30] MEDS ORDERED: DILTIAZEM HCL 25 MG/5 ML VIAL ONE (12:39)
[2017-06-30] MEDS ORDERED: DILTIAZEM HCL 25 MG/5 ML VIAL IV ONE (14:00)
[2017-06-30] MEDS ORDERED: DILTIAZEM 125 MG/NS 100 ML IV SCH ×2 (14:00)
--- NOTE | 2017-06-30 16:14 | HHI.PR ---
Subjective Remarks Follow up a-fib, encephalopathy, malnutrition. Patient states that she feels "terrible", but denies specific complaints. Denies chest pain, dyspnea. She is confused. Was scheduled for EP procedure today, but that has been rescheduled for morning. Objective Vitals Vital Signs Date Time Temp Pulse Resp B/P Pulse Ox O2 Delivery O2 Flow Rate FiO2 06/30/17 12:00 3.00 06/30/17 11:00 98.9 140 20 138/89 100 06/30/17 11:00 116 06/30/17 08:00 Nasal Cannula 06/30/17 08:00 96 06/30/17 07:00 98.3 103 20 121/74 99 06/30/17 06:00 124 06/30/17 06:00 123 26 107/65 97 06/30/17 05:00 126 26 107/66 97 06/30/17 04:00 98 Nasal Cannula 1.00 06/30/17 04:00 115 06/30/17 04:00 98.3 115 28 115/80 98 06/30/17 03:00 126 24 103/69 98 06/30/17 02:00 122 24 124/76 98 06/30/17 02:00 120 06/30/17 01:00 116 32 114/69 97 06/30/17 00:00 99 Nasal Cannula 1.00 06/30/17 00:00 98.5 120 24 112/72 98 06/30/17 00:00 118 06/29/17 23:00 90 24 108/62 98 06/29/17 22:00 114 06/29/17 22:00 132 28 118/84 98 06/29/17 21:00 128 24 115/71 99 06/29/17 20:00 124 06/29/17 20:00 99 Nasal Cannula 1.00 06/29/17 20:00 98.3 120 25 98/67 98 06/29/17 19:37 98 Nasal Cannula 1.00 06/29/17 19:00 112 27 107/71 95 06/29/17 18:01 122 06/29/17 18:00 118 24 107/61 93 06/29/17 17:00 114 24 98/64 93 06/29/17 16:00 99 Nasal Cannula 1.00 06/29/17 16:00 102 06/29/17 16:00 98.3 106 24 107/61 99 I/O 06/29/17 06/29/17 06/29/17 06/30/17 06/30/17 06/30/17 07:00 15:00 23:00 07:00 15:00 23:00 Intake Total 1216 ml 600 ml 460 ml Output Total 300 ml 425 ml 400 ml 350 ml Balance -300 ml 791 ml 200 ml 110 ml Intake Oral 100 ml 100 ml 60 ml Tube Feeding 996 ml 500 ml 400 ml Other 120 ml Output Urine Total 300 ml 425 ml 400 ml 350 ml # Bowel Movements 2 1 0 0 Result Diagram: 06/30/17 0425 06/30/17 0425 Imaging Last Impressions Chest X-Ray 06/26/17 0000 Signed Impressions: Service Date/Time: Monday, June 26, 2017 11:21 - CONCLUSION: Left pleural effusion possible slight left lung base atelectasis and/or infiltrate and the right lung is completely opacified and not changed. Elisa Piper MD Head CT 06/18/17 0000 Signed Impressions: Service Date/Time: May 01:02 - CONCLUSION: Normal examination for a patient of this age. Chronic left maxillary sinus disease. Kvng Saldana MD Objective Remarks General: Elderly female in no acute distress. Heart: Irregular rhythm, tachycardic. Lungs: Clear to auscultation bilaterally. No wheezes, rales, or rhonchi. Breathing is nonlabored. Abdomen: Soft, nontender, nondistended. Extremities: No lower extremity edema. Psych: Alert, confused. Procedures 06/16/17 intubation 06/16/17 central line placement Urinary Catheter: Yes Assessment to: Continue [place] insert reason: Measure Accurate Output Date of Insertion: Jun 16, 2017 Vascular Central Line Catheter: No Date of Insertion: Jun 16, 2017 Date of Removal: Jun 24, 2017 Line: Central Venous Catheter Side: Right Location: Internal, Jugular A/P Problem List: (1) Non-small cell carcinoma of lung ICD Code: C34.90 Status: Chronic (2) Atrial fibrillation with RVR ICD Code: I48.91 Status: Acute (3) Acute respiratory failure with hypoxia and hypercapnia ICD Code: J96.01 Status: Acute (4) Tachycardia ICD Code: R00.0 Status: Acute (5) SOB (shortness of breath) ICD Code: R06.02 Status: Acute (6) PNA (pneumonia) ICD Code: J18.9 Status: Acute (7) Coronary artery disease ICD Code: I25.10 Status: Chronic (8) Hypertension ICD Code: I10 Status: Chronic (9) Hypothyroidism ICD Code: E03.9 Status: Chronic (10) Leukocytosis ICD Code: D72.829 Status: Acute (11) Normocytic anemia ICD Code: D64.9 Status: Acute (12) Lactic acidosis ICD Code: E87.2 Status: Acute (13) On apixaban therapy ICD Code: Z79.01 Status: Acute (14) Hyponatremia ICD Code: E87.1 Status: Acute (15) Hyperkalemia ICD Code: E87.5 Status: Acute (16) Acute hyperglycemia ICD Code: R73.9 Status: Acute (17) Elevated INR ICD Code: R79.1 Status: Acute (18) Elevated partial thromboplastin time (PTT) ICD Code: R79.1 Status: Acute (19) Vitamin B12 deficiency ICD Code: E53.8 Status: Chronic (20) Anxiety disorder ICD Code: F41.9 Status: Chronic (21) Current chronic use of systemic steroids ICD Code: Z79.52 Status: Chronic (22) Elevated brain natriuretic peptide (BNP) level ICD Code: R79.89 Status: Acute (23) Right bundle branch block ICD Code: I45.10 Status: Acute (24) Elevated troponin I level ICD Code: R74.8 Status: Acute (25) Septic shock ICD Code: A41.9 Status: Acute Assessment and Plan 1. Atrial fibrillation with RVR: Appreciate cardiology recommendations. EP procedure rescheduled for morning. Continue digoxin, beta juan. Continue Eliquis. Rate is elevated. Cardiology has ordered Cardizem drip. 2. CHF, CAD: Appreciate cardiology recommendations. Status post CABG 4 vessels. Echocardiogram shows ejection fraction 35-40%. Currently asymptomatic. 3. Acute hypoxic and hypercapnic respiratory failure: Patient had healthcare associated pneumonia and completed a course of antibiotics. She was intubated on 06/16/17. She was extubated and is now tolerating oxygen per nasal cannula. Continue bronchodilators, incentive spirometry. Appreciate pulmonology recommendations. BiPAP as needed. 4. Acute metabolic encephalopathy: Secondary to above. Per family, patient developed significant confusion following her time on the ventilator. Continue PT/OT/ST. Continue neuro checks. 5. Severe malnutrition: NG tube in place for tube feeds. Continue tube feeds. Pured diet with nectar thick liquids per speech therapy. 6. Hyperglycemia of critical illness: Monitor Accu-Cheks and cover with sliding scale insulin. 7. Hypothyroidism: Continue Synthroid. 8. Staph hominis bacteremia: Likely contaminant. Repeat cultures are negative. Off antibiotics currently. 9. GI prophylaxis: Protonix. 10. DVT prophylaxis: Eliquis. Problem Qualifiers (1) PNA (pneumonia): Qualified Code: J18.9 - Pneumonia of left lung due to infectious organism, unspecified part of lung (2) Coronary artery disease: Qualified Code: I25.10 - Coronary artery disease involving [place] coronary artery of [place] heart without angina pectoris (3) Hypertension: Qualified Code: I10 - Essential hypertension (4) Hypothyroidism: Qualified Code: E03.9 - Hypothyroidism, unspecified type (5) Leukocytosis: Qualified Code: D72.829 - Leukocytosis, unspecified type (6) Anxiety disorder: Qualified Code: F41.9 - Anxiety disorder, unspecified type Vern Paul MD Jun 30, 2017 16:14
[2017-07-01] VITALS (27 sets, daily range): BP systolic 89–159; BP diastolic 46–91; PULSE 72–108; RESP 16–20; TEMP 97.6–98.5; O2SAT 90–100
[2017-07-01] MEDS: RESP: IPRATROPIUM 0.5 MG/2.5 ML NEB NEB SCH ×4 (03:27→22:00)
[2017-07-01] MEDS: INSULIN NovoLIN REGULAR SUPPLEMENTAL SCALE SQ SCH ×7 (04:00→23:50)
[2017-07-01] MEDS: CHLORHEXIDINE GLUCONATE 2 % 1 PACK (2 CLOTHS) TOP SCH (04:00)
[2017-07-01 06:18] LABS: BICARBONATE 35.7 MEQ/L (21.0-32.0); POTASSIUM 5.2 MEQ/L (3.5-5.1)
[2017-07-01] MEDS: LEVOTHYROXINE SODIUM 112 MCG TAB PO SCH (06:31)
[2017-07-01] MEDS: LEVOTHYROXINE SODIUM 25 MCG TAB PO SCH (06:31)
[2017-07-01] MEDS: METOPROLOL TARTRATE 25 MG TAB PO SCH ×2 (06:31→14:01)
--- NOTE | 2017-07-01 08:19 | PD.CARD.PN ---
Subjective Subjective Remarks Feeling better. Objective Medications Current Medications Medications (Trade) Dose Ordered Sig/Amanda Route Start Time Stop Time Status Last Admin (NS Flush) 2 ml UNSCH PRN IV FLUSH 06/16/17 15:30 06/29/17 18:45 (NS Flush) 2 ml BID IV FLUSH 06/16/17 21:00 06/30/17 08:28 (Tylenol) 650 mg Q6H PRN PO 06/16/17 15:30 (Zofran Inj) 4 mg Q6H PRN IV 06/16/17 15:30 Miscellaneous Information 1 Q361D XX 06/16/17 15:30 06/16/17 15:30 (Chlorhexidine 2% Cloth) Taper DAILY@04 TOP 06/17/17 04:00 06/13/18 03:59 06/27/17 04:00 (Chlorhexidine 2% Cloth) 3 pack UNSCH PRN TOP 06/16/17 15:30 (Aiyana-Colace) 1 tab BID PO 06/16/17 21:00 06/29/17 21:53 (Milk Of Magnesia Liq) 30 ml Q12H PRN PO 06/16/17 15:30 (Senokot) 17.2 mg Q12H PRN PO 06/16/17 15:30 06/20/17 20:13 (Dulcolax Supp) 10 mg DAILY PRN RECTAL 06/16/17 15:30 06/20/17 17:47 (Lactulose Liq) 30 ml DAILY PRN PO 06/16/17 15:30 06/26/17 09:04 (Vitamin B12) 1,000 mcg DAILY PO 06/17/17 09:00 06/30/17 08:26 (Lexapro) 10 mg DAILY PO 06/17/17 09:00 06/30/17 08:27 (Synthroid) 112 mcg DAILY@06 PO 06/17/17 06:00 07/01/17 06:31 (NS Flush) DAILY IVF 06/17/17 09:00 06/29/17 09:15 (NS Flush) UNSCH PRN IVF 06/16/17 16:00 (Synthroid) 25 mcg DAILY@06 PO 06/17/17 06:00 07/01/17 06:31 (Lopressor) 25 mg Q8HR PO 06/19/17 22:00 07/01/17 06:31 (D50w (Vial) Inj) 50 ml UNSCH PRN IV 06/20/17 17:00 (Glucagon Inj) 1 mg UNSCH PRN OTHER 06/20/17 17:00 (NovoLIN R SUPPLEMENTAL SCALE) 1 Q4H SQ 06/21/17 08:00 06/30/17 20:00 (ZyPREXA) 2.5 mg Q8H PRN PO 06/24/17 07:30 06/26/17 20:08 (Provigil) 100 mg DAILY PO 06/24/17 09:00 06/29/17 09:13 (Eliquis) 2.5 mg BID PO 06/26/17 09:00 06/30/17 20:36 (Lopressor Inj) 2.5 mg Q6H PRN IV PUSH 06/26/17 11:00 06/29/17 18:44 (Deltasone) 10 mg DAILY PO 06/29/17 09:00 06/30/17 08:26 (Robitussin Liq) 400 mg BID PO 06/29/17 21:00 06/30/17 20:35 Pantoprazole Sodium 40 mg 40 mg DAILY PO 06/30/17 09:00 06/30/17 08:27 (Cardizem Inj/NS Inj) 125 ml @ 0 mls/hr TITRATE IV 06/30/17 14:00 Vital Signs / I&O Vital Signs Date Time Temp Pulse Resp B/P Pulse Ox O2 Delivery O2 Flow Rate FiO2 07/01/17 06:00 94 07/01/17 05:03 98 Nasal Cannula 1.00 07/01/17 05:00 94 07/01/17 04:00 93 07/01/17 04:00 77 20 117/79 100 07/01/17 03:34 98 Nasal Cannula 1.00 07/01/17 03:00 90 07/01/17 02:00 82 07/01/17 01:00 82 07/01/17 00:30 3.00 07/01/17 00:10 3.00 07/01/17 00:00 77 18 122/75 100 07/01/17 00:00 87 06/30/17 23:00 82 06/30/17 22:00 84 06/30/17 21:00 104 06/30/17 20:20 3.00 06/30/17 20:00 98.7 94 20 113/63 100 06/30/17 20:00 83 06/30/17 19:00 100 06/30/17 16:00 3.00 06/30/17 15:00 98.7 82 20 121/82 100 06/30/17 15:00 82 06/30/17 12:00 3.00 06/30/17 11:00 98.9 140 20 138/89 100 06/30/17 11:00 116 I/O 06/30/17 06/30/17 06/30/17 07/01/17 07/01/17 07/01/17 07:00 15:00 23:00 07:00 15:00 23:00 Intake Total 460 ml 110 ml 100 ml Output Total 350 ml 900 ml 1075 ml Balance 110 ml -790 ml -975 ml Intake Oral 60 ml 100 ml 100 ml IV Total 10 ml Tube Feeding 400 ml Output Urine Total 350 ml 900 ml 1075 ml # Bowel Movements 0 1 Physical Exam GENERAL: Well-nourished, well-developed patient. SKIN: Warm and dry. HEAD: Normocephalic. EYES: No scleral icterus. No injection or drainage. NECK: Supple, trachea midline. No JVD or lymphadenopathy. CARDIOVASCULAR: Irregular rhythm, mildly tachycardic rate, without murmurs, gallops, or rubs. RESPIRATORY: Breath sounds equal bilaterally. No accessory muscle use. GASTROINTESTINAL: Abdomen soft, non-tender, nondistended. NGT to R nare, clamped. EXTREMITIES: No cyanosis, or edema. NEUROLOGICAL: Awake, alert, and oriented x 3. Non-focal. Laboratory Laboratory Tests Test 07/01/17 05:26 Sodium Level 135 MEQ/L Potassium Level 5.2 MEQ/L Chloride Level 94 MEQ/L Carbon Dioxide Level 35.7 MEQ/L Anion Gap 5 MEQ/L Blood Urea Nitrogen 17 MG/DL Creatinine 0.45 MG/DL Estimat Glomerular Filtration 132 ML/MIN Rate Random Glucose 89 MG/DL Calcium Level 8.9 MG/DL Imaging Last Impressions Chest X-Ray 06/26/17 0000 Signed Impressions: Service Date/Time: Monday, June 26, 2017 11:21 - CONCLUSION: Left pleural effusion possible slight left lung base atelectasis and/or infiltrate and the right lung is completely opacified and not changed. Elisa Piper MD Head CT 06/18/17 0000 Signed Impressions: Service Date/Time: May 01:02 - CONCLUSION: Normal examination for a patient of this age. Chronic left maxillary sinus disease. Kvng Saldana MD Assessment and Plan Problem List: (1) Atrial fibrillation with RVR Assessment and Plan: Pacemaker previously recommended by Dr. Lemos, her primary histologic technician, but refused at the time. She is now agreeable to receiving the MICRA PPM implant, scheduled for 07/02. Eliquis will be held starting today and resumed tomorrow evening after the procedure per my d/w Dr. Becker. Assessment and plan d/w pt., daughter, RN and Dr. Becker. Shanell Tucker Jul 01, 2017 08:19
--- NOTE | 2017-07-01 08:57 | HHI.PR ---
Subjective Remarks Follow up atrial fibrillation. Patient states that she feels good today. Denies chest pain or dyspnea. Objective Vitals Vital Signs Date Time Temp Pulse Resp B/P Pulse Ox O2 Delivery O2 Flow Rate FiO2 07/01/17 08:51 98 Nasal Cannula 3.00 07/01/17 06:00 94 07/01/17 05:03 98 Nasal Cannula 1.00 07/01/17 05:00 94 07/01/17 04:00 93 07/01/17 04:00 77 20 117/79 100 07/01/17 03:34 98 Nasal Cannula 1.00 07/01/17 03:00 90 07/01/17 02:00 82 07/01/17 01:00 82 07/01/17 00:30 3.00 07/01/17 00:10 3.00 07/01/17 00:00 77 18 122/75 100 07/01/17 00:00 87 06/30/17 23:00 82 06/30/17 22:00 84 06/30/17 21:00 104 06/30/17 20:20 3.00 06/30/17 20:00 98.7 94 20 113/63 100 06/30/17 20:00 83 06/30/17 19:00 100 06/30/17 16:00 3.00 06/30/17 15:00 98.7 82 20 121/82 100 06/30/17 15:00 82 06/30/17 12:00 3.00 06/30/17 11:00 98.9 140 20 138/89 100 06/30/17 11:00 116 I/O 06/30/17 06/30/17 06/30/17 07/01/17 07/01/17 07/01/17 07:00 15:00 23:00 07:00 15:00 23:00 Intake Total 460 ml 110 ml 100 ml Output Total 350 ml 900 ml 1075 ml Balance 110 ml -790 ml -975 ml Intake Oral 60 ml 100 ml 100 ml IV Total 10 ml Tube Feeding 400 ml Output Urine Total 350 ml 900 ml 1075 ml # Bowel Movements 0 1 Result Diagram: 06/30/17 0425 07/01/17 0526 Imaging Last Impressions Chest X-Ray 06/26/17 0000 Signed Impressions: Service Date/Time: Monday, June 26, 2017 11:21 - CONCLUSION: Left pleural effusion possible slight left lung base atelectasis and/or infiltrate and the right lung is completely opacified and not changed. Elisa Piper MD Head CT 06/18/17 0000 Signed Impressions: Service Date/Time: May 01:02 - CONCLUSION: Normal examination for a patient of this age. Chronic left maxillary sinus disease. Kvng Saldana MD Objective Remarks General: Elderly female in no acute distress. Receiving nebulizer treatment. Heart: Irregular rhythm, tachycardic. Lungs: Clear to auscultation bilaterally. No wheezes, rales, or rhonchi. Breathing is nonlabored. Abdomen: Soft, nontender, nondistended. Extremities: No lower extremity edema. Psych: Alert, confused. Procedures 06/16/17 intubation 06/16/17 central line placement Urinary Catheter: Yes Assessment to: Continue [place] insert reason: Measure Accurate Output Date of Insertion: Jun 16, 2017 Vascular Central Line Catheter: No Date of Insertion: Jun 16, 2017 Date of Removal: Jun 24, 2017 Line: Central Venous Catheter Side: Right Location: Internal, Jugular A/P Problem List: (1) Non-small cell carcinoma of lung ICD Code: C34.90 Status: Chronic (2) Atrial fibrillation with RVR ICD Code: I48.91 Status: Acute (3) Acute respiratory failure with hypoxia and hypercapnia ICD Code: J96.01 Status: Acute (4) Tachycardia ICD Code: R00.0 Status: Acute (5) SOB (shortness of breath) ICD Code: R06.02 Status: Acute (6) PNA (pneumonia) ICD Code: J18.9 Status: Acute (7) Coronary artery disease ICD Code: I25.10 Status: Chronic (8) Hypertension ICD Code: I10 Status: Chronic (9) Hypothyroidism ICD Code: E03.9 Status: Chronic (10) Leukocytosis ICD Code: D72.829 Status: Acute (11) Normocytic anemia ICD Code: D64.9 Status: Acute (12) Lactic acidosis ICD Code: E87.2 Status: Acute (13) On apixaban therapy ICD Code: Z79.01 Status: Acute (14) Hyponatremia ICD Code: E87.1 Status: Acute (15) Hyperkalemia ICD Code: E87.5 Status: Acute (16) Acute hyperglycemia ICD Code: R73.9 Status: Acute (17) Elevated INR ICD Code: R79.1 Status: Acute (18) Elevated partial thromboplastin time (PTT) ICD Code: R79.1 Status: Acute (19) Vitamin B12 deficiency ICD Code: E53.8 Status: Chronic (20) Anxiety disorder ICD Code: F41.9 Status: Chronic (21) Current chronic use of systemic steroids ICD Code: Z79.52 Status: Chronic (22) Elevated brain natriuretic peptide (BNP) level ICD Code: R79.89 Status: Acute (23) Right bundle branch block ICD Code: I45.10 Status: Acute (24) Elevated troponin I level ICD Code: R74.8 Status: Acute (25) Septic shock ICD Code: A41.9 Status: Acute Assessment and Plan 1. Atrial fibrillation with RVR: Appreciate cardiology recommendations. Pacemaker placement rescheduled for morning. Continue digoxin, beta juan. Continue Eliquis. Cardiology has ordered Cardizem drip. 2. CHF, CAD: Appreciate cardiology recommendations. Status post CABG 4 vessels. Echocardiogram shows ejection fraction 35-40%. Currently asymptomatic. 3. Acute hypoxic and hypercapnic respiratory failure: Patient had healthcare associated pneumonia and completed a course of antibiotics. She was intubated on 06/16/17. She was extubated and is now tolerating oxygen per nasal cannula. Continue bronchodilators, incentive spirometry. Appreciate pulmonology recommendations. BiPAP as needed. 4. Acute metabolic encephalopathy: Secondary to above. Per family, patient developed significant confusion following her time on the ventilator. Continue PT/OT/ST. Continue neuro checks. 5. Severe malnutrition: NG tube in place for tube feeds. Continue tube feeds. Pured diet with nectar thick liquids per speech therapy. Tube feeding rate decreased to encourage oral intake. Patient will be nothing by mouth after midnight tonight for procedure. 6. Hyperglycemia of critical illness: Monitor Accu-Cheks and cover with sliding scale insulin. 7. Hypothyroidism: Continue Synthroid. 8. Staph hominis bacteremia: Likely contaminant. Repeat cultures are negative. Off antibiotics currently. 9. GI prophylaxis: Protonix. 10. DVT prophylaxis: Eliquis. Problem Qualifiers (1) PNA (pneumonia): Qualified Code: J18.9 - Pneumonia of left lung due to infectious organism, unspecified part of lung (2) Coronary artery disease: Qualified Code: I25.10 - Coronary artery disease involving [place] coronary artery of [place] heart without angina pectoris (3) Hypertension: Qualified Code: I10 - Essential hypertension (4) Hypothyroidism: Qualified Code: E03.9 - Hypothyroidism, unspecified type (5) Leukocytosis: Qualified Code: D72.829 - Leukocytosis, unspecified type (6) Anxiety disorder: Qualified Code: F41.9 - Anxiety disorder, unspecified type Vern Paul MD Jul 01, 2017 08:57
[2017-07-01] MEDS: SODIUM CHLORIDE 0.9% FLUSH 10 ML FLUSH IVF SCH (09:00)
[2017-07-01] MEDS: MODAFINIL 200 MG TAB PO SCH (09:00)
[2017-07-01] MEDS: CYANOCOBALAMIN 1,000 MCG TAB PO SCH (09:08)
[2017-07-01] MEDS: ESCITALOPRAM OXALATE 10 MG TAB PO SCH (09:08)
[2017-07-01] MEDS: DOCUSATE SODIUM 50 MG/SENNA 8.6 MG TAB PO SCH ×2 (09:08→21:10)
[2017-07-01] MEDS: guaiFENesin SOLUTION 200 MG/10 ML CUP PO SCH ×2 (09:08→21:10)
[2017-07-01] MEDS: PANTOPRAZOLE SOD 40 MG DELAYED RELEASE TAB PO SCH (09:08)
[2017-07-01] MEDS: SODIUM CHLORIDE 0.9% FLUSH 10 ML FLUSH IV FLUSH SCH ×2 (09:08→21:00)
[2017-07-01] MEDS: predniSONE 10 MG TAB PO SCH (09:08)
[2017-07-01 11:08] LABS: AUTOMATED NEUTROPHIL # 10.6 TH/MM3 (1.8-7.7); BASOPHIL # 0.1 TH/MM3 (0-0.2); BASOPHIL % 0.5 % (0.0-2.0); EOSINOPHIL # 0.1 TH/MM3 (0-0.4); EOSINOPHIL % 1.1 % (0.0-4.0); HEMATOCRIT 38.5 % (35.0-46.0); HEMO FLAGS DIFF FINAL; LYMPH % 6.3 % (9.0-44.0); LYMPHOCYTE # 0.8 TH/MM3 (1.0-4.8); MEAN CELL VOLUME 91.6 FL (80.0-100.0); MEAN CORPUSCULAR HEMOGLOBIN 30.2 PG (27.0-34.0); MONO % 3.8 % (0.0-8.0); NEUT % 88.3 % (16.0-70.0); PLATELET COUNT 221 TH/MM3 (150-450); RED CELL DISTRIBUTION WIDTH 15.9 % (11.6-17.2)
--- NOTE | 2017-07-01 12:59 | HHI.PR ---
Subjective Remarks Alert and Stable .On N/C at 1 L o2. HR still >96. On Lopressor. On on Dig for Atr Fib. Will have Pacemaker placed in am. Has an NG with feeds ..Taking some pureed diet Objective Vital Signs Date Time Temp Pulse Resp B/P Pulse Ox O2 Delivery O2 Flow Rate FiO2 07/01/17 12:00 95 07/01/17 12:00 98.0 93 16 138/87 100 07/01/17 12:00 Nasal Cannula 3.00 07/01/17 11:00 84 07/01/17 10:00 80 07/01/17 09:00 72 07/01/17 08:51 98 Nasal Cannula 3.00 07/01/17 08:00 75 07/01/17 08:00 Nasal Cannula 1.00 07/01/17 08:00 97.6 84 18 111/57 100 07/01/17 07:00 108 07/01/17 06:00 94 07/01/17 05:03 98 Nasal Cannula 1.00 07/01/17 05:00 94 07/01/17 04:00 93 07/01/17 04:00 77 20 117/79 100 07/01/17 03:34 98 Nasal Cannula 1.00 07/01/17 03:00 90 07/01/17 02:00 82 07/01/17 01:00 82 07/01/17 00:30 3.00 07/01/17 00:10 3.00 07/01/17 00:00 77 18 122/75 100 07/01/17 00:00 87 06/30/17 23:00 82 06/30/17 22:00 84 06/30/17 21:00 104 06/30/17 20:20 3.00 06/30/17 20:00 98.7 94 20 113/63 100 06/30/17 20:00 83 06/30/17 19:00 100 06/30/17 16:00 3.00 06/30/17 15:00 98.7 82 20 121/82 100 06/30/17 15:00 82 I/O 06/30/17 06/30/17 06/30/17 07/01/17 07/01/17 07/01/17 06:59 14:59 22:59 06:59 14:59 22:59 Intake Total 460 ml 110 ml 100 ml Output Total 350 ml 900 ml 1075 ml Balance 110 ml -790 ml -975 ml Intake Oral 60 ml 100 ml 100 ml IV Total 10 ml Tube Feeding 400 ml Output Urine Total 350 ml 900 ml 1075 ml # Bowel Movements 0 1 Result Diagram: 07/01/17 1035 07/01/17 0526 Objective Remarks GENERAL: This thinly built elderly lady who is alert HEENT: Head normocephalic. Pupils are reactive. Tongue is moist. NECK: Supple. No bruits. No venous distension. Trachea midline. CHEST: Decreased breath sounds over the right lung field with occasional wheezes. No Crackles. HEART: The heart sounds are irregularly irregular S1-S2 with no murmur. ABDOMEN: Soft, nontender. Bowel sounds are active. EXTREMITIES: No edema with diminished pulses. Neuro : Reflexes are 1+. The patient is alert.and Oriented. SKIN: Dry and warm. Assessment and Plan Assessment and Plan IMPRESSION 1. Acute respiratory failure.Resolved. 2. Status post right pneumonectomy. 3. History of pneumonia. 4. History of non-small cell lung CA. 5. Atrial fibrillation with rapid ventricular response. 6. Pulmonary edema. 7. Hyponatremia Plan : 1. Continue Atrovent nebs tid prn 2. Cont O2 at 1 L 3. PT and OT 4. Tube feeds at 40 CC. 5. Pureed diet./ May Need PEG. 6. Bipap 12/5 Cm 25% at HS from 10 PM to 6 am prn 7. Cont Prednisone 10 mg daily 8. Cardiac Evaluation For Pacer. 9. IS and Acapella q3h 10. Mucinex 600 mg bid 11, CXR in am. Corey Epps MD Jul 01, 2017 12:59
--- NOTE | 2017-07-01 19:14 | HHI.PR ---
Subjective Remarks feeling tired Objective Vital Signs Date Time Temp Pulse Resp B/P Pulse Ox O2 Delivery O2 Flow Rate FiO2 07/01/17 18:00 94 07/01/17 17:00 96 07/01/17 16:00 98.5 86 18 110/59 100 07/01/17 16:00 80 07/01/17 16:00 Nasal Cannula 3.00 07/01/17 15:00 90 07/01/17 14:00 90 07/01/17 13:00 100 07/01/17 12:00 95 07/01/17 12:00 98.0 93 16 138/87 100 07/01/17 12:00 Nasal Cannula 3.00 07/01/17 11:00 84 07/01/17 10:00 80 07/01/17 09:00 72 07/01/17 08:51 98 Nasal Cannula 3.00 07/01/17 08:00 75 07/01/17 08:00 Nasal Cannula 1.00 07/01/17 08:00 97.6 84 18 111/57 100 07/01/17 07:00 108 07/01/17 06:00 94 07/01/17 05:03 98 Nasal Cannula 1.00 07/01/17 05:00 94 07/01/17 04:00 93 07/01/17 04:00 77 20 117/79 100 07/01/17 03:34 98 Nasal Cannula 1.00 07/01/17 03:00 90 07/01/17 02:00 82 07/01/17 01:00 82 07/01/17 00:30 3.00 07/01/17 00:10 3.00 07/01/17 00:00 77 18 122/75 100 07/01/17 00:00 87 06/30/17 23:00 82 06/30/17 22:00 84 06/30/17 21:00 104 06/30/17 20:20 3.00 06/30/17 20:00 98.7 94 20 113/63 100 06/30/17 20:00 83 I/O 06/30/17 06/30/17 06/30/17 07/01/17 07/01/17 07/01/17 07:00 15:00 23:00 07:00 15:00 23:00 Intake Total 460 ml 110 ml 100 ml 835 ml Output Total 350 ml 900 ml 1075 ml 1100 ml Balance 110 ml -790 ml -975 ml -265 ml Intake Oral 60 ml 100 ml 100 ml 720 ml IV Total 10 ml 115 ml Tube Feeding 400 ml Output Urine Total 350 ml 900 ml 1075 ml 1100 ml # Bowel Movements 0 1 1 Result Diagram: 07/01/17 1035 07/01/17 1622 Imaging Alert, fully oriented Lungs: ventilated Heart: S1, S2 irregular, no gallop Abdomen: soft, no mass Ext: no edema Last Impressions Chest X-Ray 06/26/17 0000 Signed Impressions: Service Date/Time: Monday, June 26, 2017 11:21 - CONCLUSION: Left pleural effusion possible slight left lung base atelectasis and/or infiltrate and the right lung is completely opacified and not changed. Elisa Piper MD Head CT 06/18/17 0000 Signed Impressions: Service Date/Time: May 01:02 - CONCLUSION: Normal examination for a patient of this age. Chronic left maxillary sinus disease. Kvng Saldana MD Current Medications Medications (Trade) Dose Ordered Sig/Amanda Route Start Time Stop Time Status Last Admin (NS Flush) 2 ml UNSCH PRN IV FLUSH 06/16/17 15:30 06/29/17 18:45 (NS Flush) 2 ml BID IV FLUSH 06/16/17 21:00 07/01/17 09:08 (Tylenol) 650 mg Q6H PRN PO 06/16/17 15:30 (Zofran Inj) 4 mg Q6H PRN IV 06/16/17 15:30 07/01/17 11:42 Miscellaneous Information 1 Q361D XX 06/16/17 15:30 06/16/17 15:30 (Chlorhexidine 2% Cloth) Taper DAILY@04 TOP 06/17/17 04:00 06/13/18 03:59 06/27/17 04:00 (Chlorhexidine 2% Cloth) 3 pack UNSCH PRN TOP 06/16/17 15:30 (Aiyana-Colace) 1 tab BID PO 06/16/17 21:00 07/01/17 09:08 (Milk Of Magnesia Liq) 30 ml Q12H PRN PO 06/16/17 15:30 (Senokot) 17.2 mg Q12H PRN PO 06/16/17 15:30 06/20/17 20:13 (Dulcolax Supp) 10 mg DAILY PRN RECTAL 06/16/17 15:30 06/20/17 17:47 (Lactulose Liq) 30 ml DAILY PRN PO 06/16/17 15:30 06/26/17 09:04 (Vitamin B12) 1,000 mcg DAILY PO 06/17/17 09:00 07/01/17 09:08 (Lexapro) 10 mg DAILY PO 06/17/17 09:00 07/01/17 09:08 (Synthroid) 112 mcg DAILY@06 PO 06/17/17 06:00 07/01/17 06:31 (NS Flush) DAILY IVF 06/17/17 09:00 06/29/17 09:15 (NS Flush) UNSCH PRN IVF 06/16/17 16:00 (Synthroid) 25 mcg DAILY@06 PO 06/17/17 06:00 07/01/17 06:31 (Lopressor) 25 mg Q8HR PO 06/19/17 22:00 07/01/17 14:01 (D50w (Vial) Inj) 50 ml UNSCH PRN IV 06/20/17 17:00 (Glucagon Inj) 1 mg UNSCH PRN OTHER 06/20/17 17:00 (NovoLIN R SUPPLEMENTAL SCALE) 1 Q4H SQ 06/21/17 08:00 07/01/17 11:43 (ZyPREXA) 2.5 mg Q8H PRN PO 06/24/17 07:30 06/26/17 20:08 (Provigil) 100 mg DAILY PO 06/24/17 09:00 07/01/17 09:00 (Eliquis) 2.5 mg BID PO 06/26/17 09:00 Hold 06/30/17 20:36 (Lopressor Inj) 2.5 mg Q6H PRN IV PUSH 06/26/17 11:00 06/29/17 18:44 (Deltasone) 10 mg DAILY PO 06/29/17 09:00 07/01/17 09:08 (Robitussin Liq) 400 mg BID PO 06/29/17 21:00 07/01/17 09:08 Pantoprazole Sodium 40 mg 40 mg DAILY PO 06/30/17 09:00 07/01/17 09:08 (Cardizem Inj/NS Inj) 125 ml @ 0 mls/hr TITRATE IV 06/30/17 14:00 Assessment and Plan Problem List: (1) Atrial fibrillation Status: Acute Plan: In afib. HR high but controlled Will need AV node ablation. First pacer will be implanted Patient understand the risks, the nature and benefits of the procedure. Pacer will be implanted tomorrow AM (2) Tachycardia Status: Acute Plan: HR high but controlled (3) SOB (shortness of breath) Status: Acute Plan: Improving Tanesha Becker MD Jul 01, 2017 19:14
[2017-07-01] MEDS ORDERED: POVIDONE IODINE 5% (ANTISEPSIS KIT) 4 APPLICATIONS EACH NARE SCH (19:15)
[2017-07-01] MEDS ORDERED: MUPIROCIN 2% OINT 1 APPLIC/GM SYR NASAL SCH (19:15)
[2017-07-01] MEDS ORDERED: CHLORHEXIDINE GLUCONATE 2 % 1 PACK (2 CLOTHS) TOP SCH (19:15)
[2017-07-02] VITALS (24 sets, daily range): BP systolic 90–122; BP diastolic 44–81; PULSE 88–130; RESP 16–18; TEMP 97.3–99.1; O2SAT 95–100
[2017-07-02] MEDS ORDERED: METOPROLOL TARTRATE 25 MG TAB PO ONE (01:45)
[2017-07-02] MEDS: CHLORHEXIDINE GLUCONATE 2 % 1 PACK (2 CLOTHS) TOP SCH (03:21)
[2017-07-02] MEDS: RESP: IPRATROPIUM 0.5 MG/2.5 ML NEB NEB SCH ×3 (03:53→19:59)
[2017-07-02] MEDS: INSULIN NovoLIN REGULAR SUPPLEMENTAL SCALE SQ SCH ×5 (04:00→20:00)
[2017-07-02] MEDS ORDERED: SODIUM CHLORID 0.9% 500 ML IV PRN (04:45)
[2017-07-02] MEDS ORDERED: POVIDONE IODINE 5% (ANTISEPSIS KIT) 4 APPLICATIONS EACH NARE PRN (04:45)
[2017-07-02] MEDS ORDERED: LACTATED RINGER'S 1000 ML IV PRN (04:45)
[2017-07-02] MEDS ORDERED: INSULIN HUMAN REGULAR 1,000 UNITS/10 ML VIAL SQ PRN (04:45)
[2017-07-02] MEDS ORDERED: METOPROLOL TARTRATE 25 MG TAB PO PRN (04:45)
[2017-07-02] MEDS ORDERED: CHLORHEXIDINE GLUCONATE 2 % 1 PACK (2 CLOTHS) TOPICAL PRN (04:45)
[2017-07-02] MEDS: LEVOTHYROXINE SODIUM 112 MCG TAB PO SCH (05:28)
[2017-07-02] MEDS: LEVOTHYROXINE SODIUM 25 MCG TAB PO SCH (05:28)
[2017-07-02] MEDS ORDERED: FAMOTIDINE 20 MG/2 ML VIAL ONE (07:03)
[2017-07-02] MEDS ORDERED: MIDAZOLAM HCL 2 MG/2 ML VIAL ONE (07:03)
[2017-07-02] MEDS ORDERED: HEPARIN SODIUM - IV 10,000 UNITS/10 ML VIAL ONE (07:41)
[2017-07-02] MEDS ORDERED: PROTAMINE SULFATE 50 MG/5 ML VIAL ONE (08:33)
[2017-07-02] MEDS ORDERED: LORazepam 2 MG/ML VIAL IV PRN (08:45)
[2017-07-02] MEDS ORDERED: SODIUM CHLOR 0.9% 250 ML INJ 250 ML IV PRN (08:45)
[2017-07-02] MEDS ORDERED: ATROPINE SULFATE 1 MG/ML VIAL IV PRN (08:45)
[2017-07-02] MEDS ORDERED: METOCLOPRAMIDE HCL 10 MG/2 ML VIAL IV PRN (08:45)
[2017-07-02] MEDS ORDERED: BACITRACIN OINT 0.9 GM PKT TOP ONE (08:45)
[2017-07-02] MEDS ORDERED: ONDANSETRON HCL 4 MG/2 ML VIAL IV PRN (08:45)
[2017-07-02] MEDS ORDERED: LIDOCAINE HCL 1% 50 ML VIAL INFIL PRN (08:45)
[2017-07-02] MEDS: DILTIAZEM HCL 60 MG TAB PO SCH ×4 (09:00→22:12)
[2017-07-02] MEDS: SODIUM CHLORIDE 0.9% FLUSH 10 ML FLUSH IVF SCH (09:00)
--- NOTE | 2017-07-02 09:14 | CATHPROC ---
[employer] HIS Report Study Information Study Number Scheduled Start Study Start [id number] 07/02/2017 Jul 02 2017 6:48AM Referring Institution Admit Source Facility Department 1 Other [facility] - Cash Van Salesperson Physician and Clinical Staff Initial Tanesha Burroughs Box Coverer Hand Izabela Bowen,MINDY Box Coverer Hand Keyshawn Kennedy,RT(R) Other Anesthesia, PURCHASE REQUEST EDITOR Recorder Radha Lezama,RN Scrub Alem Prakash,METAL ALLOY SCIENTIST TECH2 Procedures Performed Procedure Location (Site) Vessel Name Venogram RV Ventricle Equipment Time [place] Marshal Description Size Mfg Part Number Used/Scraped WIRE, GUIDE AMPLATZ STIFF [id number] 07:31 COOK/PACER 3MMJ Used 180CM *[id number] 07:27 Atigeo INDUSTRIES PACK, CCL CUSTOM * Used *[id number] 07:27 Atigeo PACER MURPHY, LIMB * 2530 *[id number] Used [id number] 07:34 Open Me MEDICAL SHEATH, FR4.5 PRELUDE 11CM FR 4.5 Used [id number] 07:35 Open Me MEDICAL PACER SHEATH, FR8.5 MERIT 11CM FR 8.5 [id number] 07:31 NAMIC TUBING, HIGH PRESSURE 20" 20" Used *[id number] 07:31 NAMIC TUBING, HIGH PRESSURE 20" 20" Used *[id number] 07:31 NAMIC TUBING, HIGH PRESSURE 48" 48" Used *[id number] 07:52 NYCOMED OMNIPAQUE, 350 MG, 50ML 50ML [id number] Used [id number] 07:27 COSTELLO MEDICAL BLANKET,WARM AIR CCL * Used *[id number] 07:31 [employer] MEDICAL SET, [place] TUBING [id number] *[id number] Used 08:56 VITATRON MEDTRONIC MONITOR, PACEMAKER\\ICD 34061S Used 07:29 VITATRON MEDTRONIC SHEATH, INTRODUCER (MICRA) [id number] Used SYSTEM, TRANS-CATHETER [id number] 07:27 VITATRON MEDTRONIC VVIR Used PACING (MICRA) *[id number] Equipment Model, Serial, Lot Number and Expiration Data Description Model Number Serial Number Lot Number Expiration Bryant e SET, COOL [place] TUBING [id number] 04-29-2018 History: Allergies Allergy Reaction No Known Allergies History: Risk Factors Hypertension Dyslipidemia Yes Yes Prior CABG Yes Medication Medication Total Dose (Bolus/Oral) Medication Total Dosage/Unit 2% XYLOCAINE 50 mL HEPARIN 2000 units PROTAMINE 10 mg Medications (Bolus/Oral) Medication Time Given Dosage/Unit Administered By Reason 2% XYLOCAINE 07/02/2017 7:52:00 AM 50 mL Tanesha Becker 50 mL 2% XYLOCAINE given in lab by Tanesha Becker in Right Groin via Subcutaneous. HEPARIN 07/02/2017 7:59:33 AM 2000 units Anesthesia, PURCHASE REQUEST EDITOR As per physicians julia bal order 2000 units HEPARIN given in lab by Anesthesia, PURCHASE REQUEST EDITOR via Peripheral IV. Ordered by Tanesha Becker. Reas on: As per physicians verbal order. PROTAMINE 07/02/2017 8:51:25 AM 10 mg Anesthesia, PURCHASE REQUEST EDITOR As per physicians verb al order 10 mg PROTAMINE given in lab by Anesthesia, PURCHASE REQUEST EDITOR via Peripheral IV. Ordered by Tanesha Becker. Reason: As per physicians verbal order. Initial Case Assessment Cardiovascular HR Rhythm NIBP Chest Pain 119 af 110/62 0 Edema Present Skin color Skin None Normal Warm Dry Circulatory - Right Pulses Dorsalis Pedis 1 Scale (0,1,2,3,4,d) Circulatory - Left Pulses Dorsalis Pedis 1 Scale (0,1,2,3,4,d) Circulatory - Lower Extremities Color Lower Right Color Lower Left Normal Normal Neurological State Alert Moves all extremities Comment: confused to date Respiration - General Respiration Rate SpO2 (%) O2 (lpm) (B/min) 20 100 4 Final Case Assessment Cardiovascular HR Rhythm NIBP Chest Pain 122 af 112/70 0 Edema Present Skin color Skin None Normal Dry Circulatory - Right Pulses Dorsalis Pedis 1 Scale (0,1,2,3,4,d) Circulatory - Left Pulses Dorsalis Pedis 1 Scale (0,1,2,3,4,d) Circulatory - Lower Extremities Color Lower Right Color Lower Left Normal Normal Neurological State Lethargic Moves all extremities Comment: confused Respiration - General Respiration Rate SpO2 (%) O2 (lpm) (B/min) 16 99 4 Chronological Log Time Study Chronological Log 7:04:54 Patient arrived via Bed. 7:06:13 Patient Name, D.O.B, / Armband Verified By R.N. 7:06:13 Consent signed by the physician and the patient and verified by the Cash Van Salesperson staff. 7:06:14 Pre-op and post- op instructions given; patient acknowledges understanding of instructions. 7:06:15 Verbal Stimulation=2 Physical Stimulation=2 Airway=2 Respiration=2 TOTAL=8. (0=absent, 1=li mited, 2=present) 7:06:15 Anesthesia at bedside. Assumes care of patient. Will 7:06:17 Patient has been NPO for More than 6Hrs. 7:06:18 Skin Breakdown- forehead with scratch and butt w mepilex 7:06:19 Patient Warmer Placed on the Table. 7:06:20 Disposable Defibrillator Pads Placed On Patient. 7:06:21 Verna Prominences Protected 7:06:23 A # 20 IV was noted in the Forearm (left). Grade = 0 0.9ns kvo 7:06:24 A # 22 IV was noted in the Antecubital (right). Grade = 0 0.9ns kvo 7:09:42 2% CHLORHEXIDINE GLUCONATE WASH AND NASAL SWIPE DONE PRIOR TO PROCEDURE. 7:15:02 Medtronic rep present 7:24:38 History and physical on the chart or being dictated. Assessment: Initial Case, YB=237 BPM, Rhythm=af, CJUE=632/62 mmhg, Chest Pain=0, Edema=None, Col or=Normal, Skin = Warm, Dry Right Pulses: Piter Ped=1 Left Pulses: Piter Ped=1 7:24:44 Lower Right Extremities: Color=Normal Lower Left Extremities: Color=Normal Neurological: State=Alert, [place], Comment=confused to date Respiration: Resp=20 B/min, ViH7=919 %, O2=4 lpm 7:25:30 Table restraints applied according to hospital policy 7:25:38 Bilateral groins prepped with 2% chlorhexidine, and with a 3 min. waiting time. 7:39:05 Reference ECG taken 7:48:32 MD arrived. Time Out. Correct patient, procedure, procedure equipment, site and side verified with physician present. Time 7:51:19 concurred by MD, individual staff and PURCHASE REQUEST EDITOR. Time Out #2 - Consents verified, patient in correct position, all results are labled and display ed, safety precautions 7:51:24 taken, antibiotics administered. Time out concurred by MD, individual staff and PURCHASE REQUEST EDITOR in procedur e 7:51:57 Case Start 7:52:00 50 mL 2% XYLOCAINE given in lab by Tanesha Becker in Right Groin via Subcutaneous. 7:52:43 Vascular access was obtained in the Fem Vein (right). 7:52:45 Wire inserted 7:52:52 Vascular access was obtained in the Fem Art (right). 7:53:06 Wire inserted A SHEATH, FR4.5 PRELUDE 11CM FR 4.5 was advanced into the Fem Art (right) using the Modified Stephanie maria isabel technique. 7:53:15 0.9ns pressure bag connected. 7:53:17 Wire removed 7:54:43 A SHEATH, FR8.5 MERIT 11CM FR 8.5 was advanced into the Fem Vein (right) using the Modified Seldinger technique. 7:58:02 The previous wire was exchanged for a WIRE, GUIDE AMPLATZ STIFF 180CM 3MMJ. 7:58:54 12 fr dilator inserted via Fem vein right 7:59:06 16fr dilator exchanged 7:59:16 20 fr dialtor exchanged 2000 units HEPARIN given in lab by Anesthesia, PURCHASE REQUEST EDITOR via Peripheral IV. Ordered by Tanesha Becker. Reason: As per 7:59:33 physicians verbal order. 8:01:23 20fr dilator out 8:01:33 A SHEATH, INTRODUCER (MICRA) was exchanged vie right fem vein A sheath was exchanged in the Fem Vein (right). This was necessary in order to accomodate a [facility] catheter. Micra 8:01:34 sheath 8:05:56 Activated Clotting Time Drawn 8:07:30 A SYSTEM, TRANS-CATHETER PACING (MICRA) VVIR was inserted via right fem vein and advanced to RV. 8:10:01 The RV was manually injected with 10 cc's of contrast. OMNIPAQUE, 350 MG, 50ML 50ML used. 8:10:16 ACT (Normal Range 90-180) = 218 8:11:45 Micra deployed and placement confirmed under fluoro in 2 views 8:14:15 The RV impedance and threshold being tested. 8:21:43 Placement adjusted 8:23:09 The RV impedance and threshold being tested. 8:28:53 Delivery system and introducer removed from right fem vein. 8:30:03 [address] Pressure held 30 minutes by TF 8:30:04 Sheath removed; pressure applied to access site. 8:32:17 CICU called. Spoke to Izabela 8:32:36 Bedside Report will be given. 8:35:02 Activated Clotting Time Drawn 8:46:39 ACT (Normal Range 90-180) = 232 8:48:00 MD notified 8:51:09 Order for 10 mg protamine received 10 mg PROTAMINE given in lab by Anesthesia, PURCHASE REQUEST EDITOR via Peripheral IV. Ordered by Tanesha Becker. Reason: As per 8:51:25 physicians verbal order. 8:56:21 Activated Clotting Time Drawn 8:58:38 ACT (Normal Range 90-180) = 137 8:59:47 Arterial Sheath removed; pressure applied to access site. 9:07:39 No case complications noted. 9:07:41 Case End 9:07:42 Cine recording checked. 9:07:51 Implantable Device card placed in patient's chart. Assessment: Final Case, FC=679 BPM, Rhythm=af, VRQK=818/70 mmhg, Chest Pain=0, Edema=None, Col or=Normal, Skin = Dry Right Pulses: Piter Ped=1 Left Pulses: Piter Ped=1 9:11:44 Lower Right Extremities: Color=Normal Lower Left Extremities: Color=Normal Neurological: State=Lethargic, [place], Comment=confused Respiration: Resp=16 B/min, SpO2=99 %, O2=4 lpm 9:17:33 Sterile dressing applied to site. Site wnl. 9:18:02 Defibrillator and ground pads removed. Skin intact. 9:20:00 Patient moved to stretcher End Study - Contrast Media Used In Study Contrast Total Opened (mL) Total Used (mL) Total Wasted (mL) Omnipaque 50 10 40 End Study - Radiation Exposure Fluoro Time (minutes) 4.9 End Study - Sheaths Sheaths Pulled By Sheath Hold Time (min) Alem Prakash 45 End Study - Patient Disposition Complications Transferred To Interventional Outcome No Telemetry Bed successful
[2017-07-02] MEDS: DIGOXIN 0.125 MG TAB PO SCH (10:04)
[2017-07-02] MEDS: CYANOCOBALAMIN 1,000 MCG TAB PO SCH (10:04)
[2017-07-02] MEDS: ESCITALOPRAM OXALATE 10 MG TAB PO SCH (10:04)
[2017-07-02] MEDS: predniSONE 10 MG TAB PO SCH (10:04)
[2017-07-02] MEDS: SODIUM CHLORIDE 0.9% FLUSH 10 ML FLUSH IV FLUSH SCH ×2 (10:04→21:02)
[2017-07-02] MEDS: PANTOPRAZOLE SOD 40 MG DELAYED RELEASE TAB PO SCH (10:05)
[2017-07-02] MEDS: DOCUSATE SODIUM 50 MG/SENNA 8.6 MG TAB PO SCH ×2 (10:05→21:02)
[2017-07-02] MEDS: guaiFENesin SOLUTION 200 MG/10 ML CUP PO SCH ×2 (10:06→21:02)
[2017-07-02] MEDS: MODAFINIL 200 MG TAB PO SCH (10:09)
[2017-07-02] MEDS ORDERED: SODIUM CHLOR 0.9% 250 ML INJ 250 ML IV ONE (12:00)
[2017-07-02] MEDS: METOPROLOL TARTRATE 50 MG TAB PO SCH ×2 (12:36→22:00)
--- NOTE | 2017-07-02 12:50 | HHI.PR ---
Subjective Remarks Follow up a-fib. Patient with RVR, rate in 120s-130s. BP is low 80s-90s/50s- 60s. She reports lightheadedness. Pacemaker was placed this morning. Patient denies chest pain, dyspnea. Objective Vitals Vital Signs Date Time Temp Pulse Resp B/P Pulse Ox O2 Delivery O2 Flow Rate FiO2 07/02/17 10:20 99 Nasal Cannula 2.00 07/02/17 08:00 98.0 119 18 90/67 100 07/02/17 08:00 Nasal Cannula 2.00 07/02/17 08:00 120 07/02/17 06:00 116 07/02/17 05:00 100 07/02/17 04:38 Nasal Cannula 2.00 07/02/17 04:00 108 07/02/17 04:00 99.1 105 117/81 99 07/02/17 03:00 104 07/02/17 02:00 114 07/02/17 00:47 Nasal Cannula 2.00 07/02/17 00:47 98.3 108 120/76 98 07/02/17 00:00 106 07/01/17 23:00 104 07/01/17 22:00 102 07/01/17 21:00 98 07/01/17 20:00 98.4 90 89/46 90 07/01/17 20:00 Nasal Cannula 2.00 07/01/17 20:00 84 07/01/17 19:00 90 07/01/17 18:00 94 07/01/17 17:00 96 07/01/17 16:00 98.5 86 18 110/59 100 07/01/17 16:00 80 07/01/17 16:00 Nasal Cannula 3.00 07/01/17 15:00 90 07/01/17 14:00 90 07/01/17 13:00 100 I/O 07/01/17 07/01/17 07/01/17 07/02/17 07/02/17 07/02/17 07:00 15:00 23:00 07:00 15:00 23:00 Intake Total 100 ml 835 ml 480 ml Output Total 1075 ml 1100 ml 475 ml Balance -975 ml -265 ml 5 ml Intake Oral 100 ml 720 ml 480 ml IV Total 115 ml Output Urine Total 1075 ml 1100 ml 475 ml # Bowel Movements 1 1 Result Diagram: 07/01/17 1035 07/01/17 1622 Imaging Last Impressions Chest X-Ray 06/26/17 0000 Signed Impressions: Service Date/Time: Monday, June 26, 2017 11:21 - CONCLUSION: Left pleural effusion possible slight left lung base atelectasis and/or infiltrate and the right lung is completely opacified and not changed. Elisa Piper MD Head CT 06/18/17 0000 Signed Impressions: Service Date/Time: May 01:02 - CONCLUSION: Normal examination for a patient of this age. Chronic left maxillary sinus disease. Kvng Saldana MD Objective Remarks General: Elderly female in no acute distress. Receiving nebulizer treatment. Heart: Irregular rhythm, tachycardic. Lungs: Clear to auscultation bilaterally. No wheezes, rales, or rhonchi. Breathing is nonlabored. Abdomen: Soft, nontender, nondistended. Extremities: No lower extremity edema. Psych: Alert, confused. Procedures 06/16/17 intubation 06/16/17 central line placement Urinary Catheter: Yes Assessment to: Continue [place]aza insert reason: Measure Accurate Output Date of Insertion: Jun 16, 2017 Vascular Central Line Catheter: No Date of Insertion: Jun 16, 2017 Date of Removal: Jun 24, 2017 Line: Central Venous Catheter Side: Right Location: Internal, Jugular A/P Problem List: (1) Non-small cell carcinoma of lung ICD Code: C34.90 Status: Chronic (2) Atrial fibrillation with RVR ICD Code: I48.91 Status: Acute (3) Acute respiratory failure with hypoxia and hypercapnia ICD Code: J96.01 Status: Acute (4) Tachycardia ICD Code: R00.0 Status: Acute (5) SOB (shortness of breath) ICD Code: R06.02 Status: Acute (6) PNA (pneumonia) ICD Code: J18.9 Status: Acute (7) Coronary artery disease ICD Code: I25.10 Status: Chronic (8) Hypertension ICD Code: I10 Status: Chronic (9) Hypothyroidism ICD Code: E03.9 Status: Chronic (10) Leukocytosis ICD Code: D72.829 Status: Acute (11) Normocytic anemia ICD Code: D64.9 Status: Acute (12) Lactic acidosis ICD Code: E87.2 Status: Acute (13) On apixaban therapy ICD Code: Z79.01 Status: Acute (14) Hyponatremia ICD Code: E87.1 Status: Acute (15) Hyperkalemia ICD Code: E87.5 Status: Acute (16) Acute hyperglycemia ICD Code: R73.9 Status: Acute (17) Elevated INR ICD Code: R79.1 Status: Acute (18) Elevated partial thromboplastin time (PTT) ICD Code: R79.1 Status: Acute (19) Vitamin B12 deficiency ICD Code: E53.8 Status: Chronic (20) Anxiety disorder ICD Code: F41.9 Status: Chronic (21) Current chronic use of systemic steroids ICD Code: Z79.52 Status: Chronic (22) Elevated brain natriuretic peptide (BNP) level ICD Code: R79.89 Status: Acute (23) Right bundle branch block ICD Code: I45.10 Status: Acute (24) Elevated troponin I level ICD Code: R74.8 Status: Acute (25) Septic shock ICD Code: A41.9 Status: Acute Assessment and Plan 07/02/17 The patient has sustained RVR with hypotension. She is lightheaded. Denies chest pain, dyspnea. Will give 250ml bolus of NS. Need to use caution with IV fluids due to CHF. If BP does not improve, may need to transfer to ICU and start pressors. Unable to use Cardizem, Lopressor at this time due to low BP. Awaiting further recommendations from Cardiology. 1. Atrial fibrillation with RVR: Appreciate cardiology recommendations. Pacemaker placed this morning. Continue digoxin. Metoprolol and Cardizem held due to low BP Continue Eliquis. Rate is sustaining 120s-130s. 2. CHF, CAD: Appreciate cardiology recommendations. Status post CABG 4 vessels. Echocardiogram shows ejection fraction 35-40%. Currently asymptomatic. 3. Acute hypoxic and hypercapnic respiratory failure: Patient had healthcare associated pneumonia and completed a course of antibiotics. She was intubated on 06/16/17. She was extubated and is now tolerating oxygen per nasal cannula. Continue bronchodilators, incentive spirometry. Appreciate pulmonology recommendations. BiPAP as needed. 4. Acute metabolic encephalopathy: Secondary to above. Per family, patient developed significant confusion following her time on the ventilator. Continue PT/OT/ST. Continue neuro checks. 5. Severe malnutrition: Tube feeds discontinued. Mechanical soft diet with nectar thick liquids per speech therapy. 6. Hyperglycemia of critical illness: Monitor Accu-Cheks and cover with sliding scale insulin. 7. Hypothyroidism: Continue Synthroid. 8. Staph hominis bacteremia: Likely contaminant. Other cultures are negative. Off antibiotics currently. 9. GI prophylaxis: Protonix. 10. DVT prophylaxis: Eliquis. Problem Qualifiers (1) PNA (pneumonia): Qualified Code: J18.9 - Pneumonia of left lung due to infectious organism, unspecified part of lung (2) Coronary artery disease: Qualified Code: I25.10 - Coronary artery disease involving [place] coronary artery of [place] heart without angina pectoris (3) Hypertension: Qualified Code: I10 - Essential hypertension (4) Hypothyroidism: Qualified Code: E03.9 - Hypothyroidism, unspecified type (5) Leukocytosis: Qualified Code: D72.829 - Leukocytosis, unspecified type (6) Anxiety disorder: Qualified Code: F41.9 - Anxiety disorder, unspecified type Vern Paul MD Jul 02, 2017 12:50
[2017-07-02] MEDS ORDERED: DIGOXIN 0.5 MG/2 ML VIAL IV PUSH ONE (13:45)
[2017-07-02] MEDS: APIXABAN 2.5 MG TABLET PO SCH ×2 (13:51→21:02)
--- NOTE | 2017-07-02 16:46 | HHI.PR ---
Subjective Remarks Went for Pacemaker.On N/C at 1 L o2. CXR was stable. Has an NG with feeds . Objective Vital Signs Date Time Temp Pulse Resp B/P Pulse Ox O2 Delivery O2 Flow Rate FiO2 07/02/17 12:00 97.3 130 17 93/65 100 07/02/17 12:00 130 07/02/17 12:00 100 Nasal Cannula 2.00 07/02/17 10:20 99 Nasal Cannula 2.00 07/02/17 08:00 98.0 119 18 90/67 100 07/02/17 08:00 Nasal Cannula 2.00 07/02/17 08:00 120 07/02/17 06:00 116 07/02/17 05:00 100 07/02/17 04:38 Nasal Cannula 2.00 07/02/17 04:00 108 07/02/17 04:00 99.1 105 117/81 99 07/02/17 03:00 104 07/02/17 02:00 114 07/02/17 00:47 Nasal Cannula 2.00 07/02/17 00:47 98.3 108 120/76 98 07/02/17 00:00 106 07/01/17 23:00 104 07/01/17 22:00 102 07/01/17 21:00 98 07/01/17 20:00 98.4 90 89/46 90 07/01/17 20:00 Nasal Cannula 2.00 07/01/17 20:00 84 07/01/17 19:00 90 07/01/17 18:00 94 07/01/17 17:00 96 I/O 07/01/17 07/01/17 07/01/17 07/02/17 07/02/17 07/02/17 06:59 14:59 22:59 06:59 14:59 22:59 Intake Total 100 ml 835 ml 480 ml Output Total 1075 ml 1100 ml 475 ml Balance -975 ml -265 ml 5 ml Intake Oral 100 ml 720 ml 480 ml IV Total 115 ml Output Urine Total 1075 ml 1100 ml 475 ml # Bowel Movements 1 1 Result Diagram: 07/01/17 1035 07/01/17 1622 Objective Remarks GENERAL: This thinly built elderly lady who is alert HEENT: Head normocephalic. Pupils are reactive. Tongue is moist. NECK: Supple. No bruits. No venous distension. Trachea midline. CHEST: Decreased breath sounds over the right lung field with wheezes. No Crackles. HEART: The heart sounds are irregularly irregular S1-S2 with no murmur. ABDOMEN: Soft, nontender. Bowel sounds are active. EXTREMITIES: 1 + edema with diminished pulses. Neuro : Reflexes are 1+. The patient is alert.and Oriented. SKIN: Dry and warm. Assessment and Plan Assessment and Plan IMPRESSION 1. Acute respiratory failure.Resolved. 2. Status post right pneumonectomy. 3. History of pneumonia. 4. History of non-small cell lung CA. 5. Atrial fibrillation with rapid ventricular response. 6. Pulmonary edema. 7. Hyponatremia Plan : 1. Continue Atrovent nebs tid prn 2. Cont O2 at 2 L 3. PT and OT 4. Tube feeds at 40 CC. 5. May Need PEG. 6. D/C Bipap 7. Cont Prednisone 10 mg daily 8. CXR in am. 9. IS and Acapella q3h 10. Mucinex 600 mg bid Corey Epps MD Jul 02, 2017 16:46 Corey Epps MD Jul 02, 2017 16:46
[2017-07-03] VITALS (25 sets, daily range): BP systolic 90–117; BP diastolic 52–71; PULSE 66–123; RESP 18–22; TEMP 97.7–98.7; O2SAT 94–99
[2017-07-03] MEDS: RESP: IPRATROPIUM 0.5 MG/2.5 ML NEB NEB SCH ×4 (03:34→22:00)
[2017-07-03] MEDS: DILTIAZEM HCL 60 MG TAB PO SCH ×4 (03:59→20:50)
[2017-07-03] MEDS: CHLORHEXIDINE GLUCONATE 2 % 1 PACK (2 CLOTHS) TOP SCH (04:00)
[2017-07-03] MEDS: INSULIN NovoLIN REGULAR SUPPLEMENTAL SCALE SQ SCH ×6 (04:00→20:51)
[2017-07-03] MEDS: LEVOTHYROXINE SODIUM 25 MCG TAB PO SCH (05:30)
[2017-07-03] MEDS: METOPROLOL TARTRATE 50 MG TAB PO SCH ×3 (05:30→20:51)
[2017-07-03] MEDS: LEVOTHYROXINE SODIUM 112 MCG TAB PO SCH (05:30)
--- NOTE | 2017-07-03 05:41 | RADRPT ---
EXAM DATE/TIME: 07/03/2017 04:43 [place] COMPARISON: CT THORAX W/O CONTRAST, May 03, 2015, 22:14. CHEST SINGLE AP, June 26, 2017, 11:21. INDICATIONS : Evaluate for pnuemothorax. MEDICAL HISTORY : Myocardial infarction. Hypertension Chronic obstructive pulmonary disease. SURGICAL HISTORY : CABG. ENCOUNTER: Subsequent ACUITY: 1 week PAIN SCORE: Non-responsive. LOCATION: Bilateral chest FINDINGS: The cardiac silhouette is normal in transverse diameter. Median sternotomy wires are present. Right p neumonectomy is present. There is subsegmental atelectasis in the left base.. There is prominence of the aortic knob is with calcification characteristic of atherosclerotic vascular disease. CONCLUSION: 1. Right pneumonectomy 2. There is subsegmental atelectasis in the left base. No pleural effusions are identified. Cristobal Ramírez MD on July 03, 2017 at 5:37 Board Certified Radiologist. This report was verified electronically.
[2017-07-03 06:11] LABS: AUTOMATED NEUTROPHIL # 8.6 TH/MM3 (1.8-7.7); BASOPHIL % 0.4 % (0.0-2.0); EOSINOPHIL # 0.1 TH/MM3 (0-0.4); HEMATOCRIT 30.4 % (35.0-46.0); HEMO FLAGS DIFF FINAL; LYMPH % 10.9 % (9.0-44.0); LYMPHOCYTE # 1.1 TH/MM3 (1.0-4.8); MEAN CELL VOLUME 91.6 FL (80.0-100.0); MEAN CORPUSCULAR HEMOGLOBIN 30.7 PG (27.0-34.0); MEAN CORPUSCULAR HGB CONC 33.5 % (32.0-36.0); MONO % 4.6 % (0.0-8.0); NEUT % 83.1 % (16.0-70.0); PLATELET COUNT 186 TH/MM3 (150-450); RED BLOOD COUNT 3.32 MIL/MM3 (4.00-5.30); RED CELL DISTRIBUTION WIDTH 15.6 % (11.6-17.2); WHITE BLOOD COUNT 10.3 TH/MM3 (4.0-11.0)
[2017-07-03 06:22] LABS: PROTHROMBIN TIME - PATIENT 11.6 SEC (9.8-11.6)
[2017-07-03 06:46] LABS: BICARBONATE 33.2 MEQ/L (21.0-32.0); POTASSIUM 3.9 MEQ/L (3.5-5.1)
[2017-07-03] MEDS: DOCUSATE SODIUM 50 MG/SENNA 8.6 MG TAB PO SCH ×2 (09:00→20:50)
[2017-07-03] MEDS: SODIUM CHLORIDE 0.9% FLUSH 10 ML FLUSH IV FLUSH SCH ×2 (09:00→20:51)
[2017-07-03] MEDS: SODIUM CHLORIDE 0.9% FLUSH 10 ML FLUSH IVF SCH (09:00)
[2017-07-03] MEDS: predniSONE 10 MG TAB PO SCH (09:15)
[2017-07-03] MEDS: MODAFINIL 200 MG TAB PO SCH (09:15)
[2017-07-03] MEDS: guaiFENesin SOLUTION 200 MG/10 ML CUP PO SCH ×2 (09:15→20:50)
[2017-07-03] MEDS: APIXABAN 2.5 MG TABLET PO SCH ×2 (09:16→20:50)
[2017-07-03] MEDS: CYANOCOBALAMIN 1,000 MCG TAB PO SCH (09:16)
[2017-07-03] MEDS: ESCITALOPRAM OXALATE 10 MG TAB PO SCH (09:16)
[2017-07-03] MEDS: PANTOPRAZOLE SOD 40 MG DELAYED RELEASE TAB PO SCH (09:16)
[2017-07-03] MEDS: BISACODYL 10 MG SUPP RECTAL PRN (11:50)
--- NOTE | 2017-07-03 11:59 | EKG ---
Date Performed: 07/02/2017 Time Performed: 09:40:54 PTAGE: 86 years EKG: Atrial fibrillation with rapid ventricular response. Left axis deviation RBBB with left ant erior fascicular block Lateral T wave changes are nonspecific Abnormal ECG PREVIOUS TRACING : 06/16/2017 12.47 Compared to the prior study, the rate is faster. DOCTOR: Cristobal Norwood Interpretating Date/Time 07/03/2017 11:58:38
--- NOTE | 2017-07-03 12:44 | HHI.PR ---
Subjective Remarks Went for Pacemaker.On N/C at 1 L o2. C/o Constipation Has an NG with feeds . Objective Vital Signs Date Time Temp Pulse Resp B/P Pulse Ox O2 Delivery O2 Flow Rate FiO2 07/03/17 12:21 113 07/03/17 11:51 96 Room Air 07/03/17 11:51 98.4 110 18 117/71 96 07/03/17 11:51 86 07/03/17 10:50 68 07/03/17 09:00 108 07/03/17 08:45 66 07/03/17 08:45 98 Room Air 07/03/17 08:45 98.3 86 18 96/55 98 07/03/17 07:34 94 21 07/03/17 06:00 67 07/03/17 05:00 123 07/03/17 04:00 96 Room Air 07/03/17 04:00 98.4 106 18 106/67 96 07/03/17 04:00 116 07/03/17 03:00 96 07/03/17 02:00 109 07/03/17 01:00 93 07/03/17 00:00 93 Room Air 07/03/17 00:00 90 07/03/17 00:00 98.0 100 18 90/55 95 07/02/17 23:00 102 07/02/17 22:00 118 07/02/17 21:00 110 07/02/17 20:00 97.8 103 18 102/44 95 07/02/17 20:00 110 07/02/17 20:00 93 Room Air 07/02/17 19:00 112 07/02/17 18:00 91 07/02/17 17:00 88 07/02/17 16:45 116 07/02/17 16:45 93 Room Air 07/02/17 16:00 104 07/02/17 16:00 98.0 113 16 122/77 100 07/02/17 15:00 122 07/02/17 14:00 115 07/02/17 13:00 120 I/O 07/02/17 07/02/17 07/02/17 07/03/17 07/03/17 07/03/17 06:59 14:59 22:59 06:59 14:59 22:59 Intake Total 480 ml 1950 ml 240 ml Output Total 475 ml 1400 ml 1100 ml Balance 5 ml 550 ml -860 ml Intake Oral 480 ml 700 ml 240 ml IV Total 1250 ml Output Urine Total 475 ml 1400 ml 1100 ml # Bowel Movements 1 0 1 Result Diagram: 07/03/1745607/03/17456 Objective Remarks GENERAL: This thinly built elderly lady who is alert HEENT: Head normocephalic. Pupils are reactive. Tongue is moist. NECK: Supple. No bruits. No venous distension. Trachea midline. CHEST: Decreased breath sounds over the right lung field with wheezes. No Crackles. HEART: The heart sounds are Irregular S1-S2 with no murmur. ABDOMEN: Soft, nontender. Bowel sounds are active. EXTREMITIES: 1 + edema with diminished pulses. Neuro : Reflexes are 1+. The patient is alert.and Oriented. SKIN: Dry and warm. Assessment and Plan Assessment and Plan IMPRESSION 1. Acute respiratory failure.Resolved. 2. Status post right pneumonectomy. 3. History of pneumonia. 4. History of non-small cell lung CA. 5. Atrial fibrillation with rapid ventricular response. 6. Pulmonary edema. 7. Hyponatremia Plan : 1. Continue Atrovent nebs tid prn 2. Cont O2 at 1 L 3. PT and OT 4. Tube feeds at 50 CC. 5. Swallow Eval. 6. Up with help 7.Wean Prednisone to 5 mg daily 8. IS and Acapella q3h 9. Mucinex 600 mg bid Corey Epps MD Jul 03, 2017 12:44
--- NOTE | 2017-07-03 14:45 | HHI.PR ---
Subjective Remarks Doing ok Objective Vital Signs Date Time Temp Pulse Resp B/P Pulse Ox O2 Delivery O2 Flow Rate FiO2 07/03/17 14:03 99 07/03/17 13:08 114 07/03/17 12:21 113 07/03/17 11:51 96 Room Air 07/03/17 11:51 98.4 110 18 117/71 96 07/03/17 11:51 86 07/03/17 10:50 68 07/03/17 09:00 108 07/03/17 08:45 66 07/03/17 08:45 98 Room Air 07/03/17 08:45 98.3 86 18 96/55 98 07/03/17 07:34 94 21 07/03/17 06:00 67 07/03/17 05:00 123 07/03/17 04:00 96 Room Air 07/03/17 04:00 98.4 106 18 106/67 96 07/03/17 04:00 116 07/03/17 03:00 96 07/03/17 02:00 109 07/03/17 01:00 93 07/03/17 00:00 93 Room Air 07/03/17 00:00 90 07/03/17 00:00 98.0 100 18 90/55 95 07/02/17 23:00 102 07/02/17 22:00 118 07/02/17 21:00 110 07/02/17 20:00 97.8 103 18 102/44 95 07/02/17 20:00 110 07/02/17 20:00 93 Room Air 07/02/17 19:00 112 07/02/17 18:00 91 07/02/17 17:00 88 07/02/17 16:45 116 07/02/17 16:45 93 Room Air 07/02/17 16:00 104 07/02/17 16:00 98.0 113 16 122/77 100 07/02/17 15:00 122 I/O 07/02/17 07/02/17 07/02/17 07/03/17 07/03/17 07/03/17 07:00 15:00 23:00 07:00 15:00 23:00 Intake Total 480 ml 1950 ml 240 ml Output Total 475 ml 1400 ml 1100 ml Balance 5 ml 550 ml -860 ml Intake Oral 480 ml 700 ml 240 ml IV Total 1250 ml Output Urine Total 475 ml 1400 ml 1100 ml # Bowel Movements 1 0 1 Result Diagram: 07/03/1745607/03/17 045 Imaging Alert, fully oriented, in bed Lungs: ventilated Heart: S1, S2 irregular, tachycardia Abdomen: soft, no mass Ext: no edema Last Impressions Chest X-Ray 07/03/17 0600 Signed Impressions: Service Date/Time: Monday, July 03, 2017 04:43 - CONCLUSION: 1. Right pneumonectomy 2. There is subsegmental atelectasis in the left base. No pleural effusions are identified. Cristobal Ramírez MD Head CT 06/18/17 0000 Signed Impressions: Service Date/Time: May 01:02 - CONCLUSION: Normal examination for a patient of this age. Chronic left maxillary sinus disease. Kvng Saldana MD Current Medications Medications (Trade) Dose Ordered Sig/Amanda Route Start Time Stop Time Status Last Admin (NS Flush) 2 ml UNSCH PRN IV FLUSH 06/16/17 15:30 06/29/17 18:45 (NS Flush) 2 ml BID IV FLUSH 06/16/17 21:00 07/03/17 09:00 (Tylenol) 650 mg Q6H PRN PO 06/16/17 15:30 (Zofran Inj) 4 mg Q6H PRN IV 06/16/17 15:30 07/01/17 11:42 Miscellaneous Information 1 Q361D XX 06/16/17 15:30 06/16/17 15:30 (Chlorhexidine 2% Cloth) Taper DAILY@04 TOP 06/17/17 04:00 06/13/18 03:59 06/27/17 04:00 (Chlorhexidine 2% Cloth) 3 pack UNSCH PRN TOP 06/16/17 15:30 (Aiyana-Colace) 1 tab BID PO 06/16/17 21:00 07/03/17 09:00 (Milk Of Magnesia Liq) 30 ml Q12H PRN PO 06/16/17 15:30 (Senokot) 17.2 mg Q12H PRN PO 06/16/17 15:30 06/20/17 20:13 (Dulcolax Supp) 10 mg DAILY PRN RECTAL 06/16/17 15:30 8/4/17 11:50 (Lactulose Liq) 30 ml DAILY PRN PO 06/16/17 15:30 06/26/17 09:04 (Vitamin B12) 1,000 mcg DAILY PO 06/17/17 09:00 07/03/17 09:16 (Lexapro) 10 mg DAILY PO 06/17/17 09:00 07/03/17 09:16 (Synthroid) 112 mcg DAILY@06 PO 06/17/17 06:00 07/03/17 05:30 (NS Flush) DAILY IVF 06/17/17 09:00 06/29/17 09:15 (NS Flush) UNSCH PRN IVF 06/16/17 16:00 (Synthroid) 25 mcg DAILY@06 PO 06/17/17 06:00 07/03/17 05:30 (D50w (Vial) Inj) 50 ml UNSCH PRN IV 06/20/17 17:00 (Glucagon Inj) 1 mg UNSCH PRN OTHER 06/20/17 17:00 (ZyPREXA) 2.5 mg Q8H PRN PO 06/24/17 07:30 06/26/17 20:08 (Provigil) 100 mg DAILY PO 06/24/17 09:00 07/03/17 09:15 (Lopressor Inj) 2.5 mg Q6H PRN IV PUSH 06/26/17 11:00 06/29/17 18:44 (Deltasone) 10 mg DAILY PO 06/29/17 09:00 07/03/17 09:15 (Robitussin Liq) 400 mg BID PO 06/29/17 21:00 07/03/17 09:15 Pantoprazole Sodium 40 mg 40 mg DAILY PO 06/30/17 09:00 07/03/17 09:16 Lactated Ringer's 1,000 ml @ 30 mls/hr Q24H PRN IV 07/02/17 04:45 07/05/17 04:44 (NS 500 ml Inj) 500 ml @ 30 mls/hr [id number] PRN IV 07/02/17 04:45 07/05/17 04:44 (Eliquis) 2.5 mg BID PO 07/02/17 11:00 07/03/17 09:16 (Lopressor) 50 mg Q8HR PO 07/02/17 14:00 (Atropine Inj) 0.5 mg UNSCH PRN IV 07/02/17 08:45 (Reglan Inj) 10 mg Q4H PRN IV 07/02/17 08:45 (Zofran Inj) 4 mg Q4H PRN IV 07/02/17 08:45 (Cardizem) 60 mg Q6H PO 07/02/17 09:00 07/03/17 14:18 (NovoLIN R SUPPLEMENTAL SCALE) 1 ACHS SQ 07/03/17 16:00 07/03/17 12:20 Assessment and Plan Problem List: (1) Atrial fibrillation Status: Acute Plan: In afib with FVR Pacer inserted If Hr not control, AV node modification will be considered. (2) Tachycardia Status: Acute Plan: HR high but controlled (3) SOB (shortness of breath) Status: Acute Plan: Improving Tanesha Becker MD Jul 03, 2017 14:45
[2017-07-03] MEDS ORDERED: SOD PHOSPHATE/SOD BIPHOSPHATE (ADULT) ENEMA 133ML RECTAL ONE (16:15)
[2017-07-03] MEDS ORDERED: DOCUSATE SODIUM 50 MG/SENNA 8.6 MG TAB PO ONE (16:15)
[2017-07-03] MEDS ORDERED: MAGNESIUM HYDROXIDE SUSP 30 ML CUP PO ONE (16:15)
--- NOTE | 2017-07-03 22:34 | HHI.PR ---
Subjective Remarks Patient seen this morning around 12:30. Says she is feeling well. Denies any chest pain, denies any increase in shortness of breath. Does report constipation. Objective Vital Signs Date Time Temp Pulse Resp B/P Pulse Ox O2 Delivery O2 Flow Rate FiO2 07/03/17 18:20 90 07/03/17 17:41 120 07/03/17 16:34 85 07/03/17 15:50 98 Room Air 07/03/17 15:50 98.7 112 18 95/64 98 07/03/17 15:50 108 07/03/17 14:03 99 07/03/17 13:08 114 07/03/17 12:21 113 07/03/17 11:51 96 Room Air 07/03/17 11:51 98.4 110 18 117/71 96 07/03/17 11:51 86 07/03/17 10:50 68 07/03/17 09:00 108 07/03/17 08:45 66 07/03/17 08:45 98 Room Air 07/03/17 08:45 98.3 86 18 96/55 98 07/03/17 07:34 94 21 07/03/17 06:00 67 07/03/17 05:00 123 07/03/17 04:00 96 Room Air 07/03/17 04:00 98.4 106 18 106/67 96 07/03/17 04:00 116 07/03/17 03:00 96 07/03/17 02:00 109 07/03/17 01:00 93 07/03/17 00:00 93 Room Air 07/03/17 00:00 90 07/03/17 00:00 98.0 100 18 90/55 95 07/02/17 23:00 102 I/O 07/02/17 07/02/17 07/02/17 07/03/17 07/03/17 07/03/17 06:59 14:59 22:59 06:59 14:59 22:59 Intake Total 480 ml 1950 ml 240 ml 450 ml Output Total 475 ml 1400 ml 1100 ml 500 ml Balance 5 ml 550 ml -860 ml -50 ml Intake Oral 480 ml 700 ml 240 ml 450 ml IV Total 1250 ml Output Urine Total 475 ml 1400 ml 1100 ml 500 ml # Bowel Movements 1 0 1 1 Result Diagram: 07/03/17 0457 07/03/17 0457 Objective Remarks GENERAL: patient sitting up in bed. Appears comfortable. SKIN: Warm and dry. HEAD: Normocephalic. EYES: No scleral icterus. No injection or drainage. NECK: Supple, trachea midline. No JVD or lymphadenopathy. CARDIOVASCULAR: Regular rate and rhythm without murmurs, gallops, or rubs. RESPIRATORY: Breath sounds equal bilaterally. No accessory muscle use. GASTROINTESTINAL: Abdomen soft, non-tender, nondistended. MUSCULOSKELETAL: No cyanosis, or edema. BACK: Nontender without obvious deformity. No CVA tenderness. A/P Assessment and Plan 07/03. Status post pacemaker on 07/02. Heart rate relatively well controlled //Constipation. Laxatives ordered. //Atrial fibrillation with RVR: Appreciate cardiology recommendations. -Pacemaker placed 07/02. - Continue digoxin. Metoprolol and Cardizem held due to low BP Continue Eliquis. -Heart rate relatively well controlled. Continue to monitor. //CHF, CAD: Appreciate cardiology recommendations. Status post CABG 4 vessels. Echocardiogram shows ejection fraction 35-40%. Currently asymptomatic. //Acute hypoxic and hypercapnic respiratory failure: Patient had healthcare associated pneumonia and completed a course of antibiotics. She was intubated on 06/16/17. She was extubated and is now tolerating oxygen per nasal cannula. Continue bronchodilators, incentive spirometry. Appreciate pulmonology recommendations. BiPAP as needed. //Constipation. Laxatives ordered. //Acute metabolic encephalopathy: Secondary to above. Per family, patient developed significant confusion following her time on the ventilator. Continue PT/OT/ST. Continue neuro checks. //Severe malnutrition: Tube feeds discontinued. Mechanical soft diet with nectar thick liquids per speech therapy. //Hyperglycemia of critical illness: Monitor Accu-Cheks and cover with sliding scale insulin. //Hypothyroidism: Continue Synthroid. //Staph hominis bacteremia: Likely contaminant. Other cultures are negative. Off antibiotics currently. //GI prophylaxis: Protonix. //DVT prophylaxis: Rustam Wade MD Jul 03, 2017 22:34
[2017-07-04] VITALS (25 sets, daily range): BP systolic 96–128; BP diastolic 45–74; PULSE 82–127; RESP 16–22; TEMP 97.4–98.1; O2SAT 96–99
[2017-07-04] MEDS: CHLORHEXIDINE GLUCONATE 2 % 1 PACK (2 CLOTHS) TOP SCH (00:53)
[2017-07-04] MEDS: DILTIAZEM HCL 60 MG TAB PO SCH ×4 (02:45→20:46)
[2017-07-04] MEDS: RESP: IPRATROPIUM 0.5 MG/2.5 ML NEB NEB SCH ×4 (04:00→20:27)
[2017-07-04] MEDS: LEVOTHYROXINE SODIUM 25 MCG TAB PO SCH (05:43)
[2017-07-04] MEDS: METOPROLOL TARTRATE 50 MG TAB PO SCH ×3 (05:44→22:00)
[2017-07-04] MEDS: LEVOTHYROXINE SODIUM 112 MCG TAB PO SCH (05:44)
[2017-07-04] MEDS: INSULIN NovoLIN REGULAR SUPPLEMENTAL SCALE SQ SCH ×4 (05:44→20:53)
[2017-07-04 07:53] LABS: HEMATOCRIT 30.1 % (35.0-46.0); MEAN CELL VOLUME 91.7 FL (80.0-100.0); MEAN CORPUSCULAR HEMOGLOBIN 30.1 PG (27.0-34.0); MEAN CORPUSCULAR HGB CONC 32.9 % (32.0-36.0); PLATELET COUNT 193 TH/MM3 (150-450); RED BLOOD COUNT 3.28 MIL/MM3 (4.00-5.30); RED CELL DISTRIBUTION WIDTH 16.2 % (11.6-17.2); REVIEW FLAG FINAL; WHITE BLOOD COUNT 11.4 TH/MM3 (4.0-11.0)
[2017-07-04] MEDS: guaiFENesin SOLUTION 200 MG/10 ML CUP PO SCH (08:41)
[2017-07-04] MEDS: SODIUM CHLORIDE 0.9% FLUSH 10 ML FLUSH IVF SCH (08:42)
[2017-07-04] MEDS: SODIUM CHLORIDE 0.9% FLUSH 10 ML FLUSH IV FLUSH SCH ×2 (08:42→20:55)
[2017-07-04] MEDS: MODAFINIL 200 MG TAB PO SCH (08:43)
[2017-07-04] MEDS: PANTOPRAZOLE SOD 40 MG DELAYED RELEASE TAB PO SCH (08:43)
[2017-07-04] MEDS: DIGOXIN 0.125 MG TAB PO SCH (08:43)
[2017-07-04] MEDS: APIXABAN 2.5 MG TABLET PO SCH ×2 (08:43→20:46)
[2017-07-04] MEDS: CYANOCOBALAMIN 1,000 MCG TAB PO SCH (08:43)
[2017-07-04] MEDS: ESCITALOPRAM OXALATE 10 MG TAB PO SCH (08:43)
[2017-07-04] MEDS: predniSONE 10 MG TAB PO SCH (08:43)
[2017-07-04] MEDS: DOCUSATE SODIUM 50 MG/SENNA 8.6 MG TAB PO SCH ×2 (08:43→20:55)
--- NOTE | 2017-07-04 09:55 | HHI.PR ---
Subjective Remarks The patient had just eaten breakfast. Her family was at the bedside. The patient denied any shortness of breath or chest pain. Her family was concerned about her continued episodes of confusion. The patient has been working with physical therapy and has been able to stand up with them. Objective Vitals Vital Signs Date Time Temp Pulse Resp B/P Pulse Ox O2 Delivery O2 Flow Rate FiO2 07/04/17 09:00 94 07/04/17 08:00 109 07/04/17 07:00 98.0 84 22 108/60 96 07/04/17 07:00 83 07/04/17 05:00 108 07/04/17 04:00 98.0 119 22 99/60 96 07/04/17 04:00 104 07/04/17 03:00 112 07/04/17 02:00 110 07/04/17 01:00 104 07/04/17 00:00 101 07/04/17 00:00 98.1 115 16 128/66 98 07/03/17 23:00 100 07/03/17 22:02 96 07/03/17 22:00 104 07/03/17 21:00 110 07/03/17 20:00 99 07/03/17 20:00 Room Air 07/03/17 20:00 97.7 103 22 91/52 99 07/03/17 19:00 94 07/03/17 18:20 90 07/03/17 17:41 120 07/03/17 16:34 85 07/03/17 15:50 98 Room Air 07/03/17 15:50 98.7 112 18 95/64 98 07/03/17 15:50 108 07/03/17 14:03 99 07/03/17 13:08 114 07/03/17 12:21 113 07/03/17 11:51 96 Room Air 07/03/17 11:51 98.4 110 18 117/71 96 07/03/17 11:51 86 07/03/17 10:50 68 I/O 07/03/17 07/03/17 07/03/17 07/04/17 07/04/17 07/04/17 07:00 15:00 23:00 07:00 15:00 23:00 Intake Total 240 ml 450 ml 240 ml Output Total 1100 ml 500 ml 1500 ml Balance -860 ml -50 ml -1260 ml Intake Oral 240 ml 450 ml 240 ml IV Total 0 ml Output Urine Total 1100 ml 500 ml 1500 ml # Bowel Movements 1 1 1 Result Diagram: 07/04/17 0645 07/03/17 0457 Objective Remarks GENERAL: Patient sitting up in bed. Appears comfortable. SKIN: Warm and dry. HEAD: Normocephalic. EYES: No scleral icterus. No injection or drainage. NECK: Supple, trachea midline. No JVD or lymphadenopathy. CARDIOVASCULAR: Tachycardic, irregularly irregular. RESPIRATORY: Breath sounds equal bilaterally. No accessory muscle use. GASTROINTESTINAL: Abdomen soft, non-tender, nondistended. MUSCULOSKELETAL: No cyanosis, or edema. BACK: Nontender without obvious deformity. No CVA tenderness. NEURO: Mild confusion. PSYCH: Mood and affect appropriate. Procedures 06/16/17 intubation 06/16/17 central line placement Medications and IVs Current Medications Medications (Trade) Dose Ordered Sig/Amanda Route Start Time Stop Time Status Last Admin (NS Flush) 2 ml UNSCH PRN IV FLUSH 06/16/17 15:30 06/29/17 18:45 (NS Flush) 2 ml BID IV FLUSH 06/16/17 21:00 07/04/17 08:42 (Tylenol) 650 mg Q6H PRN PO 06/16/17 15:30 (Zofran Inj) 4 mg Q6H PRN IV 06/16/17 15:30 07/01/17 11:42 Miscellaneous Information 1 Q361D XX 06/16/17 15:30 06/16/17 15:30 (Chlorhexidine 2% Cloth) Taper DAILY@04 TOP 06/17/17 04:00 06/13/18 03:59 06/27/17 04:00 (Chlorhexidine 2% Cloth) 3 pack UNSCH PRN TOP 06/16/17 15:30 (Milk Of Magnesia Liq) 30 ml Q12H PRN PO 06/16/17 15:30 (Senokot) 17.2 mg Q12H PRN PO 06/16/17 15:30 06/20/17 20:13 (Dulcolax Supp) 10 mg DAILY PRN RECTAL 06/16/17 15:30 07/03/17 11:50 (Lactulose Liq) 30 ml DAILY PRN PO 06/16/17 15:30 06/26/17 09:04 (Vitamin B12) 1,000 mcg DAILY PO 06/17/17 09:00 07/04/17 08:43 (Lexapro) 10 mg DAILY PO 06/17/17 09:00 07/04/17 08:43 (Synthroid) 112 mcg DAILY@06 PO 06/17/17 06:00 07/04/17 05:44 (NS Flush) DAILY IVF 06/17/17 09:00 06/29/17 09:15 (NS Flush) UNSCH PRN IVF 06/16/17 16:00 (Synthroid) 25 mcg DAILY@06 PO 06/17/17 06:00 07/04/17 05:43 (D50w (Vial) Inj) 50 ml UNSCH PRN IV 06/20/17 17:00 (Glucagon Inj) 1 mg UNSCH PRN OTHER 06/20/17 17:00 (ZyPREXA) 2.5 mg Q8H PRN PO 06/24/17 07:30 06/26/17 20:08 (Provigil) 100 mg DAILY PO 06/24/17 09:00 07/04/17 08:43 (Lopressor Inj) 2.5 mg Q6H PRN IV PUSH 06/26/17 11:00 06/29/17 18:44 (Deltasone) 10 mg DAILY PO 06/29/17 09:00 07/04/17 08:43 (Robitussin Liq) 400 mg BID PO 06/29/17 21:00 07/04/17 08:41 Pantoprazole Sodium 40 mg 40 mg DAILY PO 06/30/17 09:00 07/04/17 08:43 Lactated Ringer's 1,000 ml @ 30 mls/hr Q24H PRN IV 07/02/17 04:45 07/05/17 04:44 (NS 500 ml Inj) 500 ml @ 30 mls/hr [id number] PRN IV 07/02/17 04:45 07/05/17 04:44 (Eliquis) 2.5 mg BID PO 07/02/17 11:00 07/04/17 08:43 (Lopressor) 50 mg Q8HR PO 07/02/17 14:00 (Atropine Inj) 0.5 mg UNSCH PRN IV 07/02/17 08:45 (Reglan Inj) 10 mg Q4H PRN IV 07/02/17 08:45 (Zofran Inj) 4 mg Q4H PRN IV 07/02/17 08:45 (Cardizem) 60 mg Q6H PO 07/02/17 09:00 07/04/17 08:43 (NovoLIN R SUPPLEMENTAL SCALE) 1 ACHS SQ 07/03/17 16:00 07/03/17 20:51 (Aiyana-Colace) 1 tab BID PO 07/03/17 21:00 07/03/17 20:50 (Lanoxin) 0.125 mg DAILY PO 07/06/17 09:00 UNV Date of Insertion: Jun 16, 2017 Date of Insertion: Jun 16, 2017 Date of Removal: Jun 24, 2017 Line: Central Venous Catheter Side: Right Location: Internal, Jugular A/P Problem List: (1) Non-small cell carcinoma of lung ICD Code: C34.90 Status: Chronic (2) Atrial fibrillation with RVR ICD Code: I48.91 Status: Acute (3) Acute respiratory failure with hypoxia and hypercapnia ICD Code: J96.01 Status: Acute (4) Tachycardia ICD Code: R00.0 Status: Acute (5) SOB (shortness of breath) ICD Code: R06.02 Status: Acute (6) PNA (pneumonia) ICD Code: J18.9 Status: Acute (7) Coronary artery disease ICD Code: I25.10 Status: Chronic (8) Hypertension ICD Code: I10 Status: Chronic (9) Hypothyroidism ICD Code: E03.9 Status: Chronic (10) Leukocytosis ICD Code: D72.829 Status: Acute (11) Normocytic anemia ICD Code: D64.9 Status: Acute (12) Lactic acidosis ICD Code: E87.2 Status: Acute (13) On apixaban therapy ICD Code: Z79.01 Status: Acute (14) Hyponatremia ICD Code: E87.1 Status: Acute (15) Hyperkalemia ICD Code: E87.5 Status: Acute (16) Acute hyperglycemia ICD Code: R73.9 Status: Acute (17) Elevated INR ICD Code: R79.1 Status: Acute (18) Elevated partial thromboplastin time (PTT) ICD Code: R79.1 Status: Acute (19) Vitamin B12 deficiency ICD Code: E53.8 Status: Chronic (20) Anxiety disorder ICD Code: F41.9 Status: Chronic (21) Current chronic use of systemic steroids ICD Code: Z79.52 Status: Chronic (22) Elevated brain natriuretic peptide (BNP) level ICD Code: R79.89 Status: Acute (23) Right bundle branch block ICD Code: I45.10 Status: Acute (24) Elevated troponin I level ICD Code: R74.8 Status: Acute (25) Septic shock ICD Code: A41.9 Status: Acute Assessment and Plan Atrial fibrillation with RVR Appreciate cardiology recommendations. Pacemaker placed 07/02. HR still elevated. - Continue digoxin, increased to daily 07/04. Continue metoprolol and Cardizem with holding parameters. - Continue Eliquis. - telemetry. CHF/ CAD Status post CABG 4 vessels. Echocardiogram shows ejection fraction 35-40%. Currently asymptomatic. - continue medication regimen. - monitor volume status. Acute hypoxic and hypercapnic respiratory failure Patient had healthcare associated pneumonia and completed a course of antibiotics. She was intubated on 06/16/17. She was extubated and is now tolerating room air. Pulmonary consult appreciated. - Continue bronchodilators, incentive spirometry. - oxygen and BiPAP as needed. Constipation S/p enema. - continue bowel regimen. Acute metabolic encephalopathy Secondary to above. Per family, patient developed significant confusion following her time on the ventilator. - Continue PT/OT/ST. - Continue neuro checks. - frequent reorientation. Severe malnutrition Tube feeds discontinued. - Mechanical soft diet with nectar thick liquids per speech therapy. Hyperglycemia of critical illness Exacerbated by prednisone. - Monitor Accu-Cheks and cover with sliding scale insulin. Staph hominis bacteremia Likely contaminant. Other cultures are negative. - Off antibiotics currently. DVT prophylaxis: Eliquis Discharge Planning Awaiting EP eval Problem Qualifiers (1) PNA (pneumonia): Qualified Code: J18.9 - Pneumonia of left lung due to infectious organism, unspecified part of lung (2) Coronary artery disease: Qualified Code: I25.10 - Coronary artery disease involving pam[place]key coronary artery of pam[place]key heart without angina pectoris (3) Hypertension: Qualified Code: I10 - Essential hypertension (4) Hypothyroidism: Qualified Code: E03.9 - Hypothyroidism, unspecified type (5) Leukocytosis: Qualified Code: D72.829 - Leukocytosis, unspecified type (6) Anxiety disorder: Qualified Code: F41.9 - Anxiety disorder, unspecified type Nikhil Alanis DO Jul 04, 2017 09:55
--- NOTE | 2017-07-04 10:01 | PD.CARD.PN ---
Subjective Subjective Remarks No complaints, but confused, mildly rapid afib o/n Objective Medications Administered Medications Medications (Trade) Dose Ordered Sig/Amanda Route PRN Reason Start Time Stop Time Status Last Admin Dose Admin Sodium Chloride (NS Flush) 2 ml UNSCH PRN IV FLUSH FLUSH AFTER USING IV ACCESS 06/16/17 15:30 06/29/17 18:45 Sodium Chloride (NS Flush) 2 ml BID IV FLUSH 06/16/17 21:00 07/04/17 08:42 Ondansetron HCl (Zofran Inj) 4 mg Q6H PRN IV NAUSEA OR VOMITING 06/16/17 15:30 07/01/17 11:42 Miscellaneous Information 1 Q361D XX 06/16/17 15:30 06/16/17 15:30 Chlorhexidine Gluconate (Chlorhexidine 2% Cloth) Taper DAILY@04 TOP 06/17/17 04:00 06/13/18 03:59 06/27/17 04:00 Sennosides (Senokot) 17.2 mg Q12H PRN PO MODERATE - SEVERE CONSTIPATION 06/16/17 15:30 06/20/17 20:13 Bisacodyl (Dulcolax Supp) 10 mg DAILY PRN RECTAL SEVERE CONSITIPATION 06/16/17 15:30 07/03/17 11:50 Lactulose (Lactulose Liq) 30 ml DAILY PRN PO SEVERE CONSITIPATION 06/16/17 15:30 06/26/17 09:04 Cyanocobalamin (Vitamin B12) 1,000 mcg DAILY PO 06/17/17 09:00 07/04/17 08:43 Escitalopram Oxalate (Lexapro) 10 mg DAILY PO 06/17/17 09:00 07/04/17 08:43 Levothyroxine Sodium (Synthroid) 112 mcg DAILY@06 PO 06/17/17 06:00 07/04/17 05:44 Sodium Chloride (NS Flush) DAILY IVF 06/17/17 09:00 06/29/17 09:15 Levothyroxine Sodium (Synthroid) 25 mcg DAILY@06 PO 06/17/17 06:00 07/04/17 05:43 Olanzapine (ZyPREXA) 2.5 mg Q8H PRN PO agitation or delirium 06/24/17 07:30 06/26/17 20:08 Modafinil (Provigil) 100 mg DAILY PO 06/24/17 09:00 07/04/17 08:43 Metoprolol Tartrate (Lopressor Inj) 2.5 mg Q6H PRN IV PUSH HR > 130 06/26/17 11:00 06/29/17 18:44 Prednisone (Deltasone) 10 mg DAILY PO 06/29/17 09:00 07/04/17 08:43 Guaifenesin (Robitussin Liq) 400 mg BID PO 06/29/17 21:00 07/04/17 08:41 Pantoprazole Sodium (Protonix) 40 mg DAILY PO 06/30/17 09:00 07/04/17 08:43 Apixaban (Eliquis) 2.5 mg BID PO 07/02/17 11:00 07/04/17 08:43 Diltiazem HCl (Cardizem) 60 mg Q6H PO 07/02/17 09:00 07/04/17 08:43 Insulin Human Regular (NovoLIN R SUPPLEMENTAL SCALE) 1 ACHS SQ 07/03/17 16:00 07/03/17 20:51 Senna/Docusate Sodium (Aiyana-Colace) 1 tab BID PO 07/03/17 21:00 07/03/17 20:50 Vital Signs / I&O Vital Signs Date Time Temp Pulse Resp B/P Pulse Ox O2 Delivery O2 Flow Rate FiO2 07/04/17 09:00 94 07/04/17 08:00 109 07/04/17 07:00 98.0 84 22 108/60 96 07/04/17 07:00 83 07/04/17 05:00 108 07/04/17 04:00 98.0 119 22 99/60 96 07/04/17 04:00 104 07/04/17 03:00 112 07/04/17 02:00 110 07/04/17 01:00 104 07/04/17 00:00 101 07/04/17 00:00 98.1 115 16 128/66 98 07/03/17 23:00 100 07/03/17 22:02 96 07/03/17 22:00 104 07/03/17 21:00 110 07/03/17 20:00 99 07/03/17 20:00 Room Air 07/03/17 20:00 97.7 103 22 91/52 99 07/03/17 19:00 94 07/03/17 18:20 90 07/03/17 17:41 120 07/03/17 16:34 85 07/03/17 15:50 98 Room Air 07/03/17 15:50 98.7 112 18 95/64 98 07/03/17 15:50 108 07/03/17 14:03 99 07/03/17 13:08 114 07/03/17 12:21 113 07/03/17 11:51 96 Room Air 07/03/17 11:51 98.4 110 18 117/71 96 07/03/17 11:51 86 07/03/17 10:50 68 I/O 07/03/17 07/03/17 07/03/17 07/04/17 07/04/17 07/04/17 07:00 15:00 23:00 07:00 15:00 23:00 Intake Total 240 ml 450 ml 240 ml Output Total 1100 ml 500 ml 1500 ml Balance -860 ml -50 ml -1260 ml Intake Oral 240 ml 450 ml 240 ml IV Total 0 ml Output Urine Total 1100 ml 500 ml 1500 ml # Bowel Movements 1 1 1 Physical Exam GENERAL: This is a well-nourished, well-developed patient, in no apparent distress. CARDIOVASCULAR: Regular rate and irregular rhythm without murmurs, gallops, or rubs. RESPIRATORY: Clear to auscultation. Breath sounds equal bilaterally. No wheezes , rales, or rhonchi. GASTROINTESTINAL: Abdomen soft, non-tender, nondistended. Normal, active bowel sounds MUSCULOSKELETAL: Extremities without clubbing, cyanosis, or edema. NEURO: Alert & Oriented x4 to person, place, time, situation. Moves all ext x4 Laboratory Laboratory Tests Test 07/04/17 06:45 White Blood Count 11.4 TH/MM3 Red Blood Count 3.28 MIL/MM3 Hemoglobin 9.9 GM/DL Hematocrit 30.1 % Mean Corpuscular Volume 91.7 FL Mean Corpuscular Hemoglobin 30.1 PG Mean Corpuscular Hemoglobin 32.9 % Concent Red Cell Distribution Width 16.2 % Platelet Count 193 TH/MM3 Mean Platelet Volume 8.0 FL Imaging Last Impressions Chest X-Ray 07/03/17 0600 Signed Impressions: Service Date/Time: Monday, July 03, 2017 04:43 - CONCLUSION: 1. Right pneumonectomy 2. There is subsegmental atelectasis in the left base. No pleural effusions are identified. Cristobal Ramírez MD Head CT 06/18/17 0000 Signed Impressions: Service Date/Time: May 01:02 - CONCLUSION: Normal examination for a patient of this age. Chronic left maxillary sinus disease. Kvng Saldana MD Assessment and Plan Problem List: (1) Atrial fibrillation with RVR Assessment and Plan: rates a bit high, went to daily on her low dose digoxin as level was subtheraputic, may need av akin ablation Rufus Parrish MD Jul 04, 2017 10:01
--- NOTE | 2017-07-04 13:34 | HHI.PR ---
Subjective Remarks Went for Pacemaker.Off o2 .Still tachy. CXR was stable. Now on po diet and seems to be doing well. Objective Vital Signs Date Time Temp Pulse Resp B/P Pulse Ox O2 Delivery O2 Flow Rate FiO2 07/04/17 12:10 95 07/04/17 11:00 97.4 96 22 96/45 98 07/04/17 11:00 84 07/04/17 10:50 98 21 07/04/17 10:00 82 07/04/17 09:00 94 07/04/17 08:00 109 07/04/17 07:00 98.0 84 22 108/60 96 07/04/17 07:00 83 07/04/17 05:00 108 07/04/17 04:00 98.0 119 22 99/60 96 07/04/17 04:00 104 07/04/17 03:00 112 07/04/17 02:00 110 07/04/17 01:00 104 07/04/17 00:00 101 07/04/17 00:00 98.1 115 16 128/66 98 07/03/17 23:00 100 07/03/17 22:02 96 07/03/17 22:00 104 07/03/17 21:00 110 07/03/17 20:00 99 07/03/17 20:00 Room Air 07/03/17 20:00 97.7 103 22 91/52 99 07/03/17 19:00 94 07/03/17 18:20 90 07/03/17 17:41 120 07/03/17 16:34 85 07/03/17 15:50 98 Room Air 07/03/17 15:50 98.7 112 18 95/64 98 07/03/17 15:50 108 07/03/17 14:03 99 I/O 07/03/17 07/03/17 07/03/17 07/04/17 07/04/17 07/04/17 07:00 15:00 23:00 07:00 15:00 23:00 Intake Total 240 ml 450 ml 240 ml Output Total 1100 ml 500 ml 1500 ml Balance -860 ml -50 ml -1260 ml Intake Oral 240 ml 450 ml 240 ml IV Total 0 ml Output Urine Total 1100 ml 500 ml 1500 ml # Bowel Movements 1 1 1 Result Diagram: 07/04/17 0645 07/03/17 0457 Objective Remarks GENERAL: This thinly built elderly lady who is alert HEENT: Head normocephalic. Pupils are reactive. Tongue is moist. NECK: Supple. No bruits. No venous distension. Trachea midline. CHEST: Decreased breath sounds over the right lung field with no wheezes. No Crackles. HEART: The heart sounds are Irregular S1-S2 with no murmur. ABDOMEN: Soft, nontender. Bowel sounds are active. EXTREMITIES: No edema with diminished pulses. Neuro : Reflexes are 1+. The patient is alert.and Oriented. SKIN: Dry and warm. Assessment and Plan Assessment and Plan IMPRESSION 1. Acute respiratory failure.Resolved. 2. Status post right pneumonectomy. 3. History of pneumonia. 4. History of non-small cell lung CA. 5. Atrial fibrillation with rapid ventricular response. 6. Pulmonary edema. 7. Hyponatremia Plan : 1. Continue Atrovent nebs tid prn 2. Cont O2 at 1 L PRN 3. PT and OT 4. Soft diet 5.Aspiration precaution 6. Cont Anticoagulation. 7. Cont Prednisone 10 mg daily 8. CXR in am. 9. IS and Acapella q3h 10.D/C Mucinex . Corey Epps MD Jul 04, 2017 13:33
[2017-07-05] VITALS (33 sets, daily range): BP systolic 81–140; BP diastolic 47–84; PULSE 61–118; RESP 15–19; TEMP 97.4–98.5; O2SAT 95–99
[2017-07-05] MEDS: CHLORHEXIDINE GLUCONATE 2 % 1 PACK (2 CLOTHS) TOP SCH (04:00)
[2017-07-05] MEDS: DILTIAZEM HCL 60 MG TAB PO SCH ×4 (04:29→21:40)
[2017-07-05] MEDS: LEVOTHYROXINE SODIUM 25 MCG TAB PO SCH (05:56)
[2017-07-05] MEDS: LEVOTHYROXINE SODIUM 112 MCG TAB PO SCH (05:56)
[2017-07-05] MEDS: METOPROLOL TARTRATE 50 MG TAB PO SCH ×2 (06:00→14:47)
[2017-07-05] MEDS: PANTOPRAZOLE SOD 40 MG DELAYED RELEASE TAB PO SCH (09:42)
[2017-07-05] MEDS: CYANOCOBALAMIN 1,000 MCG TAB PO SCH (09:43)
[2017-07-05] MEDS: predniSONE 10 MG TAB PO SCH (09:43)
[2017-07-05] MEDS: APIXABAN 2.5 MG TABLET PO SCH ×2 (09:43→21:40)
[2017-07-05] MEDS: DOCUSATE SODIUM 50 MG/SENNA 8.6 MG TAB PO SCH ×2 (09:43→21:40)
[2017-07-05] MEDS: MODAFINIL 200 MG TAB PO SCH (09:43)
[2017-07-05] MEDS: ESCITALOPRAM OXALATE 10 MG TAB PO SCH (09:43)
[2017-07-05] MEDS: SODIUM CHLORIDE 0.9% FLUSH 10 ML FLUSH IVF SCH (09:44)
[2017-07-05] MEDS: SODIUM CHLORIDE 0.9% FLUSH 10 ML FLUSH IV FLUSH SCH ×2 (09:44→21:46)
[2017-07-05] MEDS: RESP: IPRATROPIUM 0.5 MG/2.5 ML NEB NEB SCH ×3 (10:59→21:57)
[2017-07-05] MEDS: INSULIN NovoLIN REGULAR SUPPLEMENTAL SCALE SQ SCH ×3 (11:00→21:42)
--- NOTE | 2017-07-05 11:04 | PD.CARD.PN ---
Subjective Subjective Remarks No complaints, good rates Objective Medications Administered Medications Medications (Trade) Dose Ordered Sig/Amanda Route PRN Reason Start Time Stop Time Status Last Admin Dose Admin Sodium Chloride (NS Flush) 2 ml UNSCH PRN IV FLUSH FLUSH AFTER USING IV ACCESS 06/16/17 15:30 06/29/17 18:45 Sodium Chloride (NS Flush) 2 ml BID IV FLUSH 06/16/17 21:00 07/05/17 09:44 Ondansetron HCl (Zofran Inj) 4 mg Q6H PRN IV NAUSEA OR VOMITING 06/16/17 15:30 07/01/17 11:42 Miscellaneous Information 1 Q361D XX 06/16/17 15:30 06/16/17 15:30 Chlorhexidine Gluconate (Chlorhexidine 2% Cloth) Taper DAILY@04 TOP 06/17/17 04:00 06/13/18 03:59 06/27/17 04:00 Sennosides (Senokot) 17.2 mg Q12H PRN PO MODERATE - SEVERE CONSTIPATION 06/16/17 15:30 06/20/17 20:13 Bisacodyl (Dulcolax Supp) 10 mg DAILY PRN RECTAL SEVERE CONSITIPATION 06/16/17 15:30 07/03/17 11:50 Lactulose (Lactulose Liq) 30 ml DAILY PRN PO SEVERE CONSITIPATION 06/16/17 15:30 06/26/17 09:04 Cyanocobalamin (Vitamin B12) 1,000 mcg DAILY PO 06/17/17 09:00 07/05/17 09:43 Escitalopram Oxalate (Lexapro) 10 mg DAILY PO 06/17/17 09:00 07/05/17 09:43 Levothyroxine Sodium (Synthroid) 112 mcg DAILY@06 PO 06/17/17 06:00 07/05/17 05:56 Sodium Chloride (NS Flush) DAILY IVF 06/17/17 09:00 07/05/17 09:44 Levothyroxine Sodium (Synthroid) 25 mcg DAILY@06 PO 06/17/17 06:00 07/05/17 05:56 Olanzapine (ZyPREXA) 2.5 mg Q8H PRN PO agitation or delirium 06/24/17 07:30 06/26/17 20:08 Modafinil (Provigil) 100 mg DAILY PO 06/24/17 09:00 07/05/17 09:43 Metoprolol Tartrate (Lopressor Inj) 2.5 mg Q6H PRN IV PUSH HR > 130 06/26/17 11:00 06/29/17 18:44 Prednisone (Deltasone) 10 mg DAILY PO 06/29/17 09:00 07/05/17 09:43 Pantoprazole Sodium (Protonix) 40 mg DAILY PO 06/30/17 09:00 07/05/17 09:42 Apixaban (Eliquis) 2.5 mg BID PO 07/02/17 11:00 07/05/17 09:43 Metoprolol Tartrate (Lopressor) 50 mg Q8HR PO 07/02/17 14:00 07/04/17 22:00 Diltiazem HCl (Cardizem) 60 mg Q6H PO 07/02/17 09:00 07/05/17 04:29 Insulin Human Regular (NovoLIN R SUPPLEMENTAL SCALE) 1 ACHS SQ 07/03/17 16:00 07/04/17 20:53 Senna/Docusate Sodium (Aiyana-Colace) 1 tab BID PO 07/03/17 21:00 07/05/17 09:43 Vital Signs / I&O Vital Signs Date Time Temp Pulse Resp B/P Pulse Ox O2 Delivery O2 Flow Rate FiO2 07/05/17 09:41 97/48 07/05/17 07:30 97.4 71 15 104/58 98 07/05/17 06:04 61 114/58 07/05/17 06:00 61 07/05/17 05:00 73 07/05/17 04:04 95 21 07/05/17 04:00 98.2 83 18 140/60 98 07/05/17 04:00 97 07/05/17 03:00 97 07/05/17 02:00 69 07/05/17 01:00 81 07/05/17 00:00 118 07/05/17 00:00 98.5 118 16 133/84 99 07/04/17 23:00 108 07/04/17 22:00 106 07/04/17 21:00 98 07/04/17 20:28 98 07/04/17 20:00 100 07/04/17 20:00 97.8 100 16 126/68 96 07/04/17 18:07 110 07/04/17 17:00 127 07/04/17 16:02 115 07/04/17 15:09 97.5 113 21 126/74 99 07/04/17 15:09 119 07/04/17 14:25 98/60 07/04/17 14:13 103 07/04/17 13:00 92 07/04/17 12:10 95 I/O 07/04/17 07/04/17 07/04/17 07/05/17 07/05/17 07/05/17 07:00 15:00 23:00 07:00 15:00 23:00 Intake Total 240 ml 240 ml 240 ml Output Total 1500 ml 450 ml 750 ml Balance -1260 ml -210 ml -510 ml Intake Oral 240 ml 240 ml 240 ml IV Total 0 ml Output Urine Total 1500 ml 450 ml 750 ml # Bowel Movements 1 2 Physical Exam GENERAL: This is a well-nourished, well-developed patient, in no apparent distress. CARDIOVASCULAR: Regular rate and irregular rhythm without murmurs, gallops, or rubs. RESPIRATORY: Clear to auscultation. Breath sounds equal bilaterally. No wheezes , rales, or rhonchi. GASTROINTESTINAL: Abdomen soft, non-tender, nondistended. Normal, active bowel sounds MUSCULOSKELETAL: Extremities without clubbing, cyanosis, or edema. NEURO: Alert & Oriented x4 to person, place, time, situation. Moves all ext x4 Imaging Last Impressions Chest X-Ray 07/03/17 0600 Signed Impressions: Service Date/Time: Monday, July 03, 2017 04:43 - CONCLUSION: 1. Right pneumonectomy 2. There is subsegmental atelectasis in the left base. No pleural effusions are identified. Cristobal Ramírez MD Head CT 06/18/17 0000 Signed Impressions: Service Date/Time: May 01:02 - CONCLUSION: Normal examination for a patient of this age. Chronic left maxillary sinus disease. Kvng Saldana MD Assessment and Plan Problem List: (1) Atrial fibrillation with RVR Assessment and Plan: difficult rate control given low bp's, may need av akin ablation Assessment and Plan Dr. Becker will resume care tomorrow. Rufus Parrish MD Jul 05, 2017 11:04
--- NOTE | 2017-07-05 14:06 | HHI.PR ---
Subjective Remarks Had a Low BP today . Off Lopressor.Off o2 .Still tachy. Good output. CXR was stable. Now on po diet and seems to be doing well. Objective Vital Signs Date Time Temp Pulse Resp B/P Pulse Ox O2 Delivery O2 Flow Rate FiO2 07/05/17 10:59 97 21 07/05/17 09:41 97/48 07/05/17 07:30 97.4 71 15 104/58 98 07/05/17 06:04 61 114/58 07/05/17 06:00 61 07/05/17 05:00 73 07/05/17 04:04 95 21 07/05/17 04:00 98.2 83 18 140/60 98 07/05/17 04:00 97 07/05/17 03:00 97 07/05/17 02:00 69 07/05/17 01:00 81 07/05/17 00:00 118 07/05/17 00:00 98.5 118 16 133/84 99 07/04/17 23:00 108 07/04/17 22:00 106 07/04/17 21:00 98 07/04/17 20:28 98 07/04/17 20:00 100 07/04/17 20:00 97.8 100 16 126/68 96 07/04/17 18:07 110 07/04/17 17:00 127 07/04/17 16:02 115 07/04/17 15:09 97.5 113 21 126/74 99 07/04/17 15:09 119 07/04/17 14:25 98/60 07/04/17 14:13 103 I/O 07/04/17 07/04/17 07/04/17 07/05/17 07/05/17 07/05/17 07:00 15:00 23:00 07:00 15:00 23:00 Intake Total 240 ml 240 ml 240 ml Output Total 1500 ml 450 ml 750 ml Balance -1260 ml -210 ml -510 ml Intake Oral 240 ml 240 ml 240 ml IV Total 0 ml Output Urine Total 1500 ml 450 ml 750 ml # Bowel Movements 1 2 Result Diagram: 07/04/17 0645 07/03/17 0457 Objective Remarks GENERAL: This thinly built elderly lady who is alert HEENT: Head normocephalic. Pupils are reactive. Tongue is moist. NECK: Supple. No bruits. No venous distension. Trachea midline. CHEST: Decreased breath sounds over the right lung field with no wheezes.Occ Crackles. HEART: The heart sounds are Irregular S1-S2 with no murmur. ABDOMEN: Soft, nontender. Bowel sounds are active. EXTREMITIES: No edema with diminished pulses. Neuro : Reflexes are 1+. The patient is alert.and Oriented. SKIN: Dry and warm. Assessment and Plan Assessment and Plan IMPRESSION 1. Acute respiratory failure.Resolved. 2. Status post right pneumonectomy. 3. History of pneumonia. 4. History of non-small cell lung CA. 5. Atrial fibrillation with rapid ventricular response. 6. Pulmonary edema. 7. Hyponatremia Plan : 1.D/C Atrovent nebs 2. D/C O2 3. PT and OT 4. Soft diet 5.Aspiration precaution 6. Cont Anticoagulation. 7. Taper Prednisone 5 mg daily 8. CBC,BMP in am. 9. IS and Acapella q3h Corey Epps MD Jul 05, 2017 14:06
--- NOTE | 2017-07-05 15:47 | HHI.PR ---
Subjective Remarks The patient was sitting up in a chair. Her family was at the bedside. The patient had no acute complaints. Her family was concerned that she wasn't working with physical therapy regularly enough. Discussed with nursing, who were concerned with bruising and hardness along the patient's right groin. The patient denied any pain at the site. Objective Vitals Vital Signs Date Time Temp Pulse Resp B/P Pulse Ox O2 Delivery O2 Flow Rate FiO2 07/05/17 14:12 98/58 07/05/17 14:00 108 07/05/17 13:00 112 07/05/17 12:00 92 07/05/17 11:00 87 07/05/17 11:00 97.4 96 19 102/60 98 07/05/17 10:59 97 21 07/05/17 10:00 80 07/05/17 09:41 97/48 07/05/17 09:00 74 07/05/17 08:00 68 07/05/17 07:30 97.4 71 15 104/58 98 07/05/17 07:00 62 07/05/17 06:04 61 114/58 07/05/17 06:00 61 07/05/17 05:00 73 07/05/17 04:04 95 21 07/05/17 04:00 98.2 83 18 140/60 98 07/05/17 04:00 97 07/05/17 03:00 97 07/05/17 02:00 69 07/05/17 01:00 81 07/05/17 00:00 118 07/05/17 00:00 98.5 118 16 133/84 99 07/04/17 23:00 108 07/04/17 22:00 106 07/04/17 21:00 98 07/04/17 20:28 98 07/04/17 20:00 100 07/04/17 20:00 97.8 100 16 126/68 96 07/04/17 18:07 110 07/04/17 17:00 127 07/04/17 16:02 115 I/O 07/04/17 07/04/17 07/04/17 07/05/17 07/05/17 07/05/17 06:59 14:59 22:59 06:59 14:59 22:59 Intake Total 240 ml 240 ml 240 ml Output Total 1500 ml 450 ml 750 ml Balance -1260 ml -210 ml -510 ml Intake Oral 240 ml 240 ml 240 ml IV Total 0 ml Output Urine Total 1500 ml 450 ml 750 ml # Bowel Movements 1 2 Result Diagram: 07/04/17 0645 07/03/17 0457 Imaging Last Impressions Chest X-Ray 07/03/17 0600 Signed Impressions: Service Date/Time: Monday, July 03, 2017 04:43 - CONCLUSION: 1. Right pneumonectomy 2. There is subsegmental atelectasis in the left base. No pleural effusions are identified. Cristobal Ramírez MD Head CT 06/18/17 0000 Signed Impressions: Service Date/Time: May 01:02 - CONCLUSION: Normal examination for a patient of this age. Chronic left maxillary sinus disease. Kvng Saldana MD Objective Remarks GENERAL: Patient sitting up in bed. Appears comfortable. SKIN: Warm and dry. Hematoma along the right groin, induration noted, nontender. HEAD: Normocephalic. EYES: No scleral icterus. No injection or drainage. NECK: Supple, trachea midline. No JVD or lymphadenopathy. CARDIOVASCULAR: Tachycardic, irregularly irregular. RESPIRATORY: Breath sounds equal bilaterally. No accessory muscle use. GASTROINTESTINAL: Abdomen soft, non-tender, nondistended. MUSCULOSKELETAL: No cyanosis, or edema. BACK: Nontender without obvious deformity. No CVA tenderness. NEURO: Mild confusion. PSYCH: Mood and affect appropriate. Procedures 06/16/17 intubation 06/16/17 central line placement Medications and IVs Current Medications Medications (Trade) Dose Ordered Sig/Amanda Route Start Time Stop Time Status Last Admin (NS Flush) 2 ml UNSCH PRN IV FLUSH 06/16/17 15:30 06/29/17 18:45 (NS Flush) 2 ml BID IV FLUSH 06/16/17 21:00 07/05/17 09:44 (Tylenol) 650 mg Q6H PRN PO 06/16/17 15:30 (Zofran Inj) 4 mg Q6H PRN IV 06/16/17 15:30 07/01/17 11:42 Miscellaneous Information 1 Q361D XX 06/16/17 15:30 06/16/17 15:30 (Chlorhexidine 2% Cloth) Taper DAILY@04 TOP 06/17/17 04:00 06/13/18 03:59 06/27/17 04:00 (Chlorhexidine 2% Cloth) 3 pack UNSCH PRN TOP 06/16/17 15:30 (Milk Of Magnesia Liq) 30 ml Q12H PRN PO 06/16/17 15:30 (Senokot) 17.2 mg Q12H PRN PO 06/16/17 15:30 06/20/17 20:13 (Dulcolax Supp) 10 mg DAILY PRN RECTAL 06/16/17 15:30 07/03/17 11:50 (Lactulose Liq) 30 ml DAILY PRN PO 06/16/17 15:30 06/26/17 09:04 (Vitamin B12) 1,000 mcg DAILY PO 06/17/17 09:00 07/05/17 09:43 (Lexapro) 10 mg DAILY PO 06/17/17 09:00 07/05/17 09:43 (Synthroid) 112 mcg DAILY@06 PO 06/17/17 06:00 07/05/17 05:56 (NS Flush) DAILY IVF 06/17/17 09:00 07/05/17 09:44 (NS Flush) UNSCH PRN IVF 06/16/17 16:00 (Synthroid) 25 mcg DAILY@06 PO 06/17/17 06:00 07/05/17 05:56 (D50w (Vial) Inj) 50 ml UNSCH PRN IV 06/20/17 17:00 (Glucagon Inj) 1 mg UNSCH PRN OTHER 06/20/17 17:00 (ZyPREXA) 2.5 mg Q8H PRN PO 06/24/17 07:30 06/26/17 20:08 (Provigil) 100 mg DAILY PO 06/24/17 09:00 07/05/17 09:43 (Lopressor Inj) 2.5 mg Q6H PRN IV PUSH 06/26/17 11:00 06/29/17 18:44 (Protonix) 40 mg DAILY PO 06/30/17 09:00 07/05/17 09:42 (Eliquis) 2.5 mg BID PO 07/02/17 11:00 07/05/17 09:43 (Lopressor) 50 mg Q8HR PO 07/02/17 14:00 07/05/17 14:47 (Atropine Inj) 0.5 mg UNSCH PRN IV 07/02/17 08:45 (Reglan Inj) 10 mg Q4H PRN IV 07/02/17 08:45 (Zofran Inj) 4 mg Q4H PRN IV 07/02/17 08:45 (Cardizem) 60 mg Q6H PO 07/02/17 09:00 07/05/17 04:29 (NovoLIN R SUPPLEMENTAL SCALE) 1 ACHS SQ 07/03/17 16:00 07/05/17 11:00 (Aiyana-Colace) 1 tab BID PO 07/03/17 21:00 07/05/17 09:43 (Lanoxin) 0.125 mg DAILY PO 07/06/17 09:00 (Deltasone) 5 mg DAILY PO 07/06/17 09:00 07/09/17 08:59 Date of Insertion: Jun 16, 2017 Date of Insertion: Jun 16, 2017 Date of Removal: Jun 24, 2017 Line: Central Venous Catheter Side: Right Location: Internal, Jugular A/P Problem List: (1) Non-small cell carcinoma of lung ICD Code: C34.90 Status: Chronic (2) Atrial fibrillation with RVR ICD Code: I48.91 Status: Acute (3) Acute respiratory failure with hypoxia and hypercapnia ICD Code: J96.01 Status: Acute (4) Tachycardia ICD Code: R00.0 Status: Acute (5) SOB (shortness of breath) ICD Code: R06.02 Status: Acute (6) PNA (pneumonia) ICD Code: J18.9 Status: Acute (7) Coronary artery disease ICD Code: I25.10 Status: Chronic (8) Hypertension ICD Code: I10 Status: Chronic (9) Hypothyroidism ICD Code: E03.9 Status: Chronic (10) Leukocytosis ICD Code: D72.829 Status: Acute (11) Normocytic anemia ICD Code: D64.9 Status: Acute (12) Lactic acidosis ICD Code: E87.2 Status: Acute (13) On apixaban therapy ICD Code: Z79.01 Status: Acute (14) Hyponatremia ICD Code: E87.1 Status: Acute (15) Hyperkalemia ICD Code: E87.5 Status: Acute (16) Acute hyperglycemia ICD Code: R73.9 Status: Acute (17) Elevated INR ICD Code: R79.1 Status: Acute (18) Elevated partial thromboplastin time (PTT) ICD Code: R79.1 Status: Acute (19) Vitamin B12 deficiency ICD Code: E53.8 Status: Chronic (20) Anxiety disorder ICD Code: F41.9 Status: Chronic (21) Current chronic use of systemic steroids ICD Code: Z79.52 Status: Chronic (22) Elevated brain natriuretic peptide (BNP) level ICD Code: R79.89 Status: Acute (23) Right bundle branch block ICD Code: I45.10 Status: Acute (24) Elevated troponin I level ICD Code: R74.8 Status: Acute (25) Septic shock ICD Code: A41.9 Status: Acute Assessment and Plan Atrial fibrillation with RVR Appreciate cardiology recommendations. Pacemaker placed 07/02. HR still elevated. - Continue digoxin, increased to daily 07/04. Continue metoprolol and Cardizem with holding parameters. - Continue Eliquis. - telemetry. Hematoma Along right groin. Nontender to palpation. - Ultrasound pending. - Check a CBC. - Hold anticoagulation if indicated. Would defer to cardiology. Hypertension Exacerbated by multiple rate control medications. - Bolus with normal saline if needed. - Holding parameters for blood pressure medications. CHF/ CAD Status post CABG 4 vessels. Echocardiogram shows ejection fraction 35-40%. Currently asymptomatic. - continue medication regimen. - monitor volume status. Acute hypoxic and hypercapnic respiratory failure Patient had healthcare associated pneumonia and completed a course of antibiotics. She was intubated on 06/16/17. She was extubated and is now tolerating room air. Pulmonary consult appreciated. - Continue bronchodilators, incentive spirometry. - oxygen and BiPAP as needed. - Follow up with pulmonology. Constipation S/p enema. - continue bowel regimen. Acute metabolic encephalopathy Secondary to above. Per family, patient developed significant confusion following her time on the ventilator. - Continue PT/OT/ST. - Continue neuro checks. - frequent reorientation. Severe malnutrition Tube feeds discontinued. - Mechanical soft diet with nectar thick liquids per speech therapy. Hyperglycemia of critical illness Exacerbated by prednisone. - Monitor Accu-Cheks and cover with sliding scale insulin. Staph hominis bacteremia Likely contaminant. Other cultures are negative. - Off antibiotics currently. DVT prophylaxis: Eliquis Discharge Planning Awaiting clinical improvement Problem Qualifiers (1) PNA (pneumonia): Qualified Code: J18.9 - Pneumonia of left lung due to infectious organism, unspecified part of lung (2) Coronary artery disease: Qualified Code: I25.10 - Coronary artery disease involving [place] coronary artery of [place] heart without angina pectoris (3) Hypertension: Qualified Code: I10 - Essential hypertension (4) Hypothyroidism: Qualified Code: E03.9 - Hypothyroidism, unspecified type (5) Leukocytosis: Qualified Code: D72.829 - Leukocytosis, unspecified type (6) Anxiety disorder: Qualified Code: F41.9 - Anxiety disorder, unspecified type Nikhil Alanis DO Jul 05, 2017 15:47
--- NOTE | 2017-07-05 16:30 | RADRPT ---
EXAM DATE/TIME: 07/05/2017 15:39 [facility] COMPARISON: No previous studies available for comparison. INDICATIONS : Hematoma. MEDICAL HISTORY : Hypertension. Dizziness. Myocardial infarction. Hyperlipidemia. Prolapsed bladder. Hiatal hernia SURGICAL HISTORY : Pacemaker. section. Quad bi-pass. Hernia repair. ENCOUNTER: Initial ACUITY: 3 days PAIN SCORE: 5/10 LOCATION: Right thigh. AREA EVALUATED: Upper right thigh. FINDINGS: Ultrasound findings are most characteristic of a 7.1 x 8.5 x 3.1 cm hematoma in the right thigh near the groin. No internal flow to suggest pseudoaneurysm. Pulsatile flow seen in the right common femora l artery. Also flow present in the right common femoral vein. CONCLUSION: 1. 7.1 x 8.5 x 3.1 cm hematoma in the right thigh near the groin. No evidence for pseudoaneurysm. Chavez Sr MD on July 05, 2017 at 16:26 Board Certified Radiologist. This report was verified electronically.
[2017-07-05 17:31] LABS: HEMATOCRIT 28.4 % (35.0-46.0); MEAN CELL VOLUME 91.6 FL (80.0-100.0); MEAN CORPUSCULAR HEMOGLOBIN 31.1 PG (27.0-34.0); PLATELET COUNT 224 TH/MM3 (150-450); RED CELL DISTRIBUTION WIDTH 16.4 % (11.6-17.2); REVIEW FLAG FINAL; WHITE BLOOD COUNT 10.5 TH/MM3 (4.0-11.0)
[2017-07-06] VITALS (26 sets, daily range): BP systolic 91–120; BP diastolic 44–66; PULSE 53–110; RESP 16–22; TEMP 97.9–98.5; O2SAT 97–100
[2017-07-06] MEDS: METOPROLOL TARTRATE 50 MG TAB PO SCH ×4 (00:46→21:52)
[2017-07-06] MEDS: DILTIAZEM HCL 60 MG TAB PO SCH ×4 (03:56→21:52)
[2017-07-06] MEDS: RESP: IPRATROPIUM 0.5 MG/2.5 ML NEB NEB SCH ×4 (04:00→22:35)
[2017-07-06] MEDS: CHLORHEXIDINE GLUCONATE 2 % 1 PACK (2 CLOTHS) TOP SCH (04:00)
[2017-07-06] MEDS: LEVOTHYROXINE SODIUM 25 MCG TAB PO SCH (05:55)
[2017-07-06] MEDS: LEVOTHYROXINE SODIUM 112 MCG TAB PO SCH (05:56)
[2017-07-06 06:59] LABS: HEMATOCRIT 27.4 % (35.0-46.0); MEAN CELL VOLUME 90.7 FL (80.0-100.0); MEAN CORPUSCULAR HEMOGLOBIN 31.2 PG (27.0-34.0); MEAN CORPUSCULAR HGB CONC 34.4 % (32.0-36.0); PLATELET COUNT 227 TH/MM3 (150-450); RED BLOOD COUNT 3.03 MIL/MM3 (4.00-5.30); RED CELL DISTRIBUTION WIDTH 16.3 % (11.6-17.2); REVIEW FLAG FINAL; WHITE BLOOD COUNT 8.8 TH/MM3 (4.0-11.0)
[2017-07-06] MEDS: INSULIN NovoLIN REGULAR SUPPLEMENTAL SCALE SQ SCH ×4 (07:00→21:00)
[2017-07-06 07:17] LABS: BICARBONATE 31.5 MEQ/L (21.0-32.0); POTASSIUM 3.8 MEQ/L (3.5-5.1)
[2017-07-06] MEDS: SODIUM CHLORIDE 0.9% FLUSH 10 ML FLUSH IVF SCH (09:00)
[2017-07-06] MEDS: SODIUM CHLORIDE 0.9% FLUSH 10 ML FLUSH IV FLUSH SCH ×2 (09:05→21:52)
[2017-07-06] MEDS: predniSONE 10 MG TAB PO SCH (09:08)
[2017-07-06] MEDS: ESCITALOPRAM OXALATE 10 MG TAB PO SCH (09:08)
[2017-07-06] MEDS: DOCUSATE SODIUM 50 MG/SENNA 8.6 MG TAB PO SCH ×2 (09:08→21:52)
[2017-07-06] MEDS: MODAFINIL 200 MG TAB PO SCH (09:08)
[2017-07-06] MEDS: APIXABAN 2.5 MG TABLET PO SCH ×2 (09:08→21:52)
[2017-07-06] MEDS: DIGOXIN 0.125 MG TAB PO SCH (09:08)
[2017-07-06] MEDS: PANTOPRAZOLE SOD 40 MG DELAYED RELEASE TAB PO SCH (09:08)
[2017-07-06] MEDS: CYANOCOBALAMIN 1,000 MCG TAB PO SCH (09:09)
--- NOTE | 2017-07-06 11:59 | HHI.PR ---
Subjective Remarks Walking to day Objective Vital Signs Date Time Temp Pulse Resp B/P Pulse Ox O2 Delivery O2 Flow Rate FiO2 07/06/17 10:27 98 21 07/06/17 09:00 66 07/06/17 08:04 65 07/06/17 07:49 98.1 65 18 106/52 99 07/06/17 07:00 60 07/06/17 06:00 68 07/06/17 05:00 53 07/06/17 04:00 97.9 70 16 114/54 98 07/06/17 04:00 70 07/06/17 03:00 73 07/06/17 02:00 79 07/06/17 01:00 83 07/06/17 00:00 76 07/06/17 00:00 98.2 63 16 105/63 99 07/05/17 23:00 107 07/05/17 22:00 97 07/05/17 21:57 97 21 07/05/17 21:00 95 07/05/17 20:00 97 07/05/17 20:00 98.4 91 16 114/50 99 07/05/17 19:00 91 07/05/17 18:00 98 07/05/17 18:00 121/64 07/05/17 17:00 80 07/05/17 16:13 106/50 07/05/17 16:00 74 07/05/17 15:25 97.7 86 16 81/47 96 07/05/17 15:00 74 07/05/17 14:12 98/58 07/05/17 14:00 108 07/05/17 13:00 112 07/05/17 12:00 92 I/O 07/05/17 07/05/17 07/05/17 07/06/17 07/06/17 07/06/17 06:59 14:59 22:59 06:59 14:59 22:59 Intake Total 240 ml 500 ml 320 ml Output Total 750 ml 525 ml 800 ml Balance -510 ml -25 ml -480 ml Intake Oral 240 ml 500 ml 320 ml Output Urine Total 750 ml 525 ml 800 ml Result Diagram: 07/06/1761707/06/17617 Imaging Alert, fully oriented Lungs: ventilated Heart: S1, S2 regular, no gallop Abdomen: soft, no mass Ext: no edema Last Impressions Lower Extremity Ultrasound 07/05/17 0000 Signed Impressions: Service Date/Time: Wednesday, July 05, 2017 15:39 - CONCLUSION: 1. 7.1 x 8.5 x 3.1 cm hematoma in the right thigh near the groin. No evidence for pseudoaneurysm. Chavez Sr MD Chest X-Ray 07/03/17 0600 Signed Impressions: Service Date/Time: Monday, July 03, 2017 04:43 - CONCLUSION: 1. Right pneumonectomy 2. There is subsegmental atelectasis in the left base. No pleural effusions are identified. Cristobal Ramírez MD Head CT 06/18/17 0000 Signed Impressions: Service Date/Time: May 01:02 - CONCLUSION: Normal examination for a patient of this age. Chronic left maxillary sinus disease. Kvng Saldana MD Current Medications Medications (Trade) Dose Ordered Sig/Amanda Route Start Time Stop Time Status Last Admin (NS Flush) 2 ml UNSCH PRN IV FLUSH 06/16/17 15:30 06/29/17 18:45 (NS Flush) 2 ml BID IV FLUSH 06/16/17 21:00 07/06/17 09:05 (Tylenol) 650 mg Q6H PRN PO 06/16/17 15:30 (Zofran Inj) 4 mg Q6H PRN IV 06/16/17 15:30 07/01/17 11:42 Miscellaneous Information 1 Q361D XX 06/16/17 15:30 06/16/17 15:30 (Chlorhexidine 2% Cloth) 3 pack Taper DAILY@04 TOP 06/17/17 04:00 06/13/18 03:59 06/27/17 04:00 (Chlorhexidine 2% Cloth) 3 pack UNSCH PRN TOP 06/16/17 15:30 (Milk Of Magnesia Liq) 30 ml Q12H PRN PO 06/16/17 15:30 (Senokot) 17.2 mg Q12H PRN PO 06/16/17 15:30 06/20/17 20:13 (Dulcolax Supp) 10 mg DAILY PRN RECTAL 06/16/17 15:30 07/03/17 11:50 (Lactulose Liq) 30 ml DAILY PRN PO 06/16/17 15:30 06/26/17 09:04 (Vitamin B12) 1,000 mcg DAILY PO 06/17/17 09:00 07/06/17 09:09 (Lexapro) 10 mg DAILY PO 06/17/17 09:00 07/06/17 09:08 (Synthroid) 112 mcg DAILY@06 PO 06/17/17 06:00 07/06/17 05:56 (NS Flush) DAILY IVF 06/17/17 09:00 07/05/17 09:44 (NS Flush) UNSCH PRN IVF 06/16/17 16:00 (Synthroid) 25 mcg DAILY@06 PO 06/17/17 06:00 07/06/17 05:55 (D50w (Vial) Inj) 50 ml UNSCH PRN IV 06/20/17 17:00 (Glucagon Inj) 1 mg UNSCH PRN OTHER 06/20/17 17:00 (ZyPREXA) 2.5 mg Q8H PRN PO 06/24/17 07:30 06/26/17 20:08 (Provigil) 100 mg DAILY PO 06/24/17 09:00 07/06/17 09:08 (Lopressor Inj) 2.5 mg Q6H PRN IV PUSH 06/26/17 11:00 06/29/17 18:44 (Protonix) 40 mg DAILY PO 06/30/17 09:00 07/06/17 09:08 (Eliquis) 2.5 mg BID PO 07/02/17 11:00 07/06/17 09:08 (Lopressor) 50 mg Q8HR PO 07/02/17 14:00 07/06/17 05:55 (Atropine Inj) 0.5 mg UNSCH PRN IV 07/02/17 08:45 (Reglan Inj) 10 mg Q4H PRN IV 07/02/17 08:45 (Zofran Inj) 4 mg Q4H PRN IV 07/02/17 08:45 (Cardizem) 60 mg Q6H PO 07/02/17 09:00 07/06/17 09:06 (NovoLIN R SUPPLEMENTAL SCALE) 1 ACHS SQ 07/03/17 16:00 07/05/17 21:42 (Aiyana-Colace) 1 tab BID PO 07/03/17 21:00 07/06/17 09:08 (Lanoxin) 0.125 mg DAILY PO 07/06/17 09:00 07/06/17 09:08 (Deltasone) 5 mg DAILY PO 07/06/17 09:00 07/09/17 08:59 07/06/17 09:08 Assessment and Plan Problem List: (1) Atrial fibrillation Status: Acute Plan: In afib. HR control V pacing. Ambulating. Doing better Case discussed with and daughter. Will be observed. If HR continue top be controlled in AM, patient can be DH. If note I will proceed with AV node ablation. (2) Tachycardia Status: Acute Plan: HR control. Feeling better (3) SOB (shortness of breath) Status: Acute Plan: Improving Tanesha Becker MD Jul 06, 2017 11:58
--- NOTE | 2017-07-06 12:34 | HHI.PR ---
Subjective Remarks Better BP today .Off o2 . Good output. CXR was stable.HR is 70. Walked with help. Will stay another day. Objective Vital Signs Date Time Temp Pulse Resp B/P Pulse Ox O2 Delivery O2 Flow Rate FiO2 07/06/17 12:00 68 07/06/17 11:00 98.0 62 20 93/49 97 07/06/17 11:00 62 07/06/17 10:27 98 21 07/06/17 10:00 64 07/06/17 09:00 66 07/06/17 08:04 65 07/06/17 07:49 98.1 65 18 106/52 99 07/06/17 07:00 60 07/06/17 06:00 68 07/06/17 05:00 53 07/06/17 04:00 97.9 70 16 114/54 98 07/06/17 04:00 70 07/06/17 03:00 73 07/06/17 02:00 79 07/06/17 01:00 83 07/06/17 00:00 76 07/06/17 00:00 98.2 63 16 105/63 99 07/05/17 23:00 107 07/05/17 22:00 97 07/05/17 21:57 97 21 07/05/17 21:00 95 07/05/17 20:00 97 07/05/17 20:00 98.4 91 16 114/50 99 07/05/17 19:00 91 07/05/17 18:00 98 07/05/17 18:00 121/64 07/05/17 17:00 80 07/05/17 16:13 106/50 07/05/17 16:00 74 07/05/17 15:25 97.7 86 16 81/47 96 07/05/17 15:00 74 07/05/17 14:12 98/58 07/05/17 14:00 108 07/05/17 13:00 112 I/O 07/05/17 07/05/17 07/05/17 07/06/17 07/06/17 07/06/17 07:00 15:00 23:00 07:00 15:00 23:00 Intake Total 240 ml 500 ml 320 ml Output Total 750 ml 525 ml 800 ml Balance -510 ml -25 ml -480 ml Intake Oral 240 ml 500 ml 320 ml Output Urine Total 750 ml 525 ml 800 ml Result Diagram: 07/06/1761707/06/17617 Objective Remarks GENERAL: This thinly built elderly lady who is alert HEENT: Head normocephalic. Pupils are reactive. Tongue is moist. NECK: Supple. No bruits. No venous distension. Trachea midline. CHEST: Decreased breath sounds over the right lung field with no wheezes. HEART: The heart sounds are Irregular S1-S2 with no murmur. ABDOMEN: Soft, nontender. Bowel sounds are active. EXTREMITIES: No edema with diminished pulses. Neuro : Reflexes are 1+. The patient is alert.and Oriented. SKIN: Dry and warm. Assessment and Plan Assessment and Plan IMPRESSION 1. Acute respiratory failure.Resolved. 2. Status post right pneumonectomy. 3. History of pneumonia. 4. History of non-small cell lung CA. 5. Atrial fibrillation with rapid ventricular response.Resolved 6. Pulmonary edema. 7. Hyponatremia Plan : 1. Ambulate with help 2. D/C O2 3. PT and OT 4. Soft diet 5. Aspiration precaution 6. Cont Anticoagulation. 7. Prednisone 5 mg daily 8. Home in am if stable. 9. IS q3h, Bedside. Corey Epps MD Jul 06, 2017 12:34
--- NOTE | 2017-07-06 16:16 | HHI.PR ---
Subjective Remarks The pt was sitting up in bed. She had just brushed her teeth. She wants to go home soon. She says the bruise in her groin is improving. Objective Vitals Vital Signs Date Time Temp Pulse Resp B/P Pulse Ox O2 Delivery O2 Flow Rate FiO2 07/06/17 15:00 98.4 59 20 91/47 99 07/06/17 14:00 66 07/06/17 14:00 66 18 102/44 99 07/06/17 13:00 62 07/06/17 12:00 68 07/06/17 11:00 98.0 62 20 93/49 97 07/06/17 11:00 62 07/06/17 10:27 98 21 07/06/17 10:00 64 07/06/17 09:00 66 07/06/17 08:04 65 07/06/17 07:49 98.1 65 18 106/52 99 07/06/17 07:00 60 07/06/17 06:00 68 07/06/17 05:00 53 07/06/17 04:00 97.9 70 16 114/54 98 07/06/17 04:00 70 07/06/17 03:00 73 07/06/17 02:00 79 07/06/17 01:00 83 07/06/17 00:00 76 07/06/17 00:00 98.2 63 16 105/63 99 07/05/17 23:00 107 07/05/17 22:00 97 07/05/17 21:57 97 21 07/05/17 21:00 95 07/05/17 20:00 97 07/05/17 20:00 98.4 91 16 114/50 99 07/05/17 19:00 91 07/05/17 18:00 98 07/05/17 18:00 121/64 07/05/17 17:00 80 07/05/17 16:13 106/50 I/O 07/05/17 07/05/17 07/05/17 07/06/17 07/06/17 07/06/17 07:00 15:00 23:00 07:00 15:00 23:00 Intake Total 240 ml 500 ml 320 ml Output Total 750 ml 525 ml 800 ml Balance -510 ml -25 ml -480 ml Intake Oral 240 ml 500 ml 320 ml Output Urine Total 750 ml 525 ml 800 ml Result Diagram: 07/06/17 0618 07/06/17 0618 Imaging Last Impressions Lower Extremity Ultrasound 07/05/17 0000 Signed Impressions: Service Date/Time: Wednesday, July 05, 2017 15:39 - CONCLUSION: 1. 7.1 x 8.5 x 3.1 cm hematoma in the right thigh near the groin. No evidence for pseudoaneurysm. Chavez Sr MD Chest X-Ray 07/03/17 0600 Signed Impressions: Service Date/Time: Monday, July 03, 2017 04:43 - CONCLUSION: 1. Right pneumonectomy 2. There is subsegmental atelectasis in the left base. No pleural effusions are identified. Cristobal Ramírez MD Head CT 06/18/17 0000 Signed Impressions: Service Date/Time: May 01:02 - CONCLUSION: Normal examination for a patient of this age. Chronic left maxillary sinus disease. Kvng Saldana MD Objective Remarks GENERAL: Patient sitting up in bed. Appears comfortable. SKIN: Warm and dry. Hematoma along the right groin, induration noted, nontender. HEAD: Normocephalic. EYES: No scleral icterus. No injection or drainage. NECK: Supple, trachea midline. No JVD or lymphadenopathy. CARDIOVASCULAR: Tachycardic, irregularly irregular. RESPIRATORY: Breath sounds equal bilaterally. No accessory muscle use. GASTROINTESTINAL: Abdomen soft, non-tender, nondistended. MUSCULOSKELETAL: No cyanosis, or edema. BACK: Nontender without obvious deformity. No CVA tenderness. NEURO: Mild confusion. PSYCH: Mood and affect appropriate. Procedures 06/16/17 intubation 06/16/17 central line placement Medications and IVs Current Medications Medications (Trade) Dose Ordered Sig/Amanda Route Start Time Stop Time Status Last Admin (NS Flush) 2 ml UNSCH PRN IV FLUSH 06/16/17 15:30 06/29/17 18:45 (NS Flush) 2 ml BID IV FLUSH 06/16/17 21:00 07/06/17 09:05 (Tylenol) 650 mg Q6H PRN PO 06/16/17 15:30 (Zofran Inj) 4 mg Q6H PRN IV 06/16/17 15:30 07/01/17 11:42 Miscellaneous Information 1 Q361D XX 06/16/17 15:30 06/16/17 15:30 (Chlorhexidine 2% Cloth) 3 pack Taper DAILY@04 TOP 06/17/17 04:00 06/13/18 03:59 06/27/17 04:00 (Chlorhexidine 2% Cloth) 3 pack UNSCH PRN TOP 06/16/17 15:30 (Milk Of Magnesia Liq) 30 ml Q12H PRN PO 06/16/17 15:30 (Senokot) 17.2 mg Q12H PRN PO 06/16/17 15:30 06/20/17 20:13 (Dulcolax Supp) 10 mg DAILY PRN RECTAL 06/16/17 15:30 07/03/17 11:50 (Lactulose Liq) 30 ml DAILY PRN PO 06/16/17 15:30 06/26/17 09:04 (Vitamin B12) 1,000 mcg DAILY PO 06/17/17 09:00 07/06/17 09:09 (Lexapro) 10 mg DAILY PO 06/17/17 09:00 07/06/17 09:08 (Synthroid) 112 mcg DAILY@06 PO 06/17/17 06:00 07/06/17 05:56 (NS Flush) DAILY IVF 06/17/17 09:00 07/05/17 09:44 (NS Flush) UNSCH PRN IVF 06/16/17 16:00 (Synthroid) 25 mcg DAILY@06 PO 06/17/17 06:00 07/06/17 05:55 (D50w (Vial) Inj) 50 ml UNSCH PRN IV 06/20/17 17:00 (Glucagon Inj) 1 mg UNSCH PRN OTHER 06/20/17 17:00 (ZyPREXA) 2.5 mg Q8H PRN PO 06/24/17 07:30 06/26/17 20:08 (Provigil) 100 mg DAILY PO 06/24/17 09:00 07/06/17 09:08 (Lopressor Inj) 2.5 mg Q6H PRN IV PUSH 06/26/17 11:00 06/29/17 18:44 (Protonix) 40 mg DAILY PO 06/30/17 09:00 07/06/17 09:08 (Eliquis) 2.5 mg BID PO 07/02/17 11:00 07/06/17 09:08 (Lopressor) 50 mg Q8HR PO 07/02/17 14:00 07/06/17 14:10 (Atropine Inj) 0.5 mg UNSCH PRN IV 07/02/17 08:45 (Reglan Inj) 10 mg Q4H PRN IV 07/02/17 08:45 (Zofran Inj) 4 mg Q4H PRN IV 07/02/17 08:45 (Cardizem) 60 mg Q6H PO 07/02/17 09:00 07/06/17 09:06 (NovoLIN R SUPPLEMENTAL SCALE) 1 ACHS SQ 07/03/17 16:00 07/06/17 12:48 (Aiyana-Colace) 1 tab BID PO 07/03/17 21:00 07/06/17 09:08 (Lanoxin) 0.125 mg DAILY PO 07/06/17 09:00 07/06/17 09:08 (Deltasone) 5 mg DAILY PO 07/06/17 09:00 07/09/17 08:59 07/06/17 09:08 Date of Insertion: Jun 16, 2017 Date of Insertion: Jun 16, 2017 Date of Removal: Jun 24, 2017 Line: Central Venous Catheter Side: Right Location: Internal, Jugular A/P Problem List: (1) Non-small cell carcinoma of lung ICD Code: C34.90 Status: Chronic (2) Atrial fibrillation with RVR ICD Code: I48.91 Status: Acute (3) Acute respiratory failure with hypoxia and hypercapnia ICD Code: J96.01 Status: Acute (4) Tachycardia ICD Code: R00.0 Status: Acute (5) SOB (shortness of breath) ICD Code: R06.02 Status: Acute (6) PNA (pneumonia) ICD Code: J18.9 Status: Acute (7) Coronary artery disease ICD Code: I25.10 Status: Chronic (8) Hypertension ICD Code: I10 Status: Chronic (9) Hypothyroidism ICD Code: E03.9 Status: Chronic (10) Leukocytosis ICD Code: D72.829 Status: Acute (11) Normocytic anemia ICD Code: D64.9 Status: Acute (12) Lactic acidosis ICD Code: E87.2 Status: Acute (13) On apixaban therapy ICD Code: Z79.01 Status: Acute (14) Hyponatremia ICD Code: E87.1 Status: Acute (15) Hyperkalemia ICD Code: E87.5 Status: Acute (16) Acute hyperglycemia ICD Code: R73.9 Status: Acute (17) Elevated INR ICD Code: R79.1 Status: Acute (18) Elevated partial thromboplastin time (PTT) ICD Code: R79.1 Status: Acute (19) Vitamin B12 deficiency ICD Code: E53.8 Status: Chronic (20) Anxiety disorder ICD Code: F41.9 Status: Chronic (21) Current chronic use of systemic steroids ICD Code: Z79.52 Status: Chronic (22) Elevated brain natriuretic peptide (BNP) level ICD Code: R79.89 Status: Acute (23) Right bundle branch block ICD Code: I45.10 Status: Acute (24) Elevated troponin I level ICD Code: R74.8 Status: Acute (25) Septic shock ICD Code: A41.9 Status: Acute Assessment and Plan Atrial fibrillation with RVR Appreciate cardiology recommendations. Pacemaker placed 07/02. HR improved 07/06. - Continue digoxin, increased to daily 07/04. Continue metoprolol and Cardizem with holding parameters. - Continue Eliquis. - telemetry. Hematoma Along right groin. Nontender to palpation. US: 7.1 x 8.5 x 3.1 cm hematoma in the right thigh near the groin; No evidence for pseudoaneurysm. CBC stable. - anticoagulation per cardiology. - continue to monitor. Hypotension Exacerbated by multiple rate control medications. - Bolus with normal saline if needed. - Holding parameters for blood pressure medications. CHF/ CAD Status post CABG 4 vessels. Echocardiogram shows ejection fraction 35-40%. Currently asymptomatic. - continue medication regimen. - monitor volume status. Acute hypoxic and hypercapnic respiratory failure Patient had healthcare associated pneumonia and completed a course of antibiotics. She was intubated on 06/16/17. She was extubated and is now tolerating room air. Pulmonary consult appreciated. - Continue bronchodilators, incentive spirometry. - oxygen and BiPAP as needed. - Follow up with pulmonology. Constipation S/p enema. - continue bowel regimen. Acute metabolic encephalopathy Secondary to above. Per family, patient developed significant confusion following her time on the ventilator. - Continue PT/OT/ST. - Continue neuro checks. - frequent reorientation. Severe malnutrition Tube feeds discontinued. - Mechanical soft diet with nectar thick liquids per speech therapy. Hyperglycemia of critical illness Exacerbated by prednisone. - Monitor Accu-Cheks and cover with sliding scale insulin. Staph hominis bacteremia Likely contaminant. Other cultures are negative. - Off antibiotics currently. DVT prophylaxis: Eliquis Discharge Planning Awaiting clinical improvement Problem Qualifiers (1) PNA (pneumonia): Qualified Code: J18.9 - Pneumonia of left lung due to infectious organism, unspecified part of lung (2) Coronary artery disease: Qualified Code: I25.10 - Coronary artery disease involving [place] coronary artery of [place] heart without angina pectoris (3) Hypertension: Qualified Code: I10 - Essential hypertension (4) Hypothyroidism: Qualified Code: E03.9 - Hypothyroidism, unspecified type (5) Leukocytosis: Qualified Code: D72.829 - Leukocytosis, unspecified type (6) Anxiety disorder: Qualified Code: F41.9 - Anxiety disorder, unspecified type Nikhil Alanis DO Jul 06, 2017 16:16
[2017-07-07] VITALS (27 sets, daily range): BP systolic 90–136; BP diastolic 36–62; PULSE 60–110; RESP 19–20; TEMP 97.4–98.2; O2SAT 95–98
[2017-07-07] MEDS: DILTIAZEM HCL 60 MG TAB PO SCH ×4 (03:29→21:00)
[2017-07-07] MEDS: CHLORHEXIDINE GLUCONATE 2 % 1 PACK (2 CLOTHS) TOP SCH (04:00)
[2017-07-07] MEDS: RESP: IPRATROPIUM 0.5 MG/2.5 ML NEB NEB SCH ×4 (04:43→20:39)
[2017-07-07] MEDS: LEVOTHYROXINE SODIUM 112 MCG TAB PO SCH (06:06)
[2017-07-07] MEDS: LEVOTHYROXINE SODIUM 25 MCG TAB PO SCH (06:07)
[2017-07-07] MEDS: METOPROLOL TARTRATE 50 MG TAB PO SCH ×3 (06:08→22:00)
[2017-07-07] MEDS: INSULIN NovoLIN REGULAR SUPPLEMENTAL SCALE SQ SCH ×4 (06:11→21:00)
[2017-07-07 06:38] LABS: HEMATOCRIT 28.5 % (35.0-46.0); MEAN CELL VOLUME 92.2 FL (80.0-100.0); MEAN CORPUSCULAR HEMOGLOBIN 30.4 PG (27.0-34.0); PLATELET COUNT 280 TH/MM3 (150-450); RED BLOOD COUNT 3.09 MIL/MM3 (4.00-5.30); RED CELL DISTRIBUTION WIDTH 16.4 % (11.6-17.2); REVIEW FLAG FINAL; WHITE BLOOD COUNT 9.7 TH/MM3 (4.0-11.0)
[2017-07-07] MEDS: SODIUM CHLORIDE 0.9% FLUSH 10 ML FLUSH IVF SCH (09:00)
[2017-07-07] MEDS: SODIUM CHLORIDE 0.9% FLUSH 10 ML FLUSH IV FLUSH SCH ×2 (09:17→21:50)
[2017-07-07] MEDS: PANTOPRAZOLE SOD 40 MG DELAYED RELEASE TAB PO SCH (09:18)
[2017-07-07] MEDS: CYANOCOBALAMIN 1,000 MCG TAB PO SCH (09:18)
[2017-07-07] MEDS: DOCUSATE SODIUM 50 MG/SENNA 8.6 MG TAB PO SCH ×2 (09:18→21:46)
[2017-07-07] MEDS: ESCITALOPRAM OXALATE 10 MG TAB PO SCH (09:18)
[2017-07-07] MEDS: APIXABAN 2.5 MG TABLET PO SCH ×2 (09:19→21:46)
[2017-07-07] MEDS: predniSONE 10 MG TAB PO SCH (09:19)
[2017-07-07] MEDS: MODAFINIL 200 MG TAB PO SCH (09:19)
[2017-07-07] MEDS: DIGOXIN 0.125 MG TAB PO SCH (09:20)
--- NOTE | 2017-07-07 16:46 | HHI.PR ---
Subjective Remarks The patient was resting comfortably in bed. She was hoping to go home soon. She had no acute complaints. She was wondering if her family was going to come and visit. Discussed with nursing. Objective Vitals Vital Signs Date Time Temp Pulse Resp B/P Pulse Ox O2 Delivery O2 Flow Rate FiO2 07/07/17 16:05 96 07/07/17 15:00 64 07/07/17 15:00 97.5 71 19 108/49 95 07/07/17 14:00 110 07/07/17 14:00 95/48 07/07/17 13:00 83 07/07/17 12:00 99 07/07/17 11:00 60 07/07/17 11:00 97.4 66 19 110/60 97 07/07/17 10:00 60 07/07/17 09:23 61 90/36 98 07/07/17 09:00 60 07/07/17 08:18 98 07/07/17 08:00 60 07/07/17 07:00 62 07/07/17 07:00 97.5 70 19 101/58 96 07/07/17 06:00 110 07/07/17 05:00 72 07/07/17 04:45 98 21 07/07/17 04:00 72 07/07/17 03:00 98.2 81 20 136/62 98 07/07/17 03:00 84 07/07/17 02:00 80 07/07/17 01:00 68 07/07/17 00:00 76 07/06/17 23:00 98.3 90 22 120/66 100 07/06/17 23:00 92 07/06/17 22:00 100 07/06/17 21:00 88 07/06/17 20:00 110 07/06/17 19:00 98.5 88 18 98/55 98 07/06/17 19:00 90 07/06/17 18:00 78 07/06/17 17:00 58 I/O 07/06/17 07/06/17 07/06/17 07/07/17 07/07/17 07/07/17 06:59 14:59 22:59 06:59 14:59 22:59 Intake Total 320 ml 740 ml 240 ml Output Total 800 ml 600 ml Balance -480 ml 140 ml 240 ml Intake Oral 320 ml 740 ml 240 ml Output Urine Total 800 ml 600 ml # Voids 2 Result Diagram: 07/07/17 0455 07/06/17 0618 Imaging Last Impressions Lower Extremity Ultrasound 07/05/17 0000 Signed Impressions: Service Date/Time: Wednesday, July 05, 2017 15:39 - CONCLUSION: 1. 7.1 x 8.5 x 3.1 cm hematoma in the right thigh near the groin. No evidence for pseudoaneurysm. Chavez Sr MD Chest X-Ray 07/03/17 0600 Signed Impressions: Service Date/Time: Monday, July 03, 2017 04:43 - CONCLUSION: 1. Right pneumonectomy 2. There is subsegmental atelectasis in the left base. No pleural effusions are identified. Cristobal Ramírez MD Head CT 06/18/17 0000 Signed Impressions: Service Date/Time: May 01:02 - CONCLUSION: Normal examination for a patient of this age. Chronic left maxillary sinus disease. Kvng Saldana MD Objective Remarks GENERAL: Patient sitting up in bed. Appears comfortable. SKIN: Warm and dry. Hematoma along the right groin, induration noted, nontender. HEAD: Normocephalic. EYES: No scleral icterus. No injection or drainage. NECK: Supple, trachea midline. No JVD or lymphadenopathy. CARDIOVASCULAR: Tachycardic, irregularly irregular. RESPIRATORY: Breath sounds equal bilaterally. No accessory muscle use. GASTROINTESTINAL: Abdomen soft, non-tender, nondistended. MUSCULOSKELETAL: No cyanosis, or edema. BACK: Nontender without obvious deformity. No CVA tenderness. NEURO: Mild confusion. PSYCH: Mood and affect appropriate. Procedures 06/16/17 intubation 06/16/17 central line placement Medications and IVs Current Medications Medications (Trade) Dose Ordered Sig/Amanda Route Start Time Stop Time Status Last Admin (NS Flush) 2 ml UNSCH PRN IV FLUSH 06/16/17 15:30 06/29/17 18:45 (NS Flush) 2 ml BID IV FLUSH 06/16/17 21:00 07/07/17 09:17 (Tylenol) 650 mg Q6H PRN PO 06/16/17 15:30 (Zofran Inj) 4 mg Q6H PRN IV 06/16/17 15:30 07/01/17 11:42 Miscellaneous Information 1 Q361D XX 06/16/17 15:30 06/16/17 15:30 (Chlorhexidine 2% Cloth) 3 pack Taper DAILY@04 TOP 06/17/17 04:00 06/13/18 03:59 06/27/17 04:00 (Chlorhexidine 2% Cloth) 3 pack UNSCH PRN TOP 06/16/17 15:30 (Milk Of Magnesia Liq) 30 ml Q12H PRN PO 06/16/17 15:30 (Senokot) 17.2 mg Q12H PRN PO 06/16/17 15:30 06/20/17 20:13 (Dulcolax Supp) 10 mg DAILY PRN RECTAL 06/16/17 15:30 07/03/17 11:50 (Lactulose Liq) 30 ml DAILY PRN PO 06/16/17 15:30 06/26/17 09:04 (Vitamin B12) 1,000 mcg DAILY PO 06/17/17 09:00 07/07/17 09:18 (Lexapro) 10 mg DAILY PO 06/17/17 09:00 07/07/17 09:18 (Synthroid) 112 mcg DAILY@06 PO 06/17/17 06:00 07/07/17 06:06 (NS Flush) DAILY IVF 06/17/17 09:00 07/05/17 09:44 (NS Flush) UNSCH PRN IVF 06/16/17 16:00 (Synthroid) 25 mcg DAILY@06 PO 06/17/17 06:00 07/07/17 06:07 (D50w (Vial) Inj) 50 ml UNSCH PRN IV 06/20/17 17:00 (Glucagon Inj) 1 mg UNSCH PRN OTHER 06/20/17 17:00 (ZyPREXA) 2.5 mg Q8H PRN PO 06/24/17 07:30 06/26/17 20:08 (Provigil) 100 mg DAILY PO 06/24/17 09:00 07/07/17 09:19 (Lopressor Inj) 2.5 mg Q6H PRN IV PUSH 06/26/17 11:00 06/29/17 18:44 (Protonix) 40 mg DAILY PO 06/30/17 09:00 8/8/17 09:18 (Eliquis) 2.5 mg BID PO 07/02/17 11:00 07/07/17 09:19 (Lopressor) 50 mg Q8HR PO 07/02/17 14:00 07/07/17 06:08 (Atropine Inj) 0.5 mg UNSCH PRN IV 07/02/17 08:45 (Reglan Inj) 10 mg Q4H PRN IV 07/02/17 08:45 (Zofran Inj) 4 mg Q4H PRN IV 07/02/17 08:45 (Cardizem) 60 mg Q6H PO 07/02/17 09:00 07/07/17 14:44 (NovoLIN R SUPPLEMENTAL SCALE) 1 ACHS SQ 07/03/17 16:00 07/07/17 11:00 (Aiyana-Colace) 1 tab BID PO 07/03/17 21:00 07/07/17 09:18 (Lanoxin) 0.125 mg DAILY PO 07/06/17 09:00 07/07/17 09:20 (Deltasone) 5 mg DAILY PO 07/06/17 09:00 07/09/17 08:59 07/07/17 09:19 Date of Insertion: Jun 16, 2017 Date of Insertion: Jun 16, 2017 Date of Removal: Jun 24, 2017 Line: Central Venous Catheter Side: Right Location: Internal, Jugular A/P Problem List: (1) Non-small cell carcinoma of lung ICD Code: C34.90 Status: Chronic (2) Atrial fibrillation with RVR ICD Code: I48.91 Status: Acute (3) Acute respiratory failure with hypoxia and hypercapnia ICD Code: J96.01 Status: Acute (4) Tachycardia ICD Code: R00.0 Status: Acute (5) SOB (shortness of breath) ICD Code: R06.02 Status: Acute (6) PNA (pneumonia) ICD Code: J18.9 Status: Acute (7) Coronary artery disease ICD Code: I25.10 Status: Chronic (8) Hypertension ICD Code: I10 Status: Chronic (9) Hypothyroidism ICD Code: E03.9 Status: Chronic (10) Leukocytosis ICD Code: D72.829 Status: Acute (11) Normocytic anemia ICD Code: D64.9 Status: Acute (12) Lactic acidosis ICD Code: E87.2 Status: Acute (13) On apixaban therapy ICD Code: Z79.01 Status: Acute (14) Hyponatremia ICD Code: E87.1 Status: Acute (15) Hyperkalemia ICD Code: E87.5 Status: Acute (16) Acute hyperglycemia ICD Code: R73.9 Status: Acute (17) Elevated INR ICD Code: R79.1 Status: Acute (18) Elevated partial thromboplastin time (PTT) ICD Code: R79.1 Status: Acute (19) Vitamin B12 deficiency ICD Code: E53.8 Status: Chronic (20) Anxiety disorder ICD Code: F41.9 Status: Chronic (21) Current chronic use of systemic steroids ICD Code: Z79.52 Status: Chronic (22) Elevated brain natriuretic peptide (BNP) level ICD Code: R79.89 Status: Acute (23) Right bundle branch block ICD Code: I45.10 Status: Acute (24) Elevated troponin I level ICD Code: R74.8 Status: Acute (25) Septic shock ICD Code: A41.9 Status: Acute Assessment and Plan Atrial fibrillation with RVR Appreciate cardiology recommendations. Pacemaker placed 07/02. HR improved 07/06 but more elevated 07/07. - Continue digoxin, increased to daily 07/04. Continue metoprolol and Cardizem with holding parameters. - Continue Eliquis. - telemetry. - follow up with cardiology. ? need for ablation. Hematoma Along right groin. Nontender to palpation. US: 7.1 x 8.5 x 3.1 cm hematoma in the right thigh near the groin; No evidence for pseudoaneurysm. CBC stable. Improved 07/07. - continue anticoagulation per cardiology. - continue to monitor. Hypotension Exacerbated by multiple rate control medications. - Bolus with normal saline if needed. - Holding parameters for blood pressure medications. CHF/ CAD Status post CABG 4 vessels. Echocardiogram shows ejection fraction 35-40%. Currently asymptomatic. - continue medication regimen. - monitor volume status. Acute hypoxic and hypercapnic respiratory failure Patient had healthcare associated pneumonia and completed a course of antibiotics. She was intubated on 06/16/17. She was extubated and is now tolerating room air. Pulmonary consult appreciated. - Continue bronchodilators, incentive spirometry. - oxygen and BiPAP as needed. - Follow up with pulmonology. Currently on 5 mg prednisone daily. D/c 8/10. Constipation S/p enema. - continue bowel regimen. Acute metabolic encephalopathy Secondary to above. Per family, patient developed significant confusion following her time on the ventilator. - Continue PT/OT/ST. - Continue neuro checks. - frequent reorientation. Severe malnutrition Tube feeds discontinued. - Mechanical soft diet with this liquids per speech therapy. Hyperglycemia of critical illness Exacerbated by prednisone. - Monitor Accu-Cheks and cover with sliding scale insulin. Well controlled 07/07. Staph hominis bacteremia Likely contaminant. Other cultures are negative. - Off antibiotics currently. DVT prophylaxis: Eliquis Discharge Planning Anticipate d/c home with [facility] in 1-2 days once cleared by cardiology Problem Qualifiers (1) PNA (pneumonia): Qualified Code: J18.9 - Pneumonia of left lung due to infectious organism, unspecified part of lung (2) Coronary artery disease: Qualified Code: I25.10 - Coronary artery disease involving [place] coronary artery of [place] heart without angina pectoris (3) Hypertension: Qualified Code: I10 - Essential hypertension (4) Hypothyroidism: Qualified Code: E03.9 - Hypothyroidism, unspecified type (5) Leukocytosis: Qualified Code: D72.829 - Leukocytosis, unspecified type (6) Anxiety disorder: Qualified Code: F41.9 - Anxiety disorder, unspecified type Nikhil Alanis DO Jul 07, 2017 16:46
--- NOTE | 2017-07-07 19:01 | HHI.PR ---
Subjective Remarks Feels much better. CXR stable.HR is 70. Walked with help. Objective Vital Signs Date Time Temp Pulse Resp B/P Pulse Ox O2 Delivery O2 Flow Rate FiO2 07/07/17 18:04 78 07/07/17 17:00 82 07/07/17 16:05 96 07/07/17 15:00 64 07/07/17 15:00 97.5 71 19 108/49 95 07/07/17 14:00 110 07/07/17 14:00 95/48 07/07/17 13:00 83 07/07/17 12:00 99 07/07/17 11:00 60 07/07/17 11:00 97.4 66 19 110/60 97 07/07/17 10:00 60 07/07/17 09:23 61 90/36 98 07/07/17 09:00 60 07/07/17 08:18 98 07/07/17 08:00 60 07/07/17 07:00 62 07/07/17 07:00 97.5 70 19 101/58 96 07/07/17 06:00 110 07/07/17 05:00 72 07/07/17 04:45 98 21 07/07/17 04:00 72 07/07/17 03:00 98.2 81 20 136/62 98 07/07/17 03:00 84 07/07/17 02:00 80 07/07/17 01:00 68 07/07/17 00:00 76 07/06/17 23:00 98.3 90 22 120/66 100 07/06/17 23:00 92 07/06/17 22:00 100 07/06/17 21:00 88 07/06/17 20:00 110 07/06/17 19:00 98.5 88 18 98/55 98 07/06/17 19:00 90 I/O 07/06/17 07/06/17 07/06/17 07/07/17 07/07/17 07/07/17 07:00 15:00 23:00 07:00 15:00 23:00 Intake Total 320 ml 740 ml 240 ml 480 ml Output Total 800 ml 600 ml 375 ml Balance -480 ml 140 ml 240 ml 105 ml Intake Oral 320 ml 740 ml 240 ml 480 ml Output Urine Total 800 ml 600 ml 375 ml # Voids 2 2 # Bowel Movements 1 Result Diagram: 07/07/17 0455 07/06/17 0618 Objective Remarks GENERAL: This thinly built elderly lady who is alert HEENT: Head normocephalic. Pupils are reactive. Tongue is moist. NECK: Supple. No bruits. No venous distension. Trachea midline. CHEST: Decreased breath sounds over the right lung field with no wheezes. HEART: The heart sounds are Irregular S1-S2 with no murmur. ABDOMEN: Soft, nontender. Bowel sounds are active. EXTREMITIES:Mild edema with diminished pulses. Neuro : Reflexes are 1+. The patient is alert.and Oriented. SKIN: Dry and warm. Assessment and Plan Assessment and Plan IMPRESSION 1. Acute respiratory failure.Resolved. 2. Status post right pneumonectomy. 3. History of pneumonia. 4. History of non-small cell lung CA. 5. Atrial fibrillation with rapid ventricular response.Resolved 6. Pulmonary edema. 7. Hyponatremia Plan : 1. Ambulate with help 2. CBC,BMP 3. PT and OT 4. Soft diet 5. Aspiration precaution 6. Cont Anticoagulation. 7. D/C Prednisone in am 9. IS q3h, Bedside. Corey Epps MD Jul 07, 2017 19:01
[2017-07-08] VITALS (29 sets, daily range): BP systolic 81–130; BP diastolic 47–71; PULSE 80–140; RESP 17–19; TEMP 97.6–98.8; O2SAT 93–99
[2017-07-08] MEDS: DILTIAZEM HCL 60 MG TAB PO SCH ×3 (01:09→15:00)
[2017-07-08] MEDS: CHLORHEXIDINE GLUCONATE 2 % 1 PACK (2 CLOTHS) TOP SCH (04:00)
[2017-07-08] MEDS: RESP: IPRATROPIUM 0.5 MG/2.5 ML NEB NEB SCH ×4 (04:09→21:50)
[2017-07-08] MEDS: METOPROLOL TARTRATE 50 MG TAB PO SCH ×2 (05:09→14:00)
[2017-07-08] MEDS: LEVOTHYROXINE SODIUM 25 MCG TAB PO SCH (06:14)
[2017-07-08] MEDS: LEVOTHYROXINE SODIUM 112 MCG TAB PO SCH (06:14)
[2017-07-08] MEDS: INSULIN NovoLIN REGULAR SUPPLEMENTAL SCALE SQ SCH ×4 (06:22→21:00)
[2017-07-08] MEDS: SODIUM CHLORIDE 0.9% FLUSH 10 ML FLUSH IVF SCH (09:00)
[2017-07-08] MEDS: SODIUM CHLORIDE 0.9% FLUSH 10 ML FLUSH IV FLUSH SCH ×2 (09:37→22:42)
[2017-07-08] MEDS: DOCUSATE SODIUM 50 MG/SENNA 8.6 MG TAB PO SCH ×2 (09:39→22:42)
[2017-07-08] MEDS: predniSONE 10 MG TAB PO SCH (09:39)
[2017-07-08] MEDS: PANTOPRAZOLE SOD 40 MG DELAYED RELEASE TAB PO SCH (09:39)
[2017-07-08] MEDS: CYANOCOBALAMIN 1,000 MCG TAB PO SCH (09:39)
[2017-07-08] MEDS: APIXABAN 2.5 MG TABLET PO SCH ×2 (09:39→22:42)
[2017-07-08] MEDS: ESCITALOPRAM OXALATE 10 MG TAB PO SCH (09:39)
[2017-07-08] MEDS: DIGOXIN 0.125 MG TAB PO SCH (09:39)
[2017-07-08] MEDS: MODAFINIL 200 MG TAB PO SCH (09:40)
--- NOTE | 2017-07-08 15:08 | HHI.PR ---
Subjective Remarks The patient was tired. Her family was at the bedside. Apparently the patient hasn't been eating that much. She had no acute complaints. Discussed with nursing. Objective Vitals Vital Signs Date Time Temp Pulse Resp B/P Pulse Ox O2 Delivery O2 Flow Rate FiO2 07/08/17 14:10 94/51 07/08/17 14:10 120 07/08/17 13:30 95/60 07/08/17 13:03 133 07/08/17 12:07 120 07/08/17 11:00 98.4 135 17 83/47 99 07/08/17 11:00 140 07/08/17 10:28 98 07/08/17 10:09 120 07/08/17 09:40 125 87/49 07/08/17 09:02 134 07/08/17 08:00 110 07/08/17 07:00 102 07/08/17 07:00 97.9 101 19 104/55 97 07/08/17 06:00 124 07/08/17 05:00 106 07/08/17 04:09 99 07/08/17 04:00 96 07/08/17 03:30 97.6 101 19 94/60 95 07/08/17 03:00 107 07/08/17 02:00 110 07/08/17 01:00 122 07/08/17 01:00 124/71 07/08/17 00:00 97.8 91 19 81/55 97 07/08/17 00:00 98 07/07/17 23:00 91 07/07/17 22:00 86 07/07/17 21:00 110 07/07/17 20:00 98 07/07/17 20:00 97.8 84 19 98/47 95 07/07/17 19:00 66 07/07/17 18:04 78 07/07/17 17:00 82 07/07/17 16:05 96 I/O 07/07/17 07/07/17 07/07/17 07/08/17 07/08/17 07/08/17 07:00 15:00 23:00 07:00 15:00 23:00 Intake Total 240 ml 480 ml 960 ml Output Total 375 ml 350 ml Balance 240 ml 105 ml 610 ml Intake Oral 240 ml 480 ml 960 ml Output Urine Total 375 ml 350 ml # Voids 2 2 # Bowel Movements 1 Result Diagram: 07/07/17 0455 07/06/17 0618 Imaging Last Impressions Lower Extremity Ultrasound 07/05/17 0000 Signed Impressions: Service Date/Time: Wednesday, July 05, 2017 15:39 - CONCLUSION: 1. 7.1 x 8.5 x 3.1 cm hematoma in the right thigh near the groin. No evidence for pseudoaneurysm. Chavez Sr MD Chest X-Ray 07/03/17 0600 Signed Impressions: Service Date/Time: Monday, July 03, 2017 04:43 - CONCLUSION: 1. Right pneumonectomy 2. There is subsegmental atelectasis in the left base. No pleural effusions are identified. Cristobal Ramírez MD Head CT 06/18/17 0000 Signed Impressions: Service Date/Time: May 01:02 - CONCLUSION: Normal examination for a patient of this age. Chronic left maxillary sinus disease. Kvng Saldana MD Objective Remarks GENERAL: Patient appears tired. No apparent distress. SKIN: Warm and dry. Hematoma along the right groin, induration noted, nontender. HEAD: Normocephalic. EYES: No scleral icterus. No injection or drainage. NECK: Supple, trachea midline. No JVD or lymphadenopathy. CARDIOVASCULAR: Tachycardic, irregularly irregular. RESPIRATORY: Breath sounds equal bilaterally. No accessory muscle use. GASTROINTESTINAL: Abdomen soft, non-tender, nondistended. MUSCULOSKELETAL: No cyanosis, or edema. BACK: Nontender without obvious deformity. No CVA tenderness. NEURO: No gross deficits. PSYCH: Flattened affect. Procedures 06/16/17 intubation 06/16/17 central line placement Medications and IVs Current Medications Medications (Trade) Dose Ordered Sig/Amanda Route Start Time Stop Time Status Last Admin (NS Flush) 2 ml UNSCH PRN IV FLUSH 06/16/17 15:30 06/29/17 18:45 (NS Flush) 2 ml BID IV FLUSH 06/16/17 21:00 07/08/17 09:37 (Tylenol) 650 mg Q6H PRN PO 06/16/17 15:30 (Zofran Inj) 4 mg Q6H PRN IV 06/16/17 15:30 07/01/17 11:42 Miscellaneous Information 1 Q361D XX 06/16/17 15:30 06/16/17 15:30 (Chlorhexidine 2% Cloth) 3 pack Taper DAILY@04 TOP 06/17/17 04:00 06/13/18 03:59 06/27/17 04:00 (Chlorhexidine 2% Cloth) 3 pack UNSCH PRN TOP 06/16/17 15:30 (Milk Of Magnesia Liq) 30 ml Q12H PRN PO 06/16/17 15:30 (Senokot) 17.2 mg Q12H PRN PO 06/16/17 15:30 06/20/17 20:13 (Dulcolax Supp) 10 mg DAILY PRN RECTAL 06/16/17 15:30 07/03/17 11:50 (Lactulose Liq) 30 ml DAILY PRN PO 06/16/17 15:30 06/26/17 09:04 (Vitamin B12) 1,000 mcg DAILY PO 06/17/17 09:00 07/08/17 09:39 (Lexapro) 10 mg DAILY PO 06/17/17 09:00 07/08/17 09:39 (Synthroid) 112 mcg DAILY@06 PO 06/17/17 06:00 07/08/17 06:14 (NS Flush) DAILY IVF 06/17/17 09:00 07/05/17 09:44 (NS Flush) UNSCH PRN IVF 06/16/17 16:00 (Synthroid) 25 mcg DAILY@06 PO 06/17/17 06:00 07/08/17 06:14 (D50w (Vial) Inj) 50 ml UNSCH PRN IV 06/20/17 17:00 (Glucagon Inj) 1 mg UNSCH PRN OTHER 06/20/17 17:00 (Provigil) 100 mg DAILY PO 06/24/17 09:00 07/08/17 09:40 (Lopressor Inj) 2.5 mg Q6H PRN IV PUSH 06/26/17 11:00 06/29/17 18:44 (Protonix) 40 mg DAILY PO 06/30/17 09:00 07/08/17 09:39 (Eliquis) 2.5 mg BID PO 07/02/17 11:00 07/08/17 09:39 (Lopressor) 50 mg Q8HR PO 07/02/17 14:00 07/07/17 06:08 (Atropine Inj) 0.5 mg UNSCH PRN IV 07/02/17 08:45 (Reglan Inj) 10 mg Q4H PRN IV 07/02/17 08:45 (Cardizem) 60 mg Q6H PO 07/02/17 09:00 07/08/17 01:09 (NovoLIN R SUPPLEMENTAL SCALE) 1 ACHS SQ 07/03/17 16:00 07/07/17 21:00 (Aiyana-Colace) 1 tab BID PO 07/03/17 21:00 07/08/17 09:39 (Lanoxin) 0.125 mg DAILY PO 07/06/17 09:00 07/08/17 09:39 (Deltasone) 5 mg DAILY PO 07/06/17 09:00 07/09/17 08:59 07/08/17 09:39 Date of Insertion: Jun 16, 2017 Date of Insertion: Jun 16, 2017 Date of Removal: Jun 24, 2017 Line: Central Venous Catheter Side: Right Location: Internal, Jugular A/P Problem List: (1) Non-small cell carcinoma of lung ICD Code: C34.90 Status: Chronic (2) Atrial fibrillation with RVR ICD Code: I48.91 Status: Acute (3) Acute respiratory failure with hypoxia and hypercapnia ICD Code: J96.01 Status: Acute (4) Tachycardia ICD Code: R00.0 Status: Acute (5) SOB (shortness of breath) ICD Code: R06.02 Status: Acute (6) PNA (pneumonia) ICD Code: J18.9 Status: Acute (7) Coronary artery disease ICD Code: I25.10 Status: Chronic (8) Hypertension ICD Code: I10 Status: Chronic (9) Hypothyroidism ICD Code: E03.9 Status: Chronic (10) Leukocytosis ICD Code: D72.829 Status: Acute (11) Normocytic anemia ICD Code: D64.9 Status: Acute (12) Lactic acidosis ICD Code: E87.2 Status: Acute (13) On apixaban therapy ICD Code: Z79.01 Status: Acute (14) Hyponatremia ICD Code: E87.1 Status: Acute (15) Hyperkalemia ICD Code: E87.5 Status: Acute (16) Acute hyperglycemia ICD Code: R73.9 Status: Acute (17) Elevated INR ICD Code: R79.1 Status: Acute (18) Elevated partial thromboplastin time (PTT) ICD Code: R79.1 Status: Acute (19) Vitamin B12 deficiency ICD Code: E53.8 Status: Chronic (20) Anxiety disorder ICD Code: F41.9 Status: Chronic (21) Current chronic use of systemic steroids ICD Code: Z79.52 Status: Chronic (22) Elevated brain natriuretic peptide (BNP) level ICD Code: R79.89 Status: Acute (23) Right bundle branch block ICD Code: I45.10 Status: Acute (24) Elevated troponin I level ICD Code: R74.8 Status: Acute (25) Septic shock ICD Code: A41.9 Status: Acute Assessment and Plan Atrial fibrillation with RVR Appreciate cardiology recommendations. Pacemaker placed 07/02. HR elevated 07/08. - Continue digoxin, increased to daily 07/04. Continue metoprolol and Cardizem with holding parameters. - Continue Eliquis. - telemetry. - follow up with cardiology. Ablation to be scheduled today or tomorrow. Hematoma Along right groin. Nontender to palpation. US: 7.1 x 8.5 x 3.1 cm hematoma in the right thigh near the groin; No evidence for pseudoaneurysm. CBC stable. Improved 07/07. - continue anticoagulation per cardiology. - continue to monitor. Hypotension Exacerbated by multiple rate control medications. - Bolus with normal saline if needed. - Holding parameters for blood pressure medications. - rate control. Ablation planned. CHF/ CAD Status post CABG 4 vessels. Echocardiogram shows ejection fraction 35-40%. Currently asymptomatic. - continue medication regimen. - monitor volume status. Acute hypoxic and hypercapnic respiratory failure Patient had healthcare associated pneumonia and completed a course of antibiotics. She was intubated on 06/16/17. She was extubated and is now tolerating room air. Pulmonary consult appreciated. - Continue bronchodilators, incentive spirometry. - oxygen and BiPAP as needed. - Follow up with pulmonology. Currently on 5 mg prednisone daily. D/c 07/09. Constipation S/p enema. - continue bowel regimen. Acute metabolic encephalopathy Secondary to above. Per family, patient developed significant confusion following her time on the ventilator. - Continue PT/OT/ST. - Continue neuro checks. - frequent reorientation. Severe malnutrition Tube feeds discontinued. - Mechanical soft diet with this liquids per speech therapy. Hyperglycemia of critical illness Exacerbated by prednisone. - Monitor Accu-Cheks and cover with sliding scale insulin. Well controlled 07/08. Staph hominis bacteremia Likely contaminant. Other cultures are negative. - Off antibiotics currently. DVT prophylaxis: Eliquis Discharge Planning Awaiting ablation Problem Qualifiers (1) PNA (pneumonia): Qualified Code: J18.9 - Pneumonia of left lung due to infectious organism, unspecified part of lung (2) Coronary artery disease: Qualified Code: I25.10 - Coronary artery disease involving [place] coronary artery of [place] heart without angina pectoris (3) Hypertension: Qualified Code: I10 - Essential hypertension (4) Hypothyroidism: Qualified Code: E03.9 - Hypothyroidism, unspecified type (5) Leukocytosis: Qualified Code: D72.829 - Leukocytosis, unspecified type (6) Anxiety disorder: Qualified Code: F41.9 - Anxiety disorder, unspecified type Nikhil Alanis DO Jul 08, 2017 15:08
[2017-07-08] MEDS ORDERED: FAMOTIDINE 20 MG/2 ML VIAL ONE (19:40)
[2017-07-08] MEDS ORDERED: PROPOFOL 200 MG/20 ML AMP IV ONE (19:45)
--- NOTE | 2017-07-08 20:38 | HHI.PR ---
Subjective Remarks Tired, SOB Objective Vital Signs Date Time Temp Pulse Resp B/P Pulse Ox O2 Delivery O2 Flow Rate FiO2 07/08/17 18:11 132 07/08/17 17:00 118 07/08/17 16:02 121 07/08/17 15:00 121 07/08/17 15:00 98.8 134 18 82/54 98 07/08/17 14:10 94/51 07/08/17 14:10 120 07/08/17 13:30 95/60 07/08/17 13:03 133 07/08/17 12:07 120 07/08/17 11:00 98.4 135 17 83/47 99 07/08/17 11:00 140 07/08/17 10:28 98 07/08/17 10:09 120 07/08/17 09:40 125 87/49 07/08/17 09:02 134 07/08/17 08:00 110 07/08/17 07:00 102 07/08/17 07:00 97.9 101 19 104/55 97 07/08/17 06:00 124 07/08/17 05:00 106 07/08/17 04:09 99 07/08/17 04:00 96 07/08/17 03:30 97.6 101 19 94/60 95 07/08/17 03:00 107 07/08/17 02:00 110 07/08/17 01:00 122 07/08/17 01:00 124/71 07/08/17 00:00 97.8 91 19 81/55 97 07/08/17 00:00 98 07/07/17 23:00 91 07/07/17 22:00 86 07/07/17 21:00 110 I/O 07/07/17 07/07/17 07/07/17 07/08/17 07/08/17 07/08/17 06:59 14:59 22:59 06:59 14:59 22:59 Intake Total 240 ml 480 ml 960 ml 240 ml Output Total 375 ml 350 ml 400 ml Balance 240 ml 105 ml 610 ml -160 ml Intake Oral 240 ml 480 ml 960 ml 240 ml Output Urine Total 375 ml 350 ml 400 ml # Voids 2 2 # Bowel Movements 1 Result Diagram: 07/07/17 0455 07/06/17 0618 Imaging Alert, fully oriented, in bed Lung: ventilated Heart: S1, S2 tachycardia, irregular Abdomen: soft, no mass Ext: no edema Assessment and Plan Problem List: (1) Atrial fibrillation Status: Acute Plan: HR unable to control with medication I will proceed with AV node ablation. The risks, the nature and benefits of the procedure discussed patient and family understand and agree to proceed Procedure will be scheduled. (2) Tachycardia Status: Acute Plan: HR cannot be controlled with meds (3) SOB (shortness of breath) Status: Acute Plan: Improving Tanesha Becker MD Jul 08, 2017 20:37
[2017-07-08] MEDS ORDERED: ATROPINE SULFATE 1 MG/ML VIAL IV PRN (20:45)
[2017-07-08] MEDS ORDERED: LORazepam 2 MG/ML VIAL IV PRN (20:45)
[2017-07-08] MEDS ORDERED: LIDOCAINE HCL 1% 50 ML VIAL INFIL PRN (20:45)
[2017-07-08] MEDS ORDERED: METOCLOPRAMIDE HCL 10 MG/2 ML VIAL IV PRN (20:45)
[2017-07-08] MEDS ORDERED: SODIUM CHLOR 0.9% 250 ML INJ 250 ML IV PRN (20:45)
[2017-07-08] MEDS ORDERED: ONDANSETRON HCL 4 MG/2 ML VIAL IV PRN (20:45)
[2017-07-08] MEDS ORDERED: BACITRACIN OINT 0.9 GM PKT TOP ONE (20:45)
--- NOTE | 2017-07-08 21:01 | CATHPROC ---
[employer] HIS Report Study Information Study Number Admission Scheduled Start Study Start [id number] Jun 16 2017 2:35PM 07/08/2017 Jul 08 2017 7:18PM [facility] Service Electrophysiology Study Admit Source Facility Department Other [facility] - [facility] Apprentice Physician and Clinical Staff Initial Tanesha Burroughs Exam Proctor Izabela Bowen,MINDY Other Anesthesia, HURL SHAKER Recorder Hayley Carrasco,RN Scrub Keyshawn Kennedy,RT(R) Procedures Performed Procedure Location (Site) RF Ablation AV NODE Equipment Time Chief Science Officer Description Size Mfg Part Number Used/Scraped BIOSENSE MARK CATHETER, CELSIUS DS, 8MM, F [id number] 19:26 FR 7 Used INC. TYPE QUAD *[id number] 19:23 [employer] INDUSTRIES PACK, CCL CUSTOM * Used *[id number] 19:23 [employer] PACER MURPHY, LIMB * 2530 *[id number] Used [id number] 19:23 [employer]. MEDICAL BLANKET,WARM AIR CCL * Used *[id number] 19:26 [employer] MEDICAL CATHETER, JSN, QUAD FR 5 Used *[id number] 19:26 [employer] MEDICAL CATHETER, JSN, QUAD FR 5 Used *[id number] 19:26 [employer] MEDICAL CATHETER, JSN, QUAD FR 5 Used *[id number] 19:23 [employer] MEDICAL ELECTRODE KIT, YOGESH X SURFACE * [id number] Used [id number] 19:26 [employer] MEDICAL SHEATH, EPS, FR5 FAST CATH FR 5 Used *[id number] 19:26 [employer] MEDICAL SHEATH, EPS, FR5 FAST CATH FR 5 Used *[id number] 19:26 [employer] MEDICAL SHEATH, EPS, FR6 FAST CATH FR [id number] 19:26 [employer] MEDICAL SHEATH, EPS, FR8 FAST CATH FR 8 [id number] Used [facility] P[facility], ELECTROSURGICAL 19:23 * [id number] *[id number] Used SURGICAL GROUNDING (BLUE) History: Allergies Allergy Reaction No Known Allergies History: Risk Factors Hypertension Dyslipidemia Previous MO Yes Yes Yes Prior Valve Prior PCI Prior CABG Surgery No No Yes On Dialysis No Labs Hgb (g/dl) Hct (%) WBC (l/cumm) Platelets (thousands) 11.60-17.00 35.00-51.00 4.00-11.00 150.00-450.00 9.4 28.5 9.7 280 Glucose (mg/dl) BUN (mg/dl) Creatinine (mg/dl) BUN:Creatinine (1:x) 74.00-106.00 7.00-18.00 0.50-1.30 10.00-20.00 86 12 0.6 20 Na (meq/l) K (meq/l) 136.00-145.00 3.50-5.10 133 3.8 INR (PTT:PT) 0.90-1.10 1 CPK-MB (ng/ML) 0.50-3.60 Not Drawn Medication Medication Total Dose (Bolus/Oral) Medication Total Dosage/Unit 1% XYLOCAINE 20 mL Medications (Bolus/Oral) Medication Time Given Dosage/Unit Administered By Reason 1% XYLOCAINE 07/08/2017 8:16:59 PM 20 mL Tanesha Becker 20 mL 1% XYLOCAINE given in lab by Tanesha Becker in Left Groin via Subcutaneous. Ordered by Modesto Becker. Medication (Drip) Medication Time Given Dosage/Unit Concentration/Unit Diluent (ml) Solution ISUPREL 07/08/2017 8:33:52 PM 5 mcg/min 1 mg 250 NaCl .9 5 mcg/min ISUPREL given in lab by Tanesha Becker via Peripheral IV. Pump/Drip Flow = 75 ml/hr using Na Cl .9 with a concentration of 1 mg in 250 ml. Ordered by Tanesha Becker. Initial Case Assessment Cardiovascular HR Rhythm NIBP Chest Pain 131 A-FIB 92/55 0 Edema Present Skin color Skin None Normal Warm Dry Circulatory - Right Pulses Dorsalis Pedis Posterior Tibial Femoral 1 1 1 Scale (0,1,2,3,4,d) Circulatory - Left Pulses Dorsalis Pedis Posterior Tibial Femoral 1 1 1 Scale (0,1,2,3,4,d) Circulatory - Lower Extremities Color Lower Right Color Lower Left Normal Normal Neurological State Oriented to time-place- Alert Moves all extremities person Respiration - General Respiration Rate SpO2 (%) (B/min) 14 100 Final Case Assessment Cardiovascular HR Rhythm NIBP Chest Pain 80 paced 112/56 0 Edema Present Skin color Skin None Normal Warm Dry Circulatory - Right Pulses Dorsalis Pedis Posterior Tibial Femoral 1 1 1 Scale (0,1,2,3,4,d) Circulatory - Left Pulses Dorsalis Pedis Posterior Tibial Femoral 1 1 1 Scale (0,1,2,3,4,d) Circulatory - Lower Extremities Color Lower Right Color Lower Left Normal Normal Neurological State Oriented to time-place- Alert Moves all extremities person Respiration - General Respiration Rate SpO2 (%) O2 (lpm) (B/min) 14 100 4 Chronological Log Time Study Chronological Log 19:45:13 Patient arrived via Bed. 19:55:19 Patient Name, D.O.B, / Armband Verified By R.N. 19:55:20 Consent signed by the physician and the patient and verified by the [employer]rent[employer] staff. 19:55:21 Pre-op and post- op instructions given; patient acknowledges understanding of instructions. 19:55:23 Anesthesia at bedside. Assumes care of patient.evy fowler 19:56:50 Patient has been NPO for More than 6Hrs. 19:56:52 Skin Breakdown-Large Hemtoma and bruising in pts right groin. Hematoma borders marked. Dr Aline cheung aware. 19:56:53 Patient Warmer Placed on the Table. 19:56:55 Disposable Defibrillator Pads Placed On Patient. 19:57:00 Verna Prominences Protected 19:57:10 A # 20 IV was noted in the Antecubital (right). Grade = 0 0.9NS infusing at KVO 19:57:20 A # 20 IV was noted in the Forearm (left). Grade = 0 0.9NS infusing at KVO 19:58:00 History and physical on the chart or being dictated. 19:59:30 Pacemaker VVI setting to [address] Assessment: Initial Case, JF=314 BPM, Rhythm=A-FIB, NIBP=92/55 mmhg, Chest Pain=0, Edema=None, Color=Normal, Skin = Warm, Dry Right Pulses: Piter Ped=1, Post Tib=1, Femoral=1 Left Pulses: Piter Ped=1, Post Tib=1, Femoral=1 20:12:24 Lower Right Extremities: Color=Normal Lower Left Extremities: Color=Normal Neurological: State=Alert, Ox3, NEGRETE Respiration: Resp=14 B/min, AnG4=926 % 20:13:16 Table restraints applied according to hospital policy 20:13:19 Bilateral groins prepped with 2% chlorhexidine, and with a 3 min. waiting time. 20:13:24 MD paged 20:14:23 MD arrived. Time Out. Correct patient, procedure, procedure equipment, site and side verified with physicia n present. Time 20:16:52 concurred by MD, individual staff and HURL SHAKER. Time Out #2 - Consents verified, patient in correct position, all results are labled and displa yed, safety precautions 20:16:54 taken, antibiotics administered. Time out concurred by MD, individual staff and HURL SHAKER in procedu re 20:16:56 Case Start 20:16:59 20 mL 1% XYLOCAINE given in lab by Tanesha Becker in Left Groin via Subcutaneous. Ordered by Tanesha Becker. 20:17:17 Vascular access was obtained in the Fem Vein (left). 20:17:22 A SHEATH, EPS, FR5 FAST CATH FR 5 was advanced into the Fem Vein (left) using the Modified Seldinger technique. 20:17:27 A SHEATH, EPS, FR6 FAST CATH FR 6 was advanced into the Fem Vein (left) using the Modified Seldinger technique. 20:18:21 A SHEATH, EPS, FR8 FAST CATH FR 8 was advanced into the Fem Vein (left) using the Modified Seldinger technique. A CATHETER, JSN, QUAD FR 5 was advanced vis Fem Vein (left) and placed in the CS. Placement was visually 20:22:27 confirmed under fluoroscopy. A CATHETER, JSN, QUAD FR 5 was advanced vis Fem Vein (left) and placed in the HIS. Placement wa s visually 20:23:22 confirmed under fluoroscopy. A CATHETER, CELSIUS DS, 8MM, F TYPE QUAD FR 7 was advanced vis Fem Vein (left) and placed in th e AV NODE. 20:25:21 Placement was visually confirmed under fluoroscopy. 20:26:04 RF Ablation of the AV NODE with a CATHETER, CELSIUS DS, 8MM, F TYPE QUAD FR 7. 20:30:00 Ablation complete 5 mcg/min ISUPREL given in lab by Tanesha Becker via Peripheral IV. Pump/Drip Flow = 75 ml/hr us ing NaCl .9 with a 20:33:52 concentration of 1 mg in 250 ml. Ordered by Tanesha Becker. 20:42:47 ISUPREL discontinued per 20:43:00 Pacemaker VVI setting to [address] 20:44:40 Case End 20:44:45 Catheter(s) removed without difficulty 20:46:02 Sheath removed from left femoral vein by Keyshawn Kennedy; pressure applied to access site. 20:48:22 No case complications noted. 20:48:23 Cine recording checked. 20:48:26 [facility]IC called. Spoke to Timbo 20:48:37 Bedside Report will be given. 20:49:32 Verbal Stimulation=2 Physical Stimulation=2 Airway=2 Respiration=2 TOTAL=8. (0=absent, 1=li mited, 2=present) Assessment: Final Case, HR=80 BPM, Rhythm=paced, GQWN=402/56 mmhg, Chest Pain=0, Edema=None, Color=Normal, Skin = Warm, Dry Right Pulses: Piter Ped=1, Post Tib=1, Femoral=1 Left Pulses: Piter Ped=1, Post Tib=1, Femoral=1 20:49:43 Lower Right Extremities: Color=Normal Lower Left Extremities: Color=Normal Neurological: State=Alert, Ox3, NEGRETE Respiration: Resp=14 B/min, ZzB9=704 %, O2=4 lpm 21:00:17 Sterile dressing applied to site 21:00:22 Defibrillator and ground pads removed. Skin intact. 21:03:48 Patient moved to [facility] End Study - Contrast Media Used In Study Contrast Total Opened (mL) Total Used (mL) Total Wasted (mL) Unspecified 0 0 0 End Study - Maximum Contrast Load Max Contrast Load (mL) 227.3 End Study - Radiation Exposure Fluoro Time (minutes) 2.6 End Study - Sheaths Sheaths Pulled By Sheath Hold Time (min) Keyshawn Kennedy 15 End Study - Patient Disposition Complications Transferred To Interventional Outcome No Telemetry Bed successful
[2017-07-09] VITALS (21 sets, daily range): BP systolic 103–141; BP diastolic 43–68; PULSE 79–92; RESP 16–18; TEMP 97.8–98.5; O2SAT 97–98
[2017-07-09] MEDS: RESP: IPRATROPIUM 0.5 MG/2.5 ML NEB NEB SCH ×3 (03:01→15:01)
[2017-07-09] MEDS: LEVOTHYROXINE SODIUM 25 MCG TAB PO SCH (05:40)
[2017-07-09] MEDS: LEVOTHYROXINE SODIUM 112 MCG TAB PO SCH (05:40)
[2017-07-09] MEDS: INSULIN NovoLIN REGULAR SUPPLEMENTAL SCALE SQ SCH ×2 (05:40→11:00)
[2017-07-09 07:30] LABS: BICARBONATE 32.3 MEQ/L (21.0-32.0)
[2017-07-09] MEDS: SODIUM CHLORIDE 0.9% FLUSH 10 ML FLUSH IV FLUSH SCH (08:08)
[2017-07-09] MEDS: PANTOPRAZOLE SOD 40 MG DELAYED RELEASE TAB PO SCH (08:09)
[2017-07-09] MEDS: ESCITALOPRAM OXALATE 10 MG TAB PO SCH (08:09)
[2017-07-09] MEDS: CYANOCOBALAMIN 1,000 MCG TAB PO SCH (08:09)
[2017-07-09] MEDS: DOCUSATE SODIUM 50 MG/SENNA 8.6 MG TAB PO SCH (08:09)
[2017-07-09] MEDS: APIXABAN 2.5 MG TABLET PO SCH (08:09)
[2017-07-09] MEDS: MODAFINIL 200 MG TAB PO SCH (08:09)
[2017-07-09] MEDS: SODIUM CHLORIDE 0.9% FLUSH 10 ML FLUSH IVF SCH (08:10)
[2017-07-09] MEDS ORDERED: MODA200T12 PO (13:17)
[2017-07-09] MEDS ORDERED: APIX2.5T PO (13:17)
--- NOTE | 2017-07-09 13:19 | HHI.DCPOC ---
Discharge Care Plan Diagnosis: (1) Atrial fibrillation with RVR (2) Respiratory distress (3) Hypotension (4) Encephalopathy Goals to Promote Your Health * To prevent worsening of your condition and complications * To maintain your health at the optimal level Directions to Meet Your Goals Take your medications as prescribed Follow your dietary instruction Follow activity as directed Keep your appointments as scheduled Take your immunizations and boosters as scheduled If your symptoms worsen call your PCP, if no PCP go to Urgent Care Center or Emergency Room Smoking is Dangerous to Your Health. Avoid second hand smoke Call the 24-hour hour crisis hotline for domestic abuse at Nikhil Alanis DO Jul 09, 2017 13:19
--- NOTE | 2017-07-09 13:30 | HHI.DS ---
Discharge Summary Admission Date Jun 16, 2017 at 14:35 Discharge Date: Jul 09, 2017 Admitting Diagnosis atrial fibrillation with RVR, respiratory distress, hyponatremia (1) Non-small cell carcinoma of lung ICD Code: C34.90 Diagnosis: Principal (2) Atrial fibrillation with RVR ICD Code: I48.91 Diagnosis: Principal (3) Acute respiratory failure with hypoxia and hypercapnia ICD Code: J96.01 Diagnosis: Principal (4) Tachycardia ICD Code: R00.0 Diagnosis: Principal (5) SOB (shortness of breath) ICD Code: R06.02 Diagnosis: Principal (6) PNA (pneumonia) ICD Code: J18.9 Diagnosis: Principal (7) Coronary artery disease ICD Code: I25.10 Diagnosis: Principal (8) Hypertension ICD Code: I10 Diagnosis: Principal (9) Hypothyroidism ICD Code: E03.9 Diagnosis: Principal (10) Leukocytosis ICD Code: D72.829 Diagnosis: Principal (11) Normocytic anemia ICD Code: D64.9 Diagnosis: Principal (12) Lactic acidosis ICD Code: E87.2 Diagnosis: Principal (13) On apixaban therapy ICD Code: Z79.01 Diagnosis: Principal (14) Hyponatremia ICD Code: E87.1 Diagnosis: Principal (15) Hyperkalemia ICD Code: E87.5 Diagnosis: Principal (16) Acute hyperglycemia ICD Code: R73.9 Diagnosis: Principal (17) Elevated INR ICD Code: R79.1 Diagnosis: Principal (18) Elevated partial thromboplastin time (PTT) ICD Code: R79.1 Diagnosis: Principal (19) Vitamin B12 deficiency ICD Code: E53.8 Diagnosis: Principal (20) Anxiety disorder ICD Code: F41.9 Diagnosis: Principal (21) Current chronic use of systemic steroids ICD Code: Z79.52 Diagnosis: Principal (22) Elevated brain natriuretic peptide (BNP) level ICD Code: R79.89 Diagnosis: Principal (23) Right bundle branch block ICD Code: I45.10 Diagnosis: Principal (24) Elevated troponin I level ICD Code: R74.8 Diagnosis: Principal (25) Septic shock ICD Code: A41.9 Diagnosis: Principal Procedures 06/16/17 intubation 06/16/17 central line placement Brief History - From Admission 86-year-old female. Data admission 06/16/2017. Past medical history includes non-small cell carcinoma lung status post right human echo, coronary disease status post CABG 4, hypertension, dyslipidemia, hypothyroidism, atrial fibrillation, osteoarthritis. Patient sees Dr. Lemos and recently refused a pacemaker. She is also recently hospitalized at [facility] in early May with pneumonia 4 days. Negative etiology for shortness of breath and patient was sent home. She has been short of breath in the interim. She presents today to the emergency department at [facility] via [facility] for respiratory distress. Intubation was attempted in the field due to a saturation of 60% and a heart rate of 150 however unable to obtain IV or I/O access. Patient was intubated with a 7.5 ET tube@receiving 20 mg etomidate and 100 mg succinylcholine after receiving IV access Laboratories revealed a significant acidosis at the PEG 727. PCO2 46. PO2 262. Lactic acid was 5.3. General leukocytosis of 14,000. Sodium was 126 for potassium 5.3. Creatinine 1.2. BNP elevated at 1600. Troponin 0.09. EKG revealed A. fib with RVR with a right bundle branch block which appears to be new. His x-ray revealed status post right pneumonectomy. Small left pleural effusion/infiltrate. Digoxin level 0.4. She is awake and arousable on the ventilator the present time. CBC/BMP: 07/07/17 0455 07/09/17 0555 Significant Findings Laboratory Tests Test 07/07/17 07/09/17 04:55 05:55 Red Blood Count 3.09 MIL/MM3 (4.00-5.30) Hemoglobin 9.4 GM/DL (11.6-15.3) Hematocrit 28.5 % (35.0-46.0) Sodium Level 135 MEQ/L (136-145) Carbon Dioxide Level 32.3 MEQ/L (21.0-32.0) Estimat Glomerular Filtration 88 ML/MIN (>89) Rate Calcium Level 8.2 MG/DL (8.5-10.1) Imaging Last Impressions Lower Extremity Ultrasound 07/05/17 0000 Signed Impressions: Service Date/Time: Wednesday, July 05, 2017 15:39 - CONCLUSION: 1. 7.1 x 8.5 x 3.1 cm hematoma in the right thigh near the groin. No evidence for pseudoaneurysm. Chavez Sr MD Chest X-Ray 07/03/17 0600 Signed Impressions: Service Date/Time: Monday, July 03, 2017 04:43 - CONCLUSION: 1. Right pneumonectomy 2. There is subsegmental atelectasis in the left base. No pleural effusions are identified. Cristobal Ramírez MD Head CT 06/18/17 0000 Signed Impressions: Service Date/Time: May 01:02 - CONCLUSION: Normal examination for a patient of this age. Chronic left maxillary sinus disease. Kvng Saldana MD PE at Discharge GENERAL: Patient appears tired. No apparent distress. SKIN: Warm and dry. Hematoma along the right groin, induration noted, nontender. HEAD: Normocephalic. EYES: No scleral icterus. No injection or drainage. NECK: Supple, trachea midline. No JVD or lymphadenopathy. CARDIOVASCULAR: Tachycardic, irregularly irregular. RESPIRATORY: Breath sounds equal bilaterally. No accessory muscle use. GASTROINTESTINAL: Abdomen soft, non-tender, nondistended. MUSCULOSKELETAL: No cyanosis, or edema. BACK: Nontender without obvious deformity. No CVA tenderness. NEURO: No gross deficits. PSYCH: Flattened affect. Hospital Course Atrial fibrillation with RVR Cardiology was consulted. She was monitored on telemetry. She was continued on digoxin, Lopressor and Cardizem. Rate remain elevated. Pacemaker placed 07/02. The pt had an ablation 07/08/17 and her heart rate has since been controlled. She will continue Eliquis. She will follow up with cardiology as an outpt. Acute hypoxic and hypercapnic respiratory failure Patient had healthcare associated pneumonia and completed a course of antibiotics. Echo with EF 35-40%. She was intubated on 06/16/17. She was extubated and is now tolerating room air. Pulmonary was consulted. She was continued on bronchodilators and incentive spirometry. She received oxygen and BiPAP as needed. She completed a prednisone taper. She will follow up with pulmonology as an outpt. Acute metabolic encephalopathy Secondary to above. Per family, patient developed significant confusion following her time on the ventilator. She worked with PT/OT/ST. She required tube feeds for a while. She was started on Provigil. Her symptoms continued to improve. Hematoma Along right groin following pacemaker placement. Nontender to palpation. US: 7.1 x 8.5 x 3.1 cm hematoma in the right thigh near the groin; No evidence for pseudoaneurysm. CBC remained stable. The hematoma gradually improved. Hypotension Exacerbated by multiple rate control medications. She received normal saline as needed. Staph hominis bacteremia Thought to be contaminant as other cultures were negative. Pt Condition on Discharge: Stable Discharge Disposition: Disch w/ Home Health Serv Discharge Time: > 30 minutes Discharge Instructions Follow up Referrals: Cardiology - 2 Weeks with Tanesha Becker MD PCP Follow-up - 1 Week Pulmonology - 1 Week with Corey Epps MD New Medications: Apixaban (Eliquis) 2.5 Mg Tab 2.5 MG PO BID A fib #60 TAB Modafinil (Modafinil) 200 Mg Tab 100 MG PO DAILY Alertness #30 TAB Continued Medications: Albuterol Neb (Albuterol Neb) 2.5 Mg/3 Ml Neb 2.5 MG NEB ONCE Shortness Of Breath #1 Ref 0 NEBULE Cyanocobalamin (Vitamin B-12) 1,000 Mcg Tab 1000 MCG PO DAILY Nutritional Supplement #1 Ref 0 BOTTLE Escitalopram (Escitalopram) 10 Mg Tab 10 MG PO DAILY #30 Ref 0 TAB Ipratropium HFA 12.9 GM Inh (Atrovent HFA 12.9 GM Inh) 17 Mcg/Act Aer 2 PUFF INH Q6HR PRN SHORTNESS OF BREATH #1 Ref 0 INHALER Levothyroxine (Levothyroxine) 137 Mcg Tab 137 MCG PO DAILY Thyroid #30 Ref 0 TAB Discontinued Medications: Apixaban (Eliquis) 5 Mg Tab 5 MG PO BID Blood Clot Prevention #60 Ref 0 TAB Digoxin (Digoxin) 0.125 Mg Tab 0.125 MG PO EVERY OTHER DAY Regulate Heart Beat #30 Ref 0 TAB Metoprolol Tartrate (Metoprolol Tartrate) 25 Mg Tab 12.5 MG PO BID #60 Ref 0 TAB Potassium Chloride ER (K-Tab) 10 Meq Tab 10 MEQ PO DAILY Electrolyte Replacement #30 Ref 0 TAB Prednisone (Prednisone) 5 Mg Tab 5 MG PO DAILY Ref 0 TAB Nikhil Alanis DO Jul 09, 2017 13:30
--- NOTE | 2017-07-09 13:54 | HHI.PR ---
Subjective Remarks Feeling better, no palpitation Objective Vital Signs Date Time Temp Pulse Resp B/P Pulse Ox O2 Delivery O2 Flow Rate FiO2 07/09/17 12:00 80 07/09/17 11:40 97.8 80 16 103/43 98 07/09/17 11:00 92 07/09/17 10:00 79 07/09/17 09:19 98 07/09/17 09:00 80 07/09/17 08:05 80 07/09/17 08:00 80 07/09/17 07:57 98.4 80 16 117/57 98 07/09/17 07:00 80 07/09/17 06:00 80 07/09/17 05:00 80 07/09/17 04:00 80 07/09/17 03:01 98.5 80 18 141/68 98 07/09/17 03:00 80 07/09/17 02:00 80 07/09/17 01:00 80 07/09/17 00:00 80 07/08/17 23:30 98.5 80 18 130/63 98 07/08/17 23:00 80 07/08/17 22:00 80 07/08/17 21:50 93 21 07/08/17 21:14 98.4 80 18 124/65 98 07/08/17 18:11 132 07/08/17 17:00 118 07/08/17 16:02 121 07/08/17 15:00 121 07/08/17 15:00 98.8 134 18 82/54 98 07/08/17 14:10 94/51 07/08/17 14:10 120 I/O 07/08/17 07/08/17 07/08/17 07/09/17 07/09/17 07/09/17 07:00 15:00 23:00 07:00 15:00 23:00 Intake Total 960 ml 240 ml Output Total 350 ml 400 ml Balance 610 ml -160 ml Intake Oral 960 ml 240 ml Output Urine Total 350 ml 400 ml Result Diagram: 07/07/17 0455 07/09/17 0555 Imaging Alert, fully oriented Lungs: ventilated Heart: S1, S2 regular, no gallop Abdomen: soft, no mass Ext: no edema Current Medications Medications (Trade) Dose Ordered Sig/Amanda Route Start Time Stop Time Status Last Admin (NS Flush) 2 ml UNSCH PRN IV FLUSH 06/16/17 15:30 06/29/17 18:45 (NS Flush) 2 ml BID IV FLUSH 06/16/17 21:00 07/09/17 08:08 (Tylenol) 650 mg Q6H PRN PO 06/16/17 15:30 Miscellaneous Information 1 Q361D XX 06/16/17 15:30 06/16/17 15:30 (Milk Of Magnesia Liq) 30 ml Q12H PRN PO 06/16/17 15:30 07/09/17 08:09 (Senokot) 17.2 mg Q12H PRN PO 06/16/17 15:30 06/20/17 20:13 (Dulcolax Supp) 10 mg DAILY PRN RECTAL 06/16/17 15:30 07/03/17 11:50 (Lactulose Liq) 30 ml DAILY PRN PO 06/16/17 15:30 06/26/17 09:04 (Vitamin B12) 1,000 mcg DAILY PO 06/17/17 09:00 07/09/17 08:09 (Lexapro) 10 mg DAILY PO 06/17/17 09:00 07/09/17 08:09 (Synthroid) 112 mcg DAILY@06 PO 06/17/17 06:00 07/09/17 05:40 (NS Flush) DAILY IVF 06/17/17 09:00 07/05/17 09:44 (NS Flush) UNSCH PRN IVF 06/16/17 16:00 (Synthroid) 25 mcg DAILY@06 PO 06/17/17 06:00 07/09/17 05:40 (D50w (Vial) Inj) 50 ml UNSCH PRN IV 06/20/17 17:00 (Glucagon Inj) 1 mg UNSCH PRN OTHER 06/20/17 17:00 (Provigil) 100 mg DAILY PO 06/24/17 09:00 07/09/17 08:09 (Lopressor Inj) 2.5 mg Q6H PRN IV PUSH 06/26/17 11:00 06/29/17 18:44 (Protonix) 40 mg DAILY PO 06/30/17 09:00 07/09/17 08:09 (Eliquis) 2.5 mg BID PO 07/02/17 11:00 07/09/17 08:09 (Reglan Inj) 10 mg Q4H PRN IV 07/02/17 08:45 (NovoLIN R SUPPLEMENTAL SCALE) 1 ACHS SQ 07/03/17 16:00 07/09/17 11:00 (Aiyana-Colace) 1 tab BID PO 07/03/17 21:00 07/09/17 08:09 (Ativan Inj) 0.5 mg UNSCH PRN IV 07/08/17 20:45 07/09/17 20:44 Atropine Sulfate 0.5 mg 0.5 mg UNSCH PRN IV 07/08/17 20:45 (NS 250 ml Inj) 250 ml @ 500 mls/hr ONCE PRN IV 07/08/17 20:45 07/09/17 20:44 (Reglan Inj) 10 mg Q4H PRN IV 07/08/17 20:45 (Zofran Inj) 4 mg Q4H PRN IV 07/08/17 20:45 (Xylocaine 1% Inj (50 ml)) 10 ml UNSCH PRN INFIL 07/08/17 20:45 07/09/17 20:44 Assessment and Plan Problem List: (1) Atrial fibrillation Status: Acute Plan: SP AV node ablation V pacing Regular Meds modified. Can be DH Follow up in 3 weeks (2) Tachycardia Status: Acute Plan: HR control (3) SOB (shortness of breath) Status: Acute Plan: Improving Tanesha Becker MD Jul 09, 2017 13:53
--- NOTE | 2017-07-09 14:01 | HHI.FF ---
Face to Face Verification Diagnosis: (1) Hypotension (2) Encephalopathy (3) Respiratory distress (4) Atrial fibrillation with RVR (5) On apixaban therapy (6) Hypothyroidism Physical Therapy Order: Evaluate and Treat, Improve ambulation, Strength and gait training Home Health Nursing Order: Medical education Signs/symptoms of disease process CHF education Medication education-adverse effect Nursing assessment with vital signs I have seen patient Shanell Shaikh on 07/09/17. My clinical findings support the need for the requested home health care services because: Ltd mobility - disease progression Patient has SOB Deconditioned w/ increased weakness Med compliance is questionable Limited ability to care for self Need for psychosocial assistance Impaired cognition/judgement High risk of falls I certify that my clinical findings support that this patient is homebound because: Post-op weakness Impaired cognitive ability/safety Unsteady gait/balance Unsafe to leave home unassisted Need for psychosocial assistance Poor cardiac reserve Nikhil Alanis DO Jul 09, 2017 14:01
--- NOTE | 2017-07-09 15:05 | EKG ---
Date Performed: 07/09/2017 Time Performed: 03:36:12 PTAGE: 86 years EKG: Underlying rhythm is atrial fibrillation with 100 percent ventricular Pacing. Since previou s tracing, no significant change noted Abnormal ECG PREVIOUS TRACING : 07/08/2017 21.30 DOCTOR: Santos Lemos Interpretating Date/Time 07/09/2017 15:05:02
--- NOTE | 2017-07-09 15:07 | EKG ---
Date Performed: 07/08/2017 Time Performed: 21:30:00 PTAGE: 86 years EKG: Underlying rhythm is atrial fibrillation with 100 percent ventricular Pacing. When compared to previous tracing, the atrial fibrillation is new. Abnormal ECG PREVIOUS TRACING : 07/02/2017 09.40 DOCTOR: Santos Lemos Interpretating Date/Time 07/09/2017 15:06:31
--- NOTE | 2017-07-09 15:52 | MA ---
cc: NESSA EWING M.D. DATE: 07/08/2017 PROCEDURE PERFORMED Electrophysiology study, CS cannulation, 3-D mapping, radiofrequency ablation of AV node, single chamber permanent pacemaker reprogramming, repeat electrophysiology study on Isuprel infusion. INDICATION Mrs. Shaikh is a 86-year-old female with atrial fibrillation, previous permanent pacemaker inserted, not a good candidate for atrial fibrillation ablation, frail, heart rate cannot be controlled despite on three to four medications, who will undergo electrophysiology study and AV node modification and device reprogramming. The patient has a Micra. The risks, the nature and the benefit of the procedure are clearly stated to her. The risks include pneumothorax, cardiac perforation, stroke, need for open heart surgery and even . The patient understood and agreed to proceed. PROCEDURE After written informed consent was obtained, the patient was brought to the EP lab where she was prepped and draped in the usual sterile fashion. Conscious sedation was initiated and maintained throughout the procedure by anesthesiologist. Once sedation was verified, the left inguinal area was anesthetized with 2% Xylocaine. Using modified Seldinger technique, the left femoral vein was cannulated on three occasions, three guidewires were advanced. Over the wire a 6, 5 and 8-Sudanese Hemaquet were advanced. Then under fluoroscopic guidance through the 5 and 6-Sudanese Hemaquet, two 5-Sudanese Jayesh curved quadripolar electrophysiology catheters were advanced and placed around the coronary sinus and the His. The His catheter was advanced at the right ventricular apex for pacing and subsequently pulled back. Then the permanent pacemaker was reprogrammed VVI 40. Then through the 8-Sudanese Hemaquet, a Cordis Mendieta F curve 8 mm mapping radiofrequency ablation catheter was advanced. Using [employer] endocardial solution mapping system a three-dimensional configuration of the right atrium was obtained. Then the catheter was placed at the tricuspid valve annulus ____ radiofrequency energy was delivered on multiple occasions. The patient went in junctional then in VVI 40 pacing. Further burn was delivered in the area. Then Isuprel infusion was initiated. There was a junctional at around 40-45 on Isuprel. At that point the procedure was complete and the pacemaker was reprogrammed to VVIR 80, upper rate 100 beats per minute. The patient is going to be transferred to the recovery room. No incident report. The patient tolerated the procedure. Blood loss was minimal. 1. Electrocardiogram. At baseline the patient was in atrial fibrillation for ventricular response. Postprocedure the patient is sinus rhythm. 2. Basic interval. Base cycle length was around 410 milliseconds. 3. Tachyarrhythmia. AV node was mapped and ablated. Ablation was successful. CONCLUSION Successful electrophysiology study, mapping, radiofrequency ablation of AV node, successful permanent pacemaker reprogramming, repeat electrophysiology study on Isuprel infusion. COMMENT AND RECOMMENDATION The patient is going to be transferred to the recovery room. Can be discharged home whenever it is okay with the managing team. MD DERIC Redman/JUANY /2:26 PM /3:27 PM
== END 2017-07-09 15:40 | disposition home or self-care (01) | DRG 853 ==
LOC: PHED 12:39 → PHEDA 14:35 → PHICU 15:05 → HCIS 06-30 07:19 → HCIN 07-01 18:21
PROVIDERS: ADMIT Hospitalist; ATTEND Hospitalist
PROC: 0BH17EZ Insertion of Endotracheal Airway into Trachea, Via Natural or Artificial Opening (ICD-10-PCS; principal; 2017-06-16)
PROC: 5A1955Z Respiratory Ventilation, Greater than 96 Consecutive Hours (ICD-10-PCS; 2017-06-16)
PROC: 02HV33Z Insertion of Infusion Device into Superior Vena Cava, Percutaneous Approach (ICD-10-PCS; 2017-06-16)
PROC: 0JH604Z Insertion of Pacemaker, Single Chamber into Chest Subcutaneous Tissue and Fascia, Open Approach (ICD-10-PCS; 2017-07-02)
PROC: 02HK3JZ Insertion of Pacemaker Lead into Right Ventricle, Percutaneous Approach (ICD-10-PCS; 2017-07-02)
PROC: 02583ZZ Destruction of Conduction Mechanism, Percutaneous Approach (ICD-10-PCS; 2017-07-09)
PROC: 4A023FZ Measurement of Cardiac Rhythm, Percutaneous Approach (ICD-10-PCS; 2017-07-09)
DX: A41.9 Sepsis, unspecified organism (principal); J96.01 Acute respiratory failure with hypoxia; R65.21 Severe sepsis with septic shock; J18.9 Pneumonia, unspecified organism; E43 Unspecified severe protein-calorie malnutrition; G93.41 Metabolic encephalopathy; N17.9 Acute kidney failure, unspecified; J44.0 Chronic obstructive pulmonary disease with (acute) lower respiratory infection; I11.0 Hypertensive heart disease with heart failure; I50.9 Heart failure, unspecified; E87.2 Acidosis; I45.2 Bifascicular block; E87.1 Hypo-osmolality and hyponatremia; I48.91 Unspecified atrial fibrillation; E78.5 Hyperlipidemia, unspecified; I25.10 Atherosclerotic heart disease of native coronary artery without angina pectoris; E03.9 Hypothyroidism, unspecified; D64.9 Anemia, unspecified; E87.5 Hyperkalemia; E53.8 Deficiency of other specified B group vitamins; F41.9 Anxiety disorder, unspecified; R73.9 Hyperglycemia, unspecified; M19.90 Unspecified osteoarthritis, unspecified site; E87.6 Hypokalemia; K59.00 Constipation, unspecified; R13.10 Dysphagia, unspecified; I08.0 Rheumatic disorders of both mitral and aortic valves; I49.5 Sick sinus syndrome; Z99.81 Dependence on supplemental oxygen; Z79.52 Long term (current) use of systemic steroids; Z95.1 Presence of aortocoronary bypass graft; Z85.118 Personal history of other malignant neoplasm of bronchus and lung
CPT/HCPCS: 36556; 36600; 51702; 70450; 71010; 76937; 80048; 80053; 80061; 80162; 80202; 81001; 82140; 82533; 82550; 82607; 82805; 82948; 83605; 83735; 83880; 83930; 83935; 84100; 84132; 84300; 84443; 84484; 84550; 85025; 85027; 85379; 85384; 85610; 85730; 87040; 87070; 87077; 87186; 87205; 87449; 87641; 87804; 93005; 93306; 93620; 93623; 93650; 93926; 94002; 94003; 94150; 94640; 94664; 94668; 95819; 96374; 96375; C1730; C1732; C2630; C9113; J0330; J0456; J0692; J1160; J1644; J1650; J1815; J1940; J2060; J2250; J2370; J2405; J2720; J2920; J3010; J3370; J3475; J3480; J7030; J7042; J7050; J7060; J7512; J7608; J7613; J7644